=== PATIENT | male | born 1960 | race Caucasian/White ===

== ENCOUNTER 2019-04-28 09:08 | Emergency (ER) | payer MEDICARE ==
--- NOTE | 2019-04-28 09:51 | ER Document Report ---
HPI - HPI Time Seen by Provider: 04/28/19 09:50 Pain Level: 5 Notes: 58-year-old male presents to the ED for complaints of right rib pain that has been approximately 3 days ago while he was moving a recliner, states there is he fell into the recliner. Denies any head trauma or change in level consciousness. Reports that he has pain with taking breaths in and out on the right side only, point tenderness on the lateral side of his ribs. Has tried [id number] ibuprofen and Tylenol without full relief. Denies any other area of injury. Denies fevers, chills, chest pain,palpitations, shortness of breath, dyspnea, nausea, vomiting, diarrhea, abdominal pain, hematuria,blurred vision, double vision, loss of vision, speech changes, LH, dizziness, syncope, headaches, wheezing, ST, URI, neck pain, weakness, bowel or bladder dysfunction, saddle anesthesia, numbness or tingling in bilateral upper or lower extremities equally, muscle paralysis, weakness in bilateral upper or lower extremities equally or rash. Past Medical History - General Information source: Patient - Social History Smoking Status: Unknown if Ever Smoked Family History: Reviewed & Not Pertinent Vertical Provider Document - CONSTITUTIONAL Agree With Documented VS: Yes Notes: PHYSICAL EXAMINATION: GENERAL: Well-appearing, well-nourished and in no acute distress. HEAD: Atraumatic, normocephalic. EYES: Pupils equal round and reactive to light, extraocular movements intact, sclera anicteric, conjunctiva are normal. ENT: Nares patent, oropharynx clear without exudates. Moist mucous membranes. NECK: Normal range of motion, supple without lymphadenopathy LUNGS: Breath sounds clear to auscultation bilaterally and equal. No wheezes rales or rhonchi. Tenderness to right intercostal space between eighth ninth 10th ribs on palpation, no step-off noted, no ecchymosis visualized. HEART: Regular rate and rhythm without murmurs ABDOMEN: Soft, nontender, nondistended abdomen. No guarding, no rebound. No masses appreciated. No CVA tenderness bilaterally Musculoskeletal: Normal range of motion, no pitting or edema. No cyanosis. NEUROLOGICAL: Cranial nerves grossly intact. Normal speech, normal gait. Normal sensory, motor exams PSYCH: Normal mood, normal affect. SKIN: Warm, Dry, normal turgor, no rashes or lesions noted. - INFECTION CONTROL TRAVEL OUTSIDE OF THE [place] IN LAST 30 DAYS: No Course - Re-evaluation Re-evalutation: 04/28/19 11:56 Patient presents after falling onto their ribs, complaining of focal pain to the affected area. No tachypnea or hypoxemia at time of arrival. Pain controlled here in the emergency department with narcotic and anti-inflammatory analgesics. Chest x-ray without evidence of acute fracture, pneumothorax or pulmonary contusion. At this time will discharge with return precautions and follow-up recommendations. Verbal discharge instructions given at the bedside and opportunity for questions given. Medication warnings reviewed. Patient is in agreement with this plan and has verbalized understanding of return precautions and the need for primary care follow-up in the next 24-72 hours. Discharge - Discharge Clinical Impression: Contusion of rib on right side Condition: Stable Disposition: HOME, SELF-CARE Instructions: Oral Narcotic Medication ([facility]), Rib Contusion ([facility]) Additional Instructions: Your chest wall pain is due to bruising of your ribs. This pain can last for up to 6 weeks. It is very important that you continue to take purposeful deep breaths. For your pain: Continue to take ibuprofen 600 mg every 6 hours or Tylenol 1000 mg every 6 hours. Apply local lidocaine to the area per bottle instructions. There is a product sold [id number] called "Aspercreme with lidocaine" that you can use for this purpose. Please follow-up with her primary care doctor in the next 2-3 days. Return to the emergency department immediately if you develop worsening shortness of breath, increased pain, begin coughing blood, pass out, or have any other symptoms that are worrisome to you. Use incentive spirometer as directed, 10 deep breaths an hour, cough at least twice an hour. Apply pressure when you are coughing or splinting to where it hurts to help relieve pain. Return immediately for any new or worsening symptoms. Follow up with primary care provider, call tomorrow to make followup appoin tment. Prescriptions: Ibuprofen [Ibu] 600 mg PO Q6HP PRN #20 tablet PRN Reason: Methocarbamol [Robaxin 500 mg Tablet] 500 mg PO QID PRN #15 tablet PRN Reason: Referrals: JULIA FLOREZ MD [Primary Care Provider] - Follow up tomorrow MIRA KNOX MD [ACTIVE STAFF] - Follow up as needed
[2019-04-28] MEDS ORDERED: KETOROLAC TROMETHAMINE 60 MG/2 ML SDV IM ONE (10:35)
--- NOTE | 2019-04-28 11:36 | RADIOLOGY REPORT (SQ) ---
EXAM DESCRIPTION: RIBS RIGHT W/PA CHEST COMPLETED DATE/TIME: 04/28/2019 11:15 am REASON FOR STUDY: rib injury COMPARISON: None. TECHNIQUE: Frontal view of the chest and additional views of the right ribs acquired. NUMBER OF VIEWS: PA chest. Three-view right rib detail LIMITATIONS: None. FINDINGS: FRONTAL CXR: No acute infiltrates or effusions. The heart and pulmonary vasculature are n ormal. No pneumothorax. RIBS: No displaced rib fractures. No lytic or blastic bony lesions. OTHER: Dorsal spondylosis. Degenerative changes at the AC joints. IMPRESSION: Normal right ribs. No acute disease. TECHNICAL DOCUMENTATION: JOB ID: [id number] 2010 [employer]- All Rights Reserved Reading location - IP/workstation name: [email or web address]
[2019-04-28] MEDS ORDERED: HYDROCODONE/ACETAMINOPHEN 5-325 MG (6 TAB/ER DISP) PO PRN (11:38)
[2019-04-28 12:11] VITALS: BP 133/80
== END 2019-04-28 12:05 | disposition home or self-care (01) ==
LOC: ER 09:08
DX: S20.211A Contusion of right front wall of thorax, initial encounter (principal); W18.30XA Fall on same level, unspecified, initial encounter; Y92.009 Unspecified place in unspecified non-institutional (private) residence as the place of occurrence of the external cause
CPT/HCPCS: 99283; 96372; 71101; J1885

== ENCOUNTER 2019-05-03 14:26 | Emergency (ER) | payer MEDICARE ==
--- NOTE | 2019-05-03 15:07 | ER Document Report ---
ED Medical Screen (RME) - General Chief Complaint: Flank Pain Stated Complaint: RIGHT SIDE AND BACK PAIN Time Seen by Provider: 05/03/19 15:01 Primary Care Provider: JULIA FLOREZ MD [Primary Care Provider] - Follow up as needed Notes: Patient is a 4-year-old male presents to the emergency department for bilateral lower extremity swelling. Patient states he was seen at this facility on April 28 for pain in his right back after furniture fell on him. Patient states he was told to follow-up with his primary care provider. States primary care provider gave him "nothing for pain." Patient states he is concerned because he continues with pain in his right side but now is also having bilateral lower extremity swelling. Patient states he does have a history of CHF is denying any chest pain but states "I am not breathing like I normally do." Although he is really denying shortness of breath. Patient is unable to explain to me what he means about him breathing not like he "normally does". GENERAL: Alert, interacts well. No acute distress. LUNGS: Clear to auscultation bilaterally, no wheezes, rales, or rhonchi. No respiratory distress. I have greeted and performed a rapid initial assessment of this patient. A comprehensive ED assessment and evaluation of the patient, analysis of test results and completion of the medical decision making process will be conducted by additional ED providers. I have specifically instructed the patient or family members with the patient to immediately return to any nursing staff should anything change in the patient's condition or with their chief complaint. This medical record was dictated with voice recognizing software. There may be grammatical, syntax errors that are unintended. TRAVEL OUTSIDE OF THE [place] IN LAST 30 DAYS: No - Related Data Allergies/Adverse Reactions: No Known Allergies Allergy (Verified 05/03/19 14:27) Past Medical History - Social History Frequency of alcohol use: None Drug Abuse: None - Past Medical History Cardiac Medical History: Reports: Hx Congestive Heart Failure, Hx Heart Attack, Hx Hypertension Endocrine Medical History: Reports: Hx Diabetes Mellitus Type 2 Renal/ Medical History: Denies: Hx Peritoneal Dialysis Past Surgical History: Reports: Hx Cardiac Catheterization Physical Exam - Vital signs Vitals: Temp Pulse Resp BP Pulse Ox 98.6 F 96 18 152/80 H 99 05/03/19 14:31 05/03/19 14:31 05/03/19 14:31 05/03/19 14:31 05/03/19 14:31 Course - Vital Signs Vital signs: Temp Pulse Resp BP Pulse Ox 98.6 F 96 18 152/80 H 99 05/03/19 14:31 05/03/19 14:31 05/03/19 14:31 05/03/19 14:31 05/03/19 14:31 Doctor's Discharge - Discharge Referrals: JULIA FLOREZ MD [Primary Care Provider] - Follow up as needed
--- NOTE | 2019-05-03 15:29 | ER Document Report ---
ED General - General Chief Complaint: Flank Pain Stated Complaint: RIGHT SIDE AND BACK PAIN Time Seen by Provider: 05/03/19 15:01 Primary Care Provider: JULIA FLOREZ MD [Primary Care Provider] - 05/07/19 Mode of Arrival: Ambulatory Information source: Patient Notes: Emanuel Salinas 58-year-old male presents emergency department with complaints of right-sided pain to the middle of his back, bilateral foot pain. He reports he fell last week when he was trying to move a recliner and landed in the dirt. He was evaluated here in the emergency department and x-rays were negative he was treated for contusion of the ribs. Patient reports that since that time is been hurting. Also reports he vomited once today, a lot. Patient is asking if he can drink fluids now, no further nausea. He is asking for something for pain. Reports he was placed on disability since he was 40-year-old's for back pain. Patient reports he was in pain management until approximately 6 months ago. He reports he violated the contract because he was hurting so bad he went to the emergency department they treated him for pain and then his pain hotel assistant general manager provider dropped him. He has to wait 6 months to get back into pain management. Reports this back pain is different. Patient reports after he was evaluated here in the emergency department for his contused rib he went to see his primary care provider because his feet have been hurting.Patient is a diabetic. His provider increased his gabapentin. Patient reports his feet still hurt. He also complains that his feet are swelling bilaterally. Denies chest pain. Denies shortness of breath. TRAVEL OUTSIDE OF THE [place] IN LAST 30 DAYS: No - HPI Onset: Last week Onset/Duration: Persistent Severity: Severe Pain Level: 5 Associated symptoms: Vomiting Exacerbated by: Denies Relieved by: Denies Similar symptoms previously: Yes Recently seen / treated by doctor: Yes - Related Data Allergies/Adverse Reactions: No Known Allergies Allergy (Verified 05/03/19 14:27) Past Medical History - General Information source: Patient - Social History Smoking Status: Former Smoker Cigarette use (# per day): No - quit13 years ago Frequency of alcohol use: None Drug Abuse: None Occupation: Disabled Lives with: Family Family History: Reviewed & Not Pertinent Patient has suicidal ideation: No Patient has homicidal ideation: No - Past Medical History Cardiac Medical History: Reports: Hx Congestive Heart Failure, Hx Heart Attack, Hx Hypertension Endocrine Medical History: Reports: Hx Diabetes Mellitus Type 2 Renal/ Medical History: Denies: Hx Peritoneal Dialysis Malignancy Medical History: Reports Hx Renal (Kidney) Cancer, Reports Hx Skin Cancer Past Surgical History: Reports: Hx Cardiac Catheterization, Hx Kidney (Renal Surgery) - right nephrectomy Review of Systems - Review of Systems Notes: Review HPI for review of systems., All other systems negative Physical Exam - Vital signs Vitals: Temp Pulse Resp BP Pulse Ox 98.6 F 96 18 152/80 H 99 05/03/19 14:31 05/03/19 14:31 05/03/19 14:31 05/03/19 14:31 05/03/19 14:31 - General General appearance: Appears well, Alert, Anxious In distress: None - HEENT Head: Normocephalic, Atraumatic Eyes: Normal, Scleral icterus Mucous membranes: Normal Neck: Normal, Supple. No: Lymphadenopathy - Respiratory Respiratory status: No respiratory distress Chest status: Nontender Breath sounds: Normal. No: Rhonchi, Wheezing Chest palpation: Normal - Cardiovascular Rhythm: Regular Heart sounds: Normal auscultation Murmur: No - Abdominal Inspection: Normal Distension: No distension Bowel sounds: Normal Tenderness: Nontender Organomegaly: No organomegaly - Back Back: Normal, Tender - No obvious deformity no swelling no erythema good distal movement and sensation. Patient complains of right middle back area pain with touch. - Extremities General upper extremity: Normal color, Normal ROM, Normal temperature General lower extremity: Tender - Reports bilateral feet tender to touch. No obvious deformities no swelling no erythema no warmth no signs of infection. Cap refill normal for age good pedal pulse, Normal color, Normal ROM, Normal temperature, Normal weight bearing - Neurological Neuro grossly intact: Yes Cognition: Normal Orientation: AAOx4 [place] Coma Scale Eye Opening: Spontaneous [place] Coma Scale Verbal: Oriented [place] Coma Scale Motor: Obeys Commands [place] Coma Scale Total: 15 Speech: Normal Sensory: Normal - Psychological Associated symptoms: Normal affect, Normal mood - Skin Skin Temperature: Warm Skin Moisture: Dry Skin Color: Normal Course - Re-evaluation Re-evalutation: 05/03/19 18:15 58-year-old male with multiple complaints presents today with complaints of bilateral feet pain due to his diabetes and neuropathy with right side of his back hurts. Patient was evaluated on April 28 for rib injury after he fell when he was trying to move a recliner. Chest x-rays were negative. Patient was instructed on contusion. He never picked up the Aspercreme. Patient reports is still hurting. Patient denies other symptoms such as chest pain, SOB, abdominal pain, fever or diarrhea but reports he vomited prior to arrival. He is not nauseated now, drinking PO fluids without problem. Patient has a history of kidney cancer and right nephrectomy patient also has a history of skin cancers, [place], CAD, CHF. CT of the chest was done right middle lobe and left lobe lower lobe ground nodularities noted with mild emphysema noted. Patient has a long history of smoking but quit 13 years ago Renal function with BUN of 27 creatinine is 1.93 and BNP of 2180. Chest x-ray and CT were negative for vascular congestion. Discussed this with patient. He reports he has had issues with his kidneys. He has a kidney doctor in [place]. He reports he has been told his renal function is not 100%. Patient was prescribed 1 5 mg hydrocodone for his back pain while here. He reports the pain has decreased from 5/5 to 4/5. Patient has a history of back pain and was recently on pain management until approximately 6 months ago. He was prescribed 7.5 mg hydrocodone 120 tabs a month. He reports he broke his contract when he went to the ED for back pain so he was disengaged from pain management. Consulted Dr. Lexus Madera regarding labs, renal function BNP, CT. Pt is safe to be discharged and follow up with his pcp on . Patient reports he has an appointment with his primary care provider on . He will be provided with a copy of his labs and his CT. He was instructed he is going to need another follow-up CT within the next 3 months. He was also instructed to discuss his kidney function with his primary care provider. Lidoderm patch will be placed on his back. If that helps we will prescribe some patches. Patient was also instructed that at this time we cannot prescribe him narcotics. Then he is to follow-up with his primary care provider or pain management for narcotics. He verbalized understanding. Dictation of this chart was performed using voice recognition software; therefore, there may be some unintended grammatical errors. 05/03/19 20:03 Laboratory 05/03/19 05/03/19 05/03/19 15:20 15:20 15:20 WBC 6.1 RBC 3.47 L Hgb 11.3 L Hct 34.0 L MCV 98 H MCH 32.4 MCHC 33.1 RDW 16.2 H Plt Count 180 Total Counted 100 Seg Neutrophils % Not Reportable Seg Neuts % (Manual) 54 Lymphocytes % Not Reportable Lymphocytes % (Manual) 34 Monocytes % Not Reportable Monocytes % (Manual) 11 Eosinophils % Not Reportable Eosinophils % (Manual) 1 Basophils % Not Reportable Basophils % (Manual) 0 Absolute Neutrophils Not Reportable Abs Neuts (Manual) 3.3 Absolute Lymphocytes Not Reportable Abs Lymphs (Manual) 2.1 Absolute Monocytes Not Reportable Abs Monocytes (Manual) 0.7 Absolute Eosinophils Not Reportable Absolute Eos (Manual) 0.1 Absolute Basophils Not Reportable Abs Basophils (Manual) 0.0 Platelet Comment ADEQUATE Polychromasia SLIGHT Poikilocytosis 1+ Anisocytosis 1+ Tear Drop Cells SLIGHT Ovalocytes 1+ Sodium 146.5 H Potassium 4.6 Chloride 117 H Carbon Dioxide 22 Anion Gap 8 BUN 27 H Creatinine 1.93 H Est GFR ( Amer) 43 L Est GFR (Non-Af Amer) 36 L Glucose 161 H Calcium 8.8 Total Bilirubin 0.4 Direct Bilirubin 0.3 Neonat Total Bilirubin Not Reportable Neonat Direct Bilirubin Not Reportable Neonat Indirect Bili Not Reportable AST 38 ALT 34 Alkaline Phosphatase 64 Troponin I < 0.012 NT-Pro-B Natriuret Pep 2180 H Total Protein 6.9 Albumin 3.8 Urine Color Urine Appearance Urine pH Ur Specific [place] Urine Protein Urine Glucose (UA) Urine Ketones Urine Blood Urine Nitrite Urine Bilirubin Urine Urobilinogen Ur Leukocyte Esterase Urine WBC (Auto) Urine RBC (Auto) Squamous Epi Cells Auto Urine Mucus (Auto) Urine Ascorbic Acid 05/03/19 15:20 WBC RBC Hgb Hct MCV MCH MCHC RDW Plt Count Total Counted Seg Neutrophils % Seg Neuts % (Manual) Lymphocytes % Lymphocytes % (Manual) Monocytes % Monocytes % (Manual) Eosinophils % Eosinophils % (Manual) Basophils % Basophils % (Manual) Absolute Neutrophils Abs Neuts (Manual) Absolute Lymphocytes Abs Lymphs (Manual) Absolute Monocytes Abs Monocytes (Manual) Absolute Eosinophils Absolute Eos (Manual) Absolute Basophils Abs Basophils (Manual) Platelet Comment Polychromasia Poikilocytosis Anisocytosis Tear Drop Cells Ovalocytes Sodium Potassium Chloride Carbon Dioxide Anion Gap BUN Creatinine Est GFR ( Amer) Est GFR (Non-Af Amer) Glucose Calcium Total Bilirubin Direct Bilirubin Neonat Total Bilirubin Neonat Direct Bilirubin Neonat Indirect Bili AST ALT Alkaline Phosphatase Troponin I NT-Pro-B Natriuret Pep Total Protein Albumin Urine Color STRAW Urine Appearance CLEAR Urine pH 5.0 Ur Specific [place] 1.011 Urine Protein NEGATIVE Urine Glucose (UA) 150 H Urine Ketones NEGATIVE Urine Blood SMALL H Urine Nitrite NEGATIVE Urine Bilirubin NEGATIVE Urine Urobilinogen NEGATIVE Ur Leukocyte Esterase NEGATIVE Urine WBC (Auto) 1 Urine RBC (Auto) 1 Squamous Epi Cells Auto <1 Urine Mucus (Auto) RARE Urine Ascorbic Acid NEGATIVE Chest X-Ray 05/03/19 15:05 IMPRESSION: NO ACUTE RADIOGRAPHIC FINDING IN THE CHEST. Chest CT 05/03/19 16:06 IMPRESSION: 1. Ground nodularities at the right middle lobe and left lower lobe, may be secondary to acute infection/inflammation. Followup CT chest in 3 months recommended to re-evaluate. 2. Mild emphysema. - Vital Signs Vital signs: Temp Pulse Resp BP Pulse Ox 98.6 F 96 15 146/97 H 100 05/03/19 14:31 05/03/19 14:31 05/03/19 18:01 05/03/19 18:01 05/03/19 18:01 - Laboratory Result Diagrams: 05/03/19 15:20 05/03/19 15:20 Laboratory results interpreted by me: 05/03/19 05/03/19 05/03/19 15:20 15:20 15:20 RBC 3.47 L Hgb 11.3 L Hct 34.0 L MCV 98 H RDW 16.2 H Sodium 146.5 H Chloride 117 H BUN 27 H Creatinine 1.93 H Est GFR ( Amer) 43 L Est GFR (Non-Af Amer) 36 L Glucose 161 H NT-Pro-B Natriuret Pep 2180 H Urine Glucose (UA) Urine Blood 05/03/19 15:20 RBC Hgb Hct MCV RDW Sodium Chloride BUN Creatinine Est GFR ( Amer) Est GFR (Non-Af Amer) Glucose NT-Pro-B Natriuret Pep Urine Glucose (UA) 150 H Urine Blood SMALL H - Diagnostic Test Radiology reviewed: Image reviewed, Reports reviewed - EXAM DESCRIPTION: CT CHEST WITHOUT COMPLETED DATE/TIME: 05/03/2019 4:24 pm REASON FOR STUDY: upper back pain . Recent fall with pain right lateral chest. COMPARISON: Chest x-ray 05/03/2019. Right rib series 04/28/2019. TECHNIQUE: CT scan performed of the chest without intravenous contrast. Images reviewed with lung, soft tissue and bone windows. Reconstructed coronal and sagittal MPR images reviewed. All images stored on PACS. All CT scanners at this facility use dose modulation, i terative reconstruction, and/or weight based dosing when appropriate to reduce radiation dose to as low as reasonably achievable (ALARA). [facility]: Dose Right [facility]: CareDose [facility]: Dose Right [facility]: Teradose 4D [facility]: [employer] RADIATION DOSE: CT Rad equipment meets quality standard of care and radiation dose reduction techniques were employed. CTDIvol: 14.9 mGy. DLP: 599 mGy-cm. mGy. LIMITATIONS: No technical limitations. FINDINGS: LUNGS AND PLEURA: No consolidation, pneumothorax or pleural effusion. Ground-glass nodularities are noted at the right middle lobe and left lower lobe. Mild emphysematous changes at the bilateral lung apices. HILAR AND MEDIASTINAL STRUCTURES: No identified masses or abnormal nodes. No pneumomediastinum or mediastinal hematoma. HEART AND VASCULAR STRUCTURES: No thoracic aortic aneurysm. No pericardial effusion. Coronary arteries calcifications are present. UPPER ABDOMEN: No significant findings. Limited exam. BONES: No displaced fracture is noted at the sternum or ribs. Multilevel degenerative changes at the spine. Orthopedic hardware at the lower cervical spine. HARDWARE: None in the chest. IMPRESSION: 1. Ground nodularities at the right middle lobe and left lower lobe, may be secondary to acute infection/inflammation. Followup CT chest in 3 months recommended to re- evaluate. 2. Mild emphysema. TECHNICAL DOCUMENTATION: JOB ID: [id number] Quality ID # [id number]: Final reports with documentation of one or more dose reduction techniques (e.g., Automated exposure control, adjustment of the mA and/or kV according to patient size, use of iterative reconstruction technique) 2010 [employer]- All Rights Reserved Reading location - IP/workstation name: [email or web address] Dictated by: SEKOU MAY DO [id number] CC: FIFI REID NP > 05/03/19 1651 Principal Membership Assistant Name: SEKOU MAY Provider ID: [email or web address] Discharge - Discharge Clinical Impression: Bilateral foot pain Right-sided back pain Qualifiers: Back pain location: thoracic back pain Chronicity: unspecified Qualified Code(s): M54.6 - Pain in thoracic spine Condition: Stable Disposition: HOME, SELF-CARE Additional Instructions: *You have been evaluated for back pain with history of contusion, bilateral foot pain with history of neuropathy *Apply the lidoderm patch as prescribed *Rest , do not lift heavy objects *Monitor your weight *Follow up with a primary care provider as scheduled. Take a copy of your labs and CT report with you for review. *Return to ED for worsening condition, changes, needs, difficulty breathing, concerns Monitor your blood pressure. Your blood pressure was elevated today. This may be because you were anxious, in pain or because you need medication. It is important to follow up with your primary care provider for full evaluation. Prescriptions: Lidocaine [Lidoderm 5% (700 mg) Transdermal Patch] 1 patch TP DAILY #30 adh..patch Forms: Elevated Blood Pressure Referrals: JULIA FLOREZ MD [Primary Care Provider] - 05/07/19
--- NOTE | 2019-05-03 15:42 | RADIOLOGY REPORT (SQ) ---
EXAM DESCRIPTION: CHEST 2 VIEWS COMPLETED DATE/TIME: 05/03/2019 3:32 pm REASON FOR STUDY: SOB COMPARISON: None. EXAM PARAMETERS: NUMBER OF VIEWS: two views TECHNIQUE: Digital Frontal and Lateral radiographic views of the chest acquired. RADIATION DOSE: NA LIMITATIONS: none FINDINGS: LUNGS AND PLEURA: No opacities, masses or pneumothorax. No pleural effusion. MEDIASTINUM AND HILAR STRUCTURES: No masses or contour abnormalities. HEART AND VASCULAR STRUCTURES: Heart normal size. No evidence for failure. BONES: No acute findings. HARDWARE: None in the chest. OTHER: No other significant finding. IMPRESSION: NO ACUTE RADIOGRAPHIC FINDING IN THE CHEST. TECHNICAL DOCUMENTATION: JOB ID: [id number] [employer]- All Rights Reserved Reading location - IP/workstation name: [email or web address]
[2019-05-03 15:47] LABS: APPEARANCE,URINE CLEAR; BILIRUBIN,URINE NEGATIVE (NEGATIVE); COLOR,URINE STRAW; GLUCOSE, URINE 150 mg/dL (NEGATIVE); KETONES,URINE NEGATIVE (NEGATIVE); LEUKOCYTE ESTERASE,URINE NEGATIVE (NEGATIVE); NITRITE,URINE NEGATIVE (NEGATIVE); PROTEIN,URINE NEGATIVE (NEGATIVE); URINE SPECIFIC GRAVITY 1.011; UROBILINOGEN,URINE NEGATIVE mg/dL (<2.0)
[2019-05-03 15:50] LABS: HEMOGLOBIN 11.3 g/dL (13.5-17.0); MEAN CORPUSCULAR HEMOGLOBIN 32.4 pg (27.0-33.4); MEAN CORPUSCULAR HGB CONC 33.1 g/dL (32.0-36.0); MEAN CORPUSCULAR VOLUME 98 fl (80-97); PLATELET COUNT 180 10^3/uL (150-450); RED BLOOD COUNT 3.47 10^6/uL (4.35-5.55); RED CELL DISTRIBUTION WIDTH 16.2 % (11.5-14.0); WHITE BLOOD COUNT 6.1 10^3/uL (4.0-10.5)
[2019-05-03 15:56] LABS: ALANINE AMINOTRANSFERASE 34 U/L (21-72); ALBUMIN 3.8 g/dL (3.5-5.0); ALKALINE PHOSPHATASE 64 U/L (38-126); ANION GAP 8 (5-19); ASPARTATE AMINO TRANSFERASE 38 U/L (17-59); BILIRUBIN,DIRECT 0.3 mg/dL (0.0-0.4); BILIRUBIN,TOTAL 0.4 mg/dL (0.2-1.3); BLOOD UREA NITROGEN 27 mg/dL (7-20); CALCIUM 8.8 mg/dL (8.4-10.2); CARBON DIOXIDE 22 mmol/L (22-30); CHLORIDE 117 mmol/L (98-107); GLUCOSE 161 mg/dL (75-110); POTASSIUM 4.6 mmol/L (3.6-5.0); SODIUM 146.5 mmol/L (137-145); TOTAL PROTEIN 6.9 g/dL (6.3-8.2)
[2019-05-03] MEDS ORDERED: HYDROCODONE/ACETAMINOPHEN 5-325 MG TABLET PO ONE (16:06)
[2019-05-03 16:07] LABS: ABSOLUTE LYMPHOCYTES# (MANUAL) 2.1 10^3/uL (0.5-4.7); ABSOLUTE MONOCYTES # (MANUAL) 0.7 10^3/uL (0.1-1.4); BASOPHILS % (MANUAL) 0 % (0-2); EOSINOPHILS % (MANUAL) 1 % (0-6); LYMPHOCYTES % (MANUAL) 34 % (13-45); MONOCYTES % (MANUAL) 11 % (3-13); SEGMENTED NEUTROPHILS % (MAN) 54 % (42-78); TOTAL CELLS COUNTED 100
[2019-05-03 16:08] LABS: NT PRO BNP 2180 pg/mL (5-900); POLYCHROMASIA SLIGHT
[2019-05-03 16:09] LABS: ANISOCYTOSIS 1+; OVALOCYTES 1+; PLATELET COMMENT ADEQUATE; POIKILOCYTOSIS 1+; TEAR DROP CELLS SLIGHT
[2019-05-03 16:14] LABS: TROPONIN I < 0.012 ng/mL
--- NOTE | 2019-05-03 16:51 | RADIOLOGY REPORT (SQ) ---
EXAM DESCRIPTION: CT CHEST WITHOUT COMPLETED DATE/TIME: 05/03/2019 4:24 pm REASON FOR STUDY: upper back pain . Recent fall with pain right lateral chest. COMPARISON: Chest x-ray 05/03/2019. Right rib series 04/28/2019. TECHNIQUE: CT scan performed of the chest without intravenous contrast. Images reviewed with lung, soft tissue and bone windows. Reconstructed coronal and sagittal MPR images reviewed. All images st ored on PACS. All CT scanners at this facility use dose modulation, iterative reconstruction, and/or weight based d osing when appropriate to reduce radiation dose to as low as reasonably achievable (ALARA). [facility]: Dose Right [facility]: CareDose [facility]: Dose Right [facility]: Teradose 4D [facility]: [employer] RADIATION DOSE: CT Rad equipment meets quality standard of care and radiation dose reduction techniq ues were employed. CTDIvol: 14.9 mGy. DLP: 599 mGy-cm. mGy. LIMITATIONS: No technical limitations. FINDINGS: LUNGS AND PLEURA: No consolidation, pneumothorax or pleural effusion. Ground-glass nodula rities are noted at the right middle lobe and left lower lobe. Mild emphysematous changes at the anamaria ateral lung apices. HILAR AND MEDIASTINAL STRUCTURES: No identified masses or abnormal nodes. No pneumomediastinum or me diastinal hematoma. HEART AND VASCULAR STRUCTURES: No thoracic aortic aneurysm. No pericardial effusion. Coronary arter ies calcifications are present. UPPER ABDOMEN: No significant findings. Limited exam. BONES: No displaced fracture is noted at the sternum or ribs. Multilevel degenerative changes at the spine. Orthopedic hardware at the lower cervical spine. HARDWARE: None in the chest. IMPRESSION: 1. Ground nodularities at the right middle lobe and left lower lobe, may be secondary t o acute infection/inflammation. Followup CT chest in 3 months recommended to re-evaluate. 2. Mild emphysema. TECHNICAL DOCUMENTATION: JOB ID: [id number] Quality ID # [id number]: Final reports with documentation of one or more dose reduction techniques (e.g., Au tomated exposure control, adjustment of the mA and/or kV according to patient size, use of iterative reconstruction technique) 2010 [employer] All Rights Reserved Reading location - IP/workstation name: [email or web address]
[2019-05-03] MEDS ORDERED: LIDOCAINE 5% (700 MG) TRANSDERMAL ADH..PATCH TP ONE (18:13)
[2019-05-03 18:29] VITALS: BP 146/97
--- NOTE | 2019-05-03 19:06 | EKG REPORT ---
SEVERITY:- NORMAL ECG - SINUS RHYTHM : Confirmed by: Brittney Harman MD 03-May-2019 19:06:12
== END 2019-05-03 18:32 | disposition home or self-care (01) ==
LOC: ER 14:26
DX: M54.6 Pain in thoracic spine (principal); M79.671 Pain in right foot; M79.672 Pain in left foot; R10.9 Unspecified abdominal pain; R11.10 Vomiting, unspecified; M54.9 Dorsalgia, unspecified; M79.89 Other specified soft tissue disorders; W19.XXXA Unspecified fall, initial encounter; E11.9 Type 2 diabetes mellitus without complications; Z87.891 Personal history of nicotine dependence; I50.9 Heart failure, unspecified; I11.0 Hypertensive heart disease with heart failure
CPT/HCPCS: 93005; 99284; 36415; 85025; 80053; 81001; 84484; 83880; 71046; 71250; 93010; A9270

== ENCOUNTER 2019-05-18 19:48 | Inpatient (IN) | payer MEDICARE ==
--- NOTE | 2019-05-18 20:17 | ER Document Report ---
HPI - HPI Patient complains to provider of: fever, vomiting, myalgias, and diarrhea Time Seen by Provider: 05/18/19 20:14 Onset: Other - 2-3 days Onset/Duration: Gradual, Constant, Worse Quality of pain: Achy Severity: Moderate Pain Level: 3 Context: This is a 58-year-old male with the listed past medical history here for a plethora of complaints mostly to include fever, rigors, myalgias, a few episodes of nonbloody nonbilious vomiting, and nonbloody diarrhea for the last 2 days. Also states has had an intermittent cough that has nearly resolved, one episode of possible blood tinged sputum per a day or so ago. none since. denies abd pain. no hx of this before. hx of kidney cancer per at bedside who initially states they were told secondary to pts biopsy's and multiple kidney surgeries he only has one kidney left and had a nephrectomy- she isn't sure which side, but on his ct scan today he has two physically present kidneys, they appear atypical however upon my review so this hx is uncertain as to whether only one kidney is functional or if pt and misunderstood kidney surgery for nephrectomy. Denies tick bites or rash. No headache or neck pain. No UTI symptoms. Does have some pain over his right flank/lower ribs. He was seen and evaluated here 2 weeks ago after he had an accidental mechanical fall gently onto the area and he had a negative CT of his chest other than some ground glass opacity in the right middle lobe and left lower lobe which could represent infection versus inflammation per rad and reviewed by myself. rad also commented on emphysema but was otherwise neg. he wasn't given any abx or steroids then and was only dc'd on lidocaine patches and told to f/u with pcp for a repeat ct chest in 3 mths. he hasn't had a pet scan before. he isn't on home o2. denies uri complaints. no prior hx of renal stones. he still makes urine but some times has a hard time starting and continuing his stream per at bedside. he denies testicular pain/swelling/dc, or concerns for stds. denies penile lesions. no abd surgeries. no recent abx or steroids. no hx of asthma. states hx of diabetes and sugars have been running high for a while in the low 300s. states he hasn't really been that compliant with his meds. pcp is in [place]-dr martinez. states he has his initial apt with oncology-dr wells, to decide tx plan may 27 for his renal ca. states two days ago when his fever was high at home he seemed like he was "talking out of his head" like he wasn't making sense but that has since resolved and hasn't returned. they haven't sought care until now. no fall or trauma. no blood thinners. no other changes in neurologic other than per pt has just become more weak all over and deconditioned to the point he only minimally ambulates with a cane now and has had a fair amt of decreased po intake concerning for dehydration. no prior or current radiation or chemo. no hx of known mets. no sick contacts. states can only take tylenol and no nsaids due to renal issues. no other complaints at this time. 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 denies recent head injury. no changes in meds or diet. no hx of depression. Associated Symptoms: Body/muscle aches, Productive cough, Diarrhea, Fever, Nausea, Vomiting, Sweating, Weakness Exacerbated by: Standing, Movement, Walking Relieved by: Supine, Remaining still Similar symptoms previously: No Recently seen / treated by doctor: No - ROS Systems Reviewed and Negative: Yes All other systems reviewed and negative - to include 10 systems, unless mentioned in the hpi - DERM Skin Color: Normal Past Medical History - General Information source: Patient, Relative - - Social History Smoking Status: Former Smoker Chew tobacco use (# tins/day): No Frequency of alcohol use: None Drug Abuse: None Lives with: Spouse/Significant other - Family History: Reviewed & Not Pertinent Patient has suicidal ideation: No Patient has homicidal ideation: No - Past Medical History Cardiac Medical History: Reports: Hx Congestive Heart Failure, Hx Coronary Artery Disease, Hx Heart Attack, Hx Hypercholesterolemia, Hx Hypertension Denies: Hx Atrial Fibrillation, Hx DVT, Hx Pulmonary Embolism Pulmonary Medical History: Reports: Hx COPD - not on home O2 Denies: Hx Sleep Apnea Neurological Medical History: Reports: Hx Seizures. Denies: Hx Cerebrovascular Accident Endocrine Medical History: Reports: Hx Diabetes Mellitus Type 2 - poorly controlled. Denies: Hx Hypothyroidism Renal/ Medical History: Denies: Hx Hemodialysis, Hx Kidney Stones, Hx Peritoneal Dialysis Malignancy Medical History: Reports Hx Renal (Kidney) Cancer - s/p partial nephrectomy and renal surgeries., Reports Hx Skin Cancer GI Medical History: Reports: Hx Gastroesophageal Reflux Disease Infectious Medical History: Denies: Hx C-Diff, Hx Hepatitis, Hx HIV Past Surgical History: Reports: Hx Cardiac Catheterization, Hx Kidney (Renal Surgery) - partial right nephrectomy, Other - skin cancer removal - Immunizations Immunizations up to date: Yes Vertical Provider Document - CONSTITUTIONAL Notes: GENERAL_APPEARANCE: well_nourished, alert, cooperative, mild obvious discomfort. Pleasant, obese middle aged white male, who appears slightly older than stated age, diaphoretic and unwell appearing but not toxic, speaking in full sentences, in no sign of pain or resp distress, easily sitting up. family at bedside VITALS: reviewed, see vital signs table. HEAD: normocephalic and atraumatic, no raccoon eyes, no riddle signs. no swelling or ttp. EARS: canals_clear_bilat, TMs_clear, no_discharge_from_ears. no hemotympanum EYES: EOMI without pain, conjunctiva_clear. PERRL, eyelids wnl. no drainage. no ttp or crepitation of the orbits. no sign of orbital/periorbital cellulitis. no hyphema. no photophobia MOUTH: no_lacerations inside_mouth. no broken teeth. no tmj clicking or ttp. pharynx wnl. tongue protrudes midline. no drooling, tripoding, voice change, or stridor, oral thrush, but no other oral lesions. no tongue or lip swelling. NOSE: no drainage or epistaxis NECK: no_swelling\\tenderness on the neck. no midline bony tenderness. no step offs or deformities. full rom. full strength. no meningeal signs. no sign of central cord syndrome. HEART: normal_rate, normal_rhythm, LUNGS: ctab. no chest wall ttp. no overlying skin changes. no flail chest or crepitation. ABDOMEN: normal_BS, soft, no_abd_tenderness, no rebound, guarding, distension, or peritoneal signs. no cva ttp. no overlying skin changes. BACK: no midline bony tenderness. no step offs or deformities RECTAL: deferred, however, no sign of loss of bowel or bladder or soiling of clothing. EXTREMITIES: strength 5/5 in all_extremities, good pulses all_extremities, no_abrasions\\lacerations in the extremities, no_swelling\\tenderness in the extremities. full rom. gait not assessed due to pt feeling dizzy and being a fall risk. good hand greenskeeper head. brisk cap refill. no shortening or rotation of the limbs or other signs of deformities unless otherwise noted. neg sana sign. SKIN: warm, slight diaphoretic and moist, good_color. no other grossly visible overlying skin changes or signs of trauma unless otherwise noted. NEURO: cranial nerves 2 - 12 intact, motor_intact, sensory_intact. cerebellar function intact GLASCOW_COMA_SCORE: (adult) - eyes_open_spontaneously_4, verbal_converses_and_oriented_5, motor_obeys_commands_6, glasgow_coma_total_15, MENTAL_STATUS: speech_clear, oriented_X_3, responds_appropriately to questions. - INFECTION CONTROL TRAVEL OUTSIDE OF THE [place] IN LAST 30 DAYS: No Course - Re-evaluation Re-evalutation: 05/18/19 23:18 Pt here for multiple complaints mostly to include fever with a T-max of 102.5 and diffuse myalgias for the last 2 to 3 days. has also had a few episodes of nonbloody nonbilious vomiting and nonbloody diarrhea. also has oral thrush on exam so nystatin swish and spit ordered. He states his sugars have been running higher however states he has had decreased p.o. intake. He had an occasional cough initially but states that resolved. No sick contacts. No tick bites. No UTI symptoms. He does state he has a history of renal cancer and is supposed to see oncology, Dr. Quick in [place] May 27 for initial appointment. He is not currently or previously on chemo or radiation. States he was told to avoid NSAIDs secondary to his kidney disease. He was here about 2 weeks ago after a fall to his right side and had some right posterior flank/mid back pain however the CT just showed questionable infection versus inflammation of the right middle lobe and left lower lobes and patient was discharged on lidocaine patches. He denies any chest pain or shortness of breath. No headache or neck pain. He was given Tylenol in route via EMS. States he does feel little dizzy occasionally that is positional like he is going to pass out and not like the room is spinning; however, he has not ate or drank much over the last couple days. His did say that his words were not making much sense about 2 days ago when he had a high fever at home and that resolved and only lasted briefly and hasn't returned. no other changes in neurologic other than per he has started walking with a different gait and having to use a cane and was leaning forward when he was walking which he usually does not do. He denies fall or trauma. he is able to ambulate minimally at baseline. His labs were notable for mild chronic anemia, acute kidney injury, mild elevated lipase, and mildly dehydrated urine. There is no acute UTI. Lactate was normal. Blood cultures x 2 and urine culture are pending. He did have a fever of 102.5 on presentation here and was diaphoretic and some what ill-appearing on initial presentation. After fluids, anti-emetics, tx here, and antibiotics initiated the patient did appear to have some improvement of his symptoms. he had no further vomiting while in the ed. he wasn't able to provide a stool sample in the ed. ekg unremarkable per review by dr guillermo burdick. His head CT and chest x-ray were negative per radiology and reviewed by myself for anything acute. His CT abdomen and pelvis without contrast secondary to his creatinine being 2.71 which is new for him, just showed a diarrheal illness but was otherwise negative for anything acute per radiology and reviewed by myself. Also of note the lower lung melgoza were imaged in his ct abd/pelv today and continue to show these ground glass opacities in the right middle lobe seen on previous chest CT done here 2 weeks ago per rad and reviewed by myself. Orthostatic vitals were ordered and pending at time of dictation; however, i suspect them to be positive. he is on a nitrate but no betablockers from what i can tell per pts hx. 2L LR running per advise by dr abhishek burdick-ed attending, along with initialization of sepsis protocol as pt has some sirs/sepsis criteria and initiating broad spectrum abx-vanco and zosyn and awaiting culture sensitivities for possible adjustment of abx. I did consult hospitalist, Dr. Salinas at 11 PM and he told me he would call me back to hear about the patient, he did call back around 11:35pm and then graciously agreed to accept the pt to their service for further workup and tx. care transferred to the hospitalist in stable condition. please refer to their note for further details of the visit. 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 vss. ill but not toxic appearing. satting well on ra. neurononfocal. pt understands and agrees to plan. On reexam, pt improved some with tx listed. remained stable. he appears ill but not toxic appearing. pain and nausea controlled. case discussed with ER Attending, Dr. guillermo burdick, who directed and agrees with plan of care and advised pt needs to be admitted for further workup to further investiage the etiology of his malik, fever of possible abd origin vs lungs vs uti vs unknown origin. Documentation achieved through voice recording which my lead to some occasional accidental typographical errors. Extensive efforts have been made to proof read documentation to make sure these are the least as possible. Category Date Time Status EKG Documentation STAT Care 05/18/19 20:02 Completed Orthostatic Vital Sign (ED) NOW Care 05/18/19 20:[address] ABD/PELVIS NO ORAL OR IV [CT] Stat Exams 05/18/19 21:[address] HEAD WITHOUT [CT] Stat Exams 05/18/19 21:19 Completed Chest PA LAT [CHEST 2 VIEWS] [RAD] Stat Exams 05/18/19 20:16 Completed ADD ON [ADD ON TESTING BLD IN LAB] [CHEM] Stat Lab 05/18/19 21:45 Completed BLOOD CULTURE [MC] Stat Lab 05/18/19 21:55 Received BNP (In-House) [NT PRO BNP] [CHEM] Stat Lab 05/18/19 20:15 Completed CBC WITH DIFF [HEME] Stat Lab 05/18/19 20:15 Completed COMPREHENSIVE METABOLIC PANEL [CHEM] Stat Lab 05/18/19 20:15 Completed CREATINE KINASE MB [CHEM] Stat Lab 05/18/19 20:15 Completed CREATINE KINASE [CHEM] Stat Lab 05/18/19 20:15 Completed LACTIC ACID SEPSIS [CHEM] Stat Lab 05/18/19 21:45 Completed LIPASE [CHEM] Stat Lab 05/18/19 20:15 Completed MAGNESIUM [CHEM] Stat Lab 05/18/19 20:15 Completed TROPONIN I [CHEM] Stat Lab 05/18/19 20:15 Completed URINALYSIS [URIN] Stat Lab 05/18/19 21:39 Completed URINE CULTURE [MC] Stat Lab 05/18/19 21:39 Received Ondansetron HCl/Pf [Zofran Inj/Pf 4 mg/2 ml Sdv] Med 05/18/19 22:34 Discontinued 4 mg IV NOW ONE Piperacillin Sodium/Tazobactam [Zosyn Inj 3.375 gm Vial Med 05/18/19 21:44 Discontinued ] 2.25 gm IV IVBAG (ED) ONE Ringers Solution,Lactated [Lactated Ringers 1000 ml IV Med 05/18/19 21:43 Dis continued Soln] 1,000 ml IV X 2 BAGS Vancomycin HCl [Vancocin Inj 1000 mg Vial] Med 05/18/19 21:43 Discontinued 1,000 mg IV NOW ONE EKG ER ONLY [ER] Stat Oth 05/18/19 Active 05/19/19 23:41 - Vital Signs Vital signs: Temp Pulse Resp BP Pulse Ox 102.5 F H 104 H 17 113/71 93 05/18/19 19:54 05/18/19 19:54 05/18/19 19:54 05/18/19 19:54 05/18/19 19:54 Temp Pulse Resp BP BP Pulse Ox 05/18/19 22:58 98.4 F 82 19 112/65 97 05/18/19 21:00 15 97 05/18/19 20:01 22 H 113/71 92 05/18/19 20:00 20 92 05/18/19 19:57 93 05/18/19 19:54 102.5 F H 104 H 17 113/71 93 - Laboratory Result Diagrams: 05/18/19 20:15 05/18/19 20:15 Laboratory results interpreted by me: 05/18/19 23:16 Labs- Entire Visit 05/18/19 05/18/19 05/18/19 20:15 20:15 20:15 WBC 7.3 RBC 3.46 L Hgb 11.3 L Hct 33.7 L MCV 97 MCH 32.6 MCHC 33.4 RDW 16.3 H Plt Count 158 Seg Neutrophils % 76.8 Lymphocytes % 14.0 Monocytes % 8.9 Eosinophils % 0.0 Basophils % 0.3 Absolute Neutrophils 5.6 Absolute Lymphocytes 1.0 Absolute Monocytes 0.6 Absolute Eosinophils 0.0 Absolute Basophils 0.0 Sodium 140.8 Potassium 4.6 Chloride 111 H Carbon Dioxide 18 L Anion Gap 12 BUN 49 H Creatinine 2.71 H Est GFR ( Amer) 29 L Est GFR (Non-Af Amer) 24 L Glucose 220 H Lactic Acid Calcium 8.7 Magnesium 2.3 Total Bilirubin 1.1 Direct Bilirubin 0.4 Neonat Total Bilirubin Not Reportable Neonat Direct Bilirubin Not Reportable Neonat Indirect Bili Not Reportable AST 37 ALT 27 Alkaline Phosphatase 75 Creatine Kinase 84 CK-MB (CK-2) 0.26 Troponin I < 0.012 NT-Pro-B Natriuret Pep Total Protein 6.9 Albumin 3.8 Lipase 363.5 H Urine Color Urine Appearance Urine pH Ur Specific [place] Urine Protein Urine Glucose (UA) Urine Ketones Urine Blood Urine Nitrite Urine Bilirubin Urine Urobilinogen Ur Leukocyte Esterase Urine WBC (Auto) Urine RBC (Auto) Squamous Epi Cells Auto Urine Mucus (Auto) Urine Ascorbic Acid 05/18/19 05/18/19 05/18/19 20:15 21:39 21:45 WBC RBC Hgb Hct MCV MCH MCHC RDW Plt Count Seg Neutrophils % Lymphocytes % Monocytes % Eosinophils % Basophils % Absolute Neutrophils Absolute Lymphocytes Absolute Monocytes Absolute Eosinophils Absolute Basophils Sodium Potassium Chloride Carbon Dioxide Anion Gap BUN Creatinine Est GFR ( Amer) Est GFR (Non-Af Amer) Glucose Lactic Acid 1.5 Calcium Magnesium Total Bilirubin Direct Bilirubin Neonat Total Bilirubin Neonat Direct Bilirubin Neonat Indirect Bili AST ALT Alkaline Phosphatase Creatine Kinase CK-MB (CK-2) Troponin I NT-Pro-B Natriuret Pep 449 Total Protein Albumin Lipase Urine Color YELLOW Urine Appearance CLEAR Urine pH 6.0 Ur Specific [place] 1.015 Urine Protein 100 H Urine Glucose (UA) NEGATIVE Urine Ketones NEGATIVE Urine Blood LARGE H Urine Nitrite NEGATIVE Urine Bilirubin NEGATIVE Urine Urobilinogen 4.0 H Ur Leukocyte Esterase NEGATIVE Urine WBC (Auto) 1 Urine RBC (Auto) 6 Squamous Epi Cells Auto <1 Urine Mucus (Auto) RARE Urine Ascorbic Acid NEGATIVE - Diagnostic Test Radiology reviewed: Image reviewed, Reports reviewed Radiology results interpreted by me: 05/18/19 23:16 Chest X-Ray 05/18/19 20:16 IMPRESSION: No evidence of acute cardiopulmonary disease. Head CT 05/18/19 21:19 IMPRESSION: No acute intracranial hemorrhage. Chronic ischemic changes. Abdomen/Pelvis CT 05/18/19 21:42 IMPRESSION: Fluid-filled colon suggesting a diarrheal illness. No bowel obstruction or acute diverticulitis. - EKG Interpretation by Me EKG shows normal: Sinus rhythm Rate: Tachycardia - 100 bpm, no stemi, unchanged frm prior, reviewed by dr guillermo burdick When compared to previous EKG there are: No significant change Discharge - Discharge Clinical Impression: Dizziness, Myalgia, Cough, Acute kidney injury, History of kidney cancer, Mild chronic anemia, Dehydration, Oral thrush Fever Qualifiers: Fever type: unspecified Qualified Code(s): R50.9 - Fever, unspecified Vomiting Qualifiers: Vomiting type: unspecified Vomiting Intractability: non-intractable Nausea presence: with nausea Qualified Code(s): R11.2 - Nausea with vomiting, unspecified Diarrhea Qualifiers: Diarrhea type: unspecified type Qualified Code(s): R19.7 - Diarrhea, unspecified Condition: Fair Disposition: ADMITTED INPATIENT Admitting Provider: Brad (Hospitalist) - initially consulted at 11:11pm and he stated he would call me back. he returned my call around 11:30pm and agreed to accept the pt to their service-hospitalist. Unit Admitted: Medical Floor
[2019-05-18 20:27] LABS: ABSOLUTE MONOCYTES (AUTO) 0.6 10^3/uL (0.1-1.4); ABSOLUTE NEUT (AUTO) 5.6 10^3/uL (1.7-8.2); BASOPHILS % (AUTO) 0.3 % (0-2); HEMATOCRIT 33.7 % (37.9-51.0); HEMOGLOBIN 11.3 g/dL (13.5-17.0); MEAN CORPUSCULAR HEMOGLOBIN 32.6 pg (27.0-33.4); MEAN CORPUSCULAR HGB CONC 33.4 g/dL (32.0-36.0); MEAN CORPUSCULAR VOLUME 97 fl (80-97); MONOCYTES % (AUTO) 8.9 % (3-13); PLATELET COUNT 158 10^3/uL (150-450); RED BLOOD COUNT 3.46 10^6/uL (4.35-5.55); RED CELL DISTRIBUTION WIDTH 16.3 % (11.5-14.0); SEGMENTED NEUTROPHILS % (AUTO) 76.8 % (42-78); TOTAL CELLS COUNTED % (AUTO) 100 %; WHITE BLOOD COUNT 7.3 10^3/uL (4.0-10.5)
[2019-05-18 20:54] LABS: ALANINE AMINOTRANSFERASE 27 U/L (21-72); ALBUMIN 3.8 g/dL (3.5-5.0); ALKALINE PHOSPHATASE 75 U/L (38-126); ANION GAP 12 (5-19); ASPARTATE AMINO TRANSFERASE 37 U/L (17-59); BILIRUBIN,DIRECT 0.4 mg/dL (0.0-0.4); BILIRUBIN,TOTAL 1.1 mg/dL (0.2-1.3); BLOOD UREA NITROGEN 49 mg/dL (7-20); CALCIUM 8.7 mg/dL (8.4-10.2); CARBON DIOXIDE 18 mmol/L (22-30); CHLORIDE 111 mmol/L (98-107); CREATINE KINASE 84 U/L (55-170); GLUCOSE 220 mg/dL (75-110); POTASSIUM 4.6 mmol/L (3.6-5.0); TOTAL PROTEIN 6.9 g/dL (6.3-8.2)
--- NOTE | 2019-05-18 20:55 | RADIOLOGY REPORT (SQ) ---
XR CHEST 2 VIEWS EXAM DATE: 05/18/2019 8:16 PM CDT HISTORY: fever. COMPARISON: None. FINDINGS: The heart size is within normal limits. No consolidation, pleural effusion, or pneumothorax is seen. The bony thorax is intact. IMPRESSION: No evidence of acute cardiopulmonary disease.
[2019-05-18 21:06] LABS: CREATINE KINASE MB 0.26 ng/mL (<4.55); TROPONIN I < 0.012 ng/mL
[2019-05-18] MEDS ORDERED: VANCOMYCIN HCL INJ 1000 MG VIAL IV ONE (21:43)
[2019-05-18] MEDS ORDERED: PIPERACILLIN/TAZOBACTAM 3.375 GM VIAL IV ONE (21:44)
[2019-05-18 22:02] LABS: APPEARANCE,URINE CLEAR; BILIRUBIN,URINE NEGATIVE (NEGATIVE); COLOR,URINE YELLOW; GLUCOSE, URINE NEGATIVE (NEGATIVE); KETONES,URINE NEGATIVE (NEGATIVE); LEUKOCYTE ESTERASE,URINE NEGATIVE (NEGATIVE); NITRITE,URINE NEGATIVE (NEGATIVE); PROTEIN,URINE 100 mg/dL (NEGATIVE); URINE SPECIFIC GRAVITY 1.015
--- NOTE | 2019-05-18 22:18 | RADIOLOGY REPORT (SQ) ---
EXAM DESCRIPTION: CT HEAD WITHOUT IV CONTRAST COMPLETED DATE/TME: 05/18/2019 21:19 CLINICAL HISTORY: 58 years, Male, fever, gait abnormality, ams, hx of renal ca This exam was performed according to our departmental dose-optimization program which includes automated exposure control, adjustment of the mA and/or kVp according to patient size and/or use of iterative reconstruction technique where applicable. FINDINGS: No acute intracranial hemorrhage, mass effect or midline shift. No extra-axial fluid collections. Ventricles and subarachnoid spaces are mildly dilated consistent with cerebral atrophy. Visualized paranasal sinuses and the mastoid air cells are clear. The skull is intact. Chronic ischemic changes in the left periventricular white matter. IMPRESSION: No acute intracranial hemorrhage. Chronic ischemic changes.
--- NOTE | 2019-05-18 22:25 | RADIOLOGY REPORT (SQ) ---
CT ABDOMEN PELVIS WITHOUT IV CONTRAST EXAM DATE: 05/18/2019 9:42 PM CDT HISTORY: Abdominal pain. COMPARISON: 06/08/2015 TECHNIQUE: CT scan of the abdomen and pelvis was performed without IV contrast. This exam was performed according to our departmental dose-optimization program, which includes automated exposure control, adjustment of the mA and/or kV according to patient size and/or use of iterative reconstruction technique. FINDINGS: Scattered areas of groundglass opacity in the right middle and lower lobes. No pleural or pericardial effusions. Liver, spleen, pancreas, gallbladder, adrenal glands, and kidneys are normal without hydronephrosis or urinary stones. The pelvic organs are normal. The colon is fluid-filled, suggesting a diarrheal illness. No diverticulitis or bowel obstruction. The appendix is normal. No intraperitoneal free fluid or free air is seen. The aorta is normal caliber and contains atherosclerotic calcifications. No acute bony findings are seen. No body wall hernia. IMPRESSION: Fluid-filled colon suggesting a diarrheal illness. No bowel obstruction or acute diverticulitis.
[2019-05-18] MEDS ORDERED: ONDANSETRON HCL INJ/PF 4 MG/2 ML SDV IV ONE (22:34)
[2019-05-18] MEDS: RINGERS SOLUTION,LACTATED 1,000 ML IV PRN ×2 (22:43→22:56)
[2019-05-18] MEDS ORDERED: NYSTATIN 500000 UNIT/5 ML UDCUP PO ONE (23:30)
--- NOTE | 2019-05-18 23:59 | EKG REPORT ---
SEVERITY:- OTHERWISE NORMAL ECG - SINUS TACHYCARDIA : Confirmed by: Brittney Harman MD 18-May-2019 23:58:56
[2019-05-19] MEDS ORDERED: LEVALBUTEROL HCL NEB 0.63 MG/3 ML AMPUL NEB PRN (02:01)
[2019-05-19] MEDS ORDERED: MAG HYDROX/AL HYDROX/SIMETH SUSP 30 ML UDCUP PO PRN (02:01)
[2019-05-19] MEDS ORDERED: MAGNESIUM HYDROXIDE SUSP 30 ML UDCUP PO PRN (02:01)
[2019-05-19] MEDS ORDERED: LEVALBUTEROL HCL NEB 1.25 MG/3 ML AMPUL NEB PRN (02:01)
[2019-05-19] MEDS ORDERED: ONDANSETRON HCL INJ/PF 4 MG/2 ML SDV IV PRN (02:01)
[2019-05-19] MEDS ORDERED: ACETAMINOPHEN 325 MG TABLET PO PRN (02:10)
[2019-05-19] MEDS ORDERED: NALBUPHINE HCL INJ 10 MG/1 ML AMPULE IV PRN (02:10)
[2019-05-19] MEDS ORDERED: DEXTROSE 40% GEL 15 GM TUBE PO PRN ×2 (02:15)
[2019-05-19] MEDS ORDERED: GLUCAGON,HUMAN RECOMB 1 MG INJ IM PRN (02:15)
[2019-05-19] MEDS ORDERED: DEXTROSE 50%-WATER 25 GM/50 ML DISP.SYRIN IV PRN ×2 (02:15)
[2019-05-19 03:37] LABS: FREE T4 (FREE THYROXINE) 0.7 ng/dL (0.78-2.19)
[2019-05-19 03:50] LABS: THYROID STIMULATING HORMONE 0.84 uIU/mL (0.47-4.68)
--- NOTE | 2019-05-19 04:23 | PDOC H&P ---
History of Present Illness Admission Date/PCP: 05/19/19 00:00 NO LOCALMD Patient complains of: Nausea, vomiting and diarrhea History of Present Illness: LO ENCARNACION is a 58 year old male who presented via EMS to the emergency room with a 4-day history of nausea, vomiting and diarrhea. He admits numerous episodes of nausea and vomiting with clear emesis and several episodes of watery diarrhea stools for the last 4 days. He admits an associated fever beginning on 05/18/2019 reaching 102.5 at home. He admits the accompanying symptoms of severe abdominal cramping, diaphoresis, malaise and generalized weakness. His nausea and vomiting are worsened by any attempted oral intake. He denies prior similar episodes and has not identified any additional aggravating or ameliorating factors for his nausea vomiting and diarrhea. In the ER he was found to have a lactic acid of 1.5 but did have evidence of acute kidney injury. Was subsequently admitted to the hospital for further evaluation and treatment. Past Medical History Cardiac Medical History: Reports: Congestive Heart Failure, Coronary Artery Disease, Myocardial Infarction, Hyperlipidema, Hypertension Pulmonary Medical History: Reports: Chronic Obstructive Pulmonary Disease (COPD) - not on home O2 Denies: Asthma EENT Medical History: Denies: Cataracts, Ears - Hearing aids Neurological Medical History: Reports: Seizures Denies: Hemorrhagic CVA, Ischemic CVA, Multiple Sclerosis Endocrine Medical History: Reports: Diabetes Mellitus Type 2 Denies: Diabetes Mellitus Type 1, Hyperthyroidism, Hypothyroidism Renal/ Medical History: Reports: Chronic Kidney Disease Denies: Nephrolithiasis Malignancy Medical History: Reports: Renal (Kidney) Cancer - s/p right nephrectomy., Skin Cancer - Multiple skin cancer surgeries right ear, nose and back GI Medical History: Reports: Gastroesophageal Reflux Disease Denies: Cirrhosis, Crohn's Disease, Hepatitis, Ulcerative Colitis Musculoskeltal Medical History: Denies: Arthritis, Gout Skin Medical History: Reports: Other - Skin cancers Denies: Eczema, Psoriasis Psychiatric Medical History: Denies: Alcohol Dependency, Substance Abuse, Tobacco Dependency Traumatic Medical History: Reports: None Hematology: Reports: Anemia - Chronic due to stage III renal failure Denies: Bleeding Tendencies Infectious Medical History: Denies: Clostridium Difficile, HIV Past Surgical History Past Surgical History: Reports: Cardiac Catheterization, Other - Right nephrectomy, skin cancer removal X 3 sites. Social History Information Source: Patient Lives with: Spouse/Significant other Smoking Status: Former Smoker Number of Years Smokin Last Time Smoked: 05/19/2018 Frequency of Alcohol Use: None Hx Recreational Drug Use: No Drugs: None Hx Prescription Drug Abuse: No - Advance Directive Resuscitation Status: Do Not Intubate Surrogate healthcare decision maker:: Xiomara Encarnacion Family History Family History: CAD, Malignancy, Other - Parkinson's disease. denies: DM, Hypertension Parental Family History Reviewed: Yes Children Family History Reviewed: No Sibling(s) Family History Reviewed.: Yes Medication/Allergy Home Medications: Allopurinol [Zyloprim 300 mg Tablet] 150 mg PO DAILY 05/19/19 Aspirin [Aspirin 81 mg Chewable Tablet] 81 mg PO DAILY 05/19/19 Atorvastatin Calcium [Lipitor 10 mg Tablet] 10 mg PO DAILY 05/19/19 Carvedilol [Coreg] 1 tab PO Q12 05/19/19 Furosemide [Lasix] 20 mg PO BID 05/19/19 Gabapentin [Neurontin 300 mg Capsule] 600 mg PO Q8 05/19/19 Insulin Aspart [Novolog Flexpen] 6 unit SQ TID 05/19/19 Insulin Degludec [Tresiba Flextouch U-100] 15 unit SQ DAILY 05/19/19 Isosorbide Mononitrate [Imdur 30 mg Tablet.er] 0.5 tab PO DAILY 05/19/19 Liraglutide [Victoza 2-Elton] 0.3 mg SQ TID 05/19/19 Lisinopril [Prinivil] 5 mg PO DAILY 05/19/19 Potassium Chloride 20 meq PO DAILY 05/19/19 Valproic Acid [Depakene] 1 tab PO QID 05/19/19 Allergies/Adverse Reactions: No Known Allergies Allergy (Verified 05/03/19 14:27) Review of Systems Constitutional: PRESENT: as per HPI, fever(s), weakness, other - Malaise. ABSENT: chills Eyes: ABSENT: visual disturbances, other - Eye pain Ears: ABSENT: hearing changes, other - Ear pain Nose, Mouth, and Throat: ABSENT: mouth pain, sore throat Cardiovascular: ABSENT: chest pain, dyspnea on exertion, edema, orthropnea, palpitations Respiratory: ABSENT: cough, dyspnea Gastrointestinal: PRESENT: as per HPI, abdominal pain, diarrhea, nausea, vomiting. ABSENT: constipation, hematemesis, hematochezia Genitourinary: ABSENT: dysuria, hematuria Musculoskeletal: PRESENT: as per HPI, muscle weakness - Generalized. ABSENT: back pain, joint swelling Integumentary: PRESENT: as per HPI, diaphoresis. ABSENT: pruritus, rash Neurological: ABSENT: confusion, convulsions, focal weakness, memory loss, syncope Psychiatric: ABSENT: anxiety, depression Endocrine: ABSENT: cold intolerance, heat intolerance Hematologic/Lymphatic: ABSENT: easy bleeding, easy bruising Physical Exam Vital Signs: Temp Pulse Resp BP Pulse Ox 99.2 F 87 18 144/79 H 97 05/19/19 02:19 05/19/19 02:19 05/19/19 02:19 05/19/19 02:19 05/19/19 02:19 Intake & Output 05/17/19 05/18/19 05/19/19 23:59 23:59 23:59 Intake Total 217 1000 Balance 217 1000 Weight 96.162 kg 96.9 kg General appearance: PRESENT: no acute distress, cooperative, disheveled Head exam: PRESENT: atraumatic, normocephalic Eye exam: PRESENT: conjunctiva pink. ABSENT: conjunctival injection, scleral icterus Ear exam: PRESENT: normal external ear exam. ABSENT: bleeding, drainage Mouth exam: PRESENT: dry mucosa, neck supple Neck exam: ABSENT: JVD, thyromegaly, tracheal deviation Respiratory exam: PRESENT: clear to auscultation anamaria, symmetrical, unlabored Cardiovascular exam: PRESENT: RRR. ABSENT: clicks, gallop, rubs Pulses: PRESENT: normal radial pulses, normal dorsalis pedis pul Vascular exam: PRESENT: normal capillary refill. ABSENT: pallor GI/Abdominal exam: PRESENT: distended - Mild gaseous distention, hypoactive bowel sounds, soft, tenderness - Mild generalized tenderness to palpation Rectal exam: PRESENT: deferred Extremities exam: ABSENT: joint swelling, pedal edema, tenderness Musculoskeletal exam: PRESENT: full ROM, normal inspection. ABSENT: tenderness Neurological exam: PRESENT: alert, oriented to person, oriented to place, oriented to time, oriented to situation, CN II-XII grossly intact. ABSENT: motor sensory deficit Psychiatric exam: PRESENT: appropriate affect, normal mood Skin exam: PRESENT: dry, intact, warm, other - Decreased skin turgor. ABSENT: jaundice, rash, urticaria Results Laboratory Results: 05/18/19 20:15 05/18/19 20:15 05/18/19 05/18/19 05/18/19 20:15 20:15 20:15 WBC 7.3 RBC 3.46 L Hgb 11.3 L Hct 33.7 L MCV 97 MCH 32.6 MCHC 33.4 RDW 16.3 H Plt Count 158 Seg Neutrophils % 76.8 Lymphocytes % 14.0 Monocytes % 8.9 Eosinophils % 0.0 Basophils % 0.3 Absolute Neutrophils 5.6 Absolute Lymphocytes 1.0 Absolute Monocytes 0.6 Absolute Eosinophils 0.0 Absolute Basophils 0.0 Sodium 140.8 Potassium 4.6 Chloride 111 H Carbon Dioxide 18 L Anion Gap 12 BUN 49 H Creatinine 2.71 H Est GFR ( Amer) 29 L Est GFR (Non-Af Amer) 24 L Glucose 220 H Lactic Acid Calcium 8.7 Magnesium 2.3 Total Bilirubin 1.1 AST 37 ALT 27 Alkaline Phosphatase 75 Total Protein 6.9 Albumin 3.8 Lipase 363.5 H TSH 0.84 Free T4 0.70 L Free T3 pg/mL 2.00 L Urine Color Urine Appearance Urine pH Ur Specific Shedd Urine Protein Urine Glucose (UA) Urine Ketones Urine Blood Urine Nitrite Ur Leukocyte Esterase Urine WBC (Auto) Urine RBC (Auto) 05/18/19 05/18/19 21:39 21:45 WBC RBC Hgb Hct MCV MCH MCHC RDW Plt Count Seg Neutrophils % Lymphocytes % Monocytes % Eosinophils % Basophils % Absolute Neutrophils Absolute Lymphocytes Absolute Monocytes Absolute Eosinophils Absolute Basophils Sodium Potassium Chloride Carbon Dioxide Anion Gap BUN Creatinine Est GFR ( Amer) Est GFR (Non-Af Amer) Glucose Lactic Acid 1.5 Calcium Magnesium Total Bilirubin AST ALT Alkaline Phosphatase Total Protein Albumin Lipase TSH Free T4 Free T3 pg/mL Urine Color YELLOW Urine Appearance CLEAR Urine pH 6.0 Ur Specific Shedd 1.015 Urine Protein 100 H Urine Glucose (UA) NEGATIVE Urine Ketones NEGATIVE Urine Blood LARGE H Urine Nitrite NEGATIVE Ur Leukocyte Esterase NEGATIVE Urine WBC (Auto) 1 Urine RBC (Auto) 6 05/18/19 05/18/19 05/18/19 20:15 20:15 20:15 Creatine Kinase 84 CK-MB (CK-2) 0.26 Troponin I < 0.012 NT-Pro-B Natriuret Pep 449 Impressions: Chest X-Ray 05/18/19 20:16 IMPRESSION: No evidence of acute cardiopulmonary disease. Head CT 05/18/19 21:19 IMPRESSION: No acute intracranial hemorrhage. Chronic ischemic changes. Abdomen/Pelvis CT 05/18/19 21:42 IMPRESSION: Fluid-filled colon suggesting a diarrheal illness. No bowel obstruction or acute diverticulitis. Assessment and Plan - Diagnosis (1) Acute kidney injury superimposed on chronic kidney disease Is this a current diagnosis for this admission?: Yes Plan: Patient will be treated with IV fluids and daily determinations of his renal function with metabolic profiles and magnesium levels. (2) Acute gastroenteritis Is this a current diagnosis for this admission?: Yes Plan: Patient will be treated with supportive and symptomatic cares. He will receive Reglan 10 mg IV every 6 hours for nausea and will receive IV fluid replacement. He will use Nubain 10 mg IV every 3 hours on a as needed basis for pain. Daily CBCs, metabolic profiles and magnesium levels will be obtained. (3) Diabetes mellitus type 2 in obese Is this a current diagnosis for this admission?: Yes Plan: Patient will be returned to his usual diabetic regiment and diabetic diet as soon as he is able to tolerate a diet. In the interim he will have before meals and at bedtime Accu-Cheks performed with sliding scale insulin to control hyperglycemia and a hypoglycemic protocol in place. Hemoglobin A1c will be obtained to evaluate patient's current therapy. (4) COPD (chronic obstructive pulmonary disease) Qualifiers: COPD type: unspecified COPD Qualified Code(s): J44.9 - Chronic obstructive pulmonary disease, unspecified Is this a current diagnosis for this admission?: Yes Plan: Patient will be continued on a baseline pulmonary toilet during his hospital course. His respiratory function be monitored on a regular basis with oxygen saturations. (5) Hypertension Qualifiers: Hypertension type: essential hypertension Qualified Code(s): I10 - Essential (primary) hypertension Is this a current diagnosis for this admission?: Yes Plan: Patient will be returned to his usual antihypertensive regiment as soon as he is able to tolerate oral medications. He will receive metoprolol 5 mg IV every 4 hours and or hydralazine 20 mg IV every 4 hours on a as needed basis to control blood pressure greater than 160/100. His blood pressure will be evaluated frequently during his hospital course. (6) Congestive heart failure Qualifiers: Heart failure type: unspecified Heart failure chronicity: chronic Qualified Code(s): I50.9 - Heart failure, unspecified Is this a current diagnosis for this admission?: Yes Plan: Patient will be monitored closely for signs of congestive heart failure and he will be returned to his usual medication regiment as soon as he is able to tolerate oral medications. He will be on a cardiac diet as soon as he is able to tolerate a diet. - Time Time Spent with patient: 25-34 minutes Medications reviewed and adjusted accordingly: Yes Anticipated discharge: Home - Inpatient Certification Based on my medical assessment, after consideration of the patient's comorbidities, presenting symptoms, or acuity I expect that the services needed warrant INPATIENT care.: Yes I certify that my determination is in accordance with my understanding of Medicare's requirements for reasonable and necessary INPATIENT services [42 CFR 412.3e].: Yes Medical Necessity: Significant Comorbidiites Make Outpatient Treatment Too Risky, Need Close Monitoring Due to Risk of Patient Decompensation, Need For IV Fluids, Need for Pain Control, Risk of Complication if Not Cared For in Hospital
--- NOTE | 2019-05-19 04:26 | ADVANCED CARE ---
- Diagnosis (1) Acute kidney injury superimposed on chronic kidney disease Diagnosis Current: Yes (2) Acute gastroenteritis Diagnosis Current: Yes (3) Diabetes mellitus type 2 in obese Diagnosis Current: Yes (4) COPD (chronic obstructive pulmonary disease) Diagnosis Current: Yes (5) Hypertension Diagnosis Current: Yes (6) Congestive heart failure Diagnosis Current: Yes Attendance: The patient, his , his [id number] and myself. Resuscitation Status: Do Not Intubate Discussion: Patient is determined that resuscitation efforts in the event of a cardiac or respiratory arrest would be okay except they do not wish to have intubation or mechanical ventilation used. Xiomara Lemus is the patient's designated surrogate medical decision-maker. Care Planning Goals: 1. Patient is DO NOT INTUBATE status for this admission. 2. Xiomara Lemus is the patient's designated surrogate medical decision-maker. Document(s) Completed: Following information is entered into the patient's permanent medical record current medical record and current orders via EMR entry. 1. Patient is DO NOT INTUBATE status for this admission. 2. Xiomara Lemus is the patient's designated surrogate medical decision-maker. Time Spent: 16 minutes
[2019-05-19] MEDS ORDERED: METOCLOPRAMIDE HCL INJ/PF 10 MG/2 ML SDV IV ONE (04:45)
[2019-05-19] MEDS: METOCLOPRAMIDE HCL INJ/PF 10 MG/2 ML SDV IV SCH ×3 (06:04→17:21)
[2019-05-19] MEDS: HEPARIN SOD (PORCINE) 5,000 UNIT/ML 1 ML VIAL SUBCUT SCH ×3 (06:04→21:47)
[2019-05-19] MEDS: INSULIN REG, HUMAN 100 UNIT/ML 3 ML VIAL (PYX) SUBCUT SCH ×4 (08:22→21:47)
[2019-05-19] MEDS: BUDESONIDE NEB 0.5 MG/2 ML AMPUL NEB SCH ×2 (08:36→20:17)
[2019-05-19] MEDS: LEVALBUTEROL HCL NEB 1.25 MG/3 ML AMPUL NEB SCH ×2 (08:36→16:16)
[2019-05-19] MEDS: IPRATROPIUM BROMIDE 0.02% NEB 0.5 MG/2.5 ML AMPUL NEB SCH ×2 (08:37→16:16)
[2019-05-19] MEDS: FAMOTIDINE INJ/PF 20 MG/2 ML SDV IV SCH ×2 (09:15→21:47)
[2019-05-19] MEDS: DOCUSATE SODIUM 100 MG CAPSULE PO SCH ×2 (09:15→17:18)
[2019-05-19] MEDS: ISOSORBIDE MONONITRATE 30 MG TAB.ER.24H PO SCH (09:51)
[2019-05-19] MEDS: ASPIRIN 81 MG TABLET, CHEWABLE PO SCH (09:51)
[2019-05-19] MEDS: ATORVASTATIN CALCIUM 10 MG TABLET PO SCH (09:53)
[2019-05-19] MEDS: DULOXETINE HCL 30 MG CAPSULE.DR PO SCH (09:53)
[2019-05-19] MEDS: CARVEDILOL 6.25 MG TABLET PO SCH ×2 (09:53→21:45)
[2019-05-19] MEDS: CIPROFLOXACIN 400 MG/D5W RTU 400 MG/200 ML RTUPB IV SCH ×2 (09:54→21:50)
[2019-05-19] MEDS ORDERED: VALPROIC ACID PO SCH (10:00)
[2019-05-19] MEDS: VALPROATE SODIUM SYRUP 250 MG/5 ML UDCUP PO SCH ×4 (10:09→21:45)
[2019-05-19] MEDS: LIDOCAINE 5% (700 MG) TRANSDERMAL ADH..PATCH TOP SCH (10:10)
[2019-05-19] MEDS ORDERED: IBUPROFEN 600 MG TABLET PO PRN (11:22)
[2019-05-19] MEDS ORDERED: ACETAMINOPHEN 325 MG TABLET PO ONE (11:30)
[2019-05-19] MEDS: INSULIN LISPRO 100 UNIT/ML 3 ML VIAL SUBCUT SCH (17:33)
[2019-05-19] MEDS ORDERED: (PENDING PHARMACY ID) (Insulin Aspart [Novolog Flexpen] 6 UNIT) SQ SCH (18:00)
[2019-05-19] MEDS ORDERED: NORMAL SALINE 1000 ML 1,000 ML IV PRN (22:38)
--- NOTE | 2019-05-19 22:45 | Progress Note ---
Provider Note Provider Note: Patient is a 58 year old male with PMH significant for CHF, CAD, NV, HLD, HTN, COPD, Seizure disorder, DM2, CKD (s/p right nephrectomy), GERD who was admitted by the PRINCIPAL SCIENTIST early this morning for A/CKD 2/2 dehydration r/t acute gastroenteritis. Overnight events, vital signs, laboratory findings, imaging results and orders were reviewed. Agree with the plan of care as established by the previous provider. In addition, have started IVF for acute on chronic renal disease and IV Ciprofloxacin as patient continues to have significantly elevated temp (102). Will adjust as cultures results; blood and urine negative. Stool culture pending. C.diff PCR negative. Tylenol and Motrin prn fever. Continue home medication regiment for management of DM2, HTN, HLD, Seizure disorder.
[2019-05-20] MEDS: IPRATROPIUM BROMIDE 0.02% NEB 0.5 MG/2.5 ML AMPUL NEB SCH ×3 (00:24→16:16)
[2019-05-20] MEDS: LEVALBUTEROL HCL NEB 1.25 MG/3 ML AMPUL NEB SCH ×3 (00:24→16:16)
[2019-05-20] MEDS: METOCLOPRAMIDE HCL INJ/PF 10 MG/2 ML SDV IV SCH ×4 (00:28→17:15)
[2019-05-20 04:45] LABS: HEMATOCRIT 30.1 % (37.9-51.0); HEMOGLOBIN 10.3 g/dL (13.5-17.0); MEAN CORPUSCULAR HEMOGLOBIN 32.3 pg (27.0-33.4); MEAN CORPUSCULAR HGB CONC 34.3 g/dL (32.0-36.0); MEAN CORPUSCULAR VOLUME 94 fl (80-97); PLATELET COUNT 155 10^3/uL (150-450); RED BLOOD COUNT 3.19 10^6/uL (4.35-5.55); WHITE BLOOD COUNT 5.5 10^3/uL (4.0-10.5)
[2019-05-20 04:52] LABS: ANION GAP 9 (5-19); BLOOD UREA NITROGEN 32 mg/dL (7-20); CALCIUM 8.7 mg/dL (8.4-10.2); CARBON DIOXIDE 22 mmol/L (22-30); CHLORIDE 109 mmol/L (98-107); CHOLESTEROL 151.82 mg/dL (0-200); GLUCOSE 133 mg/dL (75-110); POTASSIUM 4.1 mmol/L (3.6-5.0); TRIGLYCERIDES 220 mg/dL (<150)
[2019-05-20 05:03] LABS: DIRECT LDL 99 mg/dL (<100)
[2019-05-20] MEDS: HEPARIN SOD (PORCINE) 5,000 UNIT/ML 1 ML VIAL SUBCUT SCH ×3 (05:31→21:19)
[2019-05-20] MEDS: BUDESONIDE NEB 0.5 MG/2 ML AMPUL NEB SCH ×2 (07:45→19:58)
[2019-05-20] MEDS: INSULIN REG, HUMAN 100 UNIT/ML 3 ML VIAL (PYX) SUBCUT SCH ×4 (08:02→21:19)
[2019-05-20] MEDS: DOCUSATE SODIUM 100 MG CAPSULE PO SCH ×2 (09:24→17:46)
[2019-05-20] MEDS: DULOXETINE HCL 30 MG CAPSULE.DR PO SCH (09:24)
[2019-05-20] MEDS: CARVEDILOL 6.25 MG TABLET PO SCH ×2 (09:24→21:15)
[2019-05-20] MEDS: ISOSORBIDE MONONITRATE 30 MG TAB.ER.24H PO SCH (09:24)
[2019-05-20] MEDS: ATORVASTATIN CALCIUM 10 MG TABLET PO SCH (09:24)
[2019-05-20] MEDS: ASPIRIN 81 MG TABLET, CHEWABLE PO SCH (09:24)
[2019-05-20] MEDS: VALPROATE SODIUM SYRUP 250 MG/5 ML UDCUP PO SCH ×4 (09:25→21:15)
[2019-05-20] MEDS: FAMOTIDINE INJ/PF 20 MG/2 ML SDV IV SCH ×2 (09:25→21:16)
[2019-05-20] MEDS: LIDOCAINE 5% (700 MG) TRANSDERMAL ADH..PATCH TOP SCH (09:25)
[2019-05-20] MEDS: CIPROFLOXACIN 400 MG/D5W RTU 400 MG/200 ML RTUPB IV SCH ×2 (09:32→21:16)
[2019-05-20] MEDS: INSULIN LISPRO 100 UNIT/ML 3 ML VIAL SUBCUT SCH (17:15)
--- NOTE | 2019-05-20 19:55 | Progress Note Acknowledgement ---
Progress Note Acknowledgement Progess Note Acknowledgement: I, the undersigned member of the medical staff with appropriate privileges and with supervisory authority over Kamila Martinez, a [facility] allied health professional, acknowledge that I have reviewed the progress notes entered on this patient, and in my professional judgment believe that the assessment made and/or any care evidenced was appropriate
--- NOTE | 2019-05-20 20:10 | PDOC PROGRESS REPORT ---
Subjective Progress Note for:: 05/20/19 Subjective:: Patient is a 58 year old male with PMH significant for CHF, CAD, CT, HLD, HTN, COPD, Seizure disorder, DM2, CKD (s/p right nephrectomy), GERD who was admitted 05/19/19 for A/CKD 2/2 dehydration r/t acute gastroenteritis. The patient was seen on afternoon rounds. He was found sitting up to the edge of the bed comfortably on room air. He tells me that he is feeling very well today and is requesting to advance his diet. He has not had any further episodes of diarrhea and denies abdominal pain, nausea and vomiting. He does confirm that his baseline creatinine is 3.5-4; he is pleased to hear that his creatinine today is 2.07. He denies fever x24 hours, chest pain, palpitations, dyspnea. They have no other questions or concerns at this time and are looking forward to possible discharge to home tomorrow. No concerns per nursing. Reason For Visit: ACUTE GASTROENTERITIS WITH DEHYDRATION, ACUTE Physical Exam Vital Signs: Temp Pulse Resp BP Pulse Ox 99.0 F 89 16 126/70 H 99 05/20/19 17:14 05/20/19 19:58 05/20/19 19:58 05/20/19 17:14 05/20/19 19:58 Intake & Output 05/19/19 05/20/19 05/21/19 06:59 06:59 06:59 Intake Total 1217 2450 1679 Output Total 1020 675 Balance 197 1775 1679 Weight 96.9 kg 96 kg General appearance: PRESENT: no acute distress, cooperative - Pleasant, obese, well-developed, well-nourished Head exam: PRESENT: atraumatic, normocephalic Eye exam: PRESENT: conjunctiva pink, EOMI, PERRLA. ABSENT: scleral icterus Ear exam: PRESENT: normal external ear exam Mouth exam: PRESENT: moist, tongue midline Neck exam: ABSENT: carotid bruit, JVD, lymphadenopathy, thyromegaly Respiratory exam: PRESENT: clear to auscultation anamaria, symmetrical, unlabored. ABSENT: rales, rhonchi, wheezes Cardiovascular exam: PRESENT: RRR. ABSENT: diastolic murmur, rubs, systolic murmur Pulses: PRESENT: normal dorsalis pedis pul Vascular exam: PRESENT: normal capillary refill GI/Abdominal exam: PRESENT: normal bowel sounds, soft. ABSENT: distended, guarding, mass, organolmegaly, rebound, tenderness Rectal exam: PRESENT: deferred Extremities exam: PRESENT: full ROM. ABSENT: calf tenderness, clubbing, pedal edema Musculoskeletal exam: PRESENT: ambulatory Neurological exam: PRESENT: alert, awake, oriented to person, oriented to place, oriented to time, oriented to situation, CN II-XII grossly intact. ABSENT: motor sensory deficit Psychiatric exam: PRESENT: appropriate affect, normal mood. ABSENT: homicidal ideation, suicidal ideation Skin exam: PRESENT: dry, intact, warm. ABSENT: cyanosis, rash Results Laboratory Results: 05/20/19 03:57 05/20/19 03:57 05/20/19 05/20/19 03:57 03:57 WBC 5.5 RBC 3.19 L Hgb 10.3 L Hct 30.1 L MCV 94 MCH 32.3 MCHC 34.3 RDW 16.0 H Plt Count 155 Sodium 139.8 Potassium 4.1 Chloride 109 H Carbon Dioxide 22 Anion Gap 9 BUN 32 H Creatinine 2.07 H Est GFR ( Amer) 40 L Est GFR (Non-Af Amer) 33 L Glucose 133 H Calcium 8.7 Magnesium 2.1 Triglycerides 220 H Cholesterol 151.82 LDL Cholesterol Direct 99 VLDL Cholesterol 44.0 H HDL Cholesterol 25 L 05/18/19 21:39 Clean Catch Midstream Urine Culture - Final 6,000 col/ml 05/18/19 05/18/19 05/18/19 20:15 20:15 20:15 Creatine Kinase 84 CK-MB (CK-2) 0.26 Troponin I < 0.012 NT-Pro-B Natriuret Pep 449 Impressions: Chest X-Ray 05/18/19 20:16 IMPRESSION: No evidence of acute cardiopulmonary disease. Head CT 05/18/19 21:19 IMPRESSION: No acute intracranial hemorrhage. Chronic ischemic changes. Abdomen/Pelvis CT 05/18/19 21:42 IMPRESSION: Fluid-filled colon suggesting a diarrheal illness. No bowel obstruction or acute diverticulitis. Assessment and Plan - Diagnosis (1) Acute gastroenteritis Is this a current diagnosis for this admission?: Yes Plan: Improved. Patient denies abdominal pain, nausea, vomiting, diarrhea >24 hrs. He is been afebrile x24 hours. WBCs remain normal. Blood cultures are negative at 24 hours. C. difficile PCR is negative. Stool studies are pending, however, patient longer having frequent stools. Discontinue IV fluids. Advance diet as tolerated today. Continue IV Cipro with plans to transition to p.o. ciprofloxacin at discharge. (2) Acute kidney injury superimposed on chronic kidney disease Is this a current diagnosis for this admission?: Yes Plan: Acute kidney injury is resolved;Creatinine today is 2.07. Patient reports that his baseline creatinine is 3.5-4. Discontinue IV fluids. Continue renally dose of ciprofloxacin. Avoid nephrotoxic medications as able. Daily chemistries. (3) COPD (chronic obstructive pulmonary disease) Qualifiers: COPD type: unspecified COPD Qualified Code(s): J44.9 - Chronic obstructive pulmonary disease, unspecified Is this a current diagnosis for this admission?: Yes Plan: Stable and without exacerbation at this time. Continue home medication regiment. (4) Congestive heart failure Qualifiers: Heart failure type: unspecified Heart failure chronicity: chronic Qualified Code(s): I50.9 - Heart failure, unspecified Is this a current diagnosis for this admission?: Yes Plan: Stable and without exacerbation at this time. Continue home medication regiment. Advance to cardiac diet as tolerated. Daily weights. (5) Diabetes mellitus type 2 in obese Is this a current diagnosis for this admission?: Yes Plan: Will advance to cardiac/consistent carb diet today. Continue home dose Tresiba. Accu-Cheks before meals and at bedtime with Humalog per sliding scale coverage. Hypoglycemia protocol. (6) Hypertension Qualifiers: Hypertension type: essential hypertension Qualified Code(s): I10 - Essent ial (primary) hypertension Is this a current diagnosis for this admission?: Yes Plan: Blood pressures are acceptable. Advance to consistent carb/cardiac diet. Continue home dose carvedilol and isosorbide - Time Time Spent with patient: 15-24 minutes Medications reviewed and adjusted accordingly: Yes Anticipated discharge: Home Within: within 24 hours
[2019-05-21] MEDS: HEPARIN SOD (PORCINE) 5,000 UNIT/ML 1 ML VIAL SUBCUT SCH ×2 (05:10→13:12)
[2019-05-21 05:30] LABS: HEMATOCRIT 30.7 % (37.9-51.0); HEMOGLOBIN 10.3 g/dL (13.5-17.0); MEAN CORPUSCULAR HEMOGLOBIN 31.9 pg (27.0-33.4); MEAN CORPUSCULAR HGB CONC 33.7 g/dL (32.0-36.0); MEAN CORPUSCULAR VOLUME 95 fl (80-97); PLATELET COUNT 167 10^3/uL (150-450); RED BLOOD COUNT 3.24 10^6/uL (4.35-5.55); RED CELL DISTRIBUTION WIDTH 16.5 % (11.5-14.0); WHITE BLOOD COUNT 3.8 10^3/uL (4.0-10.5)
[2019-05-21 05:48] LABS: ANION GAP 11 (5-19); BLOOD UREA NITROGEN 29 mg/dL (7-20); CALCIUM 8.7 mg/dL (8.4-10.2); CARBON DIOXIDE 21 mmol/L (22-30); CHLORIDE 109 mmol/L (98-107); GLUCOSE 122 mg/dL (75-110); POTASSIUM 3.9 mmol/L (3.6-5.0)
[2019-05-21] MEDS: INSULIN REG, HUMAN 100 UNIT/ML 3 ML VIAL (PYX) SUBCUT SCH ×2 (08:10→11:34)
[2019-05-21] MEDS: DULOXETINE HCL 30 MG CAPSULE.DR PO SCH (09:00)
[2019-05-21] MEDS: VALPROATE SODIUM SYRUP 250 MG/5 ML UDCUP PO SCH ×2 (09:00→13:12)
[2019-05-21] MEDS: FAMOTIDINE INJ/PF 20 MG/2 ML SDV IV SCH (09:00)
[2019-05-21] MEDS: ISOSORBIDE MONONITRATE 30 MG TAB.ER.24H PO SCH (09:00)
[2019-05-21] MEDS: LIDOCAINE 5% (700 MG) TRANSDERMAL ADH..PATCH TOP SCH (09:00)
[2019-05-21] MEDS: ASPIRIN 81 MG TABLET, CHEWABLE PO SCH (09:01)
[2019-05-21] MEDS: ATORVASTATIN CALCIUM 10 MG TABLET PO SCH (09:01)
[2019-05-21] MEDS: CARVEDILOL 6.25 MG TABLET PO SCH (09:01)
[2019-05-21] MEDS: CIPROFLOXACIN 400 MG/D5W RTU 400 MG/200 ML RTUPB IV SCH (09:08)
[2019-05-21] MEDS: DOCUSATE SODIUM 100 MG CAPSULE PO SCH (09:18)
[2019-05-21] MEDS ORDERED: LISINOPRIL 5 MG TABLET PO SCH (10:00)
[2019-05-21] MEDS ORDERED: INSULIN DEGLUDEC 15 UNIT SQ SCH (10:00)
[2019-05-21 15:17] VITALS: BP 129/77
[2019-05-21] MEDS ORDERED: PHARMACY COMMUNICATION ORDER MC SCH (22:00)
== END 2019-05-21 15:37 | disposition home health service (06) | DRG 683 ==
LOC: ER 19:48 → EH 05-19 → 5 05-19 02:15
PROVIDERS: ADMIT Emergency Medicine; ATTEND Emergency Medicine
DX: N17.9 Acute kidney failure, unspecified (principal); I13.0 Hypertensive heart and chronic kidney disease with heart failure and stage 1 through stage 4 chronic kidney disease, or unspecified chronic kidney disease; E86.0 Dehydration; Z85.528 Personal history of other malignant neoplasm of kidney; Z91.14 Patient's other noncompliance with medication regimen; Z87.891 Personal history of nicotine dependence; I50.9 Heart failure, unspecified; I25.10 Atherosclerotic heart disease of native coronary artery without angina pectoris; I25.2 Old myocardial infarction; E78.5 Hyperlipidemia, unspecified; J44.9 Chronic obstructive pulmonary disease, unspecified; G40.909 Epilepsy, unspecified, not intractable, without status epilepticus; E11.9 Type 2 diabetes mellitus without complications; Z85.828 Personal history of other malignant neoplasm of skin; Z87.442 Personal history of urinary calculi; D64.9 Anemia, unspecified; E11.22 Type 2 diabetes mellitus with diabetic chronic kidney disease; N18.9 Chronic kidney disease, unspecified; Z66 Do not resuscitate; K52.89 Other specified noninfective gastroenteritis and colitis; E66.9 Obesity, unspecified; Z90.5 Acquired absence of kidney
CPT/HCPCS: 36415; 70450; 71046; 74176; 80048; 80053; 80061; 81001; 82550; 82553; 82962; 83036; 83605; 83690; 83735; 83880; 84439; 84443; 84481; 84484; 85025; 85027; 87040; 87086; 87493; 93005; 93010; 96365; 96375; 99285; J0744; J1644; J1815; J2405; J2543; J2765; J3370; J3490; J7120; S0028

== ENCOUNTER 2019-07-31 10:28 | Emergency (ER) | payer MEDICARE ==
--- NOTE | 2019-07-31 10:48 | ER Document Report ---
ED Medical Screen (RME) - General Chief Complaint: Numbness Stated Complaint: HAND NUMBNESS Time Seen by Provider: 07/31/19 10:42 Primary Care Provider: WILFRED CAMERON [Primary Care Provider] - Follow up as needed TRAVEL OUTSIDE OF THE [place] IN LAST 30 DAYS: No - HPI Notes: 07/31/19 10:46 Patient is a 58-year-old male with a history of hypertension, congestive heart failure, diabetes, solitary kidney who presents complaining of bilateral hand tingling and decreased sensation that is been present for 1 week. Patient states that activity does make his symptoms worse. Patient states that he can feel sensation in his fingers and does not have any complete numbness. He has not had any other fever or neck pain. I have treated and performed a rapid initial assessment of this patient. A comprehensive ED assessment and evaluation of the patient, analysis of test results and completion of medical decision making process will be conducted by additional ED providers. PHYSICAL EXAMINATION: GENERAL: Well-appearing, well-nourished and in no acute distress. A&Ox4. Answers questions appropriately. Neck: FROM. Spurling neg. Non-tender. Neuro: NIH 0. GCS 15. Cranial nerves grossly intact. Hands b/l: + tinel to the wrists that will reproduce symptoms. - Related Data Allergies/Adverse Reactions: No Known Allergies Allergy (Verified 05/19/19 09:16) Past Medical History - Past Medical History Cardiac Medical History: Reports: Hx Congestive Heart Failure, Hx Coronary Artery Disease, Hx Heart Attack, Hx Hypercholesterolemia, Hx Hypertension Denies: Hx Atrial Fibrillation, Hx DVT, Hx Pulmonary Embolism Pulmonary Medical History: Reports: Hx COPD - not on home O2 Denies: Hx Asthma, Hx Sleep Apnea Neurological Medical History: Reports: Hx Seizures. Denies: Hx Cerebrovascular Accident Endocrine Medical History: Reports: Hx Diabetes Mellitus Type 2 - poorly controlled. Denies: Hx Diabetes Mellitus Type 1, Hx Hyperthyroidism, Hx Hypothyroidism Renal/ Medical History: Denies: Hx Hemodialysis, Hx Kidney Stones, Hx Peritoneal Dialysis Malignancy Medical History: Reports Hx Renal (Kidney) Cancer - s/p partial nephrectomy and renal surgeries., Reports Hx Skin Cancer GI Medical History: Reports: Hx Gastroesophageal Reflux Disease. Denies: Hx Cirrhosis, Hx Crohn's Disease, Hx Hepatitis, Hx Ulcerative Colitis Musculoskeltal Medical History: Denies Hx Arthritis, Denies Hx Gout Skin Medical History: Denies Hx Eczema, Denies Hx Psoriasis Infectious Medical History: Denies: Hx C-Diff, Hx Hepatitis, Hx HIV Past Surgical History: Reports: Hx Cardiac Catheterization, Hx Kidney (Renal Surgery) - partial right nephrectomy, Other - skin cancer removal - Immunizations Immunizations up to date: Yes Physical Exam - Vital signs Vitals: Temp Pulse Resp BP Pulse Ox 98 F 85 16 102/58 L 95 07/31/19 10:37 07/31/19 10:37 07/31/19 10:37 07/31/19 10:37 07/31/19 10:37 Course - Vital Signs Vital signs: Temp Pulse Resp BP Pulse Ox 98 F 85 16 102/58 L 95 07/31/19 10:37 07/31/19 10:37 07/31/19 10:37 07/31/19 10:37 07/31/19 10:37 Doctor's Discharge - Discharge Referrals: LOCALMD,NO [Primary Care Provider] - Follow up as needed
--- NOTE | 2019-07-31 14:25 | ER Document Report ---
ED General - General Chief Complaint: Hand Swelling Stated Complaint: HAND NUMBNESS Time Seen by Provider: 07/31/19 10:42 Primary Care Provider: KIM GALLEGOS MD [ACTIVE STAFF] - Follow up as needed Mode of Arrival: Ambulatory Information source: Patient Notes: This 58-year-old male with history of diabetes CHF PA high blood pressure and is on disability due to a back injury presents emergency department with complaints of hands numb and painful for the past week. Reports he had a stress test on Saturday by Dr. Juarez and immediately afterwards both his hands felt numb and were hurting. He denies all other symptoms such as chest pain shortness of breath. Denies fever vomiting diarrhea. Reports he is eating drinking voiding without problems last bowel movement was yesterday. He reports he has not changed his medications. Reports no injury. No weakness. TRAVEL OUTSIDE OF THE [place] IN LAST 30 DAYS: No - HPI Onset: Other - Saturday Quality of pain: Achy Severity: Severe Pain Level: 4 Associated symptoms: None Exacerbated by: Denies Relieved by: Denies Similar symptoms previously: No Recently seen / treated by doctor: No - Related Data Allergies/Adverse Reactions: No Known Allergies Allergy (Verified 05/19/19 09:16) Past Medical History - General Information source: Patient - Social History Smoking Status: Former Smoker Chew tobacco use (# tins/day): No Frequency of alcohol use: None Drug Abuse: None Occupation: Disabled Lives with: Family Family History: Reviewed & Not Pertinent Patient has suicidal ideation: No Patient has homicidal ideation: No - Past Medical History Cardiac Medical History: Reports: Hx Congestive Heart Failure, Hx Coronary Artery Disease, Hx Heart Attack, Hx Hypercholesterolemia, Hx Hypertension Denies: Hx Atrial Fibrillation, Hx DVT, Hx Pulmonary Embolism Pulmonary Medical History: Reports: Hx COPD - not on home O2 Denies: Hx Asthma, Hx Sleep Apnea Neurological Medical History: Reports: Hx Seizures. Denies: Hx Cerebrovascular Accident Endocrine Medical History: Reports: Hx Diabetes Mellitus Type 2 - poorly controlled. Denies: Hx Diabetes Mellitus Type 1, Hx Hyperthyroidism, Hx Hypothyroidism Renal/ Medical History: Denies: Hx Hemodialysis, Hx Kidney Stones, Hx Peritoneal Dialysis Malignancy Medical History: Reports Hx Renal (Kidney) Cancer - s/p partial nephrectomy and renal surgeries., Reports Hx Skin Cancer GI Medical History: Reports: Hx Gastroesophageal Reflux Disease. Denies: Hx Cirrhosis, Hx Crohn's Disease, Hx Hepatitis, Hx Ulcerative Colitis Musculoskeletal Medical History: Denies Hx Arthritis, Denies Hx Gout Skin Medical History: Denies Hx Eczema, Denies Hx Psoriasis Infectious Medical History: Denies: Hx C-Diff, Hx Hepatitis, Hx HIV Past Surgical History: Reports: Hx Cardiac Catheterization, Hx Kidney (Renal Surgery) - partial right nephrectomy, Other - skin cancer removal - Immunizations Immunizations up to date: Yes Review of Systems - Review of Systems Notes: Review HPI for review of systems., All other systems negative Physical Exam - Vital signs Vitals: Temp Pulse Resp BP Pulse Ox 98 F 85 16 102/58 L 95 07/31/19 10:37 07/31/19 10:37 07/31/19 10:37 07/31/19 10:37 07/31/19 10:37 - General General appearance: Appears well, Alert In distress: None - HEENT Head: Normocephalic, Atraumatic Eyes: Normal Conjunctiva: Normal Extraocular movements intact: Yes Neck: Normal, Supple - Respiratory Respiratory status: No respiratory distress Chest status: Nontender Breath sounds: Normal Chest palpation: Normal - Cardiovascular Rhythm: Regular Heart sounds: Normal auscultation Murmur: No - Abdominal Inspection: Normal Distension: No distension Tenderness: Nontender - Extremities General upper extremity: Normal inspection, Nontender, Normal color, Normal ROM, Normal strength, Normal temperature. No: Tender, Edema General lower extremity: Normal inspection, Normal ROM, Normal strength, Normal weight bearing - Neurological Neuro grossly intact: Yes Cognition: Normal Orientation: AAOx4 [place] Coma Scale Eye Opening: Spontaneous [place] Coma Scale Verbal: Oriented [place] Coma Scale Motor: Obeys Commands [place] Coma Scale Total: 15 Speech: Normal Cranial nerves: Normal Cerebellar coordination: Normal Motor strength normal: LUE, RUE, LLE, RLE Additional motor exam normals: Equal injection molding machine offbearer Sensory: Normal. No: Altered light touch, 2-pt discrimination, Pin-prick - Psychological Associated symptoms: Normal affect, Normal mood - Skin Skin Temperature: Warm Skin Moisture: Dry Skin Color: Normal Course - Re-evaluation Re-evalutation: 07/31/19 14:28 58-year-old male presents with bilateral hand numbness and pain that started after a stress test. Since patient reports he started having the bilateral numbness and hand pain right after he finished a stress test I contacted Dr. Juarez for consultation. He reports he will look at the stress test and call me back. In the meantime cardiac enzymes were ordered. Dr. Juarez reports patient stress test was normal. Patient has an appointment with Dr. Juarez next Saturday, patient was able to discriminate between soft and hard pressures to his hands. no weakness noted, good firm injection molding machine offbearer. no open sores, good radial pulses equal bilaterally. No obvious neuro deficits. 07/31/19 16:[address] Griffin regarding patient's renal function. Patient does have a past history of kidney cancer as well as chronic kidney disease. She advised contact nephrology to set up an appointment. I contacted Dr. Gallegos'nicola and she reports he may call Saturday for an appointment. I contacted her office to obtain and appointment for him. The staff at the office report they have a referral from Dr. Olson so they will contact patient saturday. The patient and his were informed of this. They verbalized understanding to all information - Vital Signs Vital signs: Temp Pulse Resp BP Pulse Ox 97.8 F 73 20 88/60 L 100 07/31/19 16:12 07/31/19 16:12 07/31/19 16:12 07/31/19 16:12 07/31/19 16:12 - Laboratory Result Diagrams: 07/31/19 11:20 07/31/19 11:20 Laboratory results interpreted by me: 07/31/19 07/31/19 07/31/19 10:56 11:20 11:20 RBC 3.92 L Hgb 12.3 L Hct 36.2 L RDW 15.4 H BUN 34 H Creatinine 2.50 H Est GFR ( Amer) 32 L Est GFR (MDRD) Non-Af 26 L Glucose 256 H POC Glucose 262 H - EKG Interpretation by Me EKG shows normal: Sinus rhythm Rate: Normal Rhythm: NSR Additional EKG results interpreted by me: 07/31/19 16:[address] elevation no T wave inversion - Consults maribel Time consulted: 16:01 Reason for consultation: 07/31/19 16:01 ckd, kidney cancer Consulted provider: follow-up in office Discharge - Discharge Clinical Impression: Paresthesia CKD (chronic kidney disease) Qualifiers: Chronic kidney disease stage: unspecified stage Qualified Code(s): N18.9 - Chronic kidney disease, unspecified Condition: Stable Disposition: HOME, SELF-CARE Instructions: Family Physicians / Practices, Numbness or Paresthesia ([facility]) Additional Instructions: *You have been evaluated for numbness and pain to your hands, chronic kidney disease *Follow up with Dr Juarez as scheduled *Dr. Gallegos, telecommunications switch technician, will be contacting you Saturday with an appointment *Follow-up with a primary care provider here in [place] to become established within 1 week, see attached list. *Return to ED for worsening condition, changes, needs Referrals: KIM GALLEGOS MD [ACTIVE STAFF] - Follow up as needed
[2019-07-31 14:53] LABS: HEMATOCRIT 36.2 % (37.9-51.0); HEMOGLOBIN 12.3 g/dL (13.5-17.0); MEAN CORPUSCULAR HEMOGLOBIN 31.4 pg (27.0-33.4); MEAN CORPUSCULAR HGB CONC 33.9 g/dL (32.0-36.0); MEAN CORPUSCULAR VOLUME 93 fl (80-97); PLATELET COUNT 166 10^3/uL (150-450); RED BLOOD COUNT 3.92 10^6/uL (4.35-5.55); RED CELL DISTRIBUTION WIDTH 15.4 % (11.5-14.0); WHITE BLOOD COUNT 5.8 10^3/uL (4.0-10.5)
[2019-07-31 15:04] LABS: ALBUMIN 3.8 g/dL (3.5-5.0); ALKALINE PHOSPHATASE 80 U/L (38-126); ANION GAP 7 (5-19); ASPARTATE AMINO TRANSFERASE 19 U/L (17-59); BILIRUBIN,DIRECT 0.2 mg/dL (0.0-0.4); BILIRUBIN,TOTAL 0.5 mg/dL (0.2-1.3); BLOOD UREA NITROGEN 34 mg/dL (7-20); CARBON DIOXIDE 26 mmol/L (22-30); CHLORIDE 105 mmol/L (98-107); CREATINE KINASE 95 U/L (55-170); GLUCOSE 256 mg/dL (75-110); POTASSIUM 4.1 mmol/L (3.6-5.0)
[2019-07-31 15:39] LABS: ABSOLUTE MONOCYTES # (MANUAL) 0.6 10^3/uL (0.1-1.4); BAND NEUTROPHILS % (MANUAL) 3 % (3-5); BASOPHILS % (MANUAL) 0 % (0-2); EOSINOPHILS % (MANUAL) 1 % (0-6); LYMPHOCYTES % (MANUAL) 35 % (13-45); MONOCYTES % (MANUAL) 10 % (3-13); SEGMENTED NEUTROPHILS % (MAN) 51 % (42-78); TOTAL CELLS COUNTED 100
[2019-07-31 15:40] LABS: ANISOCYTOSIS SLIGHT; OVALOCYTES SLIGHT; PLATELET COMMENT ADEQUATE; POIKILOCYTOSIS SLIGHT
[2019-07-31 16:16] VITALS: BP 88/60
--- NOTE | 2019-07-31 21:26 | EKG REPORT ---
SEVERITY:- NORMAL ECG - SINUS RHYTHM : Confirmed by: Phillip Montaño MD 31-Jul-2019 21:25:44
== END 2019-07-31 16:16 | disposition home or self-care (01) ==
LOC: ER 10:28
DX: R20.2 Paresthesia of skin (principal); M79.89 Other specified soft tissue disorders; E11.9 Type 2 diabetes mellitus without complications; E11.22 Type 2 diabetes mellitus with diabetic chronic kidney disease; I13.0 Hypertensive heart and chronic kidney disease with heart failure and stage 1 through stage 4 chronic kidney disease, or unspecified chronic kidney disease; N18.9 Chronic kidney disease, unspecified; I50.9 Heart failure, unspecified; I25.10 Atherosclerotic heart disease of native coronary artery without angina pectoris; E78.00 Pure hypercholesterolemia, unspecified; J44.9 Chronic obstructive pulmonary disease, unspecified; I25.2 Old myocardial infarction; Z85.528 Personal history of other malignant neoplasm of kidney
CPT/HCPCS: 36415; 80053; 82550; 82962; 84484; 85025; 93005; 93010; 99284

== ENCOUNTER 2019-09-14 09:59 | Emergency (ER) | payer MEDICARE ==
[2019-09-14 10:40] LABS: ABSOLUTE EOSINOPHILS # (AUTO) 0.2 10^3/uL (0.0-0.6); ABSOLUTE MONOCYTES (AUTO) 0.7 10^3/uL (0.1-1.4); ABSOLUTE NEUT (AUTO) 2.2 10^3/uL (1.7-8.2); BASOPHILS % (AUTO) 0.7 % (0-2); EOSINOPHILS % (AUTO) 3.2 % (0-6); HEMATOCRIT 38.6 % (37.9-51.0); LYMPHOCYTES % (AUTO) 38.8 % (13-45); MEAN CORPUSCULAR HEMOGLOBIN 31.5 pg (27.0-33.4); MEAN CORPUSCULAR HGB CONC 33.8 g/dL (32.0-36.0); MEAN CORPUSCULAR VOLUME 93 fl (80-97); MONOCYTES % (AUTO) 14.7 % (3-13); PLATELET COUNT 184 10^3/uL (150-450); RED BLOOD COUNT 4.14 10^6/uL (4.35-5.55); RED CELL DISTRIBUTION WIDTH 15.9 % (11.5-14.0); SEGMENTED NEUTROPHILS % (AUTO) 42.6 % (42-78); TOTAL CELLS COUNTED % (AUTO) 100 %; WHITE BLOOD COUNT 5.1 10^3/uL (4.0-10.5)
[2019-09-14 10:58] LABS: ALBUMIN 4.1 g/dL (3.5-5.0); ALKALINE PHOSPHATASE 82 U/L (38-126); ANION GAP 13 (5-19); ASPARTATE AMINO TRANSFERASE 52 U/L (17-59); BILIRUBIN,DIRECT 0.3 mg/dL (0.0-0.4); BLOOD UREA NITROGEN 53 mg/dL (7-20); CALCIUM 8.6 mg/dL (8.4-10.2); CARBON DIOXIDE 22 mmol/L (22-30); CHLORIDE 110 mmol/L (98-107); GLUCOSE 108 mg/dL (75-110); POTASSIUM 4.4 mmol/L (3.6-5.0); TOTAL PROTEIN 7.4 g/dL (6.3-8.2)
[2019-09-14 11:42] LABS: APPEARANCE,URINE CLEAR; BILIRUBIN,URINE NEGATIVE (NEGATIVE); COLOR,URINE YELLOW; GLUCOSE, URINE NEGATIVE (NEGATIVE); KETONES,URINE NEGATIVE (NEGATIVE); PROTEIN,URINE NEGATIVE (NEGATIVE); URINE SPECIFIC GRAVITY 1.013; UROBILINOGEN,URINE NEGATIVE mg/dL (<2.0)
--- NOTE | 2019-09-14 12:44 | ER Document Report ---
ED General - General Chief Complaint: General Weakness Stated Complaint: FALL/RIGHT FLANK PAIN, NECK PAIN Time Seen by Provider: 09/14/19 12:25 Primary Care Provider: DONNY SALAZAR MD [Primary Care Provider] - Follow up as needed Notes: 58-year-old male with past medical history of diabetes presents with dizziness that started . Patient states that he saw his PCP, Dr. Salazar, on and received a phone call on Saturday informing him that he had chronic kidney disease. Patient states that dizziness is worse upon standing. Patient states he felt like he was going to pass out on Saturday and almost fell but he caught himself. Patient states he passed out once causing a fall forward yesterday and then felt dizzy later in the day and fell backwards. Patient states he did hit his head. Patient also states he is having some right-sided pain. Patient takes aspirin 81 mg once daily but denies any other anticoagulation. Patient denies ever feeling like this before. Patient denies any fevers, chest pain, dyspnea, nausea/vomiting, abdominal pain. TRAVEL OUTSIDE OF THE [place] IN LAST 30 DAYS: No - Related Data Allergies/Adverse Reactions: No Known Allergies Allergy (Verified 05/19/19 09:16) Home Medications: victoza 1.2mg QID. Tresbia 14 units QID. Novolog 6 units TID Past Medical History - Social History Smoking Status: Unknown if Ever Smoked Family History: Reviewed & Not Pertinent Patient has suicidal ideation: No Patient has homicidal ideation: No - Past Medical History Cardiac Medical History: Reports: Hx Congestive Heart Failure, Hx Coronary Artery Disease, Hx Heart Attack, Hx Hypercholesterolemia, Hx Hypertension Denies: Hx Atrial Fibrillation, Hx DVT, Hx Pulmonary Embolism Pulmonary Medical History: Reports: Hx COPD - not on home O2 Denies: Hx Asthma, Hx Sleep Apnea Neurological Medical History: Reports: Hx Seizures. Denies: Hx Cerebrovascular Accident Endocrine Medical History: Reports: Hx Diabetes Mellitus Type 2 - poorly controlled. Denies: Hx Diabetes Mellitus Type 1, Hx Hyperthyroidism, Hx Hypothyroidism Renal/ Medical History: Denies: Hx Hemodialysis, Hx Kidney Stones, Hx Per itoneal Dialysis Malignancy Medical History: Reports Hx Renal (Kidney) Cancer - s/p partial nephrectomy and renal surgeries., Reports Hx Skin Cancer GI Medical History: Reports: Hx Gastroesophageal Reflux Disease. Denies: Hx Cirrhosis, Hx Crohn's Disease, Hx Hepatitis, Hx Ulcerative Colitis Musculoskeletal Medical History: Denies Hx Arthritis, Denies Hx Gout Skin Medical History: Denies Hx Eczema, Denies Hx Psoriasis Infectious Medical History: Denies: Hx C-Diff, Hx Hepatitis, Hx HIV Past Surgical History: Reports: Hx Cardiac Catheterization, Hx Kidney (Renal Surgery) - partial right nephrectomy, Other - skin cancer removal - Immunizations Immunizations up to date: Yes Review of Systems - Review of Systems Notes: Constitutional: Negative for fever. HENT: Negative for sore throat. Eyes: Negative for visual changes. Cardiovascular: Negative for chest pain. Respiratory: Negative for shortness of breath. Gastrointestinal: Negative for abdominal pain, vomiting or diarrhea. Genitourinary: Negative for dysuria. Musculoskeletal: Positive for right-sided pain. Negative for back pain. Skin: Negative for rash. Neurological: Positive for dizziness/syncope. Negative for headaches, weakness or numbness. 10 point ROS negative except as marked above and in HPI. Physical Exam - Vital signs Vitals: Temp Pulse Resp BP Pulse Ox 97.8 F 87 16 106/68 95 09/14/19 10:04 09/14/19 10:04 09/14/19 10:04 09/14/19 10:04 09/14/19 10:04 - Notes Notes: GENERAL: Well-appearing, well-nourished and in no acute distress. HEAD: Atraumatic, normocephalic. EYES: Pupils equal round and reactive to light, extraocular movements intact, sclera anicteric, conjunctiva are normal. NECK: Normal range of motion, supple without lymphadenopathy or JVD. LUNGS: Breath sounds clear to auscultation bilaterally and equal. No wheezes rales or rhonchi. Mild tenderness to right lower ribs. No contusion. HEART: Regular rate and rhythm without murmurs, rubs or gallops. ABDOMEN: Soft, nontender. No guarding, no rebound. No masses appreciated. EXTREMITIES: Normal range of motion, no pitting or edema. No clubbing or cyanosis. NEUROLOGICAL: Cranial nerves II through XII grossly intact. Normal speech, normal gait. No facial droop. No tongue deviation. Certified Art Therapist strength equal bilaterally. Upper/lower extremity strength equal bilaterally. PSYCH: Normal mood, normal affect. SKIN: Warm, Dry, normal turgor, no rashes or lesions noted. Course - Re-evaluation Re-evalutation: 09/14/19 58-year-old male presents with syncope/falls/dizziness. Initial work- up included a CBC, CMP, UA which was unremarkable. However due to syncope and head injury, further work-up was added to include EKG, troponin, chest x-ray, CT of the head. 09/14/19 13:01 EKG NSR at [address] elevation. 09/14/19 14:[address] Esparza, who recommended orthostatic and then calling PCP for either obs or follow up tomorrow. 09/14/19 14:[address] Ornelas who is road freight conductor for Dr. Salazar. Dr. Ornelas recommends seeing pt in his office tomorrow. 09/14/19 16:57 Orthostatic vitals improved after IV fluids. Discussed all results with pt and pt's . Pt to follow up with Dr. Ornelas tomorrow. Return precautions discussed. Pt voices understanding and agrees with plan of care. - Vital Signs Vital signs: Temp Pulse Resp BP Pulse Ox 97.8 F 78 15 116/68 96 09/14/19 10:22 09/14/19 16:38 09/14/19 16:33 09/14/19 16:38 09/14/19 16:33 - Laboratory Result Diagrams: 09/14/19 10:23 09/14/19 10:23 Laboratory results interpreted by me: 09/14/19 09/14/19 10:23 10:23 RBC 4.14 L Hgb 13.0 L RDW 15.9 H [place] % (Auto) 14.7 H Chloride 110 H BUN 53 H Creatinine 3.59 H Est GFR ( Amer) 21 L Est GFR (MDRD) Non-Af 17 L Discharge - Discharge Clinical Impression: Dizziness, Orthostatic hypotension Fall Qualifiers: Encounter type: initial encounter Qualified Code(s): W19.XXXA - Unspecified fall, initial encounter Condition: Stable Disposition: HOME, SELF-CARE Additional Instructions: Please call Dr. Ornelas's office tomorrow to be seen tomorrow in his office! Return to ER for any worsening symptoms, including worsening dizziness, passing out, chest pain, shortness of breath, fever, or any other worsening symptoms. Referrals: DONNY SALAZAR MD [Primary Care Provider] - Follow up as needed ÁNGEL ORNELAS MD [ACTIVE STAFF] - Follow up tomorrow
[2019-09-14] MEDS ORDERED: HYDROCODONE/ACETAMINOPHEN 5-325 MG TABLET PO ONE (13:10)
--- NOTE | 2019-09-14 13:43 | RADIOLOGY REPORT (SQ) ---
EXAM DESCRIPTION: CHEST 2 VIEWS COMPLETED DATE/TIME: 09/14/2019 1:27 pm REASON FOR STUDY: fall, syncope, right rib pain COMPARISON: Two-view chest 05/18/2019 CT chest 05/03/2019 EXAM PARAMETERS: NUMBER OF VIEWS: two views TECHNIQUE: Digital Frontal and Lateral radiographic views of the chest acquired. RADIATION DOSE: NA LIMITATIONS: none FINDINGS: LUNGS AND PLEURA: No opacities, masses or pneumothorax. No pleural effusion. MEDIASTINUM AND HILAR STRUCTURES: No masses or contour abnormalities. HEART AND VASCULAR STRUCTURES: Heart normal size. No evidence for failure. BONES: No acute findings. HARDWARE: None in the chest. OTHER: No other significant finding. IMPRESSION: NO ACUTE RADIOGRAPHIC FINDING IN THE CHEST. TECHNICAL DOCUMENTATION: JOB ID: [id number] [employer]- All Rights Reserved Reading location - IP/workstation name: [email or web address]
--- NOTE | 2019-09-14 13:53 | RADIOLOGY REPORT (SQ) ---
EXAM DESCRIPTION: CT HEAD WITHOUT COMPLETED DATE/TIME: 09/14/2019 1:43 pm REASON FOR STUDY: fall, syncope COMPARISON: 05/18/2019. TECHNIQUE: Axial images acquired through the brain without intravenous contrast. Images reviewed wi th bone, brain and subdural windows. Additional sagittal and coronal reconstructions were generated. Images stored on PACS. All CT scanners at this facility use dose modulation, iterative reconstruction, and/or weight based d osing when appropriate to reduce radiation dose to as low as reasonably achievable (ALARA). [facility]: Dose Right [facility]: CareDose [facility]: Dose Right [facility]: Teradose 4D [facility]: Smart [employer] RADIATION DOSE: CT Rad equipment meets quality standard of care and radiation dose reduction techniq ues were employed. CTDIvol: 53.2 mGy. DLP: 1097 mGy-cm. mGy. LIMITATIONS: None. FINDINGS: VENTRICLES: Prominent. CEREBRUM: No masses. No hemorrhage. No midline shift. Areas of low density in the white matter mos t likely due to chronic micro-vascular ischemic change. Old lacunar infarct in the left caudate nucl eus. No evidence for acute infarction. CEREBELLUM: No masses. No hemorrhage. No alteration of density. No evidence for acute infarction. EXTRAAXIAL SPACES: Mild age-related involutional change. No fluid collections. No masses. ORBITS AND GLOBE: No intra- or extraconal masses. Normal contour of globe without masses. CALVARIUM: No fracture. PARANASAL SINUSES: No fluid or mucosal thickening. SOFT TISSUES: No mass or hematoma. OTHER: No other significant finding. IMPRESSION: MILD CHRONIC CHANGES OF ATROPHY AND MICROVASCULAR ISCHEMIA. OLD LACUNAR INFARCT IN THE LEFT CAUDATE NUCLEUS. NO ACUTE PROCESS. EVIDENCE OF ACUTE STROKE: NO. TECHNICAL DOCUMENTATION: JOB ID: [id number] Quality ID # [id number]: Final reports with documentation of one or more dose reduction techniques (e.g., Au tomated exposure control, adjustment of the mA and/or kV according to patient size, use of iterative reconstruction technique) 2010 [employer]- All Rights Reserved Reading location - IP/workstation name: [email or web address]
[2019-09-14] MEDS ORDERED: NORMAL SALINE 1000 ML 1,000 ML IV ONE ×2 (14:29→15:12)
[2019-09-14 17:14] VITALS: BP 102/71
--- NOTE | 2019-09-14 23:54 | EKG REPORT ---
SEVERITY:- NORMAL ECG - SINUS RHYTHM : Confirmed by: Rosalind Shah 14-Sep-2019 23:53:51
== END 2019-09-14 17:14 | disposition home or self-care (01) ==
LOC: ER 09:59
DX: I95.1 Orthostatic hypotension (principal); S09.90XA Unspecified injury of head, initial encounter; R10.9 Unspecified abdominal pain; M54.2 Cervicalgia; W19.XXXA Unspecified fall, initial encounter; R42 Dizziness and giddiness; R55 Syncope and collapse; I10 Essential (primary) hypertension; J44.9 Chronic obstructive pulmonary disease, unspecified; E11.9 Type 2 diabetes mellitus without complications; Z79.4 Long term (current) use of insulin; Z79.82 Long term (current) use of aspirin; Z85.528 Personal history of other malignant neoplasm of kidney; Z90.5 Acquired absence of kidney
CPT/HCPCS: 93005; 99284; 96360; 36415; 85025; 80053; 81001; 84484; 71046; 70450; 93010; J7030; A9270

== ENCOUNTER → 2019-09-15 | Outpatient (CLI) | payer MEDICARE ==
--- NOTE | 2019-09-15 14:15 | RADIOLOGY REPORT (SQ) ---
EXAM DESCRIPTION: MRI HEAD WITHOUT COMPLETED DATE/TIME: 09/15/2019 12:58 pm REASON FOR STUDY: CEREBRAL INFARCTION, UNSPEC (I63.9) I63.9 CEREBRAL INFARCTION, UNSPECIFIED COMPARISON: None. TECHNIQUE: Multiplanar imaging includes non-contrasted T1, T2, FLAIR, and Diffusion with ADC map seq uences. Images stored on PACS. LIMITATIONS: None. FINDINGS: ANATOMY: No anomalies. Normal vascular flow voids. Pituitary fossa normal. CSF SPACES: Normal in size and contour. No hemorrhage. CEREBRUM: Old lacunar infarct left basal ganglia. A few high-signal intensity lesions scattered thro ughout the white matter on FLAIR imaging with distribution suggesting chronic micro-vascular ischemic change. Sulci and gyri normal in size and contour. No evidence of hemorrhage, mass or extraaxial f luid collection. POSTERIOR FOSSA: No signal alteration. No hemorrhage. No edema, masses or mass effect. Internal con tory canals, cerebello-pontine angles, mastoids normal. DIFFUSION: Negative for acute or sub-acute infarction. ORBITS: No masses. Globes normal. PARANASAL SINUSES: No fluid levels. Mucosa normal. OTHER: No other significant finding. IMPRESSION: Chronic ischemic changes. EVIDENCE OF ACUTE STROKE: NO. TECHNICAL DOCUMENTATION: JOB ID: [id number] [employer]- All Rights Reserved Reading location - IP/workstation name: [email or web address]
== END ==
LOC: RAD 12:16
PROVIDERS: ATTEND Internal Medicine
DX: I63.9 Cerebral infarction, unspecified (principal)
CPT/HCPCS: 70551

== ENCOUNTER 2019-09-18 13:26 | Observation (INO) | payer MEDICARE ==
--- NOTE | 2019-09-18 13:48 | ER Document Report ---
ED Medical Screen (RME) - General Chief Complaint: Abdominal Pain Stated Complaint: RIGHT ABDOMINAL PAIN Time Seen by Provider: 09/18/19 13:48 Primary Care Provider: ÁNGEL ORNELAS MD [Primary Care Provider] - Follow up as needed Mode of Arrival: Wheelchair Information source: Patient Notes: 58-year-old male presented to ED for complaint of severe right abdominal pain. He states he is falling multiple times he was recently seen in the ER for multiple falls. He did have a head MRI and he had other imaging done when he was here a couple days ago. He has not had any imaging done to his abdomen. Patient states his abdomen hurt the last time he was here he states he is fallen again since he was here the last time and that is why Dr. Ornelas sent him to get an MRI of the head. He supposed to follow-up with Dr. Ornelas on Saturday at 1:45 PM. States his abdomen hurts a whole lot worse than it did then and he continues to fall and he needs to know what is going on. Patient's abdomen is very distended. States he had a bowel movement a couple days ago but has not had any since then. Very faint and very few bowel sounds noted. I have greeted and performed a rapid initial assessment of this patient. A comprehensive ED assessment and evaluation of the patient, analysis of test results and completion of medical decision making process will be conducted by an additional ED providers. TRAVEL OUTSIDE OF THE [place] IN LAST 30 DAYS: No - Related Data Allergies/Adverse Reactions: No Known Allergies Allergy (Verified 09/18/19 13:44) Past Medical History - Past Medical History Cardiac Medical History: Reports: Hx Congestive Heart Failure, Hx Coronary Artery Disease, Hx Heart Attack, Hx Hypercholesterolemia, Hx Hypertension Denies: Hx Atrial Fibrillation, Hx DVT, Hx Pulmonary Embolism Pulmonary Medical History: Reports: Hx COPD - not on home O2 Denies: Hx Asthma, Hx Sleep Apnea Neurological Medical History: Reports: Hx Seizures. Denies: Hx Cerebrovascular Accident Endocrine Medical History: Reports: Hx Diabetes Mellitus Type 2 - poorly controlled. Denies: Hx Diabetes Mellitus Type 1, Hx Hyperthyroidism, Hx Hypothyroidism Renal/ Medical History: Denies: Hx Hemodialysis, Hx Kidney Stones, Hx Peritoneal Dialysis Malignancy Medical History: Reports Hx Renal (Kidney) Cancer - s/p partial nephrectomy and renal surgeries., Reports Hx Skin Cancer GI Medical History: Reports: Hx Gastroesophageal Reflux Disease. Denies: Hx Cirrhosis, Hx Crohn's Disease, Hx Hepatitis, Hx Ulcerative Colitis Musculoskeltal Medical History: Denies Hx Arthritis, Denies Hx Gout Skin Medical History: Denies Hx Eczema, Denies Hx Psoriasis Infectious Medical History: Denies: Hx C-Diff, Hx Hepatitis, Hx HIV Past Surgical History: Reports: Hx Cardiac Catheterization, Hx Kidney (Renal Surgery) - partial right nephrectomy, Other - skin cancer removal - Immunizations Immunizations up to date: Yes Doctor's Discharge - Discharge Referrals: ÁNGEL ORNELAS MD [Primary Care Provider] - Follow up as needed
[2019-09-18] MEDS ORDERED: NORMAL SALINE 1000 ML 1,000 ML IV ONE (13:55)
[2019-09-18 15:10] LABS: ABSOLUTE EOSINOPHILS # (AUTO) 0.2 10^3/uL (0.0-0.6); ABSOLUTE MONOCYTES (AUTO) 0.8 10^3/uL (0.1-1.4); ABSOLUTE NEUT (AUTO) 2.3 10^3/uL (1.7-8.2); BASOPHILS % (AUTO) 0.8 % (0-2); EOSINOPHILS % (AUTO) 3.4 % (0-6); HEMATOCRIT 39.4 % (37.9-51.0); HEMOGLOBIN 13.3 g/dL (13.5-17.0); LYMPHOCYTES % (AUTO) 37.9 % (13-45); MEAN CORPUSCULAR HEMOGLOBIN 31.4 pg (27.0-33.4); MEAN CORPUSCULAR HGB CONC 33.8 g/dL (32.0-36.0); MEAN CORPUSCULAR VOLUME 93 fl (80-97); MONOCYTES % (AUTO) 14.6 % (3-13); PLATELET COUNT 198 10^3/uL (150-450); RED BLOOD COUNT 4.24 10^6/uL (4.35-5.55); RED CELL DISTRIBUTION WIDTH 15.7 % (11.5-14.0); SEGMENTED NEUTROPHILS % (AUTO) 43.3 % (42-78); TOTAL CELLS COUNTED % (AUTO) 100 %; WHITE BLOOD COUNT 5.3 10^3/uL (4.0-10.5)
[2019-09-18 15:13] LABS: APPEARANCE,URINE CLEAR; BILIRUBIN,URINE NEGATIVE (NEGATIVE); COLOR,URINE YELLOW; GLUCOSE, URINE NEGATIVE (NEGATIVE); KETONES,URINE NEGATIVE (NEGATIVE); PROTEIN,URINE NEGATIVE (NEGATIVE); UROBILINOGEN,URINE NEGATIVE mg/dL (<2.0)
[2019-09-18 15:25] LABS: ALBUMIN 4.2 g/dL (3.5-5.0); ALKALINE PHOSPHATASE 79 U/L (38-126); ANION GAP 13 (5-19); ASPARTATE AMINO TRANSFERASE 65 U/L (17-59); BILIRUBIN,DIRECT 0.3 mg/dL (0.0-0.4); BILIRUBIN,TOTAL 0.9 mg/dL (0.2-1.3); BLOOD UREA NITROGEN 38 mg/dL (7-20); CALCIUM 9.1 mg/dL (8.4-10.2); CARBON DIOXIDE 26 mmol/L (22-30); CHLORIDE 104 mmol/L (98-107); GLUCOSE 101 mg/dL (75-110); TOTAL PROTEIN 7.6 g/dL (6.3-8.2)
[2019-09-18 15:28] LABS: POTASSIUM 4.7 mmol/L (3.6-5.0)
--- NOTE | 2019-09-18 17:09 | ER Document Report ---
ED General - General Chief Complaint: Abdominal Pain Stated Complaint: RIGHT ABDOMINAL PAIN Time Seen by Provider: 09/18/19 13:48 Primary Care Provider: ÁNGEL ORNELAS MD [Primary Care Provider] - Follow up as needed Mode of Arrival: Wheelchair TRAVEL OUTSIDE OF THE [place] IN LAST 30 DAYS: No - HPI Notes: Mr. Emanuel Lemus is a 58-year-old male diabetic with chronic kidney disease who was seen here within the last week after sustaining a fall at home and complaining of difficulty walking. Head CT at that time and exam were reviewed by the treating physician and he was felt not to have evidence of an acute stroke. He was discharged home. He subsequently went back to his primary care physician Dr. Ornelas who ordered an outpatient MRI of the brain suspecting a possible cerebellar stroke. The study showed only chronic appearing microvasc ular changes. Patient spoke with his physician again by telephone today and related that he was continued to have difficulty standing and bearing weight and was not able to ambulate even using a cane or walker. He also complains of increasing pain and right lower rib cage and right upper quadrant the abdomen. Review of the earlier visit shows he did not have any imaging of the abdomen or chest by CT at that time will he did have chest x-ray with no obvious rib fracture or hemo/pneumothorax. Patient's doctor advised him to come back to the emergency department for reevaluation. Pertinent prior history: Patient is marginally compliant with his diabetes treatment. He is currently taking insulin. He reports that he has significant peripheral neuropathy and has chronic tingling of both hands and both feet. He apparently has had some degree of chronic gait instability on the basis of his diabetic neuropathy. - Related Data Allergies/Adverse Reactions: No Known Allergies Allergy (Verified 09/18/19 13:44) Home Medications: diabetes. chf. high cholesterol. htn. copd. seizures Past Medical History - General Information source: Patient - Social History Smoking Status: Former Smoker Chew tobacco use (# tins/day): No Frequency of alcohol use: None Drug Abuse: None Family History: Reviewed & Not Pertinent Patient has suicidal ideation: No Patient has homicidal ideation: No - Past Medical History Cardiac Medical History: Reports: Hx Congestive Heart Failure, Hx Coronary Artery Disease, Hx Heart Attack, Hx Hypercholesterolemia, Hx Hypertension Denies: Hx Atrial Fibrillation, Hx DVT, Hx Pulmonary Embolism Pulmonary Medical History: Reports: Hx COPD - not on home O2 Denies: Hx Asthma, Hx Sleep Apnea Neurological Medical History: Reports: Hx Seizures. Denies: Hx Cerebrovascular Accident Endocrine Medical History: Reports: Hx Diabetes Mellitus Type 2 - poorly controlled. Denies: Hx Diabetes Mellitus Type 1, Hx Hyperthyroidism, Hx Hypothyroidism Renal/ Medical History: Denies: Hx Hemodialysis, Hx Kidney Stones, Hx Peritoneal Dialysis Malignancy Medical History: Reports Hx Renal (Kidney) Cancer - s/p partial nephrectomy and renal surgeries., Reports Hx Skin Cancer GI Medical History: Reports: Hx Gastroesophageal Reflux Disease. Denies: Hx Cirrhosis, Hx Crohn's Disease, Hx Hepatitis, Hx Ulcerative Colitis Musculoskeletal Medical History: Denies Hx Arthritis, Denies Hx Gout Skin Medical History: Denies Hx Eczema, Denies Hx Psoriasis Infectious Medical History: Denies: Hx C-Diff, Hx Hepatitis, Hx HIV Past Surgical History: Reports: Hx Cardiac Catheterization, Hx Kidney (Renal Surgery) - partial right nephrectomy, Other - skin cancer removal - Immunizations Immunizations up to date: Yes Review of Systems - Review of Systems Notes: Constitutional: Negative for fever. HENT: Negative for sore throat. Eyes: Negative for visual changes. Cardiovascular: As per HPI. Respiratory: Negative for shortness of breath. Gastrointestinal: As per HPI. Genitourinary: Negative for dysuria. Musculoskeletal: As per HPI. Skin: Negative for rash. Neurological: Negative for headaches, weakness or numbness. 10 point ROS negative except as marked above and in HPI. Physical Exam - Vital signs Vitals: Temp Pulse Resp BP Pulse Ox 98.1 F 90 20 105/65 98 09/18/19 13:31 09/18/19 13:31 09/18/19 13:31 09/18/19 13:31 09/18/19 13:31 - Notes Notes: GENERAL: Well-developed well-nourished appearing mildly uncomfortable. SKIN: Shawn complexion. Good turgor no rashes. HEAD: Normocephalic atraumatic. EYES: PERRLA. Conjunctivae and sclerae clear. EARS: CANALS AND TMS CLEAR. NOSE: CLEAR. MOUTH: Moist mucosa. Good dentition. No stridor or edema. No drooling. NECK: Supple. No masses or thyromegaly. No adenopathy. Carotids 2+ without bruits. No JVD. BACK: Symmetrical without tenderness. CHEST: Tenderness anterior chest wall along costal margin on the right. No visible ecchymoses. No palpable step-off or crepitus. Respirations unlabored. Breath sounds clear and symmetrical. HEART: Heart sounds distant. Regular rhythm. No murmur gallop or rub. ABDOMEN: Tenderness on deep palpation and right upper quadrant and abdomen appears mildly distended. Soft without masses, organomegaly or rebound. Bowel sounds normally active. No bruits. GENITALIA: Deferred. EXTREMITIES: No edema. No calf tenderness. Cap refill less than 1.5 seconds. Dorsalis pedis and posterior tibial pulses 3+ and symmetrical. NEUROLOGICAL: GCS 15. Alert and oriented x3. Patient is unable to stand without assistance. Fluent speech. Cranial nerves II through XII intact. Motor function is grossly intact and symmetrical. Patient has some mild dysmetria left upper extremity. Peripheral sensation is decreased all 4 extremities which patient says is his previous baseline. Normal tone. Course - Re-evaluation Re-evalutation: 09/18/19 19:40 This gentleman appears to have mild ataxia. He has no real focal weakness. He does have severe peripheral neuropathy based on his history and his exam today. I note that he is taking valproate I checked the level and found this to be therapeutic at 80. His brain MRI from 2 days ago was reported as showing some diffuse microvascular changes only. His CT chest abdomen and pelvis today show some contusion of abdominal wall with no other substantial findings. I think this man's gait instability is probably multifactorial relating to his advanced diabetic peripheral neuropathy and musculoskeletal soreness related to recent falls. I think at this time will require admission at least observation status for PT evaluation. I paged his primary provider Dr. Ornelas who is not available and was told with Dr. Salazar is covering. Will discuss admission with Dr. Salazar.. - Vital Signs Vital signs: Temp Pulse Resp BP Pulse Ox 98.1 F 90 20 105/65 98 09/18/19 13:31 09/18/19 13:31 09/18/19 13:31 09/18/19 13:31 09/18/19 13:31 - Laboratory Result Diagrams: 09/18/19 14:57 09/18/19 14:57 Laboratory results interpreted by me: 09/18/19 09/18/19 09/18/19 14:45 14:57 14:57 RBC 4.24 L Hgb 13.3 L RDW 15.7 H Motley % (Auto) 14.6 H BUN 38 H Creatinine 2.58 H Est GFR ( Amer) 31 L Est GFR (MDRD) Non-Af 26 L AST 65 H Urine Blood SMALL H - Diagnostic Test Radiology reviewed: Reports reviewed Discharge - Discharge Clinical Impression: Ataxia, Chronic kidney disease, Diabetic peripheral neuropathy Diabetes mellitus Qualifiers: Diabetes mellitus type: type 2 Diabetes mellitus long-term 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
--- NOTE | 2019-09-18 17:35 | RADIOLOGY REPORT (SQ) ---
EXAM DESCRIPTION: CT ABD/PELVIS NO ORAL OR IV; CT CHEST WITHOUT COMPLETED DATE/TIME: 09/18/2019 5:15 pm REASON FOR STUDY: trauma; injury COMPARISON: 05/18/2019, 05/03/2019, 06/08/2015 TECHNIQUE: CT scan of the chest performed without intravenous contrast using helical scanning techni que. Images reviewed with lung, soft tissue and bone windows. Reconstructed coronal and sagittal MPR images reviewed. All images stored on PACS. CT scan of the abdomen and pelvis performed without intravenous contrast and withoutoral contrast usi ng helical scanning technique with dynamic intravenous contrast injection. Images reviewed with lung , soft tissue and bone windows. Reconstructed coronal and sagittal MPR images reviewed. All images stored on PACS. All CT scanners at this facility use dose modulation, iterative reconstruction, and/or weight based d osing when appropriate to reduce radiation dose to as low as reasonably achievable (ALARA). [facility]: Dose Right [facility]: CareDose [facility]: Dose Right [facility]: Teradose 4D [facility]: Smart Technologies RADIATION DOSE: CT Rad equipment meets quality standard of care and radiation dose reduction techniq ues were employed. CTDIvol: 15.5 mGy. DLP: 1129 mGy-cm. mGy. LIMITATIONS: No technical limitations. FINDINGS: CHEST: AXILLAE: No adenopathy. CHEST WALL: No masses. No subcutaneous air. LUNGS: No nodules or masses. No pneumothorax. No infiltrates. PLEURA: No effusions. No calcifications. THYROID: No masses or significant asymmetry. HILAR AND MEDIASTINAL STRUCTURES: No identified masses or abnormal nodes. AORTA AND GREAT VESSELS: No aneurysm. HEART: No pericardial effusion. Marked calcified coronary artery disease. HARDWARE AND LIFELINES: None. BONES: No fractures. No wedge compression deformities. Degenerative changes are seen of the hips an d spine. OTHER: No other significant finding. ABDOMEN AND PELVIS: LIVER: Normal size. No masses. No dilated ducts. A tiny lipomatous lesion interposed between the li samira capsule in the right kidney is unchanged in the study interval on demonstrates benign imaging roxie racteristics. SPLEEN: Normal size. No focal lesions. PANCREAS: No masses. No significant calcifications. No adjacent inflammation or peripancreatic flui d collections. Pancreatic duct not dilated. GALLBLADDER: No identified stones by CT criteria. No inflammatory changes to suggest cholecystitis. ADRENAL GLANDS: No significant masses or asymmetry. RIGHT KIDNEY AND URETER: No solid masses. Assessment limited by lack of IV contrast. No significant c alcification. No hydronephrosis or hydroureter. LEFT KIDNEY AND URETER: No solid masses. Incidental note is made of a simple cyst versus calyceal di verticulum. Assessment limited by lack of IV contrast. No significant calcification. No hydronephros is or hydroureter. AORTA AND VESSELS: Dense calcified atherosclerotic plaque to include the major visceral branches. RETROPERITONEUM: No retroperitoneal adenopathy, hemorrhage or masses. APPENDIX: Not visualized. LARGE AND SMALL BOWEL: Scattered colonic diverticula without focal inflammatory changes. ABDOMINAL WALL: No hernias or masses. Likely small subcutaneous contusion involving the left lower q uadrant. PERITONEAL CAVITY: No free air. No free fluid. No peritoneal implants or masses. PELVIS: No mass or free fluid. Normal bladder. BONES: No significant or acute findings. OTHER: No other significant finding. IMPRESSION: The floor abdominal wall contusion. No evidence of acute osseous or visceral injury. C hronic and incidental findings as detailed above. TECHNICAL DOCUMENTATION: JOB ID: [id number] Quality ID # [id number]: Final reports with documentation of one or more dose reduction techniques (e.g., Au tomated exposure control, adjustment of the mA and/or kV according to patient size, use of iterative reconstruction technique) 2010 [employer]- All Rights Reserved Reading location - IP/workstation name: [email or web address]
[2019-09-18] MEDS ORDERED: IPRATROPIUM/ALBUTEROL 0.5-2.5 MG/3 ML AMPUL NEB PRN (19:51)
[2019-09-18] MEDS ORDERED: NORMAL SALINE 1000 ML 1,000 ML IV PRN (19:51)
[2019-09-18] MEDS ORDERED: GLUCAGON,HUMAN RECOMB 1 MG INJ IM PRN (19:57)
[2019-09-18] MEDS ORDERED: DEXTROSE 50%-WATER 25 GM/50 ML DISP.SYRIN IV PRN ×2 (19:57)
[2019-09-18] MEDS ORDERED: DEXTROSE 40% GEL 15 GM TUBE PO PRN ×2 (19:57)
[2019-09-18 20:48] LABS: ANION GAP 12 (5-19); BLOOD UREA NITROGEN 35 mg/dL (7-20); CALCIUM 9.1 mg/dL (8.4-10.2); CARBON DIOXIDE 26 mmol/L (22-30); CHLORIDE 105 mmol/L (98-107); GLUCOSE 101 mg/dL (75-110); POTASSIUM 4.4 mmol/L (3.6-5.0)
[2019-09-18] MEDS: INSULIN LISPRO 100 UNIT/ML 3 ML VIAL SUBCUT SCH (22:00)
[2019-09-18] MEDS ORDERED: VALPROATE SODIUM SYRUP 250 MG/5 ML UDCUP PO ONE (23:15)
[2019-09-18] MEDS ORDERED: ATORVASTATIN CALCIUM 10 MG TABLET PO ONE (23:15)
[2019-09-19 05:13] LABS: ABSOLUTE EOSINOPHILS # (AUTO) 0.2 10^3/uL (0.0-0.6); ABSOLUTE LYMPHOCYTES (AUTO) 1.5 10^3/uL (0.5-4.7); ABSOLUTE MONOCYTES (AUTO) 0.6 10^3/uL (0.1-1.4); ABSOLUTE NEUT (AUTO) 1.6 10^3/uL (1.7-8.2); BASOPHILS % (AUTO) 0.7 % (0-2); EOSINOPHILS % (AUTO) 4.5 % (0-6); HEMATOCRIT 39.3 % (37.9-51.0); HEMOGLOBIN 13.3 g/dL (13.5-17.0); LYMPHOCYTES % (AUTO) 39.5 % (13-45); MEAN CORPUSCULAR HEMOGLOBIN 31.5 pg (27.0-33.4); MEAN CORPUSCULAR HGB CONC 33.9 g/dL (32.0-36.0); MEAN CORPUSCULAR VOLUME 93 fl (80-97); MONOCYTES % (AUTO) 14.6 % (3-13); PLATELET COUNT 200 10^3/uL (150-450); RED BLOOD COUNT 4.23 10^6/uL (4.35-5.55); RED CELL DISTRIBUTION WIDTH 15.7 % (11.5-14.0); SEGMENTED NEUTROPHILS % (AUTO) 40.7 % (42-78); TOTAL CELLS COUNTED % (AUTO) 100 %; WHITE BLOOD COUNT 3.9 10^3/uL (4.0-10.5)
[2019-09-19 05:31] LABS: CHOLESTEROL 201.79 mg/dL (0-200); TRIGLYCERIDES 303 mg/dL (<150)
[2019-09-19 05:41] LABS: DIRECT LDL 121 mg/dL (<100)
[2019-09-19 05:48] LABS: VLDL CHOLESTEROL 60.6 mg/dL (10-31)
[2019-09-19] MEDS: PANTOPRAZOLE SODIUM 40 MG TABLET.DR PO SCH (06:42)
[2019-09-19] MEDS: INSULIN LISPRO 100 UNIT/ML 3 ML VIAL SUBCUT SCH ×4 (08:12→21:27)
[2019-09-19] MEDS ORDERED: LOPERAMIDE HCL 2 MG CAPSULE PO PRN (09:48)
[2019-09-19] MEDS: ISOSORBIDE MONONITRATE 30 MG TAB.ER.24H PO SCH (09:51)
[2019-09-19] MEDS: GABAPENTIN 300 MG CAPSULE PO SCH ×2 (09:51→21:25)
[2019-09-19] MEDS: DULOXETINE HCL 30 MG CAPSULE.DR PO SCH ×2 (09:51→15:56)
[2019-09-19] MEDS: ASPIRIN 81 MG TABLET, CHEWABLE PO SCH (09:51)
[2019-09-19] MEDS: ENOXAPARIN SODIUM INJ 30 MG/0.3 ML DISP.SYRIN SUBCUT SCH (09:52)
[2019-09-19] MEDS ORDERED: FUROSEMIDE 20 MG TABLET PO SCH (10:00)
[2019-09-19] MEDS ORDERED: INSULIN DEGLUDEC 14 UNIT SUBCUT SCH (10:00)
[2019-09-19] MEDS: DOCUSATE SODIUM 100 MG CAPSULE PO SCH (10:03)
--- NOTE | 2019-09-19 10:45 | PDOC H&P ---
History of Present Illness Admission Date/PCP: 09/18/19 19:56 ÁNGEL ORNELAS MD Patient complains of: Frequent fall and gait instability History of Present Illness: LO ENCARNACION is a 58 year old male This is a 58-year-old male with a history of the type 2 diabetes history of the hypertension hyperlipidemia coronary artery disease history of the congestive heart failure's history of chronic kidney disease stage III recently admitted couple of months back with acute gastroenteritis in the hospital recently visit in the ER last week because of the fall and the patient CT head was negative's patient was discharged from the ER. Patient is an appointment to see Dr. Ornelas and he ordered the MRI of the head which is negative for chronic ischemic changes but no acute strokes. Patient's again on and off sustained fall came to the emergency departments because patients very gait instabilities patient underwent for the CT chest abdomen pelvis some mild contusion and left-sided abdominal wall but other than that no other injuries. Is denied any chest pain no short of breath patient is complaining of some abdominal discomfort but other than that denied any other symptoms patients feel like his abdomen is distended. Patient had a colonoscopy done at [facility] 3 years back was all normal Patient also had a history of the back problems in the past and the disability from the back Also have a neuropathy in the legs Hemoglobin A1c is 6.8 At this point decided to the admit in the hospital for the instability on a gait frequent fall abdominal issues to further evaluate the patient Past Medical History Cardiac Medical History: Reports: Congestive Heart Failure, Coronary Artery Disease, Myocardial Infarction, Hyperlipidema, Hypertension Denies: Atrial Fibrillation, DVT, Pulmonary Embolism Pulmonary Medical History: Reports: Chronic Obstructive Pulmonary Disease (COPD) - not on home O2 Denies: Asthma, Sleep Apnea Neurological Medical History: Reports: Seizures Endocrine Medical History: Reports: Diabetes Mellitus Type 2 - poorly controlled Denies: Diabetes Mellitus Type 1, Hyperthyroidism, Hypothyroidism Malignancy Medical History: Reports: Renal (Kidney) Cancer - s/p partial nephrectomy and renal surgeries., Skin Cancer GI Medical History: Reports: Gastroesophageal Reflux Disease Denies: Cirrhosis, Crohn's Disease, Hepatitis, Ulcerative Colitis Musculoskeltal Medical History: Denies: Arthritis, Gout Skin Medical History: Denies: Eczema, Psoriasis Hematology: Reports: Anemia - Chronic due to stage III renal failure Denies: Bleeding Tendencies Infectious Medical History: Denies: Clostridium Difficile, HIV Past Surgical History Past Surgical History: Reports: Cardiac Catheterization, Other - skin cancer removal Social History Information Source: Patient Smoking Status: Former Smoker Electronic Cigarette use?: No Frequency of Alcohol Use: None Hx Recreational Drug Use: No Drugs: None Hx Prescription Drug Abuse: No - Advance Directive Resuscitation Status: Full Code Family History Family History: Reviewed & Not Pertinent Parental Family History Reviewed: Yes Children Family History Reviewed: Yes Sibling(s) Family History Reviewed.: Yes Medication/Allergy Home Medications: Allopurinol [Zyloprim 300 mg Tablet] 150 mg PO QAM 09/19/19 Aspirin [Adult Low Dose Aspirin EC] 81 mg PO DAILY 09/19/19 Atorvastatin Calcium [Lipitor 10 mg Tablet] 10 mg PO QHS 09/19/19 Duloxetine HCl [Cymbalta] 60 mg PO DAILY 09/19/19 Furosemide [Lasix 20 mg Tablet] 40 mg PO BID 09/19/19 Gabapentin [Neurontin 300 mg Capsule] 600 mg PO Q12 09/19/19 Lisinopril [Prinivil 5 mg Tablet] 5 mg PO DAILY 09/19/19 Potassium Chloride 20 meq PO DAILY 09/19/19 Valproic Acid [Depakene] 250 mg PO QID 09/19/19 Allergies/Adverse Reactions: No Known Allergies Allergy (Verified 09/18/19 13:44) Review of Systems Constitutional: ABSENT: chills, fever(s), headache(s), weight gain, weight loss Eyes: ABSENT: visual disturbances Ears: ABSENT: hearing changes Cardiovascular: ABSENT: chest pain, dyspnea on exertion, edema, orthropnea, palpitations Respiratory: ABSENT: cough, hemoptysis Gastrointestinal: PRESENT: diarrhea. ABSENT: abdominal pain, constipation, hematemesis, hematochezia, nausea, vomiting Genitourinary: ABSENT: dysuria, hematuria Musculoskeletal: PRESENT: back pain. ABSENT: joint swelling Integumentary: ABSENT: rash, wounds Neurological: PRESENT: abnormal gait, numbness. ABSENT: abnormal speech, confusion, dizziness, focal weakness, syncope Psychiatric: ABSENT: anxiety, depression, homidical ideation, suicidal ideation Endocrine: ABSENT: cold intolerance, heat intolerance, menstrual abnormalities, polydipsia, polyuria Hematologic/Lymphatic: ABSENT: easy bleeding, easy bruising, lymphadenopathy Physical Exam Vital Signs: Temp Pulse Resp BP Pulse Ox 98.1 F 76 16 119/81 96 09/19/19 08:22 09/19/19 08:22 09/19/19 08:22 09/19/19 08:22 09/19/19 08:22 Intake & Output 09/18/19 09/19/19 09/20/19 06:59 06:59 06:59 Intake Total 1120 Output Total 230 Balance 890 Weight 98.2 kg General appearance: PRESENT: no acute distress, well-developed, well-nourished Head exam: PRESENT: atraumatic, normocephalic Eye exam: PRESENT: conjunctiva pink, EOMI, PERRLA. ABSENT: scleral icterus Ear exam: PRESENT: normal external ear exam Mouth exam: PRESENT: moist, tongue midline Neck exam: PRESENT: full ROM. ABSENT: carotid bruit, JVD, lymphadenopathy, thyromegaly Respiratory exam: PRESENT: clear to auscultation anamaria Cardiovascular exam: PRESENT: RRR. ABSENT: diastolic murmur, rubs, systolic murmur Pulses: PRESENT: normal dorsalis pedis pul, +2 pedal pulses bilateral Vascular exam: PRESENT: normal capillary refill GI/Abdominal exam: PRESENT: normal bowel sounds, soft. ABSENT: distended, guarding, mass, organolmegaly, rebound, tenderness Rectal exam: PRESENT: deferred Extremities exam: ABSENT: pedal edema Neurological exam: PRESENT: alert, awake, oriented to person, oriented to place, oriented to time, oriented to situation, CN II-XII grossly intact. ABSENT: motor sensory deficit Psychiatric exam: PRESENT: appropriate affect, normal mood. ABSENT: homicidal ideation, suicidal ideation Skin exam: PRESENT: dry, intact, warm. ABSENT: cyanosis, rash Results Laboratory Results: 09/19/19 04:01 09/18/19 20:10 09/18/19 09/18/19 09/18/19 14:45 14:57 14:57 WBC 5.3 RBC 4.24 L Hgb 13.3 L Hct 39.4 MCV 93 MCH 31.4 MCHC 33.8 RDW 15.7 H Plt Count 198 Seg Neutrophils % 43.3 Sodium 142.6 Potassium 4.7 Chloride 104 Carbon Dioxide 26 Anion Gap 13 BUN 38 H Creatinine 2.58 H Est GFR ( Amer) 31 L Glucose 101 Lactic Acid Calcium 9.1 Total Bilirubin 0.9 AST 65 H Alkaline Phosphatase 79 Total Protein 7.6 Albumin 4.2 Triglycerides Cholesterol LDL Cholesterol Direct VLDL Cholesterol HDL Cholesterol Lipase 146.9 Urine Color YELLOW Urine Appearance CLEAR Urine pH 5.0 Ur Specific Arena 1.010 Urine Protein NEGATIVE Urine Glucose (UA) NEGATIVE Urine Ketones NEGATIVE Urine Blood SMALL H Urine RBC (Auto) 0 09/18/19 09/18/19 09/19/19 20:10 20:10 04:01 WBC 3.9 L RBC 4.23 L Hgb 13.3 L Hct 39.3 MCV 93 MCH 31.5 MCHC 33.9 RDW 15.7 H Plt Count 200 Seg Neutrophils % 40.7 L Sodium 143.0 Potassium 4.4 Chloride 105 Carbon Dioxide 26 Anion Gap 12 BUN 35 H Creatinine 2.34 H Est GFR ( Amer) 35 L Glucose 101 Lactic Acid 1.7 Calcium 9.1 Total Bilirubin AST Alkaline Phosphatase Total Protein Albumin Triglycerides Cholesterol LDL Cholesterol Direct VLDL Cholesterol HDL Cholesterol Lipase Urine Color Urine Appearance Urine pH Ur Specific Arena Urine Protein Urine Glucose (UA) Urine Ketones Urine Blood Urine RBC (Auto) 09/19/19 04:01 WBC RBC Hgb Hct MCV MCH MCHC RDW Plt Count Seg Neutrophils % Sodium Potassium Chloride Carbon Dioxide Anion Gap BUN Creatinine Est GFR ( Amer) Glucose Lactic Acid Calcium Total Bilirubin AST Alkaline Phosphatase Total Protein Albumin Triglycerides 303 H Cholesterol 201.79 H LDL Cholesterol Direct 121 H VLDL Cholesterol 60.6 H HDL Cholesterol 25 L Lipase Urine Color Urine Appearance Urine pH Ur Specific Arena Urine Protein Urine Glucose (UA) Urine Ketones Urine Blood Urine RBC (Auto) Impressions: Abdomen/Pelvis CT 09/18/19 00:00 IMPRESSION: The floor abdominal wall contusion. No evidence of acute osseous or visceral injury. Chronic and incidental findings as detailed above. Chest CT 09/18/19 16:35 IMPRESSION: The floor abdominal wall contusion. No evidence of acute osseous or visceral injury. Chronic and incidental findings as detailed above. 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 Diabetes mellitus complication status: with other specified complication Qualified Code(s): E11.69 - Type 2 diabetes mellitus with other specified complication; 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 Escudero next month as outpatient (5) COPD (chronic obstructive pulmonary disease) Qualifiers: COPD type: chronic bronchitis Is this a current diagnosis for this admission?: Yes Plan: Use the PRN nebulizer treatments (6) Congestive heart failure Qualifiers: Heart failure type: unspecified Is this a current diagnosis for this admission?: Yes Plan: We will get the records from Dr. Ornelas's office regarding the echocardiograms defer to him in for further evaluations Currently hold the patient's Lasix for the next 24 hours in the setting of the acute kidney injuries (7) Diarrhea Qualifiers: Diarrhea type: unspecified type Qualified Code(s): R19.7 - Diarrhea, unspecified Is this a current diagnosis for this admission?: Yes Plan: We will get the stool for the C. difficile culture and parasites - Time Time Spent: 50 to 70 Minutes Critical Time spent with patient: 25-34 minutes Medications reviewed and adjusted accordingly: Yes Anticipated discharge: Home Within: Other - Inpatient Certification Based on my medical assessment, after consideration of the patient's comorbidities, presenting symptoms, or acuity I expect that the services needed warrant INPATIENT care.: Yes I certify that my determination is in accordance with my understanding of Medicare's requirements for reasonable and necessary INPATIENT services [42 CFR 412.3e].: Yes Medical Necessity: Significant Comorbidiites Make Outpatient Treatment Too Risky, Need Close Monitoring Due to Risk of Patient Decompensation, Need For IV Fluids Post Hospital Care: D/C Rn Transitional Care Documentation - Plan Summary Plan Summary: With the patient's in the telemetry bed See other MD orders as able
[2019-09-19] MEDS: LACTOBACILLUS ACIDOPHILUS 250 MG TAB PO SCH ×2 (11:01→17:24)
[2019-09-19] MEDS: VALPROATE SODIUM SYRUP 250 MG/5 ML UDCUP PO SCH ×4 (11:02→21:25)
[2019-09-19] MEDS: ALLOPURINOL 300 MG TABLET PO SCH (11:02)
[2019-09-19] MEDS: ACETAMINOPHEN 325 MG TABLET PO PRN (12:52)
[2019-09-19] MEDS: NORMAL SALINE 1000 ML 1,000 ML IV PRN (13:50)
[2019-09-19] MEDS ORDERED: VALPROIC ACID 250 MG PO SCH (14:00)
--- NOTE | 2019-09-19 14:14 | RADIOLOGY REPORT (SQ) ---
EXAM DESCRIPTION: HAND LEFT 2 VIEWS COMPLETED DATE/TIME: 09/19/2019 2:02 pm REASON FOR STUDY: Hand numbness and pain COMPARISON: None. EXAM PARAMETERS: NUMBER OF VIEWS: Two view. TECHNIQUE: AP and lateral radiographic images acquired of the left hand. LIMITATIONS: Two views only, no oblique view FINDINGS: MINERALIZATION: Normal. BONES: No acute fracture or dislocation. No worrisome bone lesions. JOINTS: No effusions. SOFT TISSUES: No soft tissue swelling. No foreign body. OTHER: No other significant finding. IMPRESSION: NEGATIVE STUDY OF THE LEFT HAND. NO RADIOGRAPHIC EVIDENCE OF ACUTE INJURY. TECHNICAL DOCUMENTATION: JOB ID: [id number] [employer]- All Rights Reserved Reading location - IP/workstation name: [email or web address]
--- NOTE | 2019-09-19 16:50 | RADIOLOGY REPORT (SQ) ---
EXAM DESCRIPTION: CT HEAD WITHOUT COMPLETED DATE/TIME: 09/19/2019 4:17 pm REASON FOR STUDY: frequnt fall/lt hand numbness COMPARISON: 09/14/2019. TECHNIQUE: Axial images acquired through the brain without intravenous contrast. Images reviewed wi th bone, brain and subdural windows. Additional sagittal and coronal reconstructions were generated. Images stored on PACS. All CT scanners at this facility use dose modulation, iterative reconstruction, and/or weight based d osing when appropriate to reduce radiation dose to as low as reasonably achievable (ALARA). [facility]: Dose Right [facility]: CareDose [facility]: Dose Right [facility]: Teradose 4D [facility]: Smart [employer] RADIATION DOSE: CT Rad equipment meets quality standard of care and radiation dose reduction techniq ues were employed. CTDIvol: 53.2 mGy. DLP: 1044 mGy-cm. mGy. LIMITATIONS: None. FINDINGS: VENTRICLES: Prominent. CEREBRUM: No masses. No hemorrhage. No midline shift. Areas of low density in the white matter mos t likely due to chronic micro-vascular ischemic change. 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 No evidence for acute infarction. CEREBELLUM: No masses. No hemorrhage. No alteration of density. No evidence for acute infarction. EXTRAAXIAL SPACES: Mild age-related involutional change. No fluid collections. No masses. ORBITS AND GLOBE: No intra- or extraconal masses. Normal contour of globe without masses. CALVARIUM: No fracture. PARANASAL SINUSES: No fluid or mucosal thickening. SOFT TISSUES: No mass or hematoma. OTHER: No other significant finding. IMPRESSION: MILD CHRONIC CHANGES OF ATROPHY AND MICROVASCULAR ISCHEMIA. 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 NO ACUTE FINDINGS. NO SIGNIFICANT INTERVAL CHANGE. EVIDENCE OF ACUTE STROKE: NO. TECHNICAL DOCUMENTATION: JOB ID: [id number] Quality ID # [id number]: Final reports with documentation of one or more dose reduction techniques (e.g., Au tomated exposure control, adjustment of the mA and/or kV according to patient size, use of iterative reconstruction technique) 2010 [employer]- All Rights Reserved Reading location - IP/workstation name: [email or web address]
[2019-09-19] MEDS: FUROSEMIDE 20 MG TABLET PO SCH (17:24)
[2019-09-19] MEDS: ATORVASTATIN CALCIUM 10 MG TABLET PO SCH (21:25)
[2019-09-19] MEDS ORDERED: ATORVASTATIN CALCIUM 10 MG TABLET PO SCH (22:00)
[2019-09-19] MEDS ORDERED: GABAPENTIN 300 MG CAPSULE PO SCH (22:00)
[2019-09-20] MEDS: PANTOPRAZOLE SODIUM 40 MG TABLET.DR PO SCH (05:21)
[2019-09-20 05:36] LABS: ABSOLUTE EOSINOPHILS # (AUTO) 0.1 10^3/uL (0.0-0.6); ABSOLUTE LYMPHOCYTES (AUTO) 1.7 10^3/uL (0.5-4.7); ABSOLUTE MONOCYTES (AUTO) 0.5 10^3/uL (0.1-1.4); ABSOLUTE NEUT (AUTO) 2.3 10^3/uL (1.7-8.2); BASOPHILS % (AUTO) 0.7 % (0-2); EOSINOPHILS % (AUTO) 3.1 % (0-6); HEMATOCRIT 40.2 % (37.9-51.0); HEMOGLOBIN 13.7 g/dL (13.5-17.0); LYMPHOCYTES % (AUTO) 36.1 % (13-45); MEAN CORPUSCULAR HEMOGLOBIN 31.3 pg (27.0-33.4); MEAN CORPUSCULAR VOLUME 92 fl (80-97); MONOCYTES % (AUTO) 11.6 % (3-13); PLATELET COUNT 196 10^3/uL (150-450); RED BLOOD COUNT 4.37 10^6/uL (4.35-5.55); RED CELL DISTRIBUTION WIDTH 15.6 % (11.5-14.0); SEGMENTED NEUTROPHILS % (AUTO) 48.5 % (42-78); TOTAL CELLS COUNTED % (AUTO) 100 %; WHITE BLOOD COUNT 4.7 10^3/uL (4.0-10.5)
[2019-09-20 05:54] LABS: ANION GAP 10 (5-19); BLOOD UREA NITROGEN 31 mg/dL (7-20); CALCIUM 9.2 mg/dL (8.4-10.2); CARBON DIOXIDE 28 mmol/L (22-30); CHLORIDE 105 mmol/L (98-107); GLUCOSE 118 mg/dL (75-110); POTASSIUM 3.9 mmol/L (3.6-5.0)
[2019-09-20] MEDS ORDERED: ALLOPURINOL 300 MG TABLET PO SCH (08:00)
[2019-09-20] MEDS: INSULIN LISPRO 100 UNIT/ML 3 ML VIAL SUBCUT SCH ×4 (08:11→21:31)
[2019-09-20] MEDS: ACETAMINOPHEN 325 MG TABLET PO PRN ×2 (08:47→20:21)
[2019-09-20] MEDS ORDERED: ASPIRIN 81 MG TABLET, ENT COATED PO SCH (10:00)
[2019-09-20] MEDS: ENOXAPARIN SODIUM INJ 30 MG/0.3 ML DISP.SYRIN SUBCUT SCH (10:38)
[2019-09-20] MEDS: VALPROATE SODIUM SYRUP 250 MG/5 ML UDCUP PO SCH ×4 (10:38→21:30)
[2019-09-20] MEDS: ISOSORBIDE MONONITRATE 30 MG TAB.ER.24H PO SCH (10:38)
[2019-09-20] MEDS: FUROSEMIDE 20 MG TABLET PO SCH ×2 (10:38→17:23)
[2019-09-20] MEDS: ALLOPURINOL 300 MG TABLET PO SCH (10:38)
[2019-09-20] MEDS: ASPIRIN 81 MG TABLET, CHEWABLE PO SCH (10:39)
[2019-09-20] MEDS: LACTOBACILLUS ACIDOPHILUS 250 MG TAB PO SCH ×2 (10:39→17:24)
[2019-09-20] MEDS: GABAPENTIN 300 MG CAPSULE PO SCH ×2 (10:39→21:30)
[2019-09-20] MEDS: DOCUSATE SODIUM 100 MG CAPSULE PO SCH (10:39)
[2019-09-20] MEDS: POTASSIUM CHLORIDE 10 MEQ TABLET.ER PO SCH ×2 (10:39→10:46)
[2019-09-20] MEDS: DULOXETINE HCL 30 MG CAPSULE.DR PO SCH ×2 (10:39→10:47)
--- NOTE | 2019-09-20 11:04 | PDOC PROGRESS REPORT ---
Subjective Progress Note for:: 09/20/19 Subjective:: Patient is currently doing fair Patient was complaining of her hand pain in the leg pain had a CT of the head was done which shows old infarct nothing acute Patient MRI of the LS spine is scheduled today Patient's other than that denied any chest pain no short of breath Patient having some abdominal wall contusions some mild pain but other than that no other symptoms patient has significant peripheral neuropathy Which probably causing the instability in her gait Patient scheduled for carotid Doppler Patient does not know that patient had a stroke in the past currently aspirin and statin Reason For Visit: ABDOMINAL PAIN, ATAXIA Physical Exam Vital Signs: Temp Pulse Resp BP Pulse Ox 98.5 F 90 16 122/82 97 09/20/19 07:25 09/20/19 07:25 09/20/19 07:25 09/20/19 07:25 09/20/19 07:25 Intake & Output 09/19/19 09/20/19 09/21/19 06:59 06:59 06:59 Intake Total 1120 1345 Output Total 230 400 Balance 890 945 Weight 98.2 kg 98.5 kg General appearance: PRESENT: no acute distress, well-developed, well-nourished Head exam: PRESENT: atraumatic, normocephalic Eye exam: PRESENT: conjunctiva pink, EOMI, PERRLA. ABSENT: scleral icterus Ear exam: PRESENT: normal external ear exam Mouth exam: PRESENT: moist, tongue midline Neck exam: PRESENT: full ROM. ABSENT: carotid bruit, JVD, lymphadenopathy, thyromegaly Respiratory exam: PRESENT: clear to auscultation anamaria Cardiovascular exam: PRESENT: RRR. ABSENT: diastolic murmur, rubs, systolic murmur Pulses: PRESENT: normal dorsalis pedis pul, +2 pedal pulses bilateral Vascular exam: PRESENT: normal capillary refill GI/Abdominal exam: PRESENT: normal bowel sounds, soft. ABSENT: distended, guarding, mass, organolmegaly, rebound, tenderness Rectal exam: PRESENT: deferred Musculoskeletal exam: PRESENT: ambulatory Neurological exam: PRESENT: alert, awake, oriented to person, oriented to place, oriented to time, oriented to situation, CN II-XII grossly intact. ABSENT: motor sensory deficit Psychiatric exam: PRESENT: appropriate affect, normal mood. ABSENT: homicidal ideation, suicidal ideation Skin exam: PRESENT: dry, intact, warm. ABSENT: cyanosis, rash Results Laboratory Results: 09/20/19 04:40 09/20/19 04:40 09/19/19 09/20/19 09/20/19 04:01 04:40 04:40 WBC 4.7 RBC 4.37 Hgb 13.7 Hct 40.2 MCV 92 MCH 31.3 MCHC 34.0 RDW 15.6 H Plt Count 196 Seg Neutrophils % 48.5 Sodium 142.9 Potassium 3.9 Chloride 105 Carbon Dioxide 28 Anion Gap 10 BUN 31 H Creatinine 2.09 H Est GFR ( Amer) 39 L Glucose 118 H Calcium 9.2 Vitamin B12 561.0 Impressions: Abdomen/Pelvis CT 09/18/19 00:00 IMPRESSION: The floor abdominal wall contusion. No evidence of acute osseous or visceral injury. Chronic and incidental findings as detailed above. Chest CT 09/18/19 16:35 IMPRESSION: The floor abdominal wall contusion. No evidence of acute osseous or visceral injury. Chronic and incidental findings as detailed above. Hand X-Ray 09/19/19 00:00 IMPRESSION: NEGATIVE STUDY OF THE LEFT HAND. NO RADIOGRAPHIC EVIDENCE OF ACUTE INJURY. Head CT 09/19/19 00:00 IMPRESSION: MILD CHRONIC CHANGES OF ATROPHY AND MICROVASCULAR ISCHEMIA. 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 NO ACUTE FINDINGS. NO SIGNIFICANT INTERVAL CHANGE. EVIDENCE OF ACUTE STROKE: NO. Assessment & Plan - Diagnosis (1) Ataxia Is this a current diagnosis for this admission?: Yes Plan: We will get the MRI of the LS spine to report physical therapy evaluations (2) Diabetes mellitus Qualifiers: Diabetes mellitus type: type 2 Diabetes mellitus intermediate manager insulin use: with alf use Diabetes mellitus complication status: with other specified complication Qualified Code(s): E11.69 - Type 2 diabetes mellitus with other specified complication; Z79.4 - director long term care (current) use of insulin Is this a current diagnosis for this admission?: Yes Plan: Sliding scale on the current medications recent A1c is 6.8 (3) Diabetic peripheral neuropathy Is this a current diagnosis for this admission?: Yes Plan: Continues to gabapentin (4) Acute kidney injury superimposed on chronic kidney disease Is this a current diagnosis for this admission?: Yes Plan: Patient's kidney function is stable have appointment to see her Dr. Escudero next month as outpatient (5) COPD (chronic obstructive pulmonary disease) Qualifiers: COPD type: chronic bronchitis Is this a current diagnosis for this admission?: Yes Plan: Use the PRN nebulizer treatments (6) Congestive heart failure Qualifiers: Heart failure type: unspecified Is this a current diagnosis for this admission?: Yes Plan: We will get the records from Dr. Cain's office regarding the echocardiograms defer to him in for further evaluations Currently hold the patient's Lasix for the next 24 hours in the setting of the a cute kidney injuries (7) Diarrhea Qualifiers: Diarrhea type: unspecified type Qualified Code(s): R19.7 - Diarrhea, unspecified Is this a current diagnosis for this admission?: Yes (8) Seizure disorder Is this a current diagnosis for this admission?: Yes Plan: Patient's does not have any seizure for a long times and Depakote level is also therapeutic's continues to current medications seizures precautions (9) Abdominal wall contusion Qualifiers: Encounter type: initial encounter Qualified Code(s): S30.1XXA - Contusion of abdominal wall, initial encounter Is this a current diagnosis for this admission?: Yes Plan: CT abdomen and pelvis did not show any internal injuries or no hematoma (10) Cerebrovascular disease Is this a current diagnosis for this admission?: Yes Plan: continue aspirin and statin get the carotid Doppler And 2D echocardiogram - Time Time Spent with patient: 15-24 minutes Level of Care: TELE Medications reviewed and adjusted accordingly: Yes Anticipated discharge: Home with Homehealth Within: Other - Plan Summary Plan Summary: Discussed with the patient and the family on the bedside regarding the all the test reports and her current conditions
--- NOTE | 2019-09-20 13:06 | RADIOLOGY REPORT (SQ) ---
EXAM DESCRIPTION: MRI LUMBAR SPINE WITHOUT COMPLETED DATE/TIME: 09/20/2019 9:48 am REASON FOR STUDY: Back pain with radiculopathy and gait instability COMPARISON: CT abdomen pelvis 09/18/2019 TECHNIQUE: Sagittal and Axial imaging includes T1, T2, STIR and gradient echo sequences. Coronal T2/ HASTE imaging. LIMITATIONS: None. FINDINGS: VISUALIZED UPPER ABDOMEN: Limited evaluation. No acute or suspicious findings suggested. SEGMENTATION: No transitional anatomy. The lowest well-developed disc space is labeled L5-S1. ALIGNMENT: Anatomic. VERTEBRAE: Intact. BONE MARROW: Normal. No marrow replacement or reactive changes. DISC SIGNAL: Diffuse decreased T2 weighted intervertebral disc signal, without disc space loss of hei ght POSTERIOR ELEMENTS: Generally intact. No pars defect evident. HARDWARE: None in the spine. CORD AND CONUS: Normal in size and signal intensity. Conus at the L1-2 level. SOFT TISSUES: No aortic aneurysm seen. No bulky retroperitoneal adenopathy or mass. No paraspinal mas s or fluid. T11-12: Mild diffuse posterior disc bulging is present. Mild bilateral facet and ligament hypertrop hy. Borderline central canal narrowing. Mild bilateral foraminal narrowing. T12-L1: Minimal bilateral facet hypertrophy. No central or foraminal stenosis. L1-L2: Minimal posterior disc bulging, mild bilateral facet and ligament hypertrophy. No central or foraminal stenosis L2-L3: Minimal posterior disc bulging, mild bilateral facet and ligament hypertrophy. No significant central or foraminal stenosis L3-L4: Mild diffuse posterior disc bulging is present with moderate bilateral facet and ligament hype rtrophy. Borderline central canal narrowing. Mild bilateral inferior foraminal narrowing without ex it nerve root impingement. L4-L5: Broad diffuse posterior disc bulging is present with a small central annular tear and disc pro trusion. This finding along with moderate bilateral facet and ligament hypertrophy causes mild centr al canal narrowing best shown on axial T2 image 23. There is moderate bilateral foraminal narrowing with partial effacement of fat around the exiting L4 nerve roots bilaterally. L5-S1: Mild diffuse posterior disc bulging, small central disc protrusion and annular tear. Moderate bilateral facet hypertrophy right greater than left. Borderline central canal narrowing. Mild to m oderate bilateral foraminal narrowing without exit L5 nerve root impingement SACRUM: Visualized upper sacrum intact. OTHER: No other significant findings. IMPRESSION: Lower lumbar degenerative changes as above. TECHNICAL DOCUMENTATION: JOB ID: [id number] [employer]- All Rights Reserved Reading location - IP/workstation name: [email or web address]
[2019-09-20] MEDS: NORMAL SALINE 1000 ML 1,000 ML IV PRN (13:31)
[2019-09-20] MEDS: ATORVASTATIN CALCIUM 10 MG TABLET PO SCH (21:30)
[2019-09-21 05:17] LABS: ABSOLUTE EOSINOPHILS # (AUTO) 0.1 10^3/uL (0.0-0.6); ABSOLUTE MONOCYTES (AUTO) 0.7 10^3/uL (0.1-1.4); ABSOLUTE NEUT (AUTO) 2.9 10^3/uL (1.7-8.2); BASOPHILS % (AUTO) 0.5 % (0-2); EOSINOPHILS % (AUTO) 2.2 % (0-6); HEMATOCRIT 42.1 % (37.9-51.0); HEMOGLOBIN 14.5 g/dL (13.5-17.0); LYMPHOCYTES % (AUTO) 35.6 % (13-45); MEAN CORPUSCULAR HEMOGLOBIN 31.4 pg (27.0-33.4); MEAN CORPUSCULAR HGB CONC 34.4 g/dL (32.0-36.0); MEAN CORPUSCULAR VOLUME 91 fl (80-97); MONOCYTES % (AUTO) 11.6 % (3-13); PLATELET COUNT 174 10^3/uL (150-450); RED BLOOD COUNT 4.62 10^6/uL (4.35-5.55); RED CELL DISTRIBUTION WIDTH 15.7 % (11.5-14.0); SEGMENTED NEUTROPHILS % (AUTO) 50.1 % (42-78); TOTAL CELLS COUNTED % (AUTO) 100 %; WHITE BLOOD COUNT 5.7 10^3/uL (4.0-10.5)
[2019-09-21 05:27] LABS: ANION GAP 14 (5-19); BLOOD UREA NITROGEN 31 mg/dL (7-20); CALCIUM 9.4 mg/dL (8.4-10.2); CARBON DIOXIDE 28 mmol/L (22-30); CHLORIDE 102 mmol/L (98-107); GLUCOSE 118 mg/dL (75-110); POTASSIUM 3.4 mmol/L (3.6-5.0)
[2019-09-21] MEDS: PANTOPRAZOLE SODIUM 40 MG TABLET.DR PO SCH (05:56)
[2019-09-21] MEDS: INSULIN LISPRO 100 UNIT/ML 3 ML VIAL SUBCUT SCH ×3 (07:48→17:17)
[2019-09-21] MEDS: ASPIRIN 81 MG TABLET, CHEWABLE PO SCH (10:35)
[2019-09-21] MEDS: POTASSIUM CHLORIDE 10 MEQ TABLET.ER PO SCH ×2 (10:35)
[2019-09-21] MEDS: ISOSORBIDE MONONITRATE 30 MG TAB.ER.24H PO SCH (10:35)
[2019-09-21] MEDS: FUROSEMIDE 20 MG TABLET PO SCH ×2 (10:35→17:17)
[2019-09-21] MEDS: LACTOBACILLUS ACIDOPHILUS 250 MG TAB PO SCH ×2 (10:35→17:17)
[2019-09-21] MEDS: DULOXETINE HCL 30 MG CAPSULE.DR PO SCH (10:36)
[2019-09-21] MEDS: DOCUSATE SODIUM 100 MG CAPSULE PO SCH (10:36)
[2019-09-21] MEDS: GABAPENTIN 300 MG CAPSULE PO SCH (10:36)
[2019-09-21] MEDS: ALLOPURINOL 300 MG TABLET PO SCH (10:37)
[2019-09-21] MEDS: VALPROATE SODIUM SYRUP 250 MG/5 ML UDCUP PO SCH ×3 (10:37→17:17)
[2019-09-21] MEDS: ENOXAPARIN SODIUM INJ 30 MG/0.3 ML DISP.SYRIN SUBCUT SCH (10:38)
--- NOTE | 2019-09-21 12:56 | RADIOLOGY REPORT (SQ) ---
EXAM DESCRIPTION: CAROTID DOPPLER COMPLETED DATE/TIME: 09/21/2019 12:26 pm REASON FOR STUDY: numbness/carotid disease I50.23 ACUTE ON CHRONIC SYSTOLIC (CONGESTIVE) HEART FAIL URE COMPARISON: None. TECHNIQUE: Grayscale ultrasound, Doppler velocity and spectra, and color Doppler images acquired of the extra-cranial carotid and vertebral arteries. Images stored on PACS. LIMITATIONS: None. FINDINGS: RIGHT CAROTID CCA Velocities: Within normal limits. ICA Velocities Peak systolic 60 cm/s. End diastolic 21 cm/s. Proximal ICA/CCA peak systolic ratio 0.8. There is small amount of plaque in the carotid bulb and proximal ICA. LEFT CAROTID CCA Velocities: Within normal limits. ICA Velocities Peak systolic 55 cm/s. End diastolic 27 cm/s. Proximal ICA/CCA peak systolic ratio 1.1. The small amount of plaque in the carotid bulb. VERTEBRAL ARTERIES: Antegrade flow. Normal waveforms. SUBCLAVIAN ARTERIES: No finding. OTHER: No other significant finding. IMPRESSION: NO HEMODYNAMICALLY SIGNIFICANT STENOSIS. COMMENT: Quality ID #[id number]: Velocity criteria are extrapolated from the diameter data as defined by t he Society of Radiologists in Ultrasound Consensus Conference. Radiology 2003: 229; 340-346. TECHNICAL DOCUMENTATION: JOB ID: [id number] [employer]- All Rights Reserved Reading location - IP/workstation name: [email or web address]
[2019-09-21] MEDS: NORMAL SALINE 1000 ML 1,000 ML IV PRN (17:21)
[2019-09-21 19:05] VITALS: BP 118/77
--- NOTE | 2019-09-21 21:10 | PDOC DISCHARGE SUMMARY ---
Impression - Admit/DC Date/PCP Admission Date/Primary Care Provider: 09/18/19 19:56 ÁNGEL ORNELAS MD Discharge Date: 09/21/19 - Discharge Diagnosis (1) Lumbar radiculopathy Is this a current diagnosis for this admission?: Yes (2) Type 2 diabetes mellitus with diabetic polyneuropathy Is this a current diagnosis for this admission?: Yes (3) Ataxia Is this a current diagnosis for this admission?: Yes - Additional Information Resuscitation Status: Full Code Discharge Diet: As Tolerated Discharge Activity: Activity As Tolerated, Balance Activity w/Rest Referrals: ÁNGEL ORNELAS MD [Primary Care Provider] - Follow up as needed Home Medications: Allopurinol [Zyloprim 300 mg Tablet] 150 mg PO QAM 09/19/19 Aspirin [Adult Low Dose Aspirin EC] 81 mg PO DAILY 09/19/19 Atorvastatin Calcium [Lipitor 10 mg Tablet] 10 mg PO QHS 09/19/19 Duloxetine HCl [Cymbalta] 60 mg PO DAILY 09/19/19 Furosemide [Lasix 20 mg Tablet] 40 mg PO BID 09/19/19 Gabapentin [Neurontin 300 mg Capsule] 600 mg PO Q12 09/19/19 Lisinopril [Prinivil 5 mg Tablet] 5 mg PO DAILY 09/19/19 Potassium Chloride 20 meq PO DAILY 09/19/19 Valproic Acid [Depakene] 250 mg PO QID 09/19/19 History of Present Illiness History of Present Illness: LO ENCARNACION is a 58 year old male, He came to the emergency room for evaluation of fall, loss of balance, ataxia, He was admitted for observation Hospital Course Hospital Course: Patient was admitted for observation and evaluation of movement disorder, he had MRI of the lumbar spine, the MRI demonstrated bulging disc with radiculopathy.He was seen by physical therapy, he was able to ambulate without any ataxia.There was concern for stroke, carotid Doppler was done, this did not demonstrate any hemodynamically significant stenosis.He was admitted on Saturday day after Thanksgiving, he is doing quite well, he would like to go home today Physical Exam Vital Signs: Temp Pulse Resp BP Pulse Ox 97.9 F 100 17 118/77 96 09/21/19 19:02 09/21/19 19:02 09/21/19 19:02 09/21/19 19:02 09/21/19 19:02 Intake & Output 09/20/19 09/21/19 09/22/19 06:59 06:59 06:59 Intake Total 1345 1942 1000 Output Total 400 400 Balance 945 1542 1000 Weight 98.5 kg 98.5 kg General appearance: PRESENT: no acute distress Eye exam: PRESENT: PERRLA Respiratory exam: PRESENT: clear to auscultation anamaria Cardiovascular exam: PRESENT: +S1, +S2 GI/Abdominal exam: PRESENT: soft Neurological exam: PRESENT: alert, CN II-XII grossly intact Results Laboratory Results: WBC 5.7 10^3/uL (4.0-10.5) 09/21/19 03:48 RBC 4.62 10^6/uL (4.35-5.55) 09/21/19 03:48 Hgb 14.5 g/dL (13.5-17.0) 09/21/19 03:48 Hct 42.1 % (37.9-51.0) 09/21/19 03:48 MCV 91 fl (80-97) 09/21/19 03:48 MCH 31.4 pg (27.0-33.4) 09/21/19 03:48 MCHC 34.4 g/dL (32.0-36.0) 09/21/19 03:48 RDW 15.7 % (11.5-14.0) H 09/21/19 03:48 Plt Count 174 10^3/uL (150-450) 09/21/19 03:48 Lymph % (Auto) 35.6 % (13-45) 09/21/19 03:48 [place] % (Auto) 11.6 % (3-13) 09/21/19 03:48 Eos % (Auto) 2.2 % (0-6) 09/21/19 03:48 Baso % (Auto) 0.5 % (0-2) 09/21/19 03:48 Absolute Neuts (auto) 2.9 10^3/uL (1.7-8.2) 09/21/19 03:48 Absolute Lymphs (auto) 2.0 10^3/uL (0.5-4.7) 09/21/19 03:48 Absolute Monos (auto) 0.7 10^3/uL (0.1-1.4) 09/21/19 03:48 Absolute Eos (auto) 0.1 10^3/uL (0.0-0.6) 09/21/19 03:48 Absolute Basos (auto) 0.0 10^3/uL (0.0-0.2) 09/21/19 03:48 Seg Neutrophils % 50.1 % (42-78) 09/21/19 03:48 Sodium 143.5 mmol/L (137-145) 09/21/19 03:48 Potassium 3.4 mmol/L (3.6-5.0) L 09/21/19 03:48 Chloride 102 mmol/L (98-107) 09/21/19 03:48 Carbon Dioxide 28 mmol/L (22-30) 09/21/19 03:48 Anion Gap 14 (5-19) 09/21/19 03:48 BUN 31 mg/dL (7-20) H 09/21/19 03:48 Creatinine 2.27 mg/dL (0.52-1.25) H 09/21/19 03:48 Est GFR ( Amer) 36 (>60) L 09/21/19 03:48 Est GFR (MDRD) Non-Af 30 (>60) L 09/21/19 03:48 Glucose 118 mg/dL (75-110) H 09/21/19 03:48 POC Glucose 128 mg/dL (70-110) H 09/21/19 16:42 Hemoglobin A1c % 6.8 % (4.7-6.0) H 09/19/19 04:01 Lactic Acid 1.7 mmol/L (0.7-2.1) 09/18/19 20:10 Calcium 9.4 mg/dL (8.4-10.2) 09/21/19 03:48 Total Bilirubin 0.9 mg/dL (0.2-1.3) 09/18/19 14:57 Direct Bilirubin 0.3 mg/dL (0.0-0.4) 09/18/19 14:57 Neonat Total Bilirubin Not Reportable 09/18/19 14:57 Neonat Direct Bilirubin Not Reportable 09/18/19 14:57 Neonat Indirect Bili Not Reportable 09/18/19 14:57 AST 65 U/L (17-59) H 09/18/19 14:57 ALT 48 U/L (<50) 09/18/19 14:57 Alkaline Phosphatase 79 U/L (38-126) 09/18/19 14:57 Total Protein 7.6 g/dL (6.3-8.2) 09/18/19 14:57 Albumin 4.2 g/dL (3.5-5.0) 09/18/19 14:57 Triglycerides 303 mg/dL (<150) H 09/19/19 04:01 Cholesterol 201.79 mg/dL (0-200) H 09/19/19 04:01 LDL Cholesterol Direct 121 mg/dL (<100) H 09/19/19 04:01 VLDL Cholesterol 60.6 mg/dL (10-31) H 09/19/19 04:01 HDL Cholesterol 25 mg/dL (>40) L 09/19/19 04:01 Lipase 146.9 U/L (23-300) 09/18/19 14:57 Vitamin B12 561.0 pg/mL (239-931) 09/19/19 04:01 Urine Color YELLOW 09/18/19 14:45 Urine Appearance CLEAR 09/18/19 14:45 Urine pH 5.0 (5.0-9.0) 09/18/19 14:45 Ur Specific [place] 1.010 09/18/19 14:45 Urine Protein NEGATIVE mg/dL (NEGATIVE) 09/18/19 14:45 Urine Glucose (UA) NEGATIVE mg/dL (NEGATIVE) 09/18/19 14:45 Urine Ketones NEGATIVE mg/dL (NEGATIVE) 09/18/19 14:45 Urine Blood SMALL (NEGATIVE) H 09/18/19 14:45 Urine Nitrite (Reflex) NEGATIVE (NEGATIVE) 09/18/19 14:45 Urine Bilirubin NEGATIVE (NEGATIVE) 09/18/19 14:45 Urine Urobilinogen NEGATIVE mg/dL (<2.0) 09/18/19 14:45 Leukocyte Esterase Rfl NEGATIVE (NEGATIVE) 09/18/19 14:45 Urine RBC (Auto) 0 /HPF 09/18/19 14:45 U Hyaline Cast (Auto) 9 /LPF 09/18/19 14:45 Urine Mucus (Auto) RARE /LPF 09/18/19 14:45 Urine Ascorbic Acid NEGATIVE (NEGATIVE) 09/18/19 14:45 Valproic Acid 80.3 ug/mL (50.0-120.0) 09/18/19 14:57 Impressions: Abdomen/Pelvis CT 09/18/19 00:00 IMPRESSION: The floor abdominal wall contusion. No evidence of acute osseous or visceral injury. Chronic and incidental findings as detailed above. Chest CT 09/18/19 16:35 IMPRESSION: The floor abdominal wall contusion. No evidence of acute osseous or visceral injury. Chronic and incidental findings as detailed above. Hand X-Ray 09/19/19 00:00 IMPRESSION: NEGATIVE STUDY OF THE LEFT HAND. NO RADIOGRAPHIC EVIDENCE OF ACUTE INJURY. Head CT 09/19/19 00:00 IMPRESSION: MILD CHRONIC CHANGES OF ATROPHY AND MICROVASCULAR ISCHEMIA. 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 NO ACUTE FINDINGS. NO SIGNIFICANT INTERVAL CHANGE. EVIDENCE OF ACUTE STROKE: NO. Lumbar Spine MRI 09/20/19 00:00 IMPRESSION: Lower lumbar degenerative changes as above. Carotid Doppler Study 09/21/19 00:00 IMPRESSION: NO HEMODYNAMICALLY SIGNIFICANT STENOSIS. Stroke Is this a Stroke Patient?: No Acute Heart Failure - Is this a Heart Failure Patient?: No
--- NOTE | 2019-09-23 11:47 | XCELERA REPORT ---
[address] [address] Transthoracic Echocardiogram Report Name: LO ENCARNACION Age: 58 yrs Gender: Male : 1960 Patient Status: Inpatient Patient Location: [address] [place] [address] Study Date: 09/21/2019 11:37 AM Weight: 217 lb Procedure: A two-dimensional transthoracic echocardiogram with color flow and Doppler was performed. The study was technically difficult with many images being suboptimal in quality. Reason For Study: chf/cva History: chf/cva. Ordering Physician: DONNY TREJO Performed By: Diane Marie Interpretation Summary There is no obvious cardiac source of embolus noted on this transthoracic echocardiogram. Follow-up with a JACQUELINE is suggested if cardiac source is still suspected. The left ventricle is normal in size. There is normal left ventricular wall thickness. LV EF is > than 60% Left ventricular systolic function is normal. Doppler measurements suggest impaired left ventricular relaxation, which is associated with grade I/IV or mild diastolic dysfunction The left ventricular wall motion is normal. There is no thrombus. Cannot assess ASD ,VSD , or PFO. The right ventricle is normal in size and function. The right ventricle is not well visualized secondary to technical limitations The right atrium is normal. The left atrial size is normal. There is no evidence of mitral valve prolapse. There is no vegetation seen on the mitral valve. There is no mitral valve stenosis. There is a trace amount of mitral regurgitation There is no aortic valvular vegetation. There is aortic sclerosis without aortic stenosis. There is no LVOT obstruction. No aortic regurgitation is present. There is no tricuspid stenosis. No tricuspid regurgitation. Tricuspid regurgitation jet envelope not well defined to measure RV systolic pressure accurately. There is no pulmonic valvular stenosis. There is no pulmonic valvular regurgitation. The aortic root is not well visualized but is probably normal size. The inferior vena cava was not visualized There is no pericardial effusion. There is no obvious cardiac source of embolus noted on this transthoracic echocardiogram. Follow-up with a JACQUELINE is suggested if cardiac source is still suspected MMode/2D Measurements & Calculations IVSd: 0.88 cm LVIDd: 4.3 cm FS: 38.1 % Ao root diam: 3.3 cm LVIDs: 2.7 cm EDV(Teich): 83.3 ml LVPWd: 0.89 cm ESV(Teich): 26.1 ml Ao root area: 8.6 cm2 EF(Teich): 68.6 % Doppler Measurements & Calculations MV E max nicholas: MV dec slope: Ao V2 max: LV V1 max P.9 cm/sec 99.1 cm/sec 2.2 mmHg MV A max nicholas: 239.2 cm/sec2 Ao max PG: LV V1 max: 67.4 cm/sec MV dec time: 0.25 sec 3.9 mmHg 73.4 cm/sec MV E/A: 0.89 PA V2 max: Pulm Sys Nicholas: 67.1 cm/sec 41.6 cm/sec PA max P.8 mmHg Pulm Goldman Nicholas: 36.2 cm/sec Pulm A Revs Nicholas: 21.5 cm/sec Pulm A Revs Dur: 0.09 sec Pulm S/D: 1.1 Left Ventricle The left ventricle is normal in size. There is normal left ventricular wall thickness. LV EF is > than 60%. Left ventricular systolic function is normal. Doppler measurements suggest impaired left ventricular relaxation, which is associated with grade I/IV or mild diastolic dysfunction. The left ventricular wall motion is normal. There is no thrombus. Cannot assess ASD ,VSD , or PFO. Right Ventricle The right ventricle is normal in size and function. The right ventricle is not well visualized secondary to technical limitations. Atria The right atrium is normal. The left atrial size is normal. Mitral Valve There is no evidence of mitral valve prolapse. There is no vegetation seen on the mitral valve. There is no mitral valve stenosis. There is a trace amount of mitral regurgitation. Aortic Valve There is no aortic valvular vegetation. There is aortic sclerosis without aortic stenosis. There is no LVOT obstruction. No aortic regurgitation is present. Tricuspid Valve There is no tricuspid stenosis. No tricuspid regurgitation. Tricuspid regurgitation jet envelope not well defined to measure RV systolic pressure accurately. Pulmonic Valve There is no pulmonic valvular stenosis. There is no pulmonic valvular regurgitation. Great Vessels The aortic root is not well visualized but is probably normal size. The inferior vena cava was not visualized. Effusions There is no pericardial effusion. : DONNY TREJO Lakshmi
== END 2019-09-21 19:20 | disposition home or self-care (01) ==
LOC: ER 13:26 → INTOOBSV 19:56 → EH 19:56 → 4N 23:42
PROVIDERS: ADMIT Internal Medicine; ATTEND Internal Medicine
DX: M54.16 Radiculopathy, lumbar region (principal); E11.42 Type 2 diabetes mellitus with diabetic polyneuropathy; R27.0 Ataxia, unspecified; R19.7 Diarrhea, unspecified; J44.9 Chronic obstructive pulmonary disease, unspecified; S30.1XXA Contusion of abdominal wall, initial encounter; W19.XXXA Unspecified fall, initial encounter; Y92.009 Unspecified place in unspecified non-institutional (private) residence as the place of occurrence of the external cause; E11.22 Type 2 diabetes mellitus with diabetic chronic kidney disease; I13.0 Hypertensive heart and chronic kidney disease with heart failure and stage 1 through stage 4 chronic kidney disease, or unspecified chronic kidney disease; N18.3 Chronic kidney disease, stage 3 (moderate); I50.9 Heart failure, unspecified; N17.9 Acute kidney failure, unspecified; G40.909 Epilepsy, unspecified, not intractable, without status epilepticus; I25.10 Atherosclerotic heart disease of native coronary artery without angina pectoris; R29.6 Repeated falls; R07.81 Pleurodynia; I67.9 Cerebrovascular disease, unspecified; R40.2412 Glasgow coma scale score 13-15, at arrival to emergency department; I25.2 Old myocardial infarction; Z79.82 Long term (current) use of aspirin; Z79.899 Other long term (current) drug therapy; Z79.4 Long term (current) use of insulin; Z85.528 Personal history of other malignant neoplasm of kidney; Z90.5 Acquired absence of kidney; Z85.828 Personal history of other malignant neoplasm of skin; Z87.891 Personal history of nicotine dependence; Z87.19 Personal history of other diseases of the digestive system
CPT/HCPCS: 99285; 96360; 96361; 36415 ×4; 87040; 87086; 82962 ×4; 82607; 83605; 83690; 85025 ×4; 80048 ×2; 80053; 81001; 80164; 83036; 80061; 93306; 93880; 72148; 73120; 70450; 71250; 74176; 97162; G0378 ×3; C1751; A9270 ×38; J1650 ×3; J7030 ×4; J1815; J3490

== ENCOUNTER 2019-10-17 10:00 | Inpatient (IN) | payer MEDICARE ==
[2019-10-17 11:19] LABS: ABSOLUTE EOSINOPHILS # (AUTO) 0.2 10^3/uL (0.0-0.6); ABSOLUTE LYMPHOCYTES (AUTO) 1.8 10^3/uL (0.5-4.7); ABSOLUTE MONOCYTES (AUTO) 0.5 10^3/uL (0.1-1.4); ABSOLUTE NEUT (AUTO) 2.6 10^3/uL (1.7-8.2); BASOPHILS % (AUTO) 0.2 % (0-2); HEMATOCRIT 35.8 % (37.9-51.0); HEMOGLOBIN 12.1 g/dL (13.5-17.0); LYMPHOCYTES % (AUTO) 35.3 % (13-45); MEAN CORPUSCULAR HEMOGLOBIN 31.3 pg (27.0-33.4); MEAN CORPUSCULAR HGB CONC 33.7 g/dL (32.0-36.0); MEAN CORPUSCULAR VOLUME 93 fl (80-97); MONOCYTES % (AUTO) 10.1 % (3-13); PLATELET COUNT 184 10^3/uL (150-450); RED BLOOD COUNT 3.85 10^6/uL (4.35-5.55); RED CELL DISTRIBUTION WIDTH 15.3 % (11.5-14.0); SEGMENTED NEUTROPHILS % (AUTO) 50.4 % (42-78); TOTAL CELLS COUNTED % (AUTO) 100 %; WHITE BLOOD COUNT 5.1 10^3/uL (4.0-10.5)
[2019-10-17 11:23] LABS: APPEARANCE,URINE CLEAR; BILIRUBIN,URINE NEGATIVE (NEGATIVE); COLOR,URINE YELLOW; GLUCOSE, URINE NEGATIVE (NEGATIVE); KETONES,URINE NEGATIVE (NEGATIVE); LEUKOCYTE ESTERASE,URINE NEGATIVE (NEGATIVE); NITRITE,URINE NEGATIVE (NEGATIVE); PROTEIN,URINE NEGATIVE (NEGATIVE); URINE SPECIFIC GRAVITY 1.011; UROBILINOGEN,URINE NEGATIVE mg/dL (<2.0)
[2019-10-17 11:39] LABS: ALBUMIN 3.9 g/dL (3.5-5.0); ALKALINE PHOSPHATASE 75 U/L (38-126); ANION GAP 15 (5-19); ASPARTATE AMINO TRANSFERASE 32 U/L (17-59); BILIRUBIN,DIRECT 0.4 mg/dL (0.0-0.4); BILIRUBIN,TOTAL 0.8 mg/dL (0.2-1.3); BLOOD UREA NITROGEN 64 mg/dL (7-20); CALCIUM 8.6 mg/dL (8.4-10.2); CARBON DIOXIDE 26 mmol/L (22-30); CHLORIDE 101 mmol/L (98-107); CREATINE KINASE 105 U/L (55-170); GLUCOSE 104 mg/dL (75-110); POTASSIUM 4.3 mmol/L (3.6-5.0); TOTAL PROTEIN 7.2 g/dL (6.3-8.2)
[2019-10-17 11:52] LABS: TROPONIN I < 0.012 ng/mL
[2019-10-17] MEDS ORDERED: NORMAL SALINE 1000 ML 500 ML IV ONE (12:22)
--- NOTE | 2019-10-17 12:23 | RADIOLOGY REPORT (SQ) ---
EXAM DESCRIPTION: CT HEAD WITHOUT COMPLETED DATE/TIME: 10/17/2019 12:07 pm REASON FOR STUDY: bed [address] josette norris COMPARISON: 09/19/2019. TECHNIQUE: Axial images acquired through the brain without intravenous contrast. Images reviewed wi th bone, brain and subdural windows. Additional sagittal and coronal reconstructions were generated. Images stored on PACS. All CT scanners at this facility use dose modulation, iterative reconstruction, and/or weight based d osing when appropriate to reduce radiation dose to as low as reasonably achievable (ALARA). [facility]: Dose Right [facility]: CareDose [facility]: Dose Right [facility]: Teradose 4D [facility]: Smart TapZilla RADIATION DOSE: CT Rad equipment meets quality standard of care and radiation dose reduction techniq ues were employed. CTDIvol: 53.2 mGy. DLP: 964 mGy-cm. mGy. LIMITATIONS: None. FINDINGS: VENTRICLES: Normal size and contour. CEREBRUM: No masses. No hemorrhage. No midline shift. No evidence for acute infarction. Old left c audate lacunar infarct. CEREBELLUM: No masses. No hemorrhage. No alteration of density. No evidence for acute infarction. EXTRAAXIAL SPACES: No fluid collections. No masses. ORBITS AND GLOBE: No intra- or extraconal masses. Normal contour of globe without masses. CALVARIUM: No fracture. PARANASAL SINUSES: No fluid or mucosal thickening. SOFT TISSUES: No mass or hematoma. OTHER: No other significant finding. IMPRESSION: No acute findings. EVIDENCE OF ACUTE STROKE: NO. COMMENT: Quality ID # [id number]: Final reports with documentation of one or more dose reduction techniques (e.g., Automated exposure control, adjustment of the mA and/or kV according to patient size, use of iterative reconstruction technique) TECHNICAL DOCUMENTATION: JOB ID: [id number] [employer]- All Rights Reserved Reading location - IP/workstation name: [email or web address]
--- NOTE | 2019-10-17 12:34 | ER Document Report ---
ED General - General Chief Complaint: General Weakness Stated Complaint: GENERAL WEAKNESS Time Seen by Provider: 10/17/19 11:37 Primary Care Provider: ÁNGEL ORNELAS MD [Primary Care Provider] - Follow up as needed Notes: HPI: 58-year-old male who presents today stating some generalized fatigue to upper and lower extremities over the last 2 weeks. He states his diffuse weakness is gotten so bad that he has sometimes unable to stand. He states it is not restricted to his lower extremities. He states he did have a stroke with some left-sided weakness 1 month ago. The discharge diagnosis was a cerebral in farction but the MRI did not show any obvious acute infarcts. Patient also was admitted in the beginning of September secondary to some low back pain with some radiculopathy. MRI was performed. It did show a herniation of the disc between L4 and L5. There was not significant canal stenosis. Patient denies any incontinence, focal weakness of the legs compared to the arms. ROS: See HPI All other review of systems reviewed and otherwise negative Reviewed vital signs and nursing note as charted by RN. PHYSICAL EXAM: CONSTITUTIONAL: Alert and oriented and responds appropriately to questions. Well-appearing; well-nourished HEAD: Normocephalic; atraumatic CARD: Regular rate and rhythm; no murmurs; symmetric distal pulses RESP: Normal chest excursion without splinting or tachypnea; breath sounds clear and equal bilaterally; no wheezes, no rhonchi, no rales ABD/GI: Normal bowel sounds; elevated BMI; soft, non-tender; no palpable organomegaly or masses BACK: The back appears normal and is non-tender to palpation along the midline spine with no swelling, erythema, induration, or step-offs EXT: Normal ROM in all joints; non-tender to palpation; no edema SKIN: No acute lesions noted NEURO: CN 2-12 intact; 5 out of 5 bilateral upper extremity strength. Patient is able to raise both arms over his head for greater than 10 seconds without drift. Patient is able lift bilateral legs off the bed greater than 5 seconds without drift. Strong distal pulses. 2+ patellar reflexes. No lower extremity edema appreciated. No nystagmus. Slowed rihags-wo-daas bilaterally without discrepancy between the right and left side PSYCH: The patient's mood and manner are appropriate. Grooming and personal hygiene are appropriate. TRAVEL OUTSIDE OF THE [place] IN LAST 30 DAYS: No - Related Data Allergies/Adverse Reactions: No Known Allergies Allergy (Verified 09/18/19 13:44) Home Medications: 81 mg Aspirin, Allopurinol, Carvedilol, Potassium Chloride, Lisinopril, Gabapentin, Valproic Acid, Atorvastatin, Duloxetine, Furosemide, Novolog 6 units TID, Victoza 1.2 Daily, Tresiba 14 units Daily - Obtained from home medications at bedside Past Medical History - Social History Smoking Status: Former Smoker Chew tobacco use (# tins/day): No Frequency of alcohol use: None Drug Abuse: None Family History: Reviewed & Not Pertinent Patient has suicidal ideation: No Patient has homicidal ideation: No - Past Medical History Cardiac Medical History: Reports: Hx Congestive Heart Failure, Hx Coronary Artery Disease, Hx Heart Attack, Hx Hypercholesterolemia, Hx Hypertension Denies: Hx Atrial Fibrillation, Hx DVT, Hx Pulmonary Embolism Pulmonary Medical History: Reports: Hx COPD Denies: Hx Asthma, Hx Sleep Apnea Neurological Medical History: Reports: Hx Seizures. Denies: Hx Cerebrovascular Accident Endocrine Medical History: Reports: Hx Diabetes Mellitus Type 2. Denies: Hx Diabetes Mellitus Type 1, Hx Hyperthyroidism, Hx Hypothyroidism Renal/ Medical History: Denies: Hx Hemodialysis, Hx Kidney Stones, Hx Peritoneal Dialysis Malignancy Medical History: Reports Hx Renal (Kidney) Cancer - s/p partial nephrectomy and renal surgeries., Reports Hx Skin Cancer GI Medical History: Reports: Hx Gastroesophageal Reflux Disease. Denies: Hx Cirrhosis, Hx Crohn's Disease, Hx Hepatitis, Hx Ulcerative Colitis Musculoskeletal Medical History: Denies Hx Arthritis, Denies Hx Gout Skin Medical History: Denies Hx Eczema, Denies Hx Psoriasis Infectious Medical History: Denies: Hx C-Diff, Hx Hepatitis, Hx HIV Past Surgical History: Reports: Hx Cardiac Catheterization, Hx Kidney (Renal Surgery) - Right Kidney Removed, Other - skin cancer removal - Immunizations Immunizations up to date: Yes Physical Exam - Vital signs Vitals: Temp Pulse Resp BP Pulse Ox 98.1 F 88 16 91/57 L 96 10/17/19 10:15 10/17/19 10:15 10/17/19 10:15 10/17/19 10:15 10/17/19 10:15 Course - Re-evaluation Re-evalutation: We will obtain basic labs, CT scan of the head, cardiac labs, EKG, and reassess. Patient currently has no focal neurological deficits. Patient denies any headache or chest pain. Patient currently has no signs of discitis, epidural abscess, or obvious spinal cord occlusion. EKG shows heart of 77, normal sinus rhythm, normal axis, no ST elevation or depression 10/17/19 12:33 Creatinine as recorded. Patient does appear to have acute renal failure. CT scan of the head as recorded. No change in exam. Given the above history and physical I will provide a small amount of fluids. I do believe that the patient will require admission. I do not believe the patient requires dialysis given the potassium. Baseline creatinine around 2.2. - Vital Signs Vital signs: Temp Pulse Resp BP Pulse Ox 98.1 F 88 12 103/66 99 10/17/19 10:15 10/17/19 10:15 10/17/19 11:00 10/17/19 11:00 10/17/19 10:39 - Laboratory Result Diagrams: 10/17/19 10:48 10/17/19 10:48 Laboratory results interpreted by me: 10/17/19 10/17/19 10:48 10:48 RBC 3.85 L Hgb 12.1 L Hct 35.8 L RDW 15.3 H BUN 64 H Creatinine 4.06 H Est GFR ( Amer) 18 L Est GFR (MDRD) Non-Af 15 L Discharge - Discharge Clinical Impression: Weakness Acute renal failure Qualifiers: Acute renal failure type: unspecified Qualified Code(s): N17.9 - Acute kidney failure, unspecified Condition: Good Disposition: ADMITTED OBSERVATION Admitting Provider: Ant Unit Admitted: Telemetry Referrals: ÁNGEL ORNELAS MD [Primary Care Provider] - Follow up as needed
--- NOTE | 2019-10-17 13:51 | EKG REPORT ---
SEVERITY:- NORMAL ECG - SINUS RHYTHM : Confirmed by: Brittney Harman MD 17-Oct-2019 13:50:37
[2019-10-17] MEDS: NORMAL SALINE 1000 ML 1,000 ML IV PRN (16:29)
--- NOTE | 2019-10-17 17:13 | PDOC H&P ---
History of Present Illness Admission Date/PCP: 10/17/19 14:25 ÁNGEL ORNELAS MD Patient complains of: Generalized weakness History of Present Illness: LO ENCARNACION is a 58 year old male patient of Dr. Ornelas who presented to the ED with 2 weeks duration of worsening generalized weakness and associated recurrent falls at home in his bedroom and toilet. He was recently diagnosed with clinical stroke about 1 month ago. Patient localized his residual weakness more to his legs than his upper extremities. Likewise he reported recent diagnosis of disc herniation at L5-S1 level without significant stenosis on spinal MRI. He denied any associated incontinence or saddle numbness or tingling. He reported chest congestion with minimally productive coughing, chills, intermittent diaphoresis, and right sided abdominal pain. No definite fever, nasal, or sinus congestion. His morbidities are as listed below. He was advised hospitalization for further evaluation and management. Past Medical History Cardiac Medical History: Reports: Congestive Heart Failure, Coronary Artery Disease, Myocardial Infarction, Hyperlipidema, Hypertension Denies: Atrial Fibrillation, DVT, Pulmonary Embolism Pulmonary Medical History: Reports: Chronic Obstructive Pulmonary Disease (COPD) Denies: Asthma, Sleep Apnea Neurological Medical History: Reports: Seizures Endocrine Medical History: Reports: Diabetes Mellitus Type 2 Denies: Diabetes Mellitus Type 1, Hyperthyroidism, Hypothyroidism Malignancy Medical History: Reports: Renal (Kidney) Cancer - s/p partial nephrectomy and renal surgeries., Skin Cancer GI Medical History: Reports: Gastroesophageal Reflux Disease Denies: Cirrhosis, Crohn's Disease, Hepatitis, Ulcerative Colitis Musculoskeltal Medical History: Denies: Arthritis, Gout Skin Medical History: Denies: Eczema, Psoriasis Hematology: Reports: Anemia Denies: Bleeding Tendencies Infectious Medical History: Denies: Clostridium Difficile, HIV Past Surgical History Past Surgical History: Reports: Cardiac Catheterization, Other - skin cancer removal Social History Smoking Status: Former Smoker Electronic Cigarette use?: No Number of Years Smokin Last Time Smoked: 1984 Frequency of Alcohol Use: None Hx Recreational Drug Use: No Drugs: None Hx Prescription Drug Abuse: No Family History Family History: Reviewed & Not Pertinent Parental Family History Reviewed: Yes Children Family History Reviewed: Yes Sibling(s) Family History Reviewed.: Yes Medication/Allergy Home Medications: Allopurinol [Zyloprim 300 mg Tablet] 150 mg PO QAM 09/19/19 Aspirin [Adult Low Dose Aspirin EC] 81 mg PO DAILY 09/19/19 Atorvastatin Calcium [Lipitor 10 mg Tablet] 10 mg PO QHS 09/19/19 Duloxetine HCl [Cymbalta] 60 mg PO QHS 09/19/19 Furosemide [Lasix 20 mg Tablet] 40 mg PO BID 09/19/19 Gabapentin [Neurontin 300 mg Capsule] 600 mg PO Q12 09/19/19 Lisinopril [Prinivil 5 mg Tablet] 5 mg PO DAILY 09/19/19 Potassium Chloride 20 meq PO DAILY 09/19/19 Valproic Acid [Depakene] 500 mg PO Q12 09/19/19 Carvedilol [Coreg 3.125 mg Tablet] 3.125 mg PO Q12 10/17/19 Insulin Aspart [Novolog Flexpen] 6 unit SUBCUT MEALS 10/17/19 Insulin Degludec [Tresiba Flextouch U-100] 14 units SUBCUT WSUPPER 10/17/19 Liraglutide [Victoza 2-Elton] 1.2 mg SQ WSUPPER 10/17/19 Allergies/Adverse Reactions: No Known Allergies Allergy (Verified 09/18/19 13:44) Review of Systems Constitutional: PRESENT: chills, fatigue, night sweats - intermittent, weakness Eyes: ABSENT: visual disturbances Ears: ABSENT: hearing changes Nose, Mouth, and Throat: ABSENT: as per HPI, headache(s), mouth pain, sore throat, vertigo, other Cardiovascular: ABSENT: chest pain, dyspnea on exertion, edema, orthropnea, palpitations Respiratory: PRESENT: cough, sputum - minimal Gastrointestinal: ABSENT: abdominal pain, constipation, diarrhea, hematemesis, hematochezia, nausea, vomiting Musculoskeletal: ABSENT: joint swelling Integumentary: ABSENT: rash, wounds Neurological: PRESENT: frequent falls - at home. Psychiatric: ABSENT: anxiety, depression, homidical ideation, suicidal ideation Endocrine: ABSENT: cold intolerance, heat intolerance, polydipsia, polyuria Hematologic/Lymphatic: ABSENT: easy bleeding, easy bruising, lymphadenopathy Allergic/Immunologic: ABSENT: seasonal rhinorrhea Physical Exam Vital Signs: Temp Pulse Resp BP Pulse Ox 98 F 88 14 107/69 97 10/17/19 15:08 10/17/19 10:15 10/17/19 14:59 10/17/19 15:00 10/17/19 15:08 Intake & Output 10/16/19 10/17/19 10/18/19 06:59 06:59 06:59 Intake Total 500 Balance 500 Weight 95.708 kg General appearance: PRESENT: no acute distress, obese Head exam: PRESENT: atraumatic, normocephalic Eye exam: PRESENT: conjunctiva pink, EOMI, PERRLA. ABSENT: scleral icterus Ear exam: PRESENT: normal external ear exam Mouth exam: PRESENT: moist Neck exam: PRESENT: full ROM. ABSENT: carotid bruit, JVD, lymphadenopathy, thyromegaly Respiratory exam: PRESENT: clear to auscultation anamaria, decreased breath sounds - at lung bases Cardiovascular exam: PRESENT: RRR. ABSENT: diastolic murmur, rubs, systolic murmur Pulses: PRESENT: normal dorsalis pedis pul, +2 pedal pulses bilateral Vascular exam: ABSENT: pallor GI/Abdominal exam: PRESENT: normal bowel sounds, soft, tenderness - RUQ region to deep palpation. ABSENT: distended, guarding, mass, organolmegaly, rebound Rectal exam: PRESENT: deferred Extremities exam: ABSENT: pedal edema Neurological exam: PRESENT: alert, awake, oriented to person, oriented to place, oriented to time, oriented to situation, CN II-XII grossly intact. ABSENT: mot or sensory deficit Psychiatric exam: PRESENT: appropriate affect, normal mood. ABSENT: homicidal ideation, suicidal ideation Skin exam: PRESENT: dry, warm Results Laboratory Results: 10/17/19 10:48 10/17/19 10:48 10/17/19 10/17/19 10/17/19 10:48 10:48 10:48 WBC 5.1 RBC 3.85 L Hgb 12.1 L Hct 35.8 L MCV 93 MCH 31.3 MCHC 33.7 RDW 15.3 H Plt Count 184 Seg Neutrophils % 50.4 Sodium 141.6 Potassium 4.3 Chloride 101 Carbon Dioxide 26 Anion Gap 15 BUN 64 H Creatinine 4.06 H Est GFR ( Amer) 18 L Glucose 104 Calcium 8.6 Total Bilirubin 0.8 AST 32 Alkaline Phosphatase 75 Total Protein 7.2 Albumin 3.9 Urine Color YELLOW Urine Appearance CLEAR Urine pH 5.0 Ur Specific Sanders 1.011 Urine Protein NEGATIVE Urine Glucose (UA) NEGATIVE Urine Ketones NEGATIVE Urine Blood NEGATIVE Urine Nitrite NEGATIVE Ur Leukocyte Esterase NEGATIVE Urine WBC (Auto) 1 Urine RBC (Auto) 0 10/17/19 10/17/19 10:48 10:48 Creatine Kinase 105 CK-MB (CK-2) 1.80 Troponin I < 0.012 Impressions: Head CT 10/17/19 00:00 IMPRESSION: No acute findings. EVIDENCE OF ACUTE STROKE: NO. Assessment & Plan - Diagnosis (1) Acute kidney injury superimposed on chronic kidney disease Is this a current diagnosis for this admission?: Yes Plan: See admitting attending physician orders for details about care plan. (2) History of kidney cancer Is this a current diagnosis for this admission?: Yes Plan: See admitting attending physician orders for details about care plan. (3) Type 2 diabetes mellitus with diabetic polyneuropathy Qualifiers: Diabetes mellitus nursing home insulin use: with rodent exterminator use Qualified Code(s): E11.42 - Type 2 diabetes mellitus with diabetic polyneuropathy; Z79.4 - USP (current) use of insulin Is this a current diagnosis for this admission?: Yes Plan: See admitting attending physician orders for details about care plan. (4) Hypertension Qualifiers: Hypertension type: essential hypertension Qualified Code(s): I10 - Essential (primary) hypertension Is this a current diagnosis for this admission?: Yes Plan: See admitting attending physician orders for details about care plan. (5) COPD (chronic obstructive pulmonary disease) Qualifiers: COPD type: chronic bronchitis Is this a current diagnosis for this admission?: Yes Plan: See admitting attending physician orders for details about care plan. (6) Seizure disorder Is this a current diagnosis for this admission?: Yes Plan: See admitting attending physician orders for details about care plan. - Time Time Spent: 50 to 70 Minutes Medications reviewed and adjusted accordingly: Yes Anticipated discharge: Home with Homehealth Within: Other - Inpatient Certification Based on my medical assessment, after consideration of the patient's com orbidities, presenting symptoms, or acuity I expect that the services needed warrant INPATIENT care.: Yes I certify that my determination is in accordance with my understanding of Medicare's requirements for reasonable and necessary INPATIENT services [42 CFR 412.3e].: Yes Medical Necessity: Significant Comorbidiites Make Outpatient Treatment Too Risky, Need Close Monitoring Due to Risk of Patient Decompensation, Need For IV Fluids, Need For Continuous Telemetry Monitoring, Need for Nebulizer Therapy and Monitoring of Response, Risk of Complication if Not Cared For in Hospital, Risk of Diagnosis Which Will Require Inpatient Eval/Care/Monitoring 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
[2019-10-17] MEDS ORDERED: GLUCAGON,HUMAN RECOMB 1 MG INJ IM PRN (17:20)
[2019-10-17] MEDS ORDERED: DEXTROSE 50%-WATER 25 GM/50 ML DISP.SYRIN IV PRN ×2 (17:20)
[2019-10-17] MEDS ORDERED: DEXTROSE 40% GEL 15 GM TUBE PO PRN ×2 (17:20)
[2019-10-17] MEDS: DULOXETINE HCL 30 MG CAPSULE.DR PO SCH (21:42)
[2019-10-17] MEDS: ATORVASTATIN CALCIUM 10 MG TABLET PO SCH (21:42)
[2019-10-17] MEDS: INSULIN LISPRO 100 UNIT/ML 3 ML VIAL SUBCUT SCH (21:43)
[2019-10-17] MEDS: GABAPENTIN 300 MG CAPSULE PO SCH (21:43)
[2019-10-17] MEDS: CARVEDILOL 3.125 MG TABLET PO SCH (21:43)
[2019-10-17] MEDS ORDERED: VALPROATE SODIUM SYRUP 250 MG/5 ML UDCUP ONE (21:44)
[2019-10-17] MEDS: HEPARIN SOD (PORCINE) 5,000 UNIT/ML 1 ML VIAL SUBCUT SCH (21:44)
[2019-10-17] MEDS: VALPROATE SODIUM SYRUP 250 MG/5 ML UDCUP PO SCH (21:45)
[2019-10-17] MEDS ORDERED: HEPARIN SOD (PORCINE) 5,000 UNIT/ML 1 ML VIAL SUBCUT SCH (22:00)
[2019-10-18] MEDS: NORMAL SALINE 1000 ML 1,000 ML IV PRN ×3 (03:30→23:33)
[2019-10-18 06:25] LABS: ABSOLUTE EOSINOPHILS # (AUTO) 0.2 10^3/uL (0.0-0.6); ABSOLUTE LYMPHOCYTES (AUTO) 1.6 10^3/uL (0.5-4.7); ABSOLUTE MONOCYTES (AUTO) 0.4 10^3/uL (0.1-1.4); ABSOLUTE NEUT (AUTO) 1.7 10^3/uL (1.7-8.2); BASOPHILS % (AUTO) 0.5 % (0-2); EOSINOPHILS % (AUTO) 5.3 % (0-6); HEMOGLOBIN 11.9 g/dL (13.5-17.0); LYMPHOCYTES % (AUTO) 40.8 % (13-45); MEAN CORPUSCULAR HEMOGLOBIN 31.4 pg (27.0-33.4); MEAN CORPUSCULAR VOLUME 92 fl (80-97); MONOCYTES % (AUTO) 9.5 % (3-13); PLATELET COUNT 186 10^3/uL (150-450); RED BLOOD COUNT 3.79 10^6/uL (4.35-5.55); RED CELL DISTRIBUTION WIDTH 15.2 % (11.5-14.0); SEGMENTED NEUTROPHILS % (AUTO) 43.9 % (42-78); TOTAL CELLS COUNTED % (AUTO) 100 %; WHITE BLOOD COUNT 3.9 10^3/uL (4.0-10.5)
[2019-10-18] MEDS: HEPARIN SOD (PORCINE) 5,000 UNIT/ML 1 ML VIAL SUBCUT SCH ×3 (06:29→21:35)
[2019-10-18] MEDS: PANTOPRAZOLE SODIUM 40 MG TABLET.DR PO SCH (06:29)
[2019-10-18 06:44] LABS: ALBUMIN 3.6 g/dL (3.5-5.0); ALKALINE PHOSPHATASE 77 U/L (38-126); ANION GAP 10 (5-19); ASPARTATE AMINO TRANSFERASE 34 U/L (17-59); BILIRUBIN,DIRECT 0.4 mg/dL (0.0-0.4); BILIRUBIN,TOTAL 0.6 mg/dL (0.2-1.3); BLOOD UREA NITROGEN 53 mg/dL (7-20); CALCIUM 8.5 mg/dL (8.4-10.2); CARBON DIOXIDE 26 mmol/L (22-30); CHLORIDE 112 mmol/L (98-107); GLUCOSE 93 mg/dL (75-110); POTASSIUM 4.5 mmol/L (3.6-5.0); TOTAL PROTEIN 6.8 g/dL (6.3-8.2)
[2019-10-18] MEDS: INSULIN LISPRO 100 UNIT/ML 3 ML VIAL SUBCUT SCH ×7 (09:04→21:36)
[2019-10-18] MEDS: GABAPENTIN 300 MG CAPSULE PO SCH ×2 (09:07→21:35)
[2019-10-18] MEDS: ALLOPURINOL 300 MG TABLET PO SCH (09:07)
[2019-10-18] MEDS: ASPIRIN 81 MG TABLET, ENT COATED PO SCH (09:08)
[2019-10-18] MEDS: LISINOPRIL 5 MG TABLET PO SCH (09:08)
[2019-10-18] MEDS: CARVEDILOL 3.125 MG TABLET PO SCH ×2 (09:08→21:35)
[2019-10-18] MEDS: POTASSIUM CHLORIDE 10 MEQ TABLET.ER PO SCH (09:08)
--- NOTE | 2019-10-18 09:26 | RADIOLOGY REPORT (SQ) ---
EXAM DESCRIPTION: CHEST 2 VIEWS COMPLETED DATE/TIME: 10/17/2019 6:34 pm REASON FOR STUDY: Cough, generalized weakness, RUQ pain COMPARISON: 09/14/2019 TECHNIQUE: Frontal and lateral radiographic views of the chest acquired. NUMBER OF VIEWS: Two view. LIMITATIONS: None. FINDINGS: LUNGS AND PLEURA: No opacities, masses or pneumothorax. No pleural effusion. MEDIASTINUM AND HILAR STRUCTURES: No masses or contour abnormalities. HEART AND VASCULAR STRUCTURES: Heart normal size. No evidence for failure. BONES: No acute findings. HARDWARE: None in the chest. OTHER: No other significant finding. IMPRESSION: NO SIGNIFICANT RADIOGRAPHIC FINDING IN THE CHEST. TECHNICAL DOCUMENTATION: JOB ID: [id number] [employer]- All Rights Reserved Reading location - IP/workstation name: [email or web address]
[2019-10-18] MEDS: VALPROATE SODIUM SYRUP 250 MG/5 ML UDCUP PO SCH ×2 (09:40→21:35)
[2019-10-18] MEDS ORDERED: INSULIN DEGLUDEC 14 UNIT SUBCUT SCH (17:00)
[2019-10-18] MEDS ORDERED: (PENDING PHARMACY ID) (Liraglutide [Victoza 2-Pak] 1.2 MG) SQ SCH (17:00)
[2019-10-18] MEDS: DULOXETINE HCL 30 MG CAPSULE.DR PO SCH (21:35)
[2019-10-18] MEDS: ATORVASTATIN CALCIUM 10 MG TABLET PO SCH (21:35)
[2019-10-19] MEDS: PANTOPRAZOLE SODIUM 40 MG TABLET.DR PO SCH (06:23)
[2019-10-19] MEDS: HEPARIN SOD (PORCINE) 5,000 UNIT/ML 1 ML VIAL SUBCUT SCH ×3 (06:24→21:31)
[2019-10-19] MEDS: INSULIN LISPRO 100 UNIT/ML 3 ML VIAL SUBCUT SCH ×7 (08:31→22:50)
[2019-10-19] MEDS: ALLOPURINOL 300 MG TABLET PO SCH (08:34)
[2019-10-19] MEDS: GABAPENTIN 300 MG CAPSULE PO SCH ×2 (10:33→21:30)
[2019-10-19] MEDS: POTASSIUM CHLORIDE 10 MEQ TABLET.ER PO SCH (10:34)
[2019-10-19] MEDS: LISINOPRIL 5 MG TABLET PO SCH (10:34)
[2019-10-19] MEDS: ASPIRIN 81 MG TABLET, ENT COATED PO SCH (10:34)
[2019-10-19] MEDS: VALPROATE SODIUM SYRUP 250 MG/5 ML UDCUP PO SCH ×2 (10:35→21:31)
[2019-10-19] MEDS: CARVEDILOL 3.125 MG TABLET PO SCH ×2 (10:35→21:29)
[2019-10-19] MEDS: NORMAL SALINE 1000 ML 1,000 ML IV PRN (10:38)
--- NOTE | 2019-10-19 14:34 | PDOC PROGRESS REPORT ---
Subjective Progress Note for:: 10/19/19 Subjective:: Patient was seen by the bedside, he was admitted 2 days ago when he presented with generalized weakness, he said he bent forward and he could not subsequently get up, he was on the floor, his could not help him get out of the floor, he called the rescue squad, EMS came to his residence and he was subsequently transferred from home to the emergency room for evaluation. In the emergency room he was found to have acute kidney injury serum creatinine was 4, there was no known precipitating factor for the acute kidney injury he has a history of chronic kidney disease stage III from diabetes history of kidney cancer affecting the right kidney status post robotic assisted partial nephrectomy of the right kidney.I saw him today on the floor, he is sitting in bed, he had physical therapy session today Reason For Visit: ACUTE ON CHRONIC KIDNEY FAILURE Physical Exam Vital Signs: Temp Pulse Resp BP Pulse Ox 97.5 F 66 18 138/79 H 100 10/19/19 12:11 10/19/19 12:11 10/19/19 12:11 10/19/19 12:11 10/19/19 12:11 Intake & Output 10/18/19 10/19/19 10/20/19 06:59 06:59 06:59 Intake Total 2349 3528 1500 Output Total 1875 2125 300 Balance 474 1403 1200 Weight 99.3 kg 99.3 kg General appearance: PRESENT: no acute distress Eye exam: PRESENT: PERRLA Respiratory exam: PRESENT: clear to auscultation anamaria Cardiovascular exam: PRESENT: +S1, +S2 GI/Abdominal exam: PRESENT: soft Results Laboratory Results: 10/18/19 05:02 10/18/19 05:02 10/17/19 10/17/19 10:48 10:48 Creatine Kinase 105 CK-MB (CK-2) 1.80 Troponin I < 0.012 Impressions: Chest X-Ray 10/17/19 00:00 IMPRESSION: NO SIGNIFICANT RADIOGRAPHIC FINDING IN THE CHEST. Head CT 10/17/19 00:00 IMPRESSION: No acute findings. EVIDENCE OF ACUTE STROKE: NO. Assessment & Plan - Diagnosis (1) Acute kidney injury Is this a current diagnosis for this admission?: Yes Plan: Continue IV fluid therapy, ultrasound of the kidney ordered to rule out post renal azotemia, continue to follow lab (2) Infarction of right basal ganglia Is this a current diagnosis for this admission?: Yes Plan: He has a history of right basal ganglia infarction, this could be a contributing factor to his abnormal balance and impaired mobility (3) Type 2 diabetes mellitus with diabetic chronic kidney disease Qualifiers: Diabetes mellitus skilled nursing insulin use: with truck terminal manager use Chronic kidney disease stage: stage 3 (moderate) Qualified Code(s): E11.22 - Type 2 diabetes mellitus with diabetic chronic kidney disease; N18.3 - Chronic kidney disease, stage 3 (moderate); Z79.4 - terminal make up operator (current) use of insulin Is this a current diagnosis for this admission?: Yes Plan: , Diabetes presently controlled from previous A1c testing - Time Time Spent with patient: 25-34 minutes
[2019-10-19 16:05] LABS: ALBUMIN 3.5 g/dL (3.5-5.0); ALKALINE PHOSPHATASE 76 U/L (38-126); ANION GAP 11 (5-19); ASPARTATE AMINO TRANSFERASE 37 U/L (17-59); BILIRUBIN,DIRECT 0.4 mg/dL (0.0-0.4); BILIRUBIN,TOTAL 0.5 mg/dL (0.2-1.3); BLOOD UREA NITROGEN 31 mg/dL (7-20); CALCIUM 8.6 mg/dL (8.4-10.2); CARBON DIOXIDE 22 mmol/L (22-30); CHLORIDE 113 mmol/L (98-107); GLUCOSE 109 mg/dL (75-110); POTASSIUM 5.1 mmol/L (3.6-5.0); TOTAL PROTEIN 6.9 g/dL (6.3-8.2)
--- NOTE | 2019-10-19 16:43 | RADIOLOGY REPORT (SQ) ---
EXAM DESCRIPTION: U/S RETROPERITON (RENAL/AORTA) COMPLETED DATE/TIME: 10/19/2019 4:17 pm REASON FOR STUDY: acute kidney injury N17.9 ACUTE KIDNEY FAILURE, UNSPECIFIED E11.22 TYPE 2 DIABE RAFI MELLITUS W DIABETIC CHRONIC KIDNEY DI COMPARISON: None. TECHNIQUE: Dynamic and static grayscale images acquired of the kidneys and bladder and recorded on P ACS. Additional selected color Doppler and spectral images recorded. LIMITATIONS: None. FINDINGS: RIGHT KIDNEY: Normal size, 10.7 cm. Slightly increased echogenicity. No solid or suspici ous masses. No calcifications. No hydronephrosis. LEFT KIDNEY: Normal size, 12.7 cm. Slightly increased echogenicity. No solid or suspicious masses. No calcifications. No hydronephrosis. BLADDER: No masses. Ureteral jets were not seen. OTHER FINDINGS: No other significant finding. IMPRESSION: There slight increased echogenicity bilaterally. The kidneys are otherwise unremarkable . There is no bladder mass. TECHNICAL DOCUMENTATION: JOB ID: [id number] [employer]- All Rights Reserved Reading location - IP/workstation name: [email or web address]
[2019-10-19] MEDS ORDERED: ACETAMINOPHEN 325 MG TABLET PO PRN (17:55)
[2019-10-19] MEDS: ATORVASTATIN CALCIUM 10 MG TABLET PO SCH (21:29)
[2019-10-19] MEDS: DULOXETINE HCL 30 MG CAPSULE.DR PO SCH (21:31)
[2019-10-20] MEDS: HEPARIN SOD (PORCINE) 5,000 UNIT/ML 1 ML VIAL SUBCUT SCH ×3 (05:06→22:04)
[2019-10-20] MEDS: PANTOPRAZOLE SODIUM 40 MG TABLET.DR PO SCH (05:06)
[2019-10-20] MEDS: INSULIN LISPRO 100 UNIT/ML 3 ML VIAL SUBCUT SCH ×7 (08:21→22:15)
[2019-10-20] MEDS: ALLOPURINOL 300 MG TABLET PO SCH (08:23)
[2019-10-20 09:16] LABS: ANION GAP 10 (5-19); BLOOD UREA NITROGEN 24 mg/dL (7-20); CALCIUM 8.9 mg/dL (8.4-10.2); CARBON DIOXIDE 20 mmol/L (22-30); CHLORIDE 117 mmol/L (98-107); GLUCOSE 116 mg/dL (75-110); HEMATOCRIT 35.2 % (37.9-51.0); HEMOGLOBIN 11.9 g/dL (13.5-17.0); MEAN CORPUSCULAR HEMOGLOBIN 31.2 pg (27.0-33.4); MEAN CORPUSCULAR HGB CONC 33.8 g/dL (32.0-36.0); MEAN CORPUSCULAR VOLUME 92 fl (80-97); PLATELET COUNT 187 10^3/uL (150-450); POTASSIUM 4.6 mmol/L (3.6-5.0); RED BLOOD COUNT 3.82 10^6/uL (4.35-5.55); RED CELL DISTRIBUTION WIDTH 15.1 % (11.5-14.0); WHITE BLOOD COUNT 3.5 10^3/uL (4.0-10.5)
[2019-10-20] MEDS: CARVEDILOL 3.125 MG TABLET PO SCH ×2 (10:54→22:02)
[2019-10-20] MEDS: GABAPENTIN 300 MG CAPSULE PO SCH ×2 (10:54→22:02)
[2019-10-20] MEDS: LISINOPRIL 5 MG TABLET PO SCH (10:55)
[2019-10-20] MEDS: POTASSIUM CHLORIDE 10 MEQ TABLET.ER PO SCH (10:55)
[2019-10-20] MEDS: ASPIRIN 81 MG TABLET, ENT COATED PO SCH (10:57)
[2019-10-20] MEDS: VALPROATE SODIUM SYRUP 250 MG/5 ML UDCUP PO SCH ×2 (10:58→22:03)
--- NOTE | 2019-10-20 12:25 | PDOC PROGRESS REPORT ---
Subjective Progress Note for:: 10/20/19 Subjective:: Patient seen by the bedside, he was admitted when he presented with acute kidney injury, the serum creatinine was 4, kidney ultrasound suggests medical renal disease with areas of increased echogenicity. The baseline serum creatinine is 1.6 so clearly there is an acute kidney injury superimposed on a pre-existing chronic kidney disease. I explained to patient that issue stay few more days to continue present line of management, there is progressive improvement in kidney function. The utilization management committee is suggesting that patient should be observation, that does not make any sense to me, patient was admitted with acute kidney injury with serum creatinine of 4, it is not feasible to get patient back to the baseline serum creatinine of 1.6 in 24 hours. He has other comorbid conditions including diabetes mellitus, history of malignant neoplasm of the right kidney status post robotic assisted resection of the upper lobe of the right kidney, history of CVA with gait and balance disorder Reason For Visit: ACUTE KIDNEY INJURY, H/O CKD Physical Exam Vital Signs: Temp Pulse Resp BP Pulse Ox 98.1 F 57 L 16 147/87 H 100 10/20/19 08:12 10/20/19 08:12 10/20/19 08:12 10/20/19 08:12 10/20/19 08:12 Intake & Output 10/19/19 10/20/19 10/21/19 06:59 06:59 06:59 Intake Total 3528 2175 Output Total 2125 1300 Balance 1403 875 Weight 99.3 kg 102.5 kg General appearance: PRESENT: no acute distress Eye exam: PRESENT: PERRLA Respiratory exam: PRESENT: clear to auscultation anamaria Cardiovascular exam: PRESENT: +S1, +S2 GI/Abdominal exam: PRESENT: soft Neurological exam: PRESENT: alert Results Laboratory Results: 10/20/19 08:31 10/20/19 08:31 10/19/19 10/20/19 10/20/19 15:24 08:31 08:31 WBC 3.5 L RBC 3.82 L Hgb 11.9 L Hct 35.2 L MCV 92 MCH 31.2 MCHC 33.8 RDW 15.1 H Plt Count 187 Sodium 146.1 H 146.9 H Potassium 5.1 H 4.6 Chloride 113 H 117 H Carbon Dioxide 22 20 L Anion Gap 11 10 BUN 31 H 24 H Creatinine 2.58 H 2.35 H Est GFR ( Amer) 31 L 34 L Glucose 109 116 H Calcium 8.6 8.9 Total Bilirubin 0.5 AST 37 Alkaline Phosphatase 76 Total Protein 6.9 Albumin 3.5 10/17/19 10/17/19 10:48 10:48 Creatine Kinase 105 CK-MB (CK-2) 1.80 Troponin I < 0.012 Impressions: Chest X-Ray 10/17/19 00:00 IMPRESSION: NO SIGNIFICANT RADIOGRAPHIC FINDING IN THE CHEST. Head CT 10/17/19 00:00 IMPRESSION: No acute findings. EVIDENCE OF ACUTE STROKE: NO. Renal Ultrasound 10/19/19 00:00 IMPRESSION: There slight increased echogenicity bilaterally. The kidneys are otherwise unremarkable. There is no bladder mass. Assessment & Plan - Diagnosis (1) Acute kidney injury Is this a current diagnosis for this admission?: Yes Plan: Continue IV hydration until baseline creatinine of 1.6 (2) Infarction of right basal ganglia Is this a current diagnosis for this admission?: Yes (3) Type 2 diabetes mellitus with diabetic chronic kidney disease Qualifiers: Diabetes mellitus care home insulin use: with broke worker use Chronic kidney disease stage: stage 3 (moderate) Qualified Code(s): E11.22 - Type 2 diabetes mellitus with diabetic chronic kidney disease; N18.3 - Chronic kidney disease, stage 3 (moderate); Z79.4 - [facility] (current) use of insulin Is this a current diagnosis for this admission?: Yes - Time Time Spent with patient: 35 or more minutes
[2019-10-20] MEDS: DULOXETINE HCL 30 MG CAPSULE.DR PO SCH (22:03)
[2019-10-20] MEDS: ATORVASTATIN CALCIUM 10 MG TABLET PO SCH (22:03)
[2019-10-21] MEDS: NORMAL SALINE 1000 ML 1,000 ML IV PRN (01:38)
[2019-10-21] MEDS: PANTOPRAZOLE SODIUM 40 MG TABLET.DR PO SCH (06:47)
[2019-10-21] MEDS: HEPARIN SOD (PORCINE) 5,000 UNIT/ML 1 ML VIAL SUBCUT SCH ×2 (06:47→13:09)
[2019-10-21] MEDS: INSULIN LISPRO 100 UNIT/ML 3 ML VIAL SUBCUT SCH ×6 (08:43→16:25)
[2019-10-21] MEDS: ALLOPURINOL 300 MG TABLET PO SCH (09:01)
[2019-10-21] MEDS: CARVEDILOL 3.125 MG TABLET PO SCH (09:02)
[2019-10-21] MEDS: POTASSIUM CHLORIDE 10 MEQ TABLET.ER PO SCH (09:03)
[2019-10-21] MEDS: ASPIRIN 81 MG TABLET, ENT COATED PO SCH (09:03)
[2019-10-21] MEDS: GABAPENTIN 300 MG CAPSULE PO SCH (09:03)
[2019-10-21] MEDS: VALPROATE SODIUM SYRUP 250 MG/5 ML UDCUP PO SCH (09:03)
[2019-10-21] MEDS: LISINOPRIL 5 MG TABLET PO SCH (09:03)
[2019-10-21 17:18] VITALS: BP 174/82
--- NOTE | 2019-10-22 18:12 | Left Against Medical Advice ---
Against Medical Advice Admission Date/Time: 10/19/19 14:23 Primary Care Provider: ÁNGEL ORNELAS MD Date of Patient Emigration: 10/21/19 - Diagnosis: (1) Acute kidney injury Is this a current diagnosis for this admission?: Yes (2) Infarction of right basal ganglia Is this a current diagnosis for this admission?: Yes (3) Type 2 diabetes mellitus with diabetic chronic kidney disease Is this a current diagnosis for this admission?: Yes - Summary: Summary: Please see Admission and Progress Notes as well. LO ENCARNACION is a 58 M, who LEFT AGAINST MEDICAL ADVICE. The Patient was admitted on 10/19/19 14:23. ÁNGEL ORNELAS MD History of Present Illness: LO ENCARNACION is a 58 year old male patient of Dr. Ornelas who presented to the ED with 2 weeks duration of worsening generalized weakness and associated recurrent falls at home in his bedroom and toilet. He was recently diagnosed with clinical stroke about 1 month ago. Patient localized his residual weakness more to his legs than his upper extremities. Likewise he reported recent angie gnosis of disc herniation at L5-S1 level without significant stenosis on spinal MRI. He denied any associated incontinence or saddle numbness or tingling. He reported chest congestion with minimally productive coughing, chills, intermittent diaphoresis, and right sided abdominal pain. No definite fever, nasal, or sinus congestion. His morbidities are as listed below. He was advised hospitalization for further evaluation and management.Patient was admitted for the management of acute kidney injury on admission the serum creatinine was 4, kidney ultrasound that was done demonstrated increased echogenicity consistent with medical renal disease. Patient serum creatinine was improving with IV fluid suggesting a prerenal component, he was not ready yet for discharge but he left AMA before management was complete.
== END 2019-10-21 17:13 | disposition left against medical advice (07) | DRG 683 ==
LOC: ER 10:00 → EH 14:25 → UNDOADMOB 14:25 → EH 15:33 → 3N 15:43 → OBSVTOIN 10-19 14:23
PROVIDERS: ADMIT Internal Medicine; ATTEND Internal Medicine
DX: N17.9 Acute kidney failure, unspecified (principal); I13.0 Hypertensive heart and chronic kidney disease with heart failure and stage 1 through stage 4 chronic kidney disease, or unspecified chronic kidney disease; E11.22 Type 2 diabetes mellitus with diabetic chronic kidney disease; E11.42 Type 2 diabetes mellitus with diabetic polyneuropathy; I50.9 Heart failure, unspecified; D64.9 Anemia, unspecified; R53.1 Weakness; M51.27 Other intervertebral disc displacement, lumbosacral region; I25.10 Atherosclerotic heart disease of native coronary artery without angina pectoris; E78.5 Hyperlipidemia, unspecified; J44.9 Chronic obstructive pulmonary disease, unspecified; K21.9 Gastro-esophageal reflux disease without esophagitis; G40.909 Epilepsy, unspecified, not intractable, without status epilepticus; N18.3 Chronic kidney disease, stage 3 (moderate); Z85.828 Personal history of other malignant neoplasm of skin; Z91.81 History of falling; I25.2 Old myocardial infarction; Z85.528 Personal history of other malignant neoplasm of kidney; Z90.5 Acquired absence of kidney; Z87.891 Personal history of nicotine dependence
CPT/HCPCS: 36415; 70450; 71046; 76770; 80048; 80053; 81001; 82550; 82553; 82962; 83036; 84484; 85025; 85027; 93005; 93010; 96360; 99285; G0378; J1644; J1815; J3490; J7030

== ENCOUNTER 2019-11-09 09:09 | Emergency (ER) | payer MEDICARE ==
--- NOTE | 2019-11-09 10:10 | ER Document Report ---
ED Medical Screen (RME) - General Chief Complaint: Feet Swelling Stated Complaint: FALL/TAILBONE PAIN, FEET SWELLING Primary Care Provider: ÁNGEL ORNELAS MD [Primary Care Provider] - Follow up as needed Mode of Arrival: Wheelchair Information source: Patient Notes: 59-year-old male presented to ED for a fall on Saturday. He states his feet have been swelling for about a week is got pain to his tailbone from his fall. He does have a history of a heart attack a stroke coronary artery disease blood pressure cholesterol diabetes kidney cancer with cancer to multiple other 8 areas with surgery. He is alert oriented respirations regular nonlabored speaking in full sentences. I have greeted and performed a rapid initial assessment of this patient. A comprehensive ED assessment and evaluation of the patient, analysis of test results and completion of medical decision making process will be conducted by an additional ED providers. TRAVEL OUTSIDE OF THE [place] IN LAST 30 DAYS: No - Related Data Allergies/Adverse Reactions: No Known Allergies Allergy (Verified 09/18/19 13:44) Past Medical History - Past Medical History Cardiac Medical History: Reports: Hx Congestive Heart Failure, Hx Coronary Artery Disease, Hx Heart Attack, Hx Hypercholesterolemia, Hx Hypertension Denies: Hx Atrial Fibrillation, Hx DVT, Hx Pulmonary Embolism Pulmonary Medical History: Reports: Hx COPD Denies: Hx Asthma, Hx Sleep Apnea Neurological Medical History: Reports: Hx Seizures. Denies: Hx Cerebrovascular Accident Endocrine Medical History: Reports: Hx Diabetes Mellitus Type 2. Denies: Hx Diabetes Mellitus Type 1, Hx Hyperthyroidism, Hx Hypothyroidism Renal/ Medical History: Denies: Hx Hemodialysis, Hx Kidney Stones, Hx Peritoneal Dialysis Malignancy Medical History: Reports Hx Renal (Kidney) Cancer - s/p partial nephrectomy and renal surgeries., Reports Hx Skin Cancer GI Medical History: Reports: Hx Gastroesophageal Reflux Disease. Denies: Hx Cirrhosis, Hx Crohn's Disease, Hx Hepatitis, Hx Ulcerative Colitis Musculoskeltal Medical History: Denies Hx Arthritis, Denies Hx Gout Skin Medical History: Denies Hx Eczema, Denies Hx Psoriasis Infectious Medical History: Denies: Hx C-Diff, Hx Hepatitis, Hx HIV Past Surgical History: Reports: Hx Cardiac Catheterization, Hx Kidney (Renal Surgery) - Right Kidney Removed, Other - skin cancer removal - Immunizations Immunizations up to date: Yes Physical Exam - Vital signs Vitals: Temp Pulse Resp BP Pulse Ox 98.3 F 71 18 115/71 98 11/09/19 09:27 11/09/19 09:27 11/09/19 09:27 11/09/19 09:27 11/09/19 09:27 Course - Vital Signs Vital signs: Temp Pulse Resp BP Pulse Ox 98.3 F 71 18 115/71 98 11/09/19 09:27 11/09/19 09:27 11/09/19 09:27 11/09/19 09:27 11/09/19 09:27 Doctor's Discharge - Discharge Referrals: ÁNGEL ORNELAS MD [Primary Care Provider] - Follow up as needed
[2019-11-09 10:34] LABS: ABSOLUTE EOSINOPHILS # (AUTO) 0.1 10^3/uL (0.0-0.6); ABSOLUTE LYMPHOCYTES (AUTO) 1.7 10^3/uL (0.5-4.7); ABSOLUTE MONOCYTES (AUTO) 0.4 10^3/uL (0.1-1.4); BASOPHILS % (AUTO) 0.5 % (0-2); EOSINOPHILS % (AUTO) 3.2 % (0-6); HEMATOCRIT 38.2 % (37.9-51.0); HEMOGLOBIN 12.8 g/dL (13.5-17.0); MEAN CORPUSCULAR HGB CONC 33.5 g/dL (32.0-36.0); MEAN CORPUSCULAR VOLUME 92 fl (80-97); MONOCYTES % (AUTO) 8.9 % (3-13); PLATELET COUNT 196 10^3/uL (150-450); RED BLOOD COUNT 4.14 10^6/uL (4.35-5.55); RED CELL DISTRIBUTION WIDTH 15.2 % (11.5-14.0); SEGMENTED NEUTROPHILS % (AUTO) 47.4 % (42-78); TOTAL CELLS COUNTED % (AUTO) 100 %; WHITE BLOOD COUNT 4.3 10^3/uL (4.0-10.5)
[2019-11-09 11:03] LABS: ALBUMIN 4.2 g/dL (3.5-5.0); ALKALINE PHOSPHATASE 79 U/L (38-126); ANION GAP 9 (5-19); ASPARTATE AMINO TRANSFERASE 37 U/L (17-59); BILIRUBIN,DIRECT 0.4 mg/dL (0.0-0.4); BILIRUBIN,TOTAL 0.7 mg/dL (0.2-1.3); BLOOD UREA NITROGEN 42 mg/dL (7-20); CALCIUM 9.7 mg/dL (8.4-10.2); CARBON DIOXIDE 30 mmol/L (22-30); CHLORIDE 105 mmol/L (98-107); GLUCOSE 117 mg/dL (75-110); POTASSIUM 5.3 mmol/L (3.6-5.0); TOTAL PROTEIN 7.7 g/dL (6.3-8.2)
[2019-11-09 11:29] LABS: APPEARANCE,URINE CLEAR; BILIRUBIN,URINE NEGATIVE (NEGATIVE); COLOR,URINE YELLOW; GLUCOSE, URINE NEGATIVE (NEGATIVE); KETONES,URINE NEGATIVE (NEGATIVE); PROTEIN,URINE NEGATIVE (NEGATIVE)
--- NOTE | 2019-11-09 11:38 | RADIOLOGY REPORT (SQ) ---
EXAM DESCRIPTION: CHEST 2 VIEWS COMPLETED DATE/TIME: 11/09/2019 11:19 am REASON FOR STUDY: pedal edema COMPARISON: PA and lateral views of the chest from 10/17/2019. EXAM PARAMETERS: NUMBER OF VIEWS: two views TECHNIQUE: PA and lateral views of the chest were obtained. RADIATION DOSE: NA LIMITATIONS: none FINDINGS: LUNGS AND PLEURA: No consolidation, pleural effusion or pneumothorax. MEDIASTINUM AND HILAR STRUCTURES: No mediastinal or hilar contour abnormality. HEART AND VASCULAR STRUCTURES: The cardiac silhouette and pulmonary vasculature are within normal romo its. BONES: No acute findings. HARDWARE: Interbody fusion hardware in the cervical spine. OTHER: No other finding. IMPRESSION: No acute cardiopulmonary process. TECHNICAL DOCUMENTATION: JOB ID: [id number] [employer]- All Rights Reserved Reading location - IP/workstation name: [email or web address]
--- NOTE | 2019-11-09 11:42 | RADIOLOGY REPORT (SQ) ---
EXAM DESCRIPTION: L SPINE WHOLE COMPLETED DATE/TIME: 11/09/2019 11:19 am REASON FOR STUDY: fall pain COMPARISON: None. NUMBER OF VIEWS: Five views including obliques. TECHNIQUE: AP, lateral, oblique, and sacral radiographic images acquired of the lumbar spine. LIMITATIONS: None. FINDINGS: MINERALIZATION: Normal. SEGMENTATION: There are 5 lumbar-type vertebral bodies. There is no transitional anatomy at the lumb osacral junction. ALIGNMENT: Normal. VERTEBRAE: The lumbar vertebral body heights are preserved. DISCS: The L5-S1 intervertebral disc space is narrowed. POSTERIOR ELEMENTS: Intact. There is no pars interarticularis defect. The L5-S1 facet joint is scle rotic. HARDWARE: None in the spine. PARASPINAL SOFT TISSUES: Atherosclerotic calcification of the abdominal aorta. PELVIS: Intact. OTHER: No other finding. IMPRESSION: No acute fracture or malalignment of the lumbar spine. TECHNICAL DOCUMENTATION: JOB ID: [id number] [employer]- All Rights Reserved Reading location - IP/workstation name: [email or web address]
--- NOTE | 2019-11-09 12:33 | ER Document Report ---
ED General - General Chief Complaint: Feet Swelling Stated Complaint: FALL/TAILBONE PAIN, FEET SWELLING Time Seen by Provider: 11/09/19 12:13 Primary Care Provider: ÁNGEL ORNELAS MD [Primary Care Provider] - Follow up as needed Mode of Arrival: Wheelchair Notes: CHIEF COMPLAINT: Tailbone pain, rash on feet and in groin HPI: 59-year-old male presenting to the emergency department complaining of pain to the tailbone region after mechanical fall that occurred 4 days ago. Patient walks with a walker normally, states he lost his balance and fell onto his buttocks. Denies head injury neck pain upper back pain. Complains of pain specifically over the tailbone region. Denies perineal numbness. Patient also reports a mildly pruritic erythematous rash over the dorsum of the feet b ilaterally, between the toes and through the groin region. Patient states that he does have some swelling over the dorsal feet. No fever. ROS: See HPI - all other systems were reviewed and are otherwise negative Constitutional: no fever Integumentary: + rash Allergy: no hives Musculoskeletal: no extremity pain, tailbone pain Neurological: no numbness/tingling, no weakness MEDICATIONS: I agree with the patient medications as charted by the RN. ALLERGIES: I agree with the allergies as charted by the RN. PAST MEDICAL HISTORY/PAST SURGICAL HISTORY: Reviewed and agree as charted by RN. SOCIAL HISTORY: Reviewed and agree as charted by RN. FAMILY HISTORY: No significant familial comorbid conditions directly related to patient complaint EXAM: Reviewed vital signs as charted by RN. CONSTITUTIONAL: Alert and oriented and responds appropriately to questions. Well-appearing; well-nourished. No acute distress HEAD: Normocephalic; atraumatic EYES: Conjunctivae clear, sclerae non-icteric ENT: normal nose; no rhinorrhea; moist mucous membranes NECK: Supple without meningismus; non-tender; no cervical lymphadenopathy, no masses CARD: RRR; no murmurs, no clicks, no rubs, no gallops; symmetric distal pulses RESP: Normal chest excursion without splinting or tachypnea; breath sounds clear and equal bilaterally; no wheezes, no rhonchi, no rales, pulse oximetry 80% on room air not hypoxic ABD/GI: Normal bowel sounds; non-distended; soft, non-tender, no rebound, no guarding; no palpable organomegaly or masses. BACK: The back appears normal and is non-tender to palpation over the lumbar region of the back. There is mild tenderness over the lower sacrum and tailbone region without visible bruising or soft tissue swelling, there is no CVA tenderness EXT: Normal ROM in all joints; non-tender to palpation; no cyanosis, no effusions, no edema SKIN: Normal color for age and race; warm; dry; good turgor; there is a mildly erythematous demarcated rash to the perennial folds bilaterally upper thighs as well as over the dorsum of the feet and between the toes. There is no signifi cant bilateral foot or ankle swelling that is fluctuant or pitting. NEURO: Moves all extremities equally; Motor and sensory function intact PSYCH: The patient's mood and manner are appropriate. Grooming and personal hygiene are appropriate. MDM: 59-year-old diabetic male with injury to the tailbone region from a mechanical fall no visible fracture on x-ray. He has no complaints of cough or shortness of breath. He stated that he had some swelling of the feet although I do not visualize any definitive edema suggesting exacerbation of COPD or fluid retention. There is a slight erythematous rash between the toes and over the dorsum of the feet but it is not hot or tender. Low suspicion for cellulitis at this time. He likely has tinea pedis. He has a similar rash in the groin region. Will place patient on a course of Lotrisone. Short course of pain medication for his tailbone injury follow-up PCP TRAVEL OUTSIDE OF THE [place] IN LAST 30 DAYS: No - Related Data Allergies/Adverse Reactions: No Known Allergies Allergy (Verified 09/18/19 13:44) Past Medical History - General Information source: Patient - Social History Smoking Status: Former Smoker Family History: Reviewed & Not Pertinent Patient has suicidal ideation: No Patient has homicidal ideation: No - Past Medical History Cardiac Medical History: Reports: Hx Congestive Heart Failure, Hx Coronary Artery Disease, Hx Heart Attack, Hx Hypercholesterolemia, Hx Hypertension Denies: Hx Atrial Fibrillation, Hx DVT, Hx Pulmonary Embolism Pulmonary Medical History: Reports: Hx COPD Denies: Hx Asthma, Hx Sleep Apnea Neurological Medical History: Reports: Hx Seizures. Denies: Hx Cerebrovascular Accident Endocrine Medical History: Reports: Hx Diabetes Mellitus Type 2. Denies: Hx Diabetes Mellitus Type 1, Hx Hyperthyroidism, Hx Hypothyroidism Renal/ Medical History: Denies: Hx Hemodialysis, Hx Kidney Stones, Hx Peritoneal Dialysis Malignancy Medical History: Reports Hx Renal (Kidney) Cancer - s/p partial nephrectomy and renal surgeries., Reports Hx Skin Cancer GI Medical History: Reports: Hx Gastroesophageal Reflux Disease. Denies: Hx Cirrhosis, Hx Crohn's Disease, Hx Hepatitis, Hx Ulcerative Colitis Musculoskeletal Medical History: Denies Hx Arthritis, Denies Hx Gout Skin Medical History: Denies Hx Eczema, Denies Hx Psoriasis Infectious Medical History: Denies: Hx C-Diff, Hx Hepatitis, Hx HIV Past Surgical History: Reports: Hx Cardiac Catheterization, Hx Kidney (Renal Surgery) - Right Kidney Removed, Other - skin cancer removal - Immunizations Immunizations up to date: Yes Physical Exam - Vital signs Vitals: Temp Pulse Resp BP Pulse Ox 98.3 F 71 18 115/71 98 11/09/19 09:27 11/09/19 09:27 11/09/19 09:27 11/09/19 09:27 11/09/19 09:27 Course - Vital Signs Vital signs: Temp Pulse Resp BP Pulse Ox 98.3 F 71 18 115/71 98 11/09/19 09:27 11/09/19 09:27 11/09/19 09:27 11/09/19 09:27 11/09/19 09:27 - Laboratory Result Diagrams: 11/09/19 10:17 11/09/19 10:17 Laboratory results interpreted by me: 11/09/19 11/09/19 11/09/19 10:17 10:17 10:17 RBC 4.14 L Hgb 12.8 L RDW 15.2 H Potassium 5.3 H BUN 42 H Creatinine 2.64 H Est GFR ( Amer) 30 L Est GFR (MDRD) Non-Af 25 L Glucose 117 H NT-Pro-B Natriuret Pep 134 H Urine Blood Urine Urobilinogen 11/09/19 11:11 RBC Hgb RDW Potassium BUN Creatinine Est GFR ( Amer) Est GFR (MDRD) Non-Af Glucose NT-Pro-B Natriuret Pep Urine Blood SMALL H Urine Urobilinogen 2.0 H Discharge - Discharge Clinical Impression: Sacral back pain, Tinea corporis Fall Qualifiers: Encounter type: initial encounter Qualified Code(s): W19.XXXA - Unspecified fall, initial encounter Tinea pedis Qualifiers: Laterality: bilateral Qualified Code(s): B35.3 - Tinea pedis Condition: Stable Disposition: HOME, SELF-CARE Instructions: Ringworm (Tinea Corporis) ([facility]) Additional Instructions: Use the Lotrisone cream in the groin and on the feet and between the toes as prescribed. Take the pain medication as prescribed for the tailbone injury. Follow-up with your primary care provider this week for reevaluation of symptoms Prescriptions: Tramadol HCl [Ultram 50 mg Tablet] 50 mg PO Q4HP PRN #12 tab PRN Reason: Clotrimazole/Betamethasone Dip [Lotrisone Cream 15 gm] 1 applic TP BID #1 tube Referrals: ÁNGEL ORNELAS MD [Primary Care Provider] - Follow up as needed
[2019-11-09 13:37] VITALS: BP 132/86
== END 2019-11-09 13:10 | disposition home or self-care (01) ==
LOC: ER 09:09
DX: M53.3 Sacrococcygeal disorders, not elsewhere classified (principal); B35.4 Tinea corporis; B35.3 Tinea pedis; M79.89 Other specified soft tissue disorders; W19.XXXA Unspecified fall, initial encounter; I50.9 Heart failure, unspecified; I25.10 Atherosclerotic heart disease of native coronary artery without angina pectoris; I25.2 Old myocardial infarction; E78.00 Pure hypercholesterolemia, unspecified; I11.0 Hypertensive heart disease with heart failure; J44.9 Chronic obstructive pulmonary disease, unspecified; E11.9 Type 2 diabetes mellitus without complications
CPT/HCPCS: 36415; 71046; 72110; 80053; 81001; 83880; 85025; 99283

== ENCOUNTER 2019-11-27 11:09 | Observation (INO) | payer MEDICARE ==
--- NOTE | 2019-11-27 11:50 | ER Document Report ---
ED Medical Screen (RME) - General Chief Complaint: Blood Pressure Problem Stated Complaint: BLOOD PRESSURE PROBLEM/FOOT SWELLING Time Seen by Provider: 11/27/19 11:44 Primary Care Provider: ÁNGEL ORNELAS MD [Primary Care Provider] - Follow up as needed TRAVEL OUTSIDE OF THE [place] IN LAST 30 DAYS: No - HPI Notes: 11/27/19 11:49 Patient is a 59-year-old male with an extensive medical history who presents with from physical therapy for having orthostatic positive vital signs and lower blood pressure. He was noted to have 6 pound weight increase recently and some swelling to his lower extremities. Patient has felt dizziness on occasion and some generalized weakness. Patient states that is not uncommon for him to have occasional falls. He did have one recently, but did not injure himself. He is otherwise able to eat and drink without difficulty. He is urinating normally and having normal bowel movements. No fever. No chest pain, shortness of breath, abdominal pain, nausea/vomiting. I have treated and performed a rapid initial assessment of this patient. A comprehensive ED assessment and evaluation of the patient, analysis of test results and completion of medical decision making process will be conducted by additional ED providers. PHYSICAL EXAMINATION: GENERAL: Well-appearing, well-nourished and in no acute distress. A&Ox4. Answers questions appropriately. Ext's: trace to 1+ pitting b/l. Abd: grossly soft, limited exam Lungs: CTAB. Heart: RRR - Related Data Allergies/Adverse Reactions: No Known Allergies Allergy (Verified 09/18/19 13:44) Past Medical History - Past Medical History Cardiac Medical History: Reports: Hx Congestive Heart Failure, Hx Coronary Artery Disease, Hx Heart Attack, Hx Hypercholesterolemia, Hx Hypertension Denies: Hx Atrial Fibrillation, Hx DVT, Hx Pulmonary Embolism Pulmonary Medical History: Reports: Hx COPD Denies: Hx Asthma, Hx Sleep Apnea Neurological Medical History: Reports: Hx Seizures. Denies: Hx Cerebrovascular Accident Endocrine Medical History: Reports: Hx Diabetes Mellitus Type 2. Denies: Hx Diabetes Mellitus Type 1, Hx Hyperthyroidism, Hx Hypothyroidism Renal/ Medical History: Denies: Hx Hemodialysis, Hx Kidney Stones, Hx Peritoneal Dialysis Malignancy Medical History: Reports Hx Renal (Kidney) Cancer - s/p partial nephrectomy and renal surgeries., Reports Hx Skin Cancer GI Medical History: Reports: Hx Gastroesophageal Reflux Disease. Denies: Hx Cirrhosis, Hx Crohn's Disease, Hx Hepatitis, Hx Ulcerative Colitis Musculoskeltal Medical History: Denies Hx Arthritis, Denies Hx Gout Skin Medical History: Denies Hx Eczema, Denies Hx Psoriasis Infectious Medical History: Denies: Hx C-Diff, Hx Hepatitis, Hx HIV Past Surgical History: Reports: Hx Cardiac Catheterization, Hx Kidney (Renal Surgery) - Right Kidney Removed, Other - skin cancer removal - Immunizations Immunizations up to date: Yes Physical Exam - Vital signs Vitals: Temp Pulse Resp BP Pulse Ox 98.4 F 80 16 87/61 L 98 11/27/19 11:26 11/27/19 11:26 11/27/19 11:26 11/27/19 11:26 11/27/19 11:26 Course - Vital Signs Vital signs: Temp Pulse Resp BP Pulse Ox 98.4 F 80 16 87/61 L 98 11/27/19 11:26 11/27/19 11:26 11/27/19 11:26 11/27/19 11:26 11/27/19 11:26 Doctor's Discharge - Discharge Referrals: ÁNGEL ORNELAS MD [Primary Care Provider] - Follow up as needed
[2019-11-27] MEDS ORDERED: NORMAL SALINE 500 ML IV ONE ×2 (11:54→13:27)
[2019-11-27 13:13] LABS: ABSOLUTE EOSINOPHILS # (AUTO) 0.2 10^3/uL (0.0-0.6); ABSOLUTE LYMPHOCYTES (AUTO) 3.4 10^3/uL (0.5-4.7); ABSOLUTE MONOCYTES (AUTO) 0.7 10^3/uL (0.1-1.4); ABSOLUTE NEUT (AUTO) 3.1 10^3/uL (1.7-8.2); BASOPHILS % (AUTO) 0.5 % (0-2); EOSINOPHILS % (AUTO) 2.7 % (0-6); HEMATOCRIT 38.6 % (37.9-51.0); HEMOGLOBIN 12.8 g/dL (13.5-17.0); LYMPHOCYTES % (AUTO) 45.5 % (13-45); MEAN CORPUSCULAR HEMOGLOBIN 30.9 pg (27.0-33.4); MEAN CORPUSCULAR HGB CONC 33.2 g/dL (32.0-36.0); MEAN CORPUSCULAR VOLUME 93 fl (80-97); MONOCYTES % (AUTO) 9.5 % (3-13); PLATELET COUNT 167 10^3/uL (150-450); RED BLOOD COUNT 4.15 10^6/uL (4.35-5.55); RED CELL DISTRIBUTION WIDTH 15.3 % (11.5-14.0); SEGMENTED NEUTROPHILS % (AUTO) 41.8 % (42-78); TOTAL CELLS COUNTED % (AUTO) 100 %; WHITE BLOOD COUNT 7.5 10^3/uL (4.0-10.5)
--- NOTE | 2019-11-27 13:16 | RADIOLOGY REPORT (SQ) ---
EXAM DESCRIPTION: CHEST 2 VIEWS COMPLETED DATE/TIME: 11/27/2019 1:02 pm REASON FOR STUDY: weakness, LE edema COMPARISON: 11/09/2019 EXAM PARAMETERS: NUMBER OF VIEWS: two views TECHNIQUE: Digital Frontal and Lateral radiographic views of the chest acquired. RADIATION DOSE: NA LIMITATIONS: none FINDINGS: LUNGS AND PLEURA: No opacities, masses or pneumothorax. No pleural effusion. MEDIASTINUM AND HILAR STRUCTURES: No masses or contour abnormalities. HEART AND VASCULAR STRUCTURES: Heart normal size. No evidence for failure. BONES: No acute findings. HARDWARE: None in the chest. OTHER: No other significant finding. IMPRESSION: NO ACUTE RADIOGRAPHIC FINDING IN THE CHEST. TECHNICAL DOCUMENTATION: JOB ID: [id number] [employer]- All Rights Reserved Reading location - IP/workstation name: [email or web address]
[2019-11-27 13:26] LABS: APPEARANCE,URINE CLEAR; BILIRUBIN,URINE NEGATIVE (NEGATIVE); COLOR,URINE YELLOW; GLUCOSE, URINE NEGATIVE (NEGATIVE); KETONES,URINE NEGATIVE (NEGATIVE); PROTEIN,URINE NEGATIVE (NEGATIVE); URINE SPECIFIC GRAVITY 1.013; UROBILINOGEN,URINE NEGATIVE mg/dL (<2.0)
--- NOTE | 2019-11-27 13:36 | ER Document Report ---
ED General - General Chief Complaint: Dizziness Stated Complaint: BLOOD PRESSURE PROBLEM/FOOT SWELLING Time Seen by Provider: 11/27/19 11:44 Primary Care Provider: ÁNGEL ORNELAS MD [Primary Care Provider] - Follow up as needed TRAVEL OUTSIDE OF THE [place] IN LAST 30 DAYS: No - HPI Notes: Mr. Emanuel Lemus is a 59-year-old male seen with a chief complaint of generalized weakness, failure to thrive, low blood pressure and recurrent falls at home. This gentleman is followed regularly by Dr. Ornelas and has a longstanding history of diabetes, hypertension, seizure disorder, old stroke and renal insufficiency. He was hospitalized last month with dehydration and acute kidney injury and signed himself out AMA at that time. He is a non-smoker. He denies alcohol intake. He denies headache currently. He denies chest pain. He denies cough or shortness of breath. Patient had a cerebellar stroke within the past year. He is used a walker for ambulation since then and has chronic gait instability. He is receiving physical therapy. When he was seen at the physical therapy department earlier today he was noted to have orthostatic hypotension with systolic pressure dropping to 87 in an upright position. - Related Data Allergies/Adverse Reactions: No Known Allergies Allergy (Verified 11/27/19 11:56) Home Medications: cva kidney failure htn ca dm Past Medical History - General Information source: Patient, Relative - Social History Smoking Status: Former Smoker Chew tobacco use (# tins/day): No Frequency of alcohol use: None Drug Abuse: None Family History: Reviewed & Not Pertinent Patient has suicidal ideation: No Patient has homicidal ideation: No - Past Medical History Cardiac Medical History: Reports: Hx Congestive Heart Failure, Hx Coronary Artery Disease, Hx Heart Attack, Hx Hypercholesterolemia, Hx Hypertension Denies: Hx Atrial Fibrillation, Hx DVT, Hx Pulmonary Embolism Pulmonary Medical History: Reports: Hx COPD Denies: Hx Asthma, Hx Sleep Apnea Neurological Medical History: Reports: Hx Seizures. Denies: Hx Cerebrovascular Accident Endocrine Medical History: Reports: Hx Diabetes Mellitus Type 2. Denies: Hx Diabetes Mellitus Type 1, Hx Hyperthyroidism, Hx Hypothyroidism Renal/ Medical History: Denies: Hx Hemodialysis, Hx Kidney Stones, Hx Peritoneal Dialysis Malignancy Medical History: Reports Hx Renal (Kidney) Cancer - s/p partial neph rectomy and renal surgeries., Reports Hx Skin Cancer GI Medical History: Reports: Hx Gastroesophageal Reflux Disease. Denies: Hx Cirrhosis, Hx Crohn's Disease, Hx Hepatitis, Hx Ulcerative Colitis Musculoskeletal Medical History: Denies Hx Arthritis, Denies Hx Gout Skin Medical History: Denies Hx Eczema, Denies Hx Psoriasis Infectious Medical History: Denies: Hx C-Diff, Hx Hepatitis, Hx HIV Past Surgical History: Reports: Hx Cardiac Catheterization, Hx Kidney (Renal Surgery) - Right Kidney Removed, Other - skin cancer removal - Immunizations Immunizations up to date: Yes Review of Systems - Review of Systems Notes: Constitutional: Negative for fever. HENT: Negative for sore throat. Eyes: Negative for visual changes. Cardiovascular: Negative for chest pain. Respiratory: Negative for shortness of breath. Gastrointestinal: Negative for abdominal pain, vomiting or diarrhea. Genitourinary: Negative for dysuria. Musculoskeletal: Negative for back pain. Skin: Negative for rash. Neurological: Negative for headaches, new focal weakness or numbness. 10 point ROS negative except as marked above and in HPI. Physical Exam - Vital signs Vitals: Temp Pulse Resp BP Pulse Ox 98.4 F 80 16 87/61 L 98 11/27/19 11:26 11/27/19 11:26 11/27/19 11:26 11/27/19 11:26 11/27/19 11:26 - Notes Notes: GENERAL: Somewhat chronically ill appearing man who looks a little older than his stated age. SKIN: Shawn complexion. Good turgor no rashes. HEAD: Normocephalic atraumatic. EYES: PERRLA. EOMI. Conjunctivae and sclerae clear. EARS: CANALS AND TMS CLEAR. NOSE: CLEAR. MOUTH: Tacky mucosa. Good dentition. No stridor or edema. No drooling. NECK: Supple. No masses or thyromegaly. No adenopathy. Carotids 2+ without bruits. No JVD. BACK: Symmetrical without tenderness. CHEST: Respirations unlabored. Breath sounds clear and symmetrical. HEART: Regular rhythm. No murmur gallop or rub. ABDOMEN: Soft nontender without masses, organomegaly or rebound. Bowel sounds normally active. No bruits. GENITALIA: Deferred. EXTREMITIES: 1+ bilateral pretibial edema. No calf tenderness. Cap refill less than 1.5 seconds. Dorsalis pedis and posterior tibial pulses 3+ and symmetrical. NEUROLOGICAL: GCS 15. Alert and oriented x3. Unsteady gait. Fluent speech. Cranial nerves II through XII intact. Sensation is grossly intact. Patient has some motor weakness of both lower extremities left more prominent than right. Patient has mild dysmetria on finger-nose testing in the left upper extremity. Normal tone. PSYCHIATRIC: Appropriate affect. Course - Re-evaluation Re-evalutation: 11/27/19 14:58 Clinically this man looks volume depleted. Blood pressures are much better here after getting a liter of normal saline. His renal function has however deteriorated somewhat within the last several weeks. Findings were discussed with his primary care physician Dr. Ornelas who is going to admit him to observation for additional hydration and serial creatinine levels. - Vital Signs Vital signs: Temp Pulse Resp BP Pulse Ox 98.4 F 80 13 113/69 98 11/27/19 11:26 11/27/19 11:26 11/27/19 14:07 11/27/19 14:07 11/27/19 14:07 - Laboratory Result Diagrams: 11/27/19 12:50 11/27/19 12:50 Laboratory results interpreted by me: 11/27/19 11/27/19 11/27/19 12:50 12:50 12:50 RBC 4.15 L Hgb 12.8 L RDW 15.3 H Lymph % (Auto) 45.5 H Seg Neutrophils % 41.8 L BUN 52 H Creatinine 2.98 H Est GFR ( Amer) 26 L Est GFR (MDRD) Non-Af 22 L Magnesium 2.5 H NT-Pro-B Natriuret Pep 144 H Discharge - Discharge Clinical Impression: Acute kidney injury superimposed on chronic kidney disease, Dehydration Condition: Fair Disposition: ADMITTED OBSERVATION Admitting Provider: Ant Unit Admitted: Medical Floor Referrals: ÁNGEL ORNELAS MD [Primary Care Provider] - Follow up as needed
[2019-11-27 13:37] LABS: ALBUMIN 4.3 g/dL (3.5-5.0); ALKALINE PHOSPHATASE 73 U/L (38-126); ANION GAP 11 (5-19); ASPARTATE AMINO TRANSFERASE 30 U/L (17-59); BILIRUBIN,DIRECT 0.4 mg/dL (0.0-0.4); BILIRUBIN,TOTAL 0.6 mg/dL (0.2-1.3); BLOOD UREA NITROGEN 52 mg/dL (7-20); CARBON DIOXIDE 27 mmol/L (22-30); CHLORIDE 105 mmol/L (98-107); GLUCOSE 78 mg/dL (75-110); POTASSIUM 4.6 mmol/L (3.6-5.0); TOTAL PROTEIN 7.8 g/dL (6.3-8.2)
[2019-11-27 13:47] LABS: NT PRO BNP 144 pg/mL (<125)
[2019-11-27 13:48] LABS: TROPONIN I < 0.012 ng/mL
--- NOTE | 2019-11-27 14:15 | RADIOLOGY REPORT (SQ) ---
EXAM DESCRIPTION: CT HEAD WITHOUT COMPLETED DATE/TIME: 11/27/2019 2:02 pm REASON FOR STUDY: left side weakness COMPARISON: 10/17/2019 TECHNIQUE: Axial images acquired through the brain without intravenous contrast. Images reviewed wi th bone, brain and subdural windows. Additional sagittal and coronal reconstructions were generated. Images stored on PACS. All CT scanners at this facility use dose modulation, iterative reconstruction, and/or weight based d osing when appropriate to reduce radiation dose to as low as reasonably achievable (ALARA). [facility]: Dose Right [facility]: CareDose [facility]: Dose Right [facility]: Teradose 4D [facility]: [employer] - [place] RADIATION DOSE: CT Rad equipment meets quality standard of care and radiation dose reduction techniq ues were employed. CTDIvol: 53.2 mGy. DLP: 1017 mGy-cm. mGy. LIMITATIONS: None. FINDINGS: VENTRICLES: Normal size and contour. CEREBRUM: No masses. No hemorrhage. No midline shift. No evidence for acute large vascular territo ry infarction. Few scattered areas of low density in the white matter most likely chronic small vesse l ischemic changes. Stable focal area of hypoattenuation within the left caudate and basal ganglia c ompatible prior infarct. CEREBELLUM: No masses. No hemorrhage. No alteration of density. No evidence for acute infarction. EXTRAAXIAL SPACES: No fluid collections. No masses. ORBITS AND GLOBE: No intra- or extraconal masses. Normal contour of globe without masses. CALVARIUM: No fracture. PARANASAL SINUSES: No fluid or mucosal thickening. SOFT TISSUES: No mass or hematoma. OTHER: No other significant finding. IMPRESSION: No evidence of acute intracranial process. Stable chronic left caudate lacunar infarct. EVIDENCE OF ACUTE STROKE: NO. COMMENT: Quality ID # [id number]: Final reports with documentation of one or more dose reduction techniques (e.g., Automated exposure control, adjustment of the mA and/or kV according to patient size, use of iterative reconstruction technique) TECHNICAL DOCUMENTATION: JOB ID: [id number] [employer]- All Rights Reserved Reading location - IP/workstation name: [email or web address]
--- NOTE | 2019-11-27 14:54 | EKG REPORT ---
SEVERITY:- OTHERWISE NORMAL ECG - SINUS RHYTHM BORDERLINE LEFT AXIS DEVIATION : Confirmed by: Brittney Harman MD 27-Nov-2019 14:52:57
[2019-11-27] MEDS: NORMAL SALINE 1000 ML 1,000 ML IV PRN (19:23)
[2019-11-27 20:11] LABS: ANION GAP 10 (5-19); BLOOD UREA NITROGEN 46 mg/dL (7-20); CALCIUM 8.7 mg/dL (8.4-10.2); CARBON DIOXIDE 25 mmol/L (22-30); CHLORIDE 107 mmol/L (98-107); GLUCOSE 143 mg/dL (75-110); POTASSIUM 4.2 mmol/L (3.6-5.0)
[2019-11-27] MEDS: HEPARIN SOD (PORCINE) 5,000 UNIT/ML 1 ML VIAL SUBCUT SCH (21:17)
--- NOTE | 2019-11-27 22:36 | PDOC H&P ---
History of Present Illness Admission Date/PCP: 11/27/19 15:04 ÁNGEL ORNELAS MD History of Present Illness: LO ENCARNACION is a 59 year old male, he has a history of diabetes mellitus complicated with chronic kidney disease, his baseline creatinine is about 1.7, he apparently was at physical therapy, he could not participate partly from low blood pressure was very fatigued with generalized body weakness, the blood pressure recorded in the emergency room was 87/61. He was referred to the ER by the physical therapy emergency room serum creatinine that was assayed was 2.98. I saw him in the office yesterday when he came for follow-up evaluation, at that time he was also found to have low blood pressure the blood pressure recorded was 89 systolic, I adjusted medication, I reduce the dosage of the lisinopril from 40 mg to 5 mg p.o. daily, he also have blood work done in the office, the serum creatinine was 2.5. Patient is not oliguric the worsening serum creatinine is most likely hemodynamic in etiology due to low blood pressure. The ED physician felt patient needed to be admitted for observation. Past Medical History Cardiac Medical History: Reports: Congestive Heart Failure, Coronary Artery Disease, Myocardial Infarction, Hyperlipidema, Hypertension Pulmonary Medical History: Reports: Chronic Obstructive Pulmonary Disease (COPD) Neurological Medical History: Reports: Seizures Endocrine Medical History: Reports: Diabetes Mellitus Type 2 Malignancy Medical History: Reports: Renal (Kidney) Cancer - s/p partial nephrectomy and renal surgeries., Skin Cancer GI Medical History: Reports: Gastroesophageal Reflux Disease Hematology: Reports: Anemia Past Surgical History Past Surgical History: Reports: Cardiac Catheterization, Other - skin cancer removal Social History Smoking Status: Former Smoker Electronic Cigarette use?: No Frequency of Alcohol Use: None Hx Recreational Drug Use: No Drugs: None Hx Prescription Drug Abuse: No Family History Family History: Reviewed & Not Pertinent Parental Family History Reviewed: Yes Children Family History Reviewed: Yes Sibling(s) Family History Reviewed.: Yes Medication/Allergy Home Medications: Allopurinol [Zyloprim 300 mg Tablet] 150 mg PO QAM 11/27/19 Aspirin [[place] Aspirin] 81 mg PO QAM 11/27/19 Atorvastatin Calcium [Lipitor 10 mg Tablet] 10 mg PO QAM 11/27/19 Carvedilol [Coreg 3.125 mg Tablet] 3.125 mg PO Q12 11/27/19 Duloxetine HCl [Cymbalta] 60 mg PO QAM 11/27/19 Gabapentin [Neurontin 300 mg Capsule] 300 mg PO Q12 11/27/19 Insulin Aspart [Novolog Flexpen] 6 unit SUBCUT BIDACBS 11/27/19 Insulin Degludec [Tresiba Flextouch U-100] 14 unit SQ DAILY 11/27/19 Liraglutide [Victoza 2-Elton] 1.2 mg SQ DAILY 11/27/19 Valproic Acid 500 mg PO Q12 11/27/19 Allergies/Adverse Reactions: No Known Allergies Allergy (Verified 11/27/19 11:56) Review of Systems Constitutional: PRESENT: weakness. ABSENT: chills, fever(s), headache(s), weight gain, weight loss Eyes: ABSENT: visual disturbances Ears: ABSENT: hearing changes Cardiovascular: ABSENT: chest pain, dyspnea on exertion, edema, orthropnea, palpitations Respiratory: ABSENT: cough, hemoptysis Gastrointestinal: ABSENT: abdominal pain, constipation, diarrhea, hematemesis, hematochezia, nausea, vomiting Genitourinary: ABSENT: dysuria, hematuria Musculoskeletal: ABSENT: joint swelling Integumentary: ABSENT: rash, wounds Neurological: ABSENT: abnormal gait, abnormal speech, confusion, dizziness, focal weakness, syncope Psychiatric: ABSENT: anxiety, depression, homidical ideation, suicidal ideation Endocrine: ABSENT: cold intolerance, heat intolerance, menstrual abnormalities, polydipsia, polyuria Hematologic/Lymphatic: ABSENT: easy bleeding, easy bruising, lymphadenopathy Physical Exam Vital Signs: Temp Pulse Resp BP Pulse Ox 98.0 F 77 17 104/70 100 11/27/19 19:39 11/27/19 19:39 11/27/19 19:39 11/27/19 19:39 11/27/19 19:39 Intake & Output 11/26/19 11/27/19 11/28/19 06:59 06:59 06:59 Intake Total 1000 Balance 1000 Weight 94.6 kg General appearance: PRESENT: no acute distress, well-developed, well-nourished Head exam: PRESENT: atraumatic, normocephalic Eye exam: PRESENT: conjunctiva pink, EOMI, PERRLA Ear exam: PRESENT: normal external ear exam Mouth exam: PRESENT: moist, tongue midline Neck exam: PRESENT: full ROM Respiratory exam: PRESENT: clear to auscultation anamaria Cardiovascular exam: PRESENT: RRR, +S1, +S2 Pulses: PRESENT: normal dorsalis pedis pul, +2 pedal pulses bilateral Vascular exam: PRESENT: normal capillary refill GI/Abdominal exam: PRESENT: normal bowel sounds, soft Rectal exam: PRESENT: deferred Neurological exam: PRESENT: alert, awake, oriented to person, oriented to place, oriented to time, oriented to situation, CN II-XII grossly intact Psychiatric exam: PRESENT: appropriate affect, normal mood Skin exam: PRESENT: dry, intact, warm Results Laboratory Results: 11/27/19 12:50 11/27/19 19:35 11/27/19 11/27/19 11/27/19 12:50 12:50 12:50 WBC 7.5 RBC 4.15 L Hgb 12.8 L Hct 38.6 MCV 93 MCH 30.9 MCHC 33.2 RDW 15.3 H Plt Count 167 Seg Neutrophils % 41.8 L Sodium 142.7 Potassium 4.6 Chloride 105 Carbon Dioxide 27 Anion Gap 11 BUN 52 H Creatinine 2.98 H Est GFR ( Amer) 26 L Glucose 78 Calcium 9.0 Magnesium 2.5 H Total Bilirubin 0.6 AST 30 Alkaline Phosphatase 73 Total Protein 7.8 Albumin 4.3 Urine Color YELLOW Urine Appearance CLEAR Urine pH 5.0 Ur Specific [place] 1.013 Urine Protein NEGATIVE Urine Glucose (UA) NEGATIVE Urine Ketones NEGATIVE Urine Blood NEGATIVE Urine RBC (Auto) 0 11/27/19 19:35 WBC RBC Hgb Hct MCV MCH MCHC RDW Plt Count Seg Neutrophils % Sodium 141.8 Potassium 4.2 Chloride 107 Carbon Dioxide 25 Anion Gap 10 BUN 46 H Creatinine 2.33 H Est GFR ( Amer) 35 L Glucose 143 H Calcium 8.7 Magnesium Total Bilirubin AST Alkaline Phosphatase Total Protein Albumin Urine Color Urine Appearance Urine pH Ur Specific [place] Urine Protein Urine Glucose (UA) Urine Ketones Urine Blood Urine RBC (Auto) 11/27/19 12:50 Troponin I < 0.012 NT-Pro-B Natriuret Pep 144 H Impressions: Chest X-Ray 11/27/19 11:47 IMPRESSION: NO ACUTE RADIOGRAPHIC FINDING IN THE CHEST. Head CT 11/27/19 13:28 IMPRESSION: No evidence of acute intracranial process. Stable chronic left caudate lacunar infarct. EVIDENCE OF ACUTE STROKE: NO. 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
[2019-11-28 00:12] VITALS: BP 111/63
[2019-11-28] MEDS: HEPARIN SOD (PORCINE) 5,000 UNIT/ML 1 ML VIAL SUBCUT SCH ×2 (05:13→14:11)
[2019-11-28] MEDS: NORMAL SALINE 1000 ML 1,000 ML IV PRN (05:14)
--- NOTE | 2019-11-28 15:02 | PDOC DISCHARGE SUMMARY ---
Impression - Admit/DC Date/PCP Admission Date/Primary Care Provider: 11/27/19 15:04 ÁNGEL ORNELAS MD Discharge Date: 11/28/19 - Discharge Diagnosis (1) Acute kidney injury Is this a current diagnosis for this admission?: Yes (2) Hypotension Is this a current diagnosis for this admission?: Yes (3) Chronic kidney disease, stage 3 Is this a current diagnosis for this admission?: Yes - Additional Information Referrals: ÁNGEL ORNELAS MD [Primary Care Provider] - Follow up as needed Home Medications: Allopurinol [Zyloprim 300 mg Tablet] 150 mg PO QAM 11/27/19 Aspirin [[place] Aspirin] 81 mg PO QAM 11/27/19 Atorvastatin Calcium [Lipitor 10 mg Tablet] 10 mg PO QAM 11/27/19 Carvedilol [Coreg 3.125 mg Tablet] 3.125 mg PO Q12 11/27/19 Duloxetine HCl [Cymbalta] 60 mg PO QAM 11/27/19 Gabapentin [Neurontin 300 mg Capsule] 300 mg PO Q12 11/27/19 Insulin Aspart [Novolog Flexpen] 6 unit SUBCUT BIDACBS 11/27/19 Insulin Degludec [Tresiba Flextouch U-100] 14 unit SQ DAILY 11/27/19 Liraglutide [Victoza 2-Elton] 1.2 mg SQ DAILY 11/27/19 Valproic Acid 500 mg PO Q12 11/27/19 History of Present Illiness History of Present Illness: LO ENCARNACION is a 59 year old male, he has a history of diabetes mellitus complicated with chronic kidney disease, his baseline creatinine is about 1.7, he apparently was at physical therapy, he could not participate partly from low blood pressure was very fatigued with generalized body weakness, the blood pressure recorded in the emergency room was 87/61. He was referred to the ER by the physical therapy emergency room serum creatinine that was assayed was 2.98. I saw him in the office yesterday when he came for follow-up evaluation, at that time he was also found to have low blood pressure the blood pressure recorded was 89 systolic, I adjusted medication, I reduce the dosage of the lisinopril from 40 mg to 5 mg p.o. daily, he also have blood work done in the office, the serum creatinine was 2.5. Patient is not oliguric the worsening serum creatini ne is most likely hemodynamic in etiology due to low blood pressure. The ED physician felt patient needed to be admitted for observation. Hospital Course Hospital Course: Patient was admitted for the management of acute kidney injury associated with low blood pressure, he was treated with intravenous fluid normal saline, on admission the serum creatinine was 2.9, the serum creatinine today is 2.3. The low blood pressure is most likely from medication, the medication for the control blood pressure was held including lisinopril, beta-vandana and furose mide. The last blood pressure recorded was 113/63 Physical Exam Vital Signs: Temp Pulse Resp BP Pulse Ox 98.1 F 74 17 111/63 96 11/27/19 23:29 11/28/19 10:00 11/27/19 23:29 11/27/19 23:29 11/27/19 23:29 Intake & Output 11/27/19 11/28/19 11/29/19 06:59 06:59 06:59 Intake Total 1985 Output Total 1025 Balance 960 Weight 95.2 kg General appearance: PRESENT: no acute distress Eye exam: PRESENT: PERRLA Respiratory exam: PRESENT: clear to auscultation anamaria Cardiovascular exam: PRESENT: +S1, +S2 GI/Abdominal exam: PRESENT: soft Neurological exam: PRESENT: alert Results Laboratory Results: WBC 7.5 10^3/uL (4.0-10.5) 11/27/19 12:50 RBC 4.15 10^6/uL (4.35-5.55) L 11/27/19 12:50 Hgb 12.8 g/dL (13.5-17.0) L 11/27/19 12:50 Hct 38.6 % (37.9-51.0) 11/27/19 12:50 MCV 93 fl (80-97) 11/27/19 12:50 MCH 30.9 pg (27.0-33.4) 11/27/19 12:50 MCHC 33.2 g/dL (32.0-36.0) 11/27/19 12:50 RDW 15.3 % (11.5-14.0) H 11/27/19 12:50 Plt Count 167 10^3/uL (150-450) 11/27/19 12:50 Lymph % (Auto) 45.5 % (13-45) H 11/27/19 12:50 [place] % (Auto) 9.5 % (3-13) 11/27/19 12:50 Eos % (Auto) 2.7 % (0-6) 11/27/19 12:50 Baso % (Auto) 0.5 % (0-2) 11/27/19 12:50 Absolute Neuts (auto) 3.1 10^3/uL (1.7-8.2) 11/27/19 12:50 Absolute Lymphs (auto) 3.4 10^3/uL (0.5-4.7) 11/27/19 12:50 Absolute Monos (auto) 0.7 10^3/uL (0.1-1.4) 11/27/19 12:50 Absolute Eos (auto) 0.2 10^3/uL (0.0-0.6) 11/27/19 12:50 Absolute Basos (auto) 0.0 10^3/uL (0.0-0.2) 11/27/19 12:50 Seg Neutrophils % 41.8 % (42-78) L 11/27/19 12:50 Sodium 141.8 mmol/L (137-145) 11/27/19 19:35 Potassium 4.2 mmol/L (3.6-5.0) 11/27/19 19:35 Chloride 107 mmol/L (98-107) 11/27/19 19:35 Carbon Dioxide 25 mmol/L (22-30) 11/27/19 19:35 Anion Gap 10 (5-19) 11/27/19 19:35 BUN 46 mg/dL (7-20) H 11/27/19 19:35 Creatinine 2.33 mg/dL (0.52-1.25) H 11/27/19 19:35 Est GFR ( Amer) 35 (>60) L 11/27/19 19:35 Est GFR (MDRD) Non-Af 29 (>60) L 11/27/19 19:35 Glucose 143 mg/dL (75-110) H 11/27/19 19:35 POC Glucose 89 mg/dL (70-110) 11/28/19 06:16 Calcium 8.7 mg/dL (8.4-10.2) 11/27/19 19:35 Magnesium 2.5 mg/dL (1.6-2.3) H 11/27/19 12:50 Total Bilirubin 0.6 mg/dL (0.2-1.3) 11/27/19 12:50 Direct Bilirubin 0.4 mg/dL (0.0-0.4) 11/27/19 12:50 Neonat Total Bilirubin Not Reportable 11/27/19 12:50 Neonat Direct Bilirubin Not Reportable 11/27/19 12:50 Neonat Indirect Bili Not Reportable 11/27/19 12:50 AST 30 U/L (17-59) 11/27/19 12:50 ALT 18 U/L (<50) 11/27/19 12:50 Alkaline Phosphatase 73 U/L (38-126) 11/27/19 12:50 Troponin I < 0.012 ng/mL 11/27/19 12:50 NT-Pro-B Natriuret Pep 144 pg/mL (<125) H 11/27/19 12:50 Total Protein 7.8 g/dL (6.3-8.2) 11/27/19 12:50 Albumin 4.3 g/dL (3.5-5.0) 11/27/19 12:50 Urine Color YELLOW 11/27/19 12:50 Urine Appearance CLEAR 11/27/19 12:50 Urine pH 5.0 (5.0-9.0) 11/27/19 12:50 Ur Specific [place] 1.013 11/27/19 12:50 Urine Protein NEGATIVE mg/dL (NEGATIVE) 11/27/19 12:50 Urine Glucose (UA) NEGATIVE mg/dL (NEGATIVE) 11/27/19 12:50 Urine Ketones NEGATIVE mg/dL (NEGATIVE) 11/27/19 12:50 Urine Blood NEGATIVE (NEGATIVE) 11/27/19 12:50 Urine Nitrite (Reflex) NEGATIVE (NEGATIVE) 11/27/19 12:50 Urine Bilirubin NEGATIVE (NEGATIVE) 11/27/19 12:50 Urine Urobilinogen NEGATIVE mg/dL (<2.0) 11/27/19 12:50 Leukocyte Esterase Rfl NEGATIVE (NEGATIVE) 11/27/19 12:50 Urine RBC (Auto) 0 /HPF 11/27/19 12:50 U Hyaline Cast (Auto) 4 /LPF 11/27/19 12:50 Urine Bacteria (Auto) TRACE /HPF 11/27/19 12:50 Urine WBC (Reflex) < 1 /HPF 11/27/19 12:50 Squamous Epi Cells Auto <1 /HPF 11/27/19 12:50 Urine Mucus (Auto) RARE /LPF 11/27/19 12:50 Urine Ascorbic Acid NEGATIVE (NEGATIVE) 11/27/19 12:50 Valproic Acid 71.2 ug/mL (50.0-120.0) 11/27/19 12:50 11/27/19 12:50 Troponin I < 0.012 NT-Pro-B Natriuret Pep 144 H Impressions: Chest X-Ray 11/27/19 11:47 IMPRESSION: NO ACUTE RADIOGRAPHIC FINDING IN THE CHEST. Head CT 11/27/19 13:28 IMPRESSION: No evidence of acute intracranial process. Stable chronic left caudate lacunar infarct. EVIDENCE OF ACUTE STROKE: NO. Stroke Is this a Stroke Patient?: No Acute Heart Failure - Is this a Heart Failure Patient?: No
== END 2019-11-28 14:22 | disposition home or self-care (01) ==
LOC: ER 11:09 → EH 15:04 → 4N 16:41
PROVIDERS: ADMIT Internal Medicine; ATTEND Internal Medicine
DX: I95.9 Hypotension, unspecified (principal); E11.22 Type 2 diabetes mellitus with diabetic chronic kidney disease; I13.0 Hypertensive heart and chronic kidney disease with heart failure and stage 1 through stage 4 chronic kidney disease, or unspecified chronic kidney disease; I50.9 Heart failure, unspecified; N18.3 Chronic kidney disease, stage 3 (moderate); N17.9 Acute kidney failure, unspecified; I25.10 Atherosclerotic heart disease of native coronary artery without angina pectoris; E86.0 Dehydration; I69.398 Other sequelae of cerebral infarction; R26.81 Unsteadiness on feet; R27.8 Other lack of coordination; R29.6 Repeated falls; M79.89 Other specified soft tissue disorders; I25.2 Old myocardial infarction; Z85.528 Personal history of other malignant neoplasm of kidney; Z90.5 Acquired absence of kidney; Z79.4 Long term (current) use of insulin; Z85.828 Personal history of other malignant neoplasm of skin; Z87.891 Personal history of nicotine dependence; Z91.81 History of falling
CPT/HCPCS: 93005; 99285; 96360; 96361; 36415; 82962 ×2; 83735; 85025; 80053; 81001; 84484; 80164; 83880; 71046; 70450; 93010; G0378 ×2; J1644 ×2; J7030 ×2; J7040

== ENCOUNTER → 2019-12-04 | Outpatient (CLI) | payer MEDICARE ==
[2019-12-04 10:38] LABS: ABSOLUTE EOSINOPHILS # (AUTO) 0.1 10^3/uL (0.0-0.6); ABSOLUTE LYMPHOCYTES (AUTO) 2.3 10^3/uL (0.5-4.7); ABSOLUTE MONOCYTES (AUTO) 0.5 10^3/uL (0.1-1.4); ABSOLUTE NEUT (AUTO) 2.3 10^3/uL (1.7-8.2); BASOPHILS % (AUTO) 0.4 % (0-2); EOSINOPHILS % (AUTO) 2.6 % (0-6); HEMATOCRIT 36.3 % (37.9-51.0); HEMOGLOBIN 12.3 g/dL (13.5-17.0); MEAN CORPUSCULAR HEMOGLOBIN 30.8 pg (27.0-33.4); MEAN CORPUSCULAR HGB CONC 33.8 g/dL (32.0-36.0); MEAN CORPUSCULAR VOLUME 91 fl (80-97); MONOCYTES % (AUTO) 8.8 % (3-13); PLATELET COUNT 173 10^3/uL (150-450); RED BLOOD COUNT 3.98 10^6/uL (4.35-5.55); RED CELL DISTRIBUTION WIDTH 15.5 % (11.5-14.0); SEGMENTED NEUTROPHILS % (AUTO) 44.2 % (42-78); TOTAL CELLS COUNTED % (AUTO) 100 %; WHITE BLOOD COUNT 5.3 10^3/uL (4.0-10.5)
[2019-12-04 10:49] LABS: ALBUMIN 3.7 g/dL (3.5-5.0); ANION GAP 7 (5-19); BLOOD UREA NITROGEN 17 mg/dL (7-20); CARBON DIOXIDE 29 mmol/L (22-30); CHLORIDE 107 mmol/L (98-107); GLUCOSE 98 mg/dL (75-110); PHOSPHORUS 3.2 mg/dL (2.5-4.5); POTASSIUM 4.1 mmol/L (3.6-5.0)
[2019-12-04 11:06] LABS: APPEARANCE,URINE CLEAR; BILIRUBIN,URINE NEGATIVE (NEGATIVE); COLOR,URINE YELLOW; GLUCOSE, URINE NEGATIVE (NEGATIVE); KETONES,URINE NEGATIVE (NEGATIVE); LEUKOCYTE ESTERASE,URINE NEGATIVE (NEGATIVE); NITRITE,URINE NEGATIVE (NEGATIVE); PROTEIN,URINE NEGATIVE (NEGATIVE)
[2019-12-05 14:36] LABS: CREATININE URINE 97.1 mg/dL (Not Estab.); MICROALBUMIN URINE 6.5 ug/mL (Not Estab.)
== END ==
LOC: OD 09:51
PROVIDERS: ATTEND Internal Medicine Nephrology
DX: N17.9 Acute kidney failure, unspecified (principal); N18.3 Chronic kidney disease, stage 3 (moderate); I12.9 Hypertensive chronic kidney disease with stage 1 through stage 4 chronic kidney disease, or unspecified chronic kidney disease; D63.1 Anemia in chronic kidney disease; E11.9 Type 2 diabetes mellitus without complications
CPT/HCPCS: 36415; 80069; 81001; 82043; 82306; 82570; 83970; 85025

== ENCOUNTER 2019-12-26 04:36 | Emergency (ER) | payer MEDICARE ==
[2019-12-26] MEDS ORDERED: ONDANSETRON HCL INJ/PF 4 MG/2 ML SDV IV ONE (04:42)
[2019-12-26 05:19] LABS: ABSOLUTE LYMPHOCYTES (AUTO) 2.5 10^3/uL (0.5-4.7); ABSOLUTE MONOCYTES (AUTO) 0.6 10^3/uL (0.1-1.4); ABSOLUTE NEUT (AUTO) 4.4 10^3/uL (1.7-8.2); BASOPHILS % (AUTO) 0.5 % (0-2); EOSINOPHILS % (AUTO) 0.5 % (0-6); HEMATOCRIT 40.3 % (37.9-51.0); HEMOGLOBIN 13.8 g/dL (13.5-17.0); LYMPHOCYTES % (AUTO) 33.1 % (13-45); MEAN CORPUSCULAR HEMOGLOBIN 30.5 pg (27.0-33.4); MEAN CORPUSCULAR HGB CONC 34.3 g/dL (32.0-36.0); MEAN CORPUSCULAR VOLUME 89 fl (80-97); MONOCYTES % (AUTO) 7.8 % (3-13); PLATELET COUNT 235 10^3/uL (150-450); RED BLOOD COUNT 4.53 10^6/uL (4.35-5.55); RED CELL DISTRIBUTION WIDTH 15.2 % (11.5-14.0); SEGMENTED NEUTROPHILS % (AUTO) 58.1 % (42-78); TOTAL CELLS COUNTED % (AUTO) 100 %; WHITE BLOOD COUNT 7.7 10^3/uL (4.0-10.5)
[2019-12-26 05:27] LABS: ALBUMIN 4.2 g/dL (3.5-5.0); ALKALINE PHOSPHATASE 80 U/L (38-126); ANION GAP 10 (5-19); ASPARTATE AMINO TRANSFERASE 28 U/L (17-59); BILIRUBIN,DIRECT 0.1 mg/dL (0.0-0.4); BILIRUBIN,TOTAL 0.5 mg/dL (0.2-1.3); BLOOD UREA NITROGEN 18 mg/dL (7-20); CALCIUM 9.1 mg/dL (8.4-10.2); CARBON DIOXIDE 27 mmol/L (22-30); CHLORIDE 107 mmol/L (98-107); GLUCOSE 103 mg/dL (75-110); POTASSIUM 3.6 mmol/L (3.6-5.0); TOTAL PROTEIN 7.3 g/dL (6.3-8.2)
[2019-12-26 05:58] LABS: APPEARANCE,URINE CLEAR; BILIRUBIN,URINE NEGATIVE (NEGATIVE); COLOR,URINE YELLOW; GLUCOSE, URINE NEGATIVE (NEGATIVE); KETONES,URINE NEGATIVE (NEGATIVE); LEUKOCYTE ESTERASE,URINE NEGATIVE (NEGATIVE); NITRITE,URINE NEGATIVE (NEGATIVE); PROTEIN,URINE NEGATIVE (NEGATIVE); URINE SPECIFIC GRAVITY 1.013; UROBILINOGEN,URINE NEGATIVE mg/dL (<2.0)
[2019-12-26] MEDS ORDERED: NORMAL SALINE 1000 ML 1,000 ML IV ONE (06:49)
--- NOTE | 2019-12-26 06:50 | ER Document Report ---
ED General - General Chief Complaint: Nausea/Vomiting Stated Complaint: WEAKNESS Time Seen by Provider: 12/26/19 06:13 Primary Care Provider: ÁNGEL ORNELAS MD [Primary Care Provider] - Follow up as needed Mode of Arrival: Ambulatory Information source: Patient Notes: 59-year-old man presents to the emergency department with a history of vomiting episodes which began yesterday afternoon. He states that he ate an egg sandwich in the late afternoon and then early this morning began having vomiting and nausea. He denies ophelia pain, diarrhea or fever. TRAVEL OUTSIDE OF THE [place] IN LAST 30 DAYS: No - Related Data Allergies/Adverse Reactions: No Known Allergies Allergy (Verified 12/26/19 04:49) Past Medical History - Social History Smoking Status: Former Smoker Frequency of alcohol use: None Drug Abuse: None Family History: Reviewed & Not Pertinent Patient has suicidal ideation: No Patient has homicidal ideation: No - Past Medical History Cardiac Medical History: Reports: Hx Congestive Heart Failure, Hx Coronary Artery Disease, Hx Heart Attack, Hx Hypercholesterolemia, Hx Hypertension Denies: Hx Atrial Fibrillation, Hx DVT, Hx Pulmonary Embolism Pulmonary Medical History: Reports: Hx COPD Denies: Hx Asthma, Hx Sleep Apnea Neurological Medical History: Reports: Hx Seizures. Denies: Hx Cerebrovascular Accident Endocrine Medical History: Reports: Hx Diabetes Mellitus Type 2. Denies: Hx Diabetes Mellitus Type 1, Hx Hyperthyroidism, Hx Hypothyroidism Renal/ Medical History: Denies: Hx Hemodialysis, Hx Kidney Stones, Hx Peritoneal Dialysis Malignancy Medical History: Reports Hx Renal (Kidney) Cancer - s/p partial nephrectomy and renal surgeries., Reports Hx Skin Cancer GI Medical History: Reports: Hx Gastroesophageal Reflux Disease. Denies: Hx Cirrhosis, Hx Crohn's Disease, Hx Hepatitis, Hx Ulcerative Colitis Musculoskeletal Medical History: Denies Hx Arthritis, Denies Hx Gout Skin Medical History: Denies Hx Eczema, Denies Hx Psoriasis Infectious Medical History: Denies: Hx C-Diff, Hx Hepatitis, Hx HIV Past Surgical History: Reports: Hx Cardiac Catheterization, Hx Kidney (Renal Surgery) - Right Kidney Removed, Other - skin cancer removal - Immunizations Immunizations up to date: Yes Review of Systems - Review of Systems Notes: Constitutional: Negative for fever. HENT: Negative for sore throat. Eyes: Negative for visual changes. Cardiovascular: Negative for chest pain. Respiratory: Negative for shortness of breath. Gastrointestinal: + Nausea and vomiting, no diarrhea Genitourinary: Negative for dysuria. Musculoskeletal: Negative for back pain. Skin: Negative for rash. Neurological: Negative for headaches, weakness or numbness. 10 point ROS negative except as marked above and in HPI. Physical Exam - Vital signs Vitals: Resp BP Pulse Ox 12 151/96 H 100 12/26/19 04:39 12/26/19 04:39 12/26/19 04:39 - Notes Notes: PHYSICAL EXAMINATION: Physical Exam: General: Well-nourished well-developed 59-year-old man in no acute distress HEENT: NC/AT, pupils equal round and reactive to light, MM moist,nares clear, oropharynx clear, airway patent Neck: supple, no adenopathy, no masses. Good range of motion Lungs: clear, no wheezing, no rales no rhonchi CVS: Regular rate and rhythm no murmur gallop or rub Abdomen: Soft, active, nontender, no masses, no hepatosplenomegaly Ext: No edema, clubbing or cyanosis. Neuro: Alert and responsive, moving all 4 extremities on command, cranial nerves intact, no focal findings Skin: Intact no open lesions, no rash PSYCH: Normal mood, normal affect. Course - Re-evaluation Re-evalutation: 12/26/19 07:27 59-year-old man presents with nausea vomiting, no diarrhea and no abdominal pain. Symptoms began early in the morning approximately 2 AM. He denies fever apparently ate a exam which his made before bedtime last night. He denies chest pain shortness of breath diaphoresis or dizziness. He is given IV fluids and Zofran labs were performed including a troponin I. These tests were all negative and the patient felt much better after the IV fluids and Zofran. He is being discharged home on antiemetics and told to push fluids to avoid fried, greasy foods or meat. Patient and voiced an understanding of this plan and are in agreement. - Vital Signs Vital signs: Temp Pulse Resp BP Pulse Ox 98.8 F 14 133/87 H 99 12/26/19 04:50 12/26/19 06:01 12/26/19 05:01 12/26/19 06:01 - Laboratory Result Diagrams: 12/26/19 04:50 12/26/19 04:50 Laboratory results interpreted by me: 12/26/19 12/26/19 04:50 04:50 RDW 15.2 H Creatinine 1.71 H Est GFR ( Amer) 49 L Est GFR (MDRD) Non-Af 41 L 12/26/19 07:29 I have reviewed laboratory data and used this information for the treatment decisions regarding the patient. - EKG Interpretation by Me EKG shows normal: Sinus rhythm - Rate of 85, no acute ST or T wave abnormalities. Discharge - Discharge Clinical Impression: Acute gastroenteritis Nausea and vomiting Qualifiers: Vomiting type: unspecified Vomiting Intractability: unspecified Qualified Code(s): R11.2 - Nausea with vomiting, unspecified Condition: Good Disposition: HOME, SELF-CARE Instructions: Antinausea Medication ([facility]) Additional Instructions: Please use the medication for nausea Zofran. Push fluids, avoid foods which are greasy, fried, heavy meats as that would likely cause more nausea and vomiting. Please follow-up with your doctor as needed or you may return to the emergency department if your symptoms are worsening or you have other concerns. HOME CARE INSTRUCTIONS & INFORMATION: Thank you for choosing us for your medical needs. We hope you're satisfied with the care you received. After you leave, you must properly care for your problem and, at the same time, observe its progress. Any condition can change. Some illnesses can change rapidly over hours or days. If your condition worsens, return to the Emergency Department or see your physician promptly. ABOUT YOUR X-RAYS AND EKG'S: If you had an EKG or X-rays taken, they have been read by the Emergency Physician. The X-rays and EKG's will also be read by a Radiologist or [employer]per within 24 hours. If discrepancies are noted, you wi ll be notified by telephone. Please be certain the ED has a correct telephone number & address where you can be reached. Also, realize that some fractures or abnormalities do not show up on initial X-rays. If your symptoms continue, see your physician. ABOUT YOUR LABORATORY TEST: If you had laboratory tests, the results have been reviewed by the Emergency Physician. Some test results (for example cultures) may not be available for several days. You will be contacted if any test result shows you need additional treatment. Please be certain the ED has a correct telephone number and address where you can be reached. ABOUT YOUR MEDICATIONS: You will receive instructions on how to take your medicine on the prescription label you receive. Additional information may be provided by the Pharmacy. If you have questions afterwards, call the ED for clarification or further instructions. Some prescribed medications may cause drowsiness. Do not perform tasks such as driving a car or operating machinery without consulting your Pharmacist. If you feel you need a refill of pain medication, your condition will need re-evaluation. Please do not call for a refill of any medication. ABOUT YOUR SIGNATURE: Signature of this document acknowledges to followin. Understanding that you received emergency treatment and that you may be released before al medical problems are known or treated. Please be certain the ED has a correct phone number & address where you can be reached. 2. Acknowledgement that you will arrange for follow-up care as recommended. 3. Authorization for the Emergency Physician to provide information to your follow-up Physician in order to maximize your care. AT ANY TIME, IF YOUR SYMPTOMS CHANGE SIGNIFICANTLY OR WORSEN OR YOU DEVELOP NEW SYMPTOMS, RETURN TO THE EMERGENCY DEPARTMENT IMMEDIATELY FOR RE-EVALUATION. OUR GOAL IS TO PROVIDE EXCELLENT MEDICAL CARE! WE HOPE THAT WE HAVE MET YOUR EXPECTATIONS DURING YOUR EMERGENCY DEPARTMENT VISIT AND THAT YOU FEEL YOU HAVE RECEIVED EXCELLENT CARE! Prescriptions: Ondansetron [Zofran Odt 4 mg Tablet] 1 - 2 tab PO Q4H PRN #10 tab.rapdis PRN Reason: For Nausea/Vomiting Referrals: ÁNGEL ORNELAS MD [Primary Care Provider] - Follow up as needed
[2019-12-26 07:44] VITALS: BP 158/89
--- NOTE | 2019-12-26 08:43 | EKG REPORT ---
SEVERITY:- OTHERWISE NORMAL ECG - SINUS RHYTHM BORDERLINE LEFT AXIS DEVIATION : Confirmed by: Phillip Montaño MD 26-Dec-2019 08:42:37
== END 2019-12-26 07:55 | disposition home or self-care (01) ==
LOC: ER 04:36
DX: K52.9 Noninfective gastroenteritis and colitis, unspecified (principal); R11.2 Nausea with vomiting, unspecified; R53.1 Weakness; Z87.891 Personal history of nicotine dependence; I50.9 Heart failure, unspecified; I25.10 Atherosclerotic heart disease of native coronary artery without angina pectoris; I25.2 Old myocardial infarction; I11.0 Hypertensive heart disease with heart failure; J44.9 Chronic obstructive pulmonary disease, unspecified; E11.9 Type 2 diabetes mellitus without complications
CPT/HCPCS: 93005; 99284; 96361; 96374; 36415; 85025; 80053; 81001; 84484; 93010; J2405; J7030

== ENCOUNTER → 2020-06-13 | Outpatient (CLI) | payer MEDICARE ==
--- NOTE | 2020-06-13 12:27 | RADIOLOGY REPORT (SQ) ---
EXAM DESCRIPTION: C SP 3 VWS OR LESS IMAGES COMPLETED DATE/TIME: 06/13/2020 12:08 pm REASON FOR STUDY: OTHER POLYOSTEOARTHRITIS M15.8 OTHER POLYOSTEOARTHRITIS COMPARISON: None. NUMBER OF VIEWS: Three views. TECHNIQUE: AP, lateral and odontoid radiographic images acquired of the cervical spine. LIMITATIONS: None. FINDINGS: MINERALIZATION: Normal. ALIGNMENT: Anatomic. VERTEBRAE: Vertebral bodies of normal height. DISCS: Post surgical changes with hardware C6-C7. No evidence for hardware complications. HARDWARE: None in the spine. SOFT TISSUES: A few soft tissue small calcifications mid left neck. Lung apices clear. OTHER: No other significant finding. IMPRESSION: 1. Post surgical changes at C6-C7. 2. No acute osseous findings. TECHNICAL DOCUMENTATION: JOB ID: [id number] [employer]- All Rights Reserved Reading location - IP/workstation name: [email or web address]
--- NOTE | 2020-06-13 12:29 | RADIOLOGY REPORT (SQ) ---
EXAM DESCRIPTION: SHOULDER RIGHT 2 OR MORE VIEWS IMAGES COMPLETED DATE/TIME: 06/13/2020 12:08 pm REASON FOR STUDY: OTHER POLYOSTEOARTHRITIS M15.8 OTHER POLYOSTEOARTHRITIS COMPARISON: None. NUMBER OF VIEWS: Two views. TECHNIQUE: Internal rotation and Y view images acquired of the right shoulder. LIMITATIONS: None. FINDINGS: MINERALIZATION: Normal. BONES: No acute fracture. No worrisome bone lesions. JOINTS: Mild to moderate acromioclavicular arthrosis. VISUALIZED LUNGS AND RIBS: No pneumothorax. No rib fracture. SOFT TISSUES: No radiopaque foreign body. OTHER: No other significant finding. IMPRESSION: 1. Mild to moderate acromioclavicular arthrosis. 2. No acute osseous findings. TECHNICAL DOCUMENTATION: JOB ID: [id number] [employer]- All Rights Reserved Reading location - IP/workstation name: [email or web address]
== END ==
LOC: OD 11:51
PROVIDERS: ATTEND Internal Medicine
DX: M15.8 Other polyosteoarthritis (principal)
CPT/HCPCS: 72040

== ENCOUNTER → 2020-07-22 | Outpatient (CLI) | payer MEDICARE ==
[2020-07-22 09:04] LABS: ABSOLUTE EOSINOPHILS # (AUTO) 0.1 10^3/uL (0.0-0.6); ABSOLUTE LYMPHOCYTES (AUTO) 2.2 10^3/uL (0.5-4.7); ABSOLUTE MONOCYTES (AUTO) 0.5 10^3/uL (0.1-1.4); ABSOLUTE NEUT (AUTO) 2.5 10^3/uL (1.7-8.2); BASOPHILS % (AUTO) 0.5 % (0-2); EOSINOPHILS % (AUTO) 2.2 % (0-6); HEMOGLOBIN 11.5 g/dL (13.5-17.0); LYMPHOCYTES % (AUTO) 41.7 % (13-45); MEAN CORPUSCULAR HEMOGLOBIN 32.6 pg (27.0-33.4); MEAN CORPUSCULAR HGB CONC 34.8 g/dL (32.0-36.0); MEAN CORPUSCULAR VOLUME 94 fl (80-97); MONOCYTES % (AUTO) 8.9 % (3-13); PLATELET COUNT 186 10^3/uL (150-450); RED BLOOD COUNT 3.53 10^6/uL (4.35-5.55); RED CELL DISTRIBUTION WIDTH 16.7 % (11.5-14.0); SEGMENTED NEUTROPHILS % (AUTO) 46.7 % (42-78); TOTAL CELLS COUNTED % (AUTO) 100 %; WHITE BLOOD COUNT 5.2 10^3/uL (4.0-10.5)
[2020-07-22 09:07] LABS: APPEARANCE,URINE CLEAR; BILIRUBIN,URINE NEGATIVE (NEGATIVE); COLOR,URINE YELLOW; GLUCOSE, URINE 50 mg/dL (NEGATIVE); KETONES,URINE NEGATIVE (NEGATIVE); LEUKOCYTE ESTERASE,URINE NEGATIVE (NEGATIVE); NITRITE,URINE NEGATIVE (NEGATIVE); PROTEIN,URINE NEGATIVE (NEGATIVE); URINE SPECIFIC GRAVITY 1.013; UROBILINOGEN,URINE NEGATIVE mg/dL (<2.0)
[2020-07-22 09:25] LABS: ALBUMIN 4.2 g/dL (3.5-5.0); ANION GAP 10 (5-19); BLOOD UREA NITROGEN 31 mg/dL (7-20); CALCIUM 9.2 mg/dL (8.4-10.2); CARBON DIOXIDE 26 mmol/L (22-30); CHLORIDE 107 mmol/L (98-107); GLUCOSE 131 mg/dL (75-110); PHOSPHORUS 2.9 mg/dL (2.5-4.5); POTASSIUM 3.7 mmol/L (3.6-5.0)
[2020-07-23 18:36] LABS: CREATININE URINE 100.9 mg/dL (Not Estab.); MICROALBUMIN URINE 4.1 ug/mL (Not Estab.)
== END ==
LOC: OD 08:12
PROVIDERS: ATTEND Internal Medicine Nephrology
DX: N18.30 Chronic kidney disease, stage 3 unspecified (principal)
CPT/HCPCS: 36415; 80069; 81001; 82043; 82306; 82570; 83970; 85025

== ENCOUNTER 2020-08-30 15:35 | Inpatient (IN) | payer MEDICARE ==
--- NOTE | 2020-08-30 18:32 | ER Document Report ---
ED Medical Screen (RME) - General Chief Complaint: Leg Swelling Stated Complaint: BILATERAL LEG SWELLING Time Seen by Provider: 08/30/20 18:24 Primary Care Provider: ÁNGEL ORNELAS MD [Primary Care Provider] - Follow up as needed Mode of Arrival: Ambulatory Information source: Patient Notes: HPI; 59-year-old male presents to the emergency room complaining of bilateral lower leg swelling for the past week. He denies any trauma or injury. He denies any shortness of breath, denies any difficulty breathing. States was sent to the emergency room by his primary care physician. States he does have a history of CHF but is taking his medications as prescribed. He denies any recent travel. He denies any recent surgery. Denies any history of PE or DVTs in the past. PE: Alert and oriented x3. Mild distress noted. Lungs: Clear to auscultation without rales, rhonchi, wheezes. Heart: Regular rate and rhythm without murmurs, rubs, gallops. 2+ pitting edema bilaterally. Mild erythema noted to bilateral lower extremities. I have greeted and performed a rapid initial assessment of this patient. A comprehensive ED assessment and evaluation of the patient, analysis of test results and completion of the medical decision making process will be conducted by additional ED providers. I have specifically instructed the patient or family members with the patient to immediately return to any nursing staff should anything change in the patient's condition or with their chief complaint. TRAVEL OUTSIDE OF THE [place] IN LAST 30 DAYS: No - Related Data Allergies/Adverse Reactions: No Known Allergies Allergy (Verified 08/30/20 18:24) Past Medical History - Social History Chew tobacco use (# tins/day): No Frequency of alcohol use: None Drug Abuse: None - Past Medical History Cardiac Medical History: Reports: Hx Congestive Heart Failure, Hx Coronary Artery Disease, Hx Heart Attack, Hx Hypercholesterolemia, Hx Hypertension Denies: Hx Atrial Fibrillation, Hx DVT, Hx Pulmonary Embolism Pulmonary Medical History: Reports: Hx COPD Denies: Hx Asthma, Hx Sleep Apnea Neurological Medical History: Reports: Hx Seizures. Denies: Hx Cerebrovascular Accident Endocrine Medical History: Reports: Hx Diabetes Mellitus Type 2. Denies: Hx Diabetes Mellitus Type 1, Hx Hyperthyroidism, Hx Hypothyroidism Renal/ Medical History: Denies: Hx Hemodialysis, Hx Kidney Stones, Hx Peritoneal Dialysis Malignancy Medical History: Reports Hx Renal (Kidney) Cancer - s/p partial nephrectomy and renal surgeries., Reports Hx Skin Cancer GI Medical History: Reports: Hx Gastroesophageal Reflux Disease. Denies: Hx Cirrhosis, Hx Crohn's Disease, Hx Hepatitis, Hx Ulcerative Colitis Musculoskeltal Medical History: Denies Hx Arthritis, Denies Hx Gout Skin Medical History: Denies Hx Eczema, Denies Hx Psoriasis Infectious Medical History: Denies: Hx C-Diff, Hx Hepatitis, Hx HIV Past Surgical History: Reports: Hx Cardiac Catheterization, Hx Kidney (Renal Surgery) - Right Kidney Removed, Other - skin cancer removal - Immunizations Immunizations up to date: Yes Physical Exam - Vital signs Vitals: Temp Pulse Resp BP Pulse Ox 97.1 F 97 18 113/59 L 100 08/30/20 15:48 08/30/20 15:48 08/30/20 15:48 08/30/20 15:48 08/30/20 15:48 Course - Vital Signs Vital signs: Temp Pulse Resp BP Pulse Ox 97.1 F 97 18 113/59 L 100 08/30/20 15:48 08/30/20 15:48 08/30/20 15:48 08/30/20 15:48 08/30/20 15:48 Doctor's Discharge - Discharge Referrals: ÁNGEL ORNELAS MD [Primary Care Provider] - Follow up as needed
[2020-08-30 19:01] LABS: ABSOLUTE EOSINOPHILS # (AUTO) 0.1 10^3/uL (0.0-0.6); ABSOLUTE MONOCYTES (AUTO) 0.8 10^3/uL (0.1-1.4); ABSOLUTE NEUT (AUTO) 4.6 10^3/uL (1.7-8.2); BASOPHILS % (AUTO) 0.4 % (0-2); EOSINOPHILS % (AUTO) 1.2 % (0-6); HEMATOCRIT 30.5 % (37.9-51.0); HEMOGLOBIN 10.5 g/dL (13.5-17.0); MEAN CORPUSCULAR HEMOGLOBIN 33.7 pg (27.0-33.4); MEAN CORPUSCULAR HGB CONC 34.5 g/dL (32.0-36.0); MEAN CORPUSCULAR VOLUME 98 fl (80-97); MONOCYTES % (AUTO) 10.2 % (3-13); PLATELET COUNT 198 10^3/uL (150-450); RED BLOOD COUNT 3.12 10^6/uL (4.35-5.55); RED CELL DISTRIBUTION WIDTH 15.9 % (11.5-14.0); SEGMENTED NEUTROPHILS % (AUTO) 61.2 % (42-78); TOTAL CELLS COUNTED % (AUTO) 100 %; WHITE BLOOD COUNT 7.5 10^3/uL (4.0-10.5)
--- NOTE | 2020-08-30 19:07 | RADIOLOGY REPORT (SQ) ---
EXAM DESCRIPTION: CHEST 2 VIEWS IMAGES COMPLETED DATE/TIME: 08/30/2020 6:57 pm REASON FOR STUDY: edema COMPARISON: 11/27/2019 EXAM PARAMETERS: NUMBER OF VIEWS: two views TECHNIQUE: Digital Frontal and Lateral radiographic views of the chest acquired. RADIATION DOSE: NA LIMITATIONS: none FINDINGS: LUNGS AND PLEURA: No opacities, masses or pneumothorax. No pleural effusion. MEDIASTINUM AND HILAR STRUCTURES: No masses or contour abnormalities. HEART AND VASCULAR STRUCTURES: Heart normal size. No evidence for failure. BONES: No acute findings. HARDWARE: None in the chest. OTHER: No other significant finding. IMPRESSION: NO ACUTE RADIOGRAPHIC FINDING IN THE CHEST. TECHNICAL DOCUMENTATION: JOB ID: [id number] 2010 [employer]- All Rights Reserved Reading location - IP/workstation name: [email or web address]
[2020-08-30 19:18] LABS: ALBUMIN 3.9 g/dL (3.5-5.0); ALKALINE PHOSPHATASE 75 U/L (38-126); ANION GAP 10 (5-19); ASPARTATE AMINO TRANSFERASE 27 U/L (17-59); BILIRUBIN,DIRECT 0.2 mg/dL (0.0-0.4); BILIRUBIN,TOTAL 0.5 mg/dL (0.2-1.3); BLOOD UREA NITROGEN 46 mg/dL (7-20); CALCIUM 9.2 mg/dL (8.4-10.2); CARBON DIOXIDE 27 mmol/L (22-30); CHLORIDE 104 mmol/L (98-107); GLUCOSE 99 mg/dL (75-110); POTASSIUM 4.7 mmol/L (3.6-5.0); TOTAL PROTEIN 7.1 g/dL (6.3-8.2)
--- NOTE | 2020-08-30 23:15 | ER Document Report ---
ED General - General Chief Complaint: Leg Swelling Stated Complaint: BILATERAL LEG SWELLING Time Seen by Provider: 08/30/20 18:24 Primary Care Provider: ÁNGEL ORNELAS MD [Primary Care Provider] - Follow up as needed Mode of Arrival: Ambulatory TRAVEL OUTSIDE OF THE [place] IN LAST 30 DAYS: No - HPI Notes: Patient is a 59-year-old male who presents to the emergency department for evaluation of bilateral lower extremity swelling. Is been ongoing for about a week. He states is getting more and more painful. He contacted his primary care provider, who started him on Zaroxolyn. It has not helped in any way. He was sent here to the ER for further evaluation. The patient does have history of chronic kidney disease as well as congestive heart failure. He states he has been taking his medications as prescribed. He denies any fevers or chills. No chest pain or shortness of breath. No nausea or vomiting. He is still urinating. - Related Data Allergies/Adverse Reactions: No Known Allergies Allergy (Verified 08/30/20 18:24) Home Medications: List reviewed with patient at bedside Past Medical History - General Information source: Patient - Social History Smoking Status: Former Smoker Chew tobacco use (# tins/day): No Frequency of alcohol use: None Drug Abuse: None Family History: Reviewed & Not Pertinent Patient has homicidal ideation: No - Past Medical History Cardiac Medical History: Reports: Hx Congestive Heart Failure, Hx Coronary Artery Disease, Hx Heart Attack, Hx Hypercholesterolemia, Hx Hypertension Denies: Hx Atrial Fibrillation, Hx DVT, Hx Pulmonary Embolism Pulmonary Medical History: Reports: Hx COPD Denies: Hx Asthma, Hx Sleep Apnea Neurological Medical History: Reports: Hx Seizures. Denies: Hx Cerebrovascular Accident Endocrine Medical History: Reports: Hx Diabetes Mellitus Type 2. Denies: Hx Diabetes Mellitus Type 1, Hx Hyperthyroidism, Hx Hypothyroidism Renal/ Medical History: Reports: Hx Renal Insufficiency. Denies: Hx Hemodialysis, Hx Kidney Stones, Hx Peritoneal Dialysis Malignancy Medical History: Reports Hx Renal (Kidney) Cancer - s/p partial nephrectomy and renal surgeries., Reports Hx Skin Cancer GI Medical History: Reports: Hx Gastroesophageal Reflux Disease. Denies: Hx Cirrhosis, Hx Crohn's Disease, Hx Hepatitis, Hx Ulcerative Colitis Musculoskeletal Medical History: Denies Hx Arthritis, Denies Hx Gout Skin Medical History: Denies Hx Eczema, Denies Hx Psoriasis Infectious Medical History: Denies: Hx C-Diff, Hx Hepatitis, Hx HIV Past Surgical History: Reports: Hx Cardiac Catheterization, Hx Kidney (Renal Surgery) - Right Kidney Removed, Other - skin cancer removal - Immunizations Immunizations up to date: Yes Review of Systems - Review of Systems Constitutional: No symptoms reported EENT: No symptoms reported Cardiovascular: See HPI Respiratory: No symptoms reported Gastrointestinal: No symptoms reported Genitourinary: No symptoms reported Musculoskeletal: See HPI Skin: No symptoms reported Neurological/Psychological: No symptoms reported -: Yes All other systems reviewed and negative Physical Exam - Vital signs Vitals: Temp Pulse Resp BP Pulse Ox 97.1 F 97 18 113/59 L 100 08/30/20 15:48 08/30/20 15:48 08/30/20 15:48 08/30/20 15:48 08/30/20 15:48 - Notes Notes: Vital signs reviewed, please refer to chart. Head is normocephalic, atraumatic. Pupils equal round, reactive to light. Neck is supple without meningismus. Heart is regular rate and rhythm. Lungs are clear to auscultation bilaterally. Abdomen is soft, nontender, normoactive bowel sounds throughout. Extremities without cyanosis, clubbing. 2+ pitting edema in the pretibial region down into the feet. Posterior calves are nontender. Peripheral pulses are equal. Skin is warm and dry. Patient is awake, alert, neurological exam is nonfocal. Course - Re-evaluation Re-evalutation: 08/30/20 23:17 Patient is a 59-year-old male who presents to the emergency department for e valuation of bilateral lower extremity edema. Laboratory investigations and imaging was obtained through triage. Laboratory investigations does show some acute on chronic renal insufficiency, with a creatinine of 3.31 today. His last creatinine was 1.98 1-month ago. Chest x-ray fails to show any signs of significant fluid overload. His proBNP is normal. He is already failed outpatient diuretics. I will contact his primary care provider. 08/30/20 23:[address] Ornelas, he will admit the patient for further care. - Vital Signs Vital signs: Temp Pulse Resp BP Pulse Ox 97.1 F 97 18 113/59 L 100 08/30/20 15:48 08/30/20 15:48 08/30/20 15:48 08/30/20 15:48 08/30/20 15:48 - Laboratory Result Diagrams: 08/30/20 18:47 08/30/20 18:47 Laboratory results interpreted by me: 08/30/20 08/30/20 18:47 18:47 RBC 3.12 L Hgb 10.5 L Hct 30.5 L MCV 98 H MCH 33.7 H RDW 15.9 H BUN 46 H Creatinine 3.31 H Est GFR ( Amer) 23 L Est GFR (MDRD) Non-Af 19 L - Diagnostic Test Radiology reviewed: Reports reviewed Radiology results interpreted by me: 08/30/20 23:16 Chest X-Ray 08/30/20 18:29 IMPRESSION: NO ACUTE RADIOGRAPHIC FINDING IN THE CHEST. - EKG Interpretation by Me Additional EKG results interpreted by me: 08/30/20 23:16 Increased baseline artifact. Sinus mechanism with a rate of 90 bpm. Normal axis and intervals. No acute ST changes concerning for ischemia or infarction. No significant change compared to prior study. Discharge - Discharge Clinical Impression: Acute kidney injury, Bilateral lower extremity edema Condition: Stable Disposition: ADMITTED INPATIENT Admitting Provider: [facility] Unit Admitted: Medical Floor Referrals: ÁNGEL ORNELAS MD [Primary Care Provider] - Follow up as needed
[2020-08-30 23:42] LABS: APPEARANCE,URINE CLEAR; BILIRUBIN,URINE NEGATIVE (NEGATIVE); COLOR,URINE STRAW; GLUCOSE, URINE NEGATIVE (NEGATIVE); KETONES,URINE NEGATIVE (NEGATIVE); LEUKOCYTE ESTERASE,URINE NEGATIVE (NEGATIVE); NITRITE,URINE NEGATIVE (NEGATIVE); PROTEIN,URINE NEGATIVE (NEGATIVE); URINE SPECIFIC GRAVITY 1.006; UROBILINOGEN,URINE NEGATIVE mg/dL (<2.0)
[2020-08-31] MEDS ORDERED: GLUCAGON,HUMAN RECOMB 1 MG INJ IM PRN (08:21)
[2020-08-31] MEDS ORDERED: DEXTROSE 40% GEL 15 GM TUBE PO PRN ×2 (08:21)
[2020-08-31] MEDS ORDERED: DEXTROSE 50%-WATER 25 GM/50 ML DISP.SYRIN IV PRN ×2 (08:21)
[2020-08-31] MEDS ORDERED: NORMAL SALINE 1000 ML 1,000 ML IV PRN (08:24)
[2020-08-31 10:29] LABS: AMYLASE 54 U/L (30-110); ANION GAP 11 (5-19); BLOOD UREA NITROGEN 41 mg/dL (7-20); CALCIUM 9.3 mg/dL (8.4-10.2); CARBON DIOXIDE 27 mmol/L (22-30); CHLORIDE 105 mmol/L (98-107); GLUCOSE 113 mg/dL (75-110); PHOSPHORUS 3.5 mg/dL (2.5-4.5); POTASSIUM 4.9 mmol/L (3.6-5.0)
[2020-08-31] MEDS: NORMAL SALINE 1000 ML 1,000 ML IV PRN (10:32)
[2020-08-31 10:39] LABS: CREATINE KINASE MB 1.99 ng/mL (<4.55)
[2020-08-31 10:42] LABS: TROPONIN I < 0.012 ng/mL
[2020-08-31 10:45] LABS: FREE T4 (FREE THYROXINE) 0.73 ng/dL (0.78-2.19)
[2020-08-31 10:59] LABS: THYROID STIMULATING HORMONE 1.61 uIU/mL (0.47-4.68)
[2020-08-31 11:08] LABS: INTERNATIONAL RATION (INR) 0.94; PROTHROMBIN TIME 12.8 SEC (11.4-15.4)
[2020-08-31 11:09] LABS: PARTIAL THROMBOPLASTIN TIME 25.8 SEC (23.5-35.8)
[2020-08-31 11:11] LABS: APPEARANCE,URINE CLEAR; BILIRUBIN,URINE NEGATIVE (NEGATIVE); COLOR,URINE STRAW; GLUCOSE, URINE NEGATIVE (NEGATIVE); KETONES,URINE NEGATIVE (NEGATIVE); LEUKOCYTE ESTERASE,URINE NEGATIVE (NEGATIVE); NITRITE,URINE NEGATIVE (NEGATIVE); PROTEIN,URINE NEGATIVE (NEGATIVE); URINE SPECIFIC GRAVITY 1.009; UROBILINOGEN,URINE NEGATIVE mg/dL (<2.0)
--- NOTE | 2020-08-31 11:48 | RADIOLOGY REPORT (SQ) ---
EXAM DESCRIPTION: U/S RETROPERITON (RENAL/AORTA) IMAGES COMPLETED DATE/TIME: 08/31/2020 11:36 am REASON FOR STUDY: acute kidney failure COMPARISON: 10/19/2019 TECHNIQUE: Dynamic and static grayscale images acquired of the kidneys and bladder and recorded on P ACS. Additional selected color Doppler and spectral images recorded. LIMITATIONS: None. FINDINGS: RIGHT KIDNEY: Normal size. Increased cortical echogenicity. No solid or suspicious ma sses. No hydronephrosis. No calcifications. LEFT KIDNEY: Normal size. Increased cortical echogenicity. Several cysts measuring up to 9 mm. N o solid or suspicious masses. No hydronephrosis. No calcifications. BLADDER: No masses. OTHER: No other significant finding. IMPRESSION: CHRONIC MEDICAL RENAL DISEASE. NO HYDRONEPHROSIS. TECHNICAL DOCUMENTATION: JOB ID: [id number] 2010 [employer]- All Rights Reserved Reading location - IP/workstation name: [email or web address]
[2020-08-31] MEDS ORDERED: ONDANSETRON HCL INJ/PF 4 MG/2 ML SDV IV PRN (12:05)
[2020-08-31] MEDS: INSULIN LISPRO 100 UNIT/ML 3 ML VIAL SUBCUT SCH ×4 (12:19→21:49)
[2020-08-31] MEDS ORDERED: TRAMADOL HCL 50 MG TABLET PO PRN (12:37)
[2020-08-31] MEDS: HEPARIN SOD (PORCINE) 5,000 UNIT/ML 1 ML VIAL SUBCUT SCH ×2 (15:17→21:48)
[2020-08-31] MEDS: GABAPENTIN 300 MG CAPSULE PO SCH ×2 (15:20→21:49)
[2020-08-31] MEDS: CILOSTAZOL 100 MG TABLET PO SCH (15:21)
[2020-08-31 15:54] LABS: CREATINE KINASE MB 1.83 ng/mL (<4.55)
[2020-08-31 15:55] LABS: TROPONIN I < 0.012 ng/mL
[2020-08-31] MEDS ORDERED: (PENDING PHARMACY ID) (Insulin Aspart [Novolog Flexpen] 6 UNIT) SUBCUT SCH (16:00)
--- NOTE | 2020-08-31 17:18 | PDOC H&P ---
History of Present Illness Admission Date/PCP: 08/30/20 23:33 ÁNGEL ORNELAS MD History of Present Illness: LO ENCARNACION is a 59 year old male, Patient came to the emergency room for evaluation of bilateral lower extremity edema/swelling, he was found to have serum creatinine of 3.31. He has chronic kidney disease with a baseline creatinine of 1.5-1.7.He has bilateral lower extremity edema, he was on 2 diuretic metolazone and furosemide so he probably over diuresed. The acute kidney injury is most likely prerenal azotemia. Venous Doppler of the lower extremities was negative for deep vein thrombosis there is no proteinuria to suggest nephrotic syndrome there is no CHF there is no liver disease no thyroid disease, the potential etiology of the lower extremity edema is most likely multifactorial including medication, patient is on gabapentin, venous valve insufficiency, patient is advised to use compression stocking. Past Medical History Cardiac Medical History: Reports: Coronary Artery Disease, Myocardial Infarction, Hyperlipidema, Hypertension Pulmonary Medical History: Reports: Chronic Obstructive Pulmonary Disease (COPD) Neurological Medical History: Reports: Seizures Endocrine Medical History: Reports: Diabetes Mellitus Type 2 Malignancy Medical History: Reports: Renal (Kidney) Cancer - s/p partial nephrectomy and renal surgeries., Skin Cancer GI Medical History: Reports: Gastroesophageal Reflux Disease Hematology: Reports: Anemia Past Surgical History Past Surgical History: Reports: Cardiac Catheterization, Other - skin cancer removal Social History Smoking Status: Former Smoker Electronic Cigarette use?: No Frequency of Alcohol Use: None Hx Recreational Drug Use: No Drugs: None Hx Prescription Drug Abuse: No Family History Family History: Reviewed & Not Pertinent Parental Family History Reviewed: Yes Children Family History Reviewed: Yes Sibling(s) Family History Reviewed.: Yes Medication/Allergy Home Medications: Allopurinol [Zyloprim 300 mg Tablet] 300 mg PO DAILY 11/27/19 Atorvastatin Calcium [Lipitor 10 mg Tablet] 10 mg PO DAILY 11/27/19 Carvedilol [Coreg 3.125 mg Tablet] 3.125 mg PO Q12 11/27/19 Duloxetine HCl [Cymbalta] 60 mg PO DAILY 11/27/19 Insulin Aspart [Novolog Flexpen] 6 unit SUBCUT AC 11/27/19 Insulin Degludec [Tresiba Flextouch U-100] 14 unit SQ DAILY 11/27/19 Valproic Acid 500 mg PO BID 11/27/19 Aspirin [Aspirin 81 mg Chewable Tablet] 81 mg PO DAILY 08/31/20 Cilostazol 100 mg PO 0800,1400 08/31/20 Ergocalciferol (Vitamin D2) [Drisdol 50,000 unit (1.25MG) Capsule] 50,000 unit PO MO@1000 08/31/20 Gabapentin [Neurontin 300 mg Capsule] 300 mg PO Q8 08/31/20 Lisinopril [Zestril] 2.5 mg PO DAILY 08/31/20 Quetiapine Fumarate [Seroquel 25 mg Tablet] 25 mg PO QHS 08/31/20 Tramadol HCl [Ultram 50 mg Tablet] 50 mg PO Q8HP PRN 08/31/20 Allergies/Adverse Reactions: No Known Allergies Allergy (Verified 08/30/20 18:24) Review of Systems Constitutional: ABSENT: chills, fever(s), headache(s), weight gain, weight loss Eyes: ABSENT: visual disturbances Ears: ABSENT: hearing changes Cardiovascular: PRESENT: edema. ABSENT: chest pain, dyspnea on exertion, orthropnea, palpitations Respiratory: ABSENT: cough, hemoptysis Gastrointestinal: ABSENT: abdominal pain, constipation, diarrhea, hematemesis, hematochezia, nausea, vomiting Genitourinary: ABSENT: dysuria, hematuria Musculoskeletal: ABSENT: joint swelling Integumentary: ABSENT: rash, wounds Neurological: ABSENT: abnormal gait, abnormal speech, confusion, dizziness, focal weakness, syncope Psychiatric: ABSENT: anxiety, depression, homidical ideation, suicidal ideation Endocrine: ABSENT: cold intolerance, heat intolerance, menstrual abnormalities, polydipsia, polyuria Hematologic/Lymphatic: ABSENT: easy bleeding, easy bruising, lymphadenopathy Physical Exam Vital Signs: Temp Pulse Resp BP Pulse Ox 97.9 F 84 14 135/74 H 100 08/31/20 16:00 08/31/20 16:00 08/31/20 16:00 08/31/20 16:00 08/31/20 16:00 Intake & Output 08/30/20 08/31/20 09/01/20 06:59 06:59 06:59 Intake Total 120 1240 Output Total 225 Balance 120 1015 Weight 95.5 kg General appearance: PRESENT: no acute distress Head exam: PRESENT: atraumatic, normocephalic Eye exam: PRESENT: PERRLA Ear exam: PRESENT: normal external ear exam Mouth exam: PRESENT: moist, tongue midline Neck exam: PRESENT: full ROM Respiratory exam: PRESENT: clear to auscultation anamaria Cardiovascular exam: PRESENT: RRR, +S1, +S2 Pulses: PRESENT: normal dorsalis pedis pul, +2 pedal pulses bilateral Vascular exam: PRESENT: normal capillary refill GI/Abdominal exam: PRESENT: normal bowel sounds, soft Rectal exam: PRESENT: deferred Extremities exam: PRESENT: pedal edema Neurological exam: PRESENT: alert, CN II-XII grossly intact Psychiatric exam: PRESENT: appropriate affect, normal mood Skin exam: PRESENT: dry, intact, warm Results Laboratory Results: 08/30/20 18:47 08/31/20 09:20 08/30/20 08/30/20 08/30/20 18:47 18:47 23:28 WBC 7.5 RBC 3.12 L Hgb 10.5 L Hct 30.5 L MCV 98 H MCH 33.7 H MCHC 34.5 RDW 15.9 H Plt Count 198 Seg Neutrophils % 61.2 Sodium 140.7 Potassium 4.7 Chloride 104 Carbon Dioxide 27 Anion Gap 10 BUN 46 H Creatinine 3.31 H Est GFR ( Amer) 23 L Glucose 99 Calcium 9.2 Phosphorus Magnesium Total Bilirubin 0.5 AST 27 Alkaline Phosphatase 75 Total Protein 7.1 Albumin 3.9 Amylase Lipase TSH Free T4 Urine Color STRAW Urine Appearance CLEAR Urine pH 6.0 Ur Specific [place] 1.006 Urine Protein NEGATIVE Urine Glucose (UA) NEGATIVE Urine Ketones NEGATIVE Urine Blood SMALL H Urine Nitrite NEGATIVE Ur Leukocyte Esterase NEGATIVE Urine RBC (Auto) 1 08/31/20 08/31/20 08/31/20 07:30 09:20 09:20 WBC RBC Hgb Hct MCV MCH MCHC RDW Plt Count Seg Neutrophils % Sodium 142.7 Potassium 4.9 Chloride 105 Carbon Dioxide 27 Anion Gap 11 BUN 41 H Creatinine 2.39 H Est GFR ( Amer) 34 L Glucose 113 H Calcium 9.3 Phosphorus 3.5 Magnesium 2.3 Total Bilirubin AST Alkaline Phosphatase Total Protein Albumin Amylase 54 Lipase 82.7 TSH 1.61 Free T4 0.73 L Urine Color STRAW Urine Appearance CLEAR Urine pH 6.0 Ur Specific [place] 1.009 Urine Protein NEGATIVE Urine Glucose (UA) NEGATIVE Urine Ketones NEGATIVE Urine Blood NEGATIVE Urine Nitrite NEGATIVE Ur Leukocyte Esterase NEGATIVE Urine RBC (Auto) 0 08/30/20 08/30/20 08/31/20 18:47 18:47 09:20 CK-MB (CK-2) 1.99 Troponin I < 0.012 < 0.012 NT-Pro-B Natriuret Pep 118 08/31/20 15:02 CK-MB (CK-2) 1.83 Troponin I < 0.012 NT-Pro-B Natriuret Pep Impressions: Chest X-Ray 08/30/20 18:29 IMPRESSION: NO ACUTE RADIOGRAPHIC FINDING IN THE CHEST. Renal Ultrasound 08/31/20 00:00 IMPRESSION: CHRONIC MEDICAL RENAL DISEASE. NO HYDRONEPHROSIS. Assessment & Plan - Diagnosis (1) Acute kidney injury Is this a current diagnosis for this admission?: Yes Plan: This most likely due to prerenal azotemia slow hydration with IV fluid (2) Bilateral lower extremity edema Is this a current diagnosis for this admission?: Yes - Time Time Spent: Greater than 70 Minutes Medications reviewed and adjusted accordingly: Yes Anticipated Discharge Disposition: Home, Self Care Anticipated Discharge Timeframe: within 24 hours
[2020-08-31] MEDS ORDERED: VALPROIC ACID 500 MG PO SCH (18:00)
[2020-08-31] MEDS: VALPROATE SODIUM SYRUP 250 MG/5 ML UDCUP PO SCH (18:35)
--- NOTE | 2020-08-31 19:00 | RADIOLOGY REPORT (SQ) ---
EXAM DESCRIPTION: VENOUS BILATERAL LOWER IMAGES COMPLETED DATE/TIME: 08/31/2020 6:40 pm REASON FOR STUDY: LOWER EXTREMITY EDEMA COMPARISON: None. TECHNIQUE: Dynamic and static lawrence scale and color images acquired of both lower extremity venous sy stems. Selected spectral images acquired with additional compression and augmentation maneuvers. Imag es stored on PACS. LIMITATIONS: None. FINDINGS: RIGHT LEG COMMON FEMORAL AND FEMORAL: Normal phasicity, compression and augmentation. No visualized echogenic m aterial on lawrence scale. No defects on color images. POPLITEAL: Normal compression and augmentation. No visualized echogenic material on lawrence scale. No de fects on color images. CALF VESSELS: Normal compression and augmentation. No visualized echogenic material on lawrence scale. No defects on color image. GSV AND SSV: Normal compression. No visualized echogenic material on lawrence scale. No defects on color images. ANY DEEP VENOUS INSUFFICIENCY: Not evaluated. ANY EVIDENCE OF POPLITEAL CYST: No. OTHER: No other significant finding. LEFT LEG COMMON FEMORAL AND FEMORAL: Normal phasicity, compression and augmentation. No visualized echogenic m aterial on lawrence scale. No defects on color images. POPLITEAL: Normal compression and augmentation. No visualized echogenic material on lawrence scale. No de fects on color images. CALF VESSELS: Normal compression and augmentation. No visualized echogenic material on lawrence scale. No defects on color images. GSV AND SSV: Normal compression. No visualized echogenic material on lawrence scale. No defects on color images. ANY DEEP VENOUS INSUFFICIENCY: Not evaluated. ANY EVIDENCE POPLITEAL CYST: No. OTHER: No other significant finding. IMPRESSION: NO EVIDENCE DVT OR SVT IN EITHER LEG. TECHNICAL DOCUMENTATION: JOB ID: [id number] [employer]- All Rights Reserved Reading location - IP/workstation name: [email or web address]
[2020-08-31] MEDS: CARVEDILOL 3.125 MG TABLET PO SCH (21:49)
[2020-08-31] MEDS ORDERED: QUETIAPINE FUMARATE 25 MG TABLET PO SCH (22:00)
[2020-08-31 22:28] LABS: CREATINE KINASE MB 1.34 ng/mL (<4.55)
[2020-08-31 22:32] LABS: TROPONIN I < 0.012 ng/mL
[2020-09-01] MEDS: GABAPENTIN 300 MG CAPSULE PO SCH ×2 (05:22→14:42)
[2020-09-01] MEDS: NORMAL SALINE 1000 ML 1,000 ML IV PRN (05:24)
[2020-09-01] MEDS: HEPARIN SOD (PORCINE) 5,000 UNIT/ML 1 ML VIAL SUBCUT SCH ×2 (05:24→14:43)
[2020-09-01 06:49] LABS: ABSOLUTE EOSINOPHILS # (AUTO) 0.1 10^3/uL (0.0-0.6); ABSOLUTE LYMPHOCYTES (AUTO) 1.7 10^3/uL (0.5-4.7); ABSOLUTE MONOCYTES (AUTO) 0.4 10^3/uL (0.1-1.4); ABSOLUTE NEUT (AUTO) 2.2 10^3/uL (1.7-8.2); BASOPHILS % (AUTO) 0.3 % (0-2); EOSINOPHILS % (AUTO) 1.3 % (0-6); HEMATOCRIT 30.2 % (37.9-51.0); HEMOGLOBIN 10.4 g/dL (13.5-17.0); LYMPHOCYTES % (AUTO) 39.2 % (13-45); MEAN CORPUSCULAR HEMOGLOBIN 33.5 pg (27.0-33.4); MEAN CORPUSCULAR HGB CONC 34.5 g/dL (32.0-36.0); MEAN CORPUSCULAR VOLUME 97 fl (80-97); MONOCYTES % (AUTO) 9.7 % (3-13); PLATELET COUNT 191 10^3/uL (150-450); RED BLOOD COUNT 3.11 10^6/uL (4.35-5.55); RED CELL DISTRIBUTION WIDTH 16.2 % (11.5-14.0); SEGMENTED NEUTROPHILS % (AUTO) 49.5 % (42-78); TOTAL CELLS COUNTED % (AUTO) 100 %; WHITE BLOOD COUNT 4.4 10^3/uL (4.0-10.5)
[2020-09-01 07:10] LABS: ALBUMIN 3.4 g/dL (3.5-5.0); ALKALINE PHOSPHATASE 72 U/L (38-126); ASPARTATE AMINO TRANSFERASE 37 U/L (17-59); BILIRUBIN,DIRECT 0.2 mg/dL (0.0-0.4); BILIRUBIN,TOTAL 0.5 mg/dL (0.2-1.3); TOTAL PROTEIN 6.4 g/dL (6.3-8.2)
[2020-09-01] MEDS: CILOSTAZOL 100 MG TABLET PO SCH ×2 (08:22→14:42)
[2020-09-01] MEDS: INSULIN LISPRO 100 UNIT/ML 3 ML VIAL SUBCUT SCH ×6 (08:25→16:39)
[2020-09-01 08:38] LABS: ANION GAP 9 (5-19); BLOOD UREA NITROGEN 33 mg/dL (7-20); CARBON DIOXIDE 24 mmol/L (22-30); CHLORIDE 109 mmol/L (98-107); GLUCOSE 104 mg/dL (75-110); POTASSIUM 4.8 mmol/L (3.6-5.0)
[2020-09-01] MEDS: VALPROATE SODIUM SYRUP 250 MG/5 ML UDCUP PO SCH (09:48)
[2020-09-01] MEDS: CARVEDILOL 3.125 MG TABLET PO SCH (09:50)
[2020-09-01] MEDS ORDERED: INSULIN DEGLUDEC 14 UNIT SUBCUT SCH (10:00)
[2020-09-01] MEDS ORDERED: METOLAZONE 5 MG TABLET PO SCH (10:00)
[2020-09-01] MEDS ORDERED: ALLOPURINOL 300 MG TABLET PO SCH (10:00)
[2020-09-01] MEDS ORDERED: INSULIN DEGLUDEC 14 UNIT SQ SCH (10:00)
[2020-09-01] MEDS ORDERED: ATORVASTATIN CALCIUM 10 MG TABLET PO SCH (10:00)
[2020-09-01] MEDS ORDERED: ASPIRIN 81 MG TABLET, CHEWABLE PO SCH (10:00)
[2020-09-01] MEDS ORDERED: (PENDING PHARMACY ID) (Lisinopril [Zestril] 2.5 MG) PO SCH (10:00)
[2020-09-01] MEDS ORDERED: LISINOPRIL 5 MG TABLET PO SCH (10:00)
[2020-09-01] MEDS ORDERED: DULOXETINE HCL 30 MG CAPSULE.DR PO SCH (10:00)
[2020-09-01 17:33] VITALS: BP 141/83
--- OUTSIDE RECORDS SUMMARY | 2020-09-01 17:46 | XMS REPORT ---
:1960 [facility] [place] [address] [place] [address] Care Team Providers Name Role Phone Ant, Dominga Primary Care Physician Unavailable SMITHA PALENCIA Attending Clinician Unavailable RICCARDO CHRIS Attending Clinician Unavailable ARIANNE WELSH Attending Clinician Unavailable DUANE RAMOS Attending Clinician Unavailable AKIKO WU Attending Clinician Unavailable Estrellita Medina Attending Clinician Unavailable Milton Chavez Attending Clinician Unavailable Ciarra Welsh Attending Clinician Unavailable Ryan Chris Attending Clinician Unavailable Kirit Attending Clinician Unavailable Pam Nur Attending Clinician Unavailable Tanika Ballard Attending Clinician Unavailable Lexus Samson Attending Clinician Unavailable Doimnga Rodríguez Attending Clinician Unavailable Blayne Cadena Attending Clinician Unavailable Pam Spain Attending Clinician Unavailable Maldonado Zaman Attending Clinician Unavailable Heather Spain Attending Clinician Unavailable Lucia Larsen Attending Clinician Unavailable Walter SPRINGER Attending Clinician Unavailable Mars WHEELER Attending Clinician Unavailable Chapin SPRINGER Attending Clinician Unavailable Gary SPRINGER Attending Clinician Unavailable Burt Attending Clinician Unavailable DIANE LOPEZ Admitting Clinician Unavailable AKIKO WU Admitting Clinician Unavailable Nichole Guzman Admitting Clinician Unavailable Blayne Cadena Admitting Clinician Unavailable Allergies, Adverse Reactions, Alerts This patient has no known allergies or adverse reactions. Medications Ordered Filled Start Stop Current Ordering Indication Dosage Frequency Signature Comments Components Medication Medication Date Date Medication? Clinician (SIG) Name Name Metolazone 2020-0 No QD 1 tablet 2.5 MG 6-22 Orally 00:00: Once a day 00 Cilostazol 2020-0 No BID 1 tablet 50 MG 5-29 30 minutes 00:00: before or 00 2 hours after breakfast and dinner Orally Twice a day Tramadol 2020-0 No TID 1 tablet HCl 50 MG 5-19 as needed 00:00: Orally 00 three times a day Drysol 20 % No BID 1 5-19 11-10 applicatio 00:00: 00:00 n at 00 :00 bedtime Externally twice a day Cyclobenzap 2019- No QD 1 tablet rine HCl 10 4-03 05-03 at bedtime MG 00:00: 00:00 as needed 00 :00 Orally Once a day Seroquel 25 No QD 1 tablet MG 309 at bedtime 00:00: Orally 00 Once a day Lisinopril No QD 1 tablet 2.5 MG 12-27 Orally 00:00: Once a day 00 Ozempic No 0.5 mg (0.25 or 12-27 subcutaneo 0.5 00:00: usly MG/DOSE) 2 00 weekly MG/1.5ML Tramadol No TID 1 tablet HCl 50 MG 12-27 as needed 00:00: Orally 00 three times a day furosemide 2018-10 Yes Leg edema 40mg Take 2 Marcelino e 2 (LASIX) 20 1-13 tablets tablets MG tablet 00:00: (40 mg (40 mg 00 total) by total) by mouth Two mouth Two (2) times (2) times a day. a day. furosemide Leg edema 40mg Take 2 Marcelino e 2 (LASIX) 20 8-26 11-13 tablets tablets MG tablet 00:00: 00:00 (40 mg (40 mg 00 :00 total) by total) by mouth Two mouth Two (2) times (2) times a day. a day. ACCU-CHEK Yes Type 2 Use 3 test Use 3 EMIGDIO Strp 03-11 diabetes strips test 00:00: mellitus daily to strips 00 without check daily to complicatio sugar. check n, with Dispense sugar. long-term accu chek Dispen se current use emigdio. accu ch ek of insulin e11.65 emigdio. ([facility]) e11.65 insulin Yes Type 2 15U Inject Inject degludec 5-13 diabetes 0.15 mL 0.15 m L (TRESIBA 00:00: mellitus (15 Units (15 Units FLEXTOUCH 00 with total) total) U-100) 100 chronic under the und er the unit/mL (3 kidney skin skin mL) InPn disease, daily. daily. with long-term current use of insulin, unspecified CKD stage ([facility]) furosemide 2019- No Leg edema 40mg Take 2 Marcelino e 2 (LASIX) 20 5-13 08-26 tablets tablets MG tablet 00:00: 00:00 (40 mg (40 mg 00 :00 total) by total) by mouth Two mouth Two (2) times (2) times a day. a day. insulin Yes 6U Inject Inject ASPART 2-06 0.06 mL (6 0.06 mL (NOVOLOG 00:00: Units (6 Units FLEXPEN 00 total) total) U-100 under the under the INSULIN) skin skin 100 unit/mL daily. daily. injection Take 6 Take 6 pen units with units evening with meal only evening meal only liraglutide Yes 1.8mg Inject 0.3 In ject (VICTOZA 2-06 mL (1.8 mg 0.3 mL 3-JEFFREY) 0.6 00:00: total) (1.8 mg mg/0.1 mL 00 under the total) (18 mg/3 skin under the mL) daily. skin injection daily. carvedilol Yes carvedilol (COREG) 2-05 (COREG) 6.25 MG 00:00: 6.25 MG tablet 00 tablet potassium Yes potassium chloride SA 1-31 chloride (K-DUR,KLOR 00:00: SA -CON) 20 00 (K-DUR,KLO MEQ tablet R-CON) 20 MEQ tablet blood-gluco 2019- No 1{each} 1 each by 1 each by se meter 11-0415 Other Other kit 14:30: 00:00 route route 05 :00 once. Use once. Use to test to test blood blood sugar.e11. sugar.e11 65 .65 blood sugar 2019- No Check Check diagnostic 11-0415 sugar 3 sugar 3 (GLUCOSE 14:30: 00:00 times times BLOOD) Strp 05 :00 daily.e11. ang ly.e11 65 .65 blood sugar No Check Check diagnostic 15 sugar 3 sugar 3 (GLUCOSE 00:00: times times BLOOD) Strp 00 daily.e11. ang ly.e11 65 .65 blood-gluco Yes 1{each} 1 each by 1 each by se meter 1-15 Other Other kit 00:00: route route 00 once. for once. for 1 dose Use 1 dose to test Use to blood test sugar.e11. blood 65 sugar.e11 Dispense .65 whichever Dispense insurance whichever covers. insurance covers. blood sugar Yes Check Check diagnostic 1-15 sugar 3 sugar 3 (GLUCOSE 00:00: times times BLOOD) Strp 00 daily.e11. ang ly.e11 65 .65 nitroglycer Yes nitroglyce in 1-05 rin (NITROSTAT) 00:00: (NITROSTAT 0.4 MG SL 00 ) 0.4 MG tablet SL tablet traMADol-ac 2017-10 Yes 1{tbl} Take 1 Take 1 etaminophen 1-30 tablet by tabl et by (ULTRACET) 00:00: mouth mouth 37.5-325 mg 00 every six ever y six per tablet (6) hours (6) h ours as needed as needed for pain. for pain. for up to for up to 12 doses 12 doses gabapentin 2017-10 2018- No 600mg Take 2 Take 2 (NEURONTIN) 0-23 11-22 capsules capsu les 300 MG 00:00: 23:59 (600 mg (600 mg capsule 00 :00 total) by total) b y mouth Two mouth Two (2) times (2) times a day. a day. lisinopril 2017-10 Yes 5mg Take 5 mg Take 5 mg (PRINIVIL,Z 0-18 by mouth by mo saji ESTRIL) 5 18:19: daily. daily. MG tablet 35 isosorbide 2017-10 Yes 15mg Take 15 mg Marcelino e 15 dinitrate 0-18 by mouth mg by (ISORDIL) 18:19: daily. mouth 30 MG 35 daily. tablet aspirin 2017-10 Yes 81mg Take 81 mg Take 8 1 (ECOTRIN) 0-18 by mouth mg by 81 MG 18:19: daily. mouth tablet 35 daily. Diphenoxyla Yes General 1TAB EVERY SIX te 9-18 Acute Care HOURS PRN Hcl/[facility]ropin [facility]: [facility] Diarrhea Ondansetron Yes General 8MG EVERY SIX Hcl 9-18 Acute Care HOURS PRN 00:00: [facility] N[facility] 00 / Vomiting insulin 2018- No 18U Inject 18 Inject 18 degludec 7-24 07-24 Units Units (TRESIBA 10:15: 00:00 under the under the FLEXTOUCH 22 :00 skin skin U-100) 100 daily. daily. unit/mL (3 mL) InPn insulin 2018- No 18U Inject Inject degludec 7-24 05-13 0.18 mL 0.18 mL (TRESIBA 00:00: 00:00 (18 Units (18 Un its FLEXTOUCH 00 :00 total) total) U-100) 100 under the under the unit/mL (3 skin skin mL) InPn daily. daily. insulin 2018- No 6U Inject 6 Inject 6 aspart 4-30 02-06 Units Units (NOVOLOG 11:43: 00:00 under the under the FLEXPEN) 08 :00 skin skin 100 unit/mL daily. daily. injection Take 6 Take 6 pen units with units evening with meal only evening meal only pen needle, Yes Use 5 pen Use 5 pen diabetic 4-30 needles needles (BD 00:00: daily daily ULTRA-FINE 00 STEPHANY PEN NEEDLE) 32 gauge x 5/32" Ndle liraglutide 2018- No 1.8MG Inject 0.3 In ject (VICTOZA 4-30 02-06 mL (1.8 mg 0.3 mL 3-JEFFREY) 0.6 00:00: 00:00 total) (1.8 mg mg/0.1 mL 00 :00 under the total) (18 mg/3 skin under the mL) daily. skin injection daily. Meloxicam 2017- No General 7.5MG EVERY DAY 12-1218 Acute Care 00:00: 13:24 Hospital 00 :00 carvedilol 2016-10 Yes 6.25mg Take 6.25 Marcelino e 6.25 (COREG) 2-04 mg by mg by 12.5 MG 16:07: mouth Two mouth T wo tablet 36 (2) times (2) times a day. a day. atorvastati 2016-10 Yes 10mg Take 10 mg Ta ke 10 n (LIPITOR) 2-04 by mouth mg by 10 MG 16:07: daily. mouth tablet 36 daily. allopurinol 2016-10 Yes Take 0.5 Take 0.5 (ZYLOPRIM) 2-04 tablet tablet 300 MG 16:07: daily daily tablet 36 potassium 2017 Yes 20meq Take 20 Take 20 chloride 20 2-04 mEq by mEq by mEq TbER 16:07: mouth mouth 36 daily. daily. furosemide 2016-10 2019- No 20mg Take 20 mg Marcelino e 20 (LASIX) 20 2-04 05-13 by mouth mg by MG tablet 16:07: 00:00 Two (2) mouth T wo 36 :00 times a (2) times day. a day. tamsulosin 2016-10 2019- No .4MG Take 0.4 Take 0.4 (FLOMAX) 2-04 02-06 mg by mg by 0.4 mg 16:07: 00:00 mouth mouth capsule 36 :00 daily. daily. gabapentin 2016-10- No 600MG Take 600 Take 600 (NEURONTIN) 2-04 10-23 mg by mg by 600 MG 16:07: 00:00 mouth Two mouth Tw o tablet 36 :00 (2) times (2) times a day. a day. HYDROcodone 2016-10 Yes 1{tbl} Take 1 Take 1 -acetaminop 2-04 tablet by tabl et by jimmy (NORCO 16:07: mouth mouth 10-325) 35 every six every si x 10-325 mg (6) hours (6) ho urs per tablet as needed as ne eded for pain. for pain. valproic 2016-10 Yes Four (4) Four (4 ) acid 1-04 times a times a (DEPAKENE) 00:00: day. day. 250 mg 00 capsule Allopurinol Yes General 300MG EVERY 8-09 Acute Care MORNING 00:00: Hospital 00 Furosemide Yes General 20MG EVERY 8-09 Acute Care MORNING 00:00: Hospital 00 Gabapentin Yes General 600MG TWO TIMES 8-09 Acute Care DAILY 00:00: Hospital 00 Insulin Yes General 6UNIT THREE Aspart 7-24 Acute Care TIMES A 00:00: Hospital DAY Insulin Yes General 18UNIT EVERY Degludec - Acute Care MORNING 00:00: Hospital 00 Liraglutide Yes General 1.6MG EVERY 7-24 Acute Care MORNING 00:00: Hospital 00 Ondansetron 2018- No General 4MG EVERY FOUR 7-24 02-22 Acute Care HOURS PRN 00:00: 10:50 [facility] 00 :00 Ketorolac 2017- No General 10MG Q12H PRN Tromethamin 05-13 Acute Care For Pain e 00:00: 10:27 Hospital 00 :00 Aspirin, 2018- No General 81MG EVERY DAY Enteric 02-16 Acute Care Coated 00:00: 13:23 Hospital 00 :00 Furosemide 2017- No General 20MG TWO TIMES 02-16 Acute Care DAILY 00:00: 07:39 Hospital 00 :00 Insulin 2017- No General 30UNIT EVERY Glargine, 02-16 Acute Care NIGHT AT Rec.Anlog 00:00: 07:40 Hospital BEDTIME 00 :00 Betamethaso 2017- No General 15GM EVERY DAY ne 02-16 Acute Care Dipropionat 00:00: 10:52 Hospital e 00 :00 Cefadroxil 2017- No General 500MG TWO TIMES Hydrate 12-28 Acute Care DAILY 00:00: 14:40 Hospital 00 :00 Insulin 2017- No General 8UNIT THREE Lispro 11-25 Acute Care TIMES A 00:00: 07:40 Hospital DAY 00 :00 Aspirin, 2017- No General 81MG EVERY DAY Enteric 11-25 Acute Care Coated 00:00: 14:41 Hospital 00 :00 Insulin 2017- No General 20UNIT EVERY DAY Glargine,Hu 11-25 Acute Care .Rec.Anlog 00:00: 14:41 Hospital 00 :00 Atorvastati Yes General 10MG EVERY n Calcium 07-11 Acute Care MORNING 00:00: Hospital 00 Cephalexin 2017- No General 500MG THREE Monohydrate 07-11 Acute Care TIMES A 00:00: 14:06 Hospital DAY 00 :00 Ondansetron 2017- No General 8MG EVERY -11-23 Acute Care TWELVE 00:00: 14:06 Hospital HOURS 00 :00 Hydrocodone 2018- No General 1TAB FOUR TIMES Bit/Acetami 07-02 Acute Care A DAY nophen 00:00: 13:23 Hospital 00 :00 Carvedilol Yes General 12.5MG TWO TIMES 05-12 Acute Care DAILY 00:00: Hospital 00 Potassium Yes General 20MEQ EVERY Chloride 05-12 Acute Care MORNING 00:00: Hospital 00 Tamsulosin Yes General .4MG EVERY Hcl 05-12 Acute Care MORNING 00:00: Hospital 00 Valproic Yes General 250MG FOUR TIMES Acid 05-12 Acute Care A DAY 00:00: Hospital 00 Allopurinol 2017- No General 150MG EVERY 05-12 Acute Care MORNING 00:00: 10:29 Hospital 00 :00 Gabapentin 2016- No General 600MG TWO TIMES 05-12 Acute Care DAILY 00:00: 07:39 Hospital 00 :00 Bumetanide 2016- No General 2MG TWO TIMES 05-12 Acute Care DAILY 00:00: 14:07 Hospital 00 :00 Hydrocodone 2015- No General 1TAB EVERY FOUR Bit/Acetami 05-1212 Acute Care HOURS PRN saida 00:00: 15:35 [facility] 00 :00 Victoza 18 No QD 1.2 mg MG/3ML Subcutaneo us once a day Allopurinol No QD 1 tablet 300 MG Orally Once a day Aspirin No QD 1 tab Oral once a day Gabapentin No BID 2 capsule 300 MG Orally twice a day Lisinopril No QD 1 tablet 5 MG Orally Once a day NovoLog No 6 units Flexpen 100 subcutaneo UNIT/ML usly three times a day Tresiba No QD 14 units FlexTouch Subcutaneo 100 UNIT/ML us once a day Atorvastati No QD 1 tablet n Calcium Orally 10 MG Once a day Valproic Yes QID 1 capsule Acid 250 MG Orally four times a day Potassium No QD 1 tablet Chloride with food Tamiko ER 20 Orally MEQ Once a day Duloxetine No QD 1 capsule HCl 60 MG Orally Once a day Furosemide No BID 2 tablets 20 MG Orally Twice a day Valproic No QID 1 capsule Acid 250 MG Orally four times a day Allopurinol No QD 1 tablet 300 MG Orally Once a day Duloxetine No QD 1 capsule HCl 60 MG Orally Once a day Victoza 18 No QD 1.2 mg MG/3ML Subcutaneo us once a day NovoLog No 6 units Flexpen 100 subcutaneo UNIT/ML usly three times a day Tresiba No QD 14 units FlexTouch Subcutaneo 100 UNIT/ML us once a day Potassium No QD 1 tablet Chloride with food Tamiko ER 20 Orally MEQ Once a day Lisinopril No QD 1 tablet 5 MG Orally Once a day Atorvastati No QD 1 tablet n Calcium Orally 10 MG Once a day Gabapentin No BID 2 capsule 300 MG Orally twice a day Furosemide No BID 2 tablets 20 MG Orally Twice a day Furosemide No QD 1 tablet 40 MG Orally Once a day Metolazone No QD 1 tablet 2.5 mg Orally Once a day Ondansetron No QD 1 tablet HCl 4 MG Orally Once a day Problems Condition Condition Condition Status Onset Resolution Last Treatin g Comments Name Details Category Date Date Treatment Clinician Date 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 8-19 thritis 00:00: 00 Morbid Morbid Problem Active obesity (severe) 7-30 obesity due 00:00: to excess 00 calories Fall on or Fall (on) Problem Active from steps (from) 7-30 other 00:00: stairs and 00 steps, initial encounter Primary Primary Problem Active focal focal 7-30 hyperhidros hyperhidros 00:00: is is, palms 00 Peripheral Peripheral Problem Active vascular vascular 5-29 disease disease, 00:00: unspecified 00 Acute renal Acute Problem Active failure kidney 4-05 syndrome failure, 00:00: unspecified 00 Hypotension Hypotension Problem Active , 4-05 unspecified 00:00: 00 Spasm of Muscle Problem Active back spasm of 4-03 muscles back 00:00: 00 Adult Encounter Problem Active health for general 3-21 examination adult 00:00: medical 00 examination without abnormal findings Chronic Chronic Problem Active kidney kidney 3-21 disease disease, 00:00: stage 3 stage 3 00 (moderate) Insomnia Insomnia, Problem Active unspecified 3-09 00:00: 00 Polyneuropa Type 2 Problem Active thy due to diabetes 3-09 type 2 mellitus 00:00: diabetes with 00 mellitus diabetic polyneuropa thy Body mass Body mass Problem Active index 30+ - index (BMI) 2-23 obesity 30.0-30.9, 00:00: adult 00 Venous Chronic Problem Active ulcer of venous 1-13 lower hypertensio 00:00: extremity n 00 due to (idiopathic chronic ) with peripheral inflammatio venous n of hypertensio bilateral n lower extremity Neurogenic Spinal Problem Active 2018-10 claudicatio stenosis, 2-30 n lumbar 00:00: region with 00 neurogenic claudicatio n Lower Benign Problem Active 2018-10 urinary prostatic 2-30 tract hyperplasia 00:00: symptoms with lower 00 due to urinary benign tract prostatic symptoms hypertrophy Malignant Malignant Problem Active 2018-10 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 00:00: kidney, 00 except renal pelvis Basal cell Basal cell Problem Active 2018-10 carcinoma carcinoma 11-15 of nose of skin of 00:00: nose 00 Essential Essential Problem Active 2018-10 hypertensio (primary) 1- n hypertensio 00:00: n 00 Muscle pain Myalgia, Problem Active 2018-10 unspecified 11-15 site 00:00: 00 Chronic Chronic Problem Active 2018-10 obstructive obstructive 11-15 pulmonary pulmonary 00:00: disease disease, 00 unspecified Cerebral Cerebral Problem Active 2018-10 infarction infarction, 11-15 unspecified 00:00: 00 Diabetic Type 2 Problem Active 2018-10 renal diabetes 11-15 disease mellitus 00:00: with 00 diabetic chronic kidney disease Chest pain Chest pain Condition Active 2017-102018-08-12 Overview: 0-18 16:12:55 Problem 00:00: #1 00 patient is currentl y asymptom a tic and hemodyna m ically stable. He reports a fleeting type chest pain. Hi s stable cardiac enzymes are negative and EKG showed ischemic changes. He has been evaluate d by Dr. Murdock schedule d for diagnost i c coronary angiogra m on Saturday. We will continue current manageme n t plan. Continue aggressi v e blood pressure control with current antihype r tensives . Maintain patient on antiplat e let and statin therapy. The patient is on long-act i ng nitrates and on transder m al nitrogly c dipesh. 08/09 patient currentl y asymptom a tic. Serial cardiac enzymes are negative x4. Currentl y awaiting cardiac catheter i zation schedule d for Saturday. Essential Essential Condition Active 2017-102018-08-12 Overview: hypertensio hypertensio 0-18 16:12:56 Blood n n 00:00: pressure 00 adequate l y controll e d. Continue home antihype r tensives and adjust a s necessar y . CHF CHF Condition Active 2017-102018-08-12 Ove rview: (congestive (congestive 018 16:13:08 He has a heart heart 00:00: preserve d failure) failure) 00 EF without signs suggesti v e of volume overload Type 2 Type 2 Condition Inactiv 2016-102017-09-24 diabetes diabetes e 2- 08:39:23 mellitus mellitus 00:00: without without 00 complicatio complicatio n ([facility] n ([facility] Type 2 Type 2 Condition Active 2016-102018-08-12 Ove rview: diabetes diabetes 2- 16:13:05 Resta rt mellitus mellitus 00:00: basal with with 00 bolus chronic chronic insulin kidney kidney and disease, disease, diabet ic with with diet. long-term long-term Seri al current use current use blood of insulin of insulin gross gars show goo d glycemic control. Benign Benign Condition Inactiv 2016-102017-09-18 prostatic prostatic e 11-18 07:46:01 hyperplasia hyperplasia 00:00: without without 00 lower lower urinary urinary tract tract symptoms symptoms Acquired Acquired Condition Inactiv 2016-102017-09-18 O verview: renal cyst renal cyst e 11-18 07:46:02 L eft of left of left 00:00: upper kidney kidney 00 pole Chronic Chronic Condition Inactiv 2016-102017-09-18 renal renal e 11-18 07:46:04 insufficien insufficien 00:00: cy, stage 3 cy, stage 3 00 (moderate) (moderate) ([facility] Renal Renal Condition Active 2016-102018-08-08 Ove rview: 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 Amirah lopez Microscopic Microscopic Condition Active 2016-102017-09-18 Overview: hematuria hematuria 11-18 07:46:07 Neg ative 00:00: workup September and cystosco p y with bilatera l retrogra d e pyelogra m s 7 negative for any signific a nt lesio n CKD stage 3 CKD stage 3 Condition Active 2016-102018-08-12 Overview: due to type due to type 11-18 16:13:02 Stable 2 diabetes 2 diabetes 00:00: BU N/creat mellitus mellitus 00 inine. He has been counsele d by Dr. Talha jennings g possible worsenin g CKD with coronary angiogra m . Avoid nephroto x ic agent . Maintain LEONEL inhibito r therapy for karin l protecti v e effect . Acquired Acquired [id number] Active 2016-102017-09-18 Ov erview: renal cyst renal cyst 11-18 07:46:02 L eft of left of left 00:00: upper kidney kidney 00 pole Peripheral Peripheral Condition Active 2018-08-08 Overview: vascular vascular 07-07 04:59:17 Overv iew: disease disease 00:00: Updated 00 invalid ICD 9 codes fo r ICD 10 g o live Dehydration Dehydration Finding Active Emesis Emesis Finding Inactiv e Left eye Left eye Finding Inactiv pain pain e Shingles Shingles Finding Inactiv e Sinus Sinus Finding Inactiv bradycardia bradycardia e UTI UTI Finding Inactiv (urinary (urinary e tract tract infection) infection) BPH (benign BPH (benign Finding Active prostatic prostatic hyperplasia hyperplasia ) ) Bipolar Bipolar Finding Active disorder disorder DVT DVT Finding Active prophylaxis prophylaxis IMO-PROB-55 IMO-PROB-55 Finding Active [id number] Diabetic Diabetic Finding Inactiv neuropathy neuropathy e Gout Gout Finding Inactiv e Hyperglycem Hyperglycem Finding Active ia due to ia due to type 2 type 2 diabetes diabetes mellitus mellitus Hyperlipide Hyperlipide Finding Inactiv aaron aaron e Hypertensio Hypertensio Finding Inactiv n n e Seizure Seizure Finding Inactiv disorder disorder e 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 Rash and Rash and Finding Inactiv nonspecific nonspecific e skin skin eruption eruption Bilateral Bilateral Finding Inactiv swelling of swelling of e feet feet Chronic Chronic Finding Inactiv renal renal e disease disease History of History of Finding Inactiv nephrectomy nephrectomy e , , unilateral unilateral Pulmonary Pulmonary Finding Inactiv nodule nodule e Right flank Right flank Finding Inactiv pain pain e At high At high Finding Inactiv risk for risk for e elopement elopement Chronic Chronic Finding Inactiv lumbar pain lumbar pain e Flank pain Flank pain Finding Inactiv e Low back Low back Finding Inactiv strain strain e Right flank Right flank Finding Inactiv pain, pain, e chronic chronic DVT DVT Finding Active prophylaxis prophylaxis Bilateral Bilateral Finding Inactiv swelling of swelling of e feet feet Chronic Chronic Finding Inactiv pain pain e Nausea and Nausea and Finding Active vomiting vomiting Procedures Procedure Date / Time Performed Performing Clinician Irene quigley [facility]/CURRENT MED MERGE 2019-12-04 00:00:00 transitional care management 2019-12-04 00:00:00 service [facility] MED/CURRENT MED MERGE 2019-12-04 00:00:00 transitional care management 2019-12-04 00:00:00 service ANNUAL DEPRESSION SCREENING 15 2019-11-26 00:00:00 MIN ANNUAL WELLNESS VST; [facility] 2019-11-26 00:00:00 SUBSQT VST ANNUAL DEPRESSION SCREENING 15 2019-11-26 00:00:00 MIN ANNUAL WELLNESS VST; [facility] 2019-11-26 00:00:00 SUBSQT VST ANNUAL DEPRESSION SCREENING 15 2019-11-26 00:00:00 MIN ANNUAL WELLNESS VST; [facility] 2019-11-26 00:00:00 SUBSQT VST [facility] MED/CURRENT MED MERGE 2019-09-25 00:00:00 POCT GLYCOSYLATED HEMOGLOBIN 2019-03-02 13:44:00 Marciano Ballard (HGB A1C) POCT URINALYSIS DIPSTICK 2018-11-26 09:07:00 Karolina Chris NM MYOCARDIAL PERFUSION SPECT 2018-11-06 12:39:26 Celena Palencia n [place] MULTIPLE NM MYOCARDIAL PERFUSION SPECT 2018-11-06 12:39:26 Celena Palencia n [place] MULTIPLE NM MYOCARDIAL PERFUSION SPECT 2018-11-06 12:39:26 Celena Palencia n [place] MULTIPLE NM MYOCARDIAL PERFUSION SPECT 2018-11-06 12:39:26 Celena Palencia [place] MULTIPLE POCT GLUCOSE, INTERFACED 2018-08-12 16:18:00 Norman Ramos POCT GLUCOSE, INTERFACED 2018-08-12 11:08:00 Norman Ramos BASIC METABOLIC PANEL 2018-08-12 11:02:00 Herb Palencias POCT GLUCOSE, INTERFACED 2018-08-12 06:10:00 Norman Ramos POCT GLUCOSE, INTERFACED 2018-08-12 00:07:00 Norman Ramos enee POCT GLUCOSE, INTERFACED 2018-08-11 18:17:00 Norman Ramos enee LEFT HEART CATHETERIZATION W 2018-08-11 15:33:22 Herb Palencia INTERVENTION POCT GLUCOSE, INTERFACED 2018-08-11 11:19:00 Norman Ramos enee BASIC METABOLIC PANEL 2018-08-11 05:59:00 Herb Palencias CBC 2018-08-11 05:59:00 Herb Palencia PROTIME-INR 2018-08-11 05:59:00 Herb Palencia APTT 2018-08-11 05:59:00 Herb Palencias POCT GLUCOSE, INTERFACED 2018-08-10 20:34:00 Dolly Wolfe Isy aku POCT GLUCOSE, INTERFACED 2018-08-10 16:52:00 Maggie Wolfeu Isy aku BASIC METABOLIC PANEL 2018-08-10 14:55:00 Herb Palencia [place] POCT GLUCOSE, INTERFACED 2018-08-10 12:37:00 Dolly Wolfe Isy aku POCT GLUCOSE, INTERFACED 2018-08-10 12:02:00 Maggie Wolfeu Isy aku ECG 12-LEAD 2018-08-10 07:17:11 Luciano Lopez Ch[place]wuem[place]a POCT GLUCOSE, INTERFACED 2018-08-10 05:38:00 Dolly Wolfe Isy aku POCT GLUCOSE, INTERFACED 2018-08-09 21:27:00 Maggie Wolfeu Isy aku POCT GLUCOSE, INTERFACED 2018-08-09 16:05:00 Maggie Wolfeu Isy aku POCT GLUCOSE, INTERFACED 2018-08-09 11:27:00 Maggie Wolfeu Isy aku ECG 12-LEAD 2018-08-09 07:40:47 Luciano Lopez [place] POCT GLUCOSE, INTERFACED 2018-08-09 06:38:00 Dolly Wolfe Isy aku POCT GLUCOSE, INTERFACED 2018-08-08 21:53:00 Maggie Wolfeu Isy aku POCT GLUCOSE, INTERFACED 2018-08-08 18:19:00 YanethDolly Isy aku POCT GLUCOSE, INTERFACED 2018-08-08 11:17:00 Dolly Wolfe Isy aku ECG 12-LEAD 2018-08-08 08:45:02 Luciano Lopezka POCT GLUCOSE, INTERFACED 2018-08-08 06:17:00 Dolly Wolfe Isalverto aku TROPONIN I 2018-08-08 05:46:00 Luciano Lopezueka BASIC METABOLIC PANEL 2018-08-08 02:42:00 Luciano Lopez LIPID PANEL 2018-08-08 02:42:00 Luciano Lopez HEMOGLOBIN A1C 2018-08-08 02:42:00 Luciano Lopezkyolandauemeka MAGNESIUM 2018-08-08 02:42:00 Luciano Lopezkyolandauemeka PHOSPHORUS 2018-08-08 02:42:00 Luciano Lopez TROPONIN I 2018-08-08 02:42:00 Luciano Lopez POCT GLUCOSE, INTERFACED 2018-08-08 00:42:00 Juaquin Lopez TROPONIN I 2018-08-08 00:03:00 Luciano Lopez DRUG SCREEN, URINE 2018-08-07 20:05:00 Quinton Velarde XR CHEST PORTABLE 2018-08-07 18:55:00 Susi Welsh VALPROIC ACID LEVEL, TOTAL 2018-08-07 18:29:00 Susi Welsh B-TYPE NATRIURETIC PEPTIDE 2018-08-07 18:29:00 Susi Welsh COMPREHENSIVE METABOLIC PANEL 2018-08-07 15:53:00 Susi Welsh CK TOTAL AND CKMB 2018-08-07 15:53:00 Susi Welsh CBC W/ AUTO DIFF 2018-08-07 15:53:00 Susi Welsh TROPONIN I 2018-08-07 15:53:00 BlaiseSusi LACTATE 2018-08-07 15:53:00 BlaiseSusi URINALYSIS 2018-08-07 15:47:00 BlaiseSusi ECG 12-LEAD 2018-08-07 15:45:54 BlaiseSusi URINALYSIS 2018-07-08 14:10:00 Bennett Medina COMPREHENSIVE METABOLIC PANEL 2018-07-08 12:49:00 Arnold, Orth opedic Pt For CBC W/ DIFFERENTIAL 2018-07-08 12:49:00 Arnold, Orthopedic Pt For POCT GLUCOSE 2018-07-08 12:37:00 Arnold, Orthopedic Pt For URINALYSIS 2018-04-12 11:27:00 Risa Gonsalez COMPREHENSIVE METABOLIC PANEL 2018-04-12 11:17:00 Melissa Gonsalez CBC W/ DIFFERENTIAL 2018-04-12 11:17:00 Risa Gonsalez ABDOMEN/KUB 2018-04-12 00:00:00 ROUTINE VENIPUNCTURE 2018-04-12 00:00:00 ROUTINE VENIPUNCTURE 2017-12-12 00:00:00 RENAL / KIDNEY + 2017-09-03 00:00:00 MRI Brain WWO Contrast 2017-07-24 00:00:00 POCT GLUCOSE 2017-06-03 14:35:00 Karolina Chris POCT GLUCOSE 2017-06-03 09:47:00 Karolina Chris PYELOGRAM RETROGRADE(SURGERY) 2017-06-03 00:00:00 CYSTOSCOPY 2017-06-03 00:00:00 ROUTINE VENIPUNCTURE 2017-06-03 00:00:00 ANESTH BLADDER SURGERY 2017-06-03 00:00:00 CBC 2017-05-28 17:01:00 Karolina Chris RENAL / KIDNEY + 2017-05-28 00:00:00 POCT GLUCOSE 2017-05-13 09:15:00 Arnold, Orthopedic Pt For SPINE LUMBAR LIMITED 2017-05-13 00:00:00 POCT GLUCOSE 2017-04-21 08:18:00 Arnold, Orthopedic Pt For POCT GLUCOSE 2017-04-21 07:42:00 Arnold, Orthopedic Pt For POCT GLUCOSE 2017-03-17 10:30:00 Wayneunc, Orthopedic Pt For URINALYSIS 2017-02-16 15:30:00 Leilani Johnson URINE MICROSCOPIC 2017-02-16 15:30:00 Leilani Johnson COMPREHENSIVE METABOLIC PANEL 2017-02-16 15:09:00 Leilani Johnson VALPROIC ACID LEVEL, TOTAL 2017-02-16 15:09:00 Leilani Johnson CBC W/ DIFFERENTIAL 2017-02-16 15:09:00 SoldierLeilani POCT GLUCOSE 2017-02-16 13:23:00 Wayneunc, Orthopedic Pt For Abd & Pelvis No Cont 2017-02-16 00:00:00 ROUTINE VENIPUNCTURE 2017-02-16 00:00:00 Urine Culture 2017-02-16 00:00:00 COMPREHENSIVE METABOLIC PANEL 2016-12-28 12:43:00 Leilani Johnson VALPROIC ACID LEVEL, TOTAL 2016-12-28 12:43:00 Leilani Johnson CK 2016-12-28 12:43:00 Leilani Johnson B-TYPE NATRIURETIC PEPTIDE 2016-12-28 12:43:00 Leilani Johnson CBC W/ DIFFERENTIAL 2016-12-28 12:43:00 Leilani Johnson URINALYSIS 2016-12-28 12:42:00 Leilani Johnson URINE MICROSCOPIC 2016-12-28 12:42:00 Leilani Johnson POCT GLUCOSE 2016-12-28 10:38:00 Wayneaicha, Orthopedic Pt For CHEST (PORTABLE)- OR 1 VIEW 2016-12-28 00:00:00 POCT GLUCOSE 2016-11-25 11:17:00 Quinton Guzman POCT GLUCOSE 2016-11-25 06:58:00 Quinton Guzman BASIC METABOLIC PANEL 2016-11-25 04:28:00 Josse Rodríguez CBC 2016-11-25 04:28:00 Josse Rodríguez POCT GLUCOSE 2016-11-24 21:08:00 Quinton Guzman POCT GLUCOSE 2016-11-24 15:57:00 Quinton Guzman POCT GLUCOSE 2016-11-24 11:37:00 Quinton Guzman POCT GLUCOSE 2016-11-24 07:37:00 Quinton Guzman BASIC METABOLIC PANEL 2016-11-24 04:46:00 Quinton Guzman CBC 2016-11-24 04:46:00 Quinton Guzman POCT GLUCOSE 2016-11-23 21:34:00 Quinton Guzman POCT GLUCOSE 2016-11-23 20:24:00 Orlandoneaicha, Orthopedic Pt For POCT GLUCOSE 2016-11-23 19:31:00 Wayneunc, Orthopedic Pt For POCT GLUCOSE 2016-11-23 18:39:00 Wayneunc, Orthopedic Pt For POCT GLUCOSE 2016-11-23 16:19:00 Orlandoneaicha, Orthopedic Pt For URINALYSIS 2016-11-23 15:15:00 Nikunj Zaman URINE MICROSCOPIC 2016-11-23 15:15:00 Nikunj Zaman COMPREHENSIVE METABOLIC PANEL 2016-11-23 12:41:00 Orlandoneaicha, Orth opedic Pt For CBC W/ DIFFERENTIAL 2016-11-23 12:41:00 Orlandoneaicha, Orthopedic Pt For VALPROIC ACID LEVEL, TOTAL 2016-11-23 12:38:00 Nikunj Zaman BASIC METABOLIC PANEL 2016-09-05 11:14:00 Karolina Chris PSA, DIAGNOSTIC 2016-09-05 11:14:00 Karolina Chris SPINE CERVICAL LIMITED 2016-08-16 00:00:00 LIPASE 2016-07-11 11:55:00 Tip Jorge TROPONIN I 2016-07-11 11:55:00 Tip Jorge COMPREHENSIVE METABOLIC PANEL 2016-07-11 10:57:00 Wayneunc, Orth opedic Pt For VALPROIC ACID LEVEL, TOTAL 2016-07-11 10:57:00 Wayneunc, Orthope dic Pt For CBC W/ DIFFERENTIAL 2016-07-11 10:54:00 Wayneunc, Orthopedic Pt For URINALYSIS 2016-07-11 10:45:00 Wayneunc, Orthopedic Pt For URINE MICROSCOPIC 2016-07-11 10:45:00 Wayneunc, Orthopedic Pt For Abd & Pelvis No Cont 2016-07-11 00:00:00 HEAD WITHOUT IV CONTRAST 2016-07-11 00:00:00 SPINE CERVICAL WITHOUT CONTRAS 2016-07-11 00:00:00 Urine Culture 2016-07-11 00:00:00 CHEST (PORTABLE)- OR 1 VIEW 2016-07-11 00:00:00 Blood Culture 2016-07-11 00:00:00 POCT GLUCOSE 2016-07-06 06:00:00 Walker Cadena SPINE CERVICAL X-TABLE 2016-07-06 00:00:00 REPAIR SPINAL MENINGES, OPEN 2016-07-06 00:00:00 APPROACH FUSION CERV JT W INTBD FUS 2016-07-06 00:00:00 DEV, ANT APPR A COL, OPEN EXCISION OF CERVICAL VERTEBRAL 2016-07-06 00:00:00 DISC, OPEN APPROACH ANESTH SPINE CORD SURGERY 2016-07-06 00:00:00 URINALYSIS 2016-07-03 06:30:00 Walker Cadena URINE MICROSCOPIC 2016-07-03 06:30:00 Walker Cadena BASIC METABOLIC PANEL 2016-07-02 14:41:00 Walker Cadena CBC 2016-07-02 14:41:00 Walker Cadena CHEST PA AND LATERAL 2016-07-02 00:00:00 MRI Cervical Spine WO Cont 2016-06-01 00:00:00 SPINE CERVICAL, ROUTINE 2016-06-01 00:00:00 POCT GLUCOSE 2016-05-12 14:40:00 Arnold Orthopedic Pt For MRI Lumbar Spine WWO Contrast 2016-01-23 00:00:00 Ofc Visit; Est Level 4 2015-10-20 00:00:00 Ofc Visit; Est Level 4 2015-09-29 00:00:00 Ofc Visit; Est Level 5 2015-09-23 00:00:00 Ofc Visit; Est Level 4 2015-09-08 00:00:00 Ofc Visit; Est Level 5 2015-09-01 00:00:00 OFFICE OUTPATIENT VISIT 2015-08-25 08:00:00 MINUTES OFFICE OUTPATIENT VISIT 2015-07-13 14:39:00 MINUTES OFFICE OUTPATIENT VISIT 2015-06-14 08:30:00 MINUTES Results Test Description Test Time Test Comments Text Results Atomic Results Result Comments URINALYSIS 2020-01-25 00:00:00 Test Item Value Reference Range Comments COLOR (test code = COLOR) YELLOW YELLOW CLARITY (test code = CLARITY) CLEAR CLEAR SPECIFICGRAVITY (test code = SPECIFICGRAVITY) 1.019 1. 005-1.025 pH (test code = pH) 5.0 5.0-8.5 URINEPROTEIN (test code = URINEPROTEIN) NEGATIVE NEGATIVE URINEGLUCOSE (test code = URINEGLUCOSE) NEGATIVE NEGATIVE URINEKETONE (test code = URINEKETONE) NEGATIVE NEGATIVE URINEBILIRUBIN (test code = URINEBILIRUBIN) NEGATIVE NEGA TIVE URINEBLOOD (test code = URINEBLOOD) NEGATIVE NEGATIVE URINENITRITE (test code = URINENITRITE) NEGATIVE NEGATIVE UROBILINOGEN (test code = UROBILINOGEN) 0.2 0.2-1.0 LEUKOCYTE (test code = LEUKOCYTE) NEGATIVE NEGATIVE *PleaseNote: (test code = *PleaseNote:) MICROALBUMIN/CREATINE [id number] 00:00:00 Test Item Value Reference Range Comments MICROALB/CREATRATIO (test code = 90287-0) 4 0-29 CREATININE,URINE (test code = CREATININE,URINE) 234 20-300 CBC + AUTOMATED [id number] 00:00:00 Test Item Value Reference Range Comments WBC (test code = WBC) 6.3 4.2-11.8 RBC (test code = RBC) 4.53 4.4-5.8 HEMOGLOBIN (test code = HEMOGLOBIN) 13.5 13.1-17.1 HEMATOCRIT (test code = HEMATOCRIT) 42 40-50.4 MCV (test code = MCV) 92 80.8-97.4 MCH (test code = MCH) 29.9 26.6-33.0 MCHC (test code = MCHC) 32.3 32-34.9 RDW (test code = RDW) 16.4 11.8-15.5 PLATELET (test code = PLATELET) 208 147-365 MPV (test code = MPV) 7.75 6.00-12.00 SEGMENTED% (test code = SEGMENTED%) 48.8 43.7-73.5 SEGMENTED# (test code = SEGMENTED#) 3.1 1.9-7.5 LYMPHOCYTES% (test code = LYMPHOCYTES%) 40.38 17.9-45. 1 LYMPHOCYTES# (test code = LYMPHOCYTES#) 2.5 1-4 MONOCYTES% (test code = MONOCYTES%) 9.6 3.8-10 MONOCYTES# (test code = MONOCYTES#) 0.6 0.2-0.9 EOSINOPHILS% (test code = EOSINOPHILS%) 0.90 0.0-6.1 EOSINOPHILS# (test code = EOSINOPHILS#) 0.06 0.0-0.5 BASOPHILS% (test code = BASOPHILS%) 0.35 0.0-0.9 BASOPHILS# (test code = BASOPHILS#) 0.02 0.0-0.1 COMPREHENSIVE [id number] 00:00:00 Test Item Value Reference Range Comments SODIUM (test code = SODIUM) 144 136-145 POTASSIUM (test code = POTASSIUM) 3.9 3.5-5.1 CHLORIDE (test code = CHLORIDE) 108 98-107 CARBONDIOXIDE (test code = CARBONDIOXIDE) 27.0 17-32 GLUCOSE (test code = GLUCOSE) 82 70-99 BUN (test code = BUN) 18 7-25 CREATININESERUM (test code = CREATININESERUM) 1.69 0. 7-1.3 BUN/CREATININERATIO (test code = BUN/CREATININERATIO) 11 8-28 BILIRUBIN,Total (test code = BILIRUBIN,Total) 0.6 0. 2-1.0 CALCIUM (test code = CALCIUM) 8.7 8.6-10.5 PROTEINTOTAL (test code = PROTEINTOTAL) 6.5 6.6-8.2 ALBUMIN (test code = ALBUMIN) 3.8 3.5-5.7 ALK.PHOSPHATASE (test code = ALK.PHOSPHATASE) 69 34 -104 ALT(SGPT) (test code = ALT(SGPT)) 7 7-52 AST(SGOT) (test code = AST(SGOT)) 14 11-39 GLOBULIN (test code = GLOBULIN) 2.7 1.8-4.0 A/GRATIO (test code = A/GRATIO) 1.4 0.8-2.7 GLOMERULARFILT.RATE (test code = GLOMERULARFILT.RATE) 44 >60 HEMOGLOBIN A1c (HGB AIC)2020-01-22 00:00:00 Test Item Value Reference Range Comments [id number](HGBAIC) (test code = 4548-4) 5.2 4.0-5 .6 LIPID [id number] 00:00:00 Test Item Value Reference Range Comments CHOLESTEROL (test code = CHOLESTEROL) 170 <200 TRIGLYCERIDES (test code = TRIGLYCERIDES) 260 10-149 HDLCHOLESTEROL (test code = HDLCHOLESTEROL) 31 40-1 99 LDL/HDLRATIO (test code = LDL/HDLRATIO) 2.81 0.00-4.9 7 LDLCHOLESTEROL,calc. (test code = 87 <100 LDLCHOLESTEROL,calc.) VLDLCHOLESTEROL,calc. (test code = 52 5-40 VLDLCHOLESTEROL,calc.) CHOLESTEROL/HDLRATIO (test code = 5.48 2.00-5.00 CHOLESTEROL/HDLRATIO) NON-HDLCHOLESTEROL (test code = NON-HDLCHOLESTEROL) 139 0-159 URIC [id number] 00:00:00 Test Item Value Reference Range Comments URICACID (test code = URICACID) 6.0 4.4-7.6 PTH [id number] 00:00:00 Test Item Value Reference Range Comments PTHINTACT (test code = PTHINTACT) 89 12.0-88.0 TSH + FREE [id number] 00:00:00 Test Item Value Reference Range Comments [id number] (test code = [id number]) 2.325 0.340-4.410 FREET4 (test code = FREET4) 0.71 0.61-1.12 LAB [id number] 00:00:00 Test Item Value Reference Range Comments PDF (test code = PDF) LAB CBC + AUTOMATED [id number] 00:00:00 Test Item Value Reference Range Comments WBC (test code = WBC) 6.9 4.2-11.8 RBC (test code = RBC) 4.06 4.4-5.8 HEMOGLOBIN (test code = HEMOGLOBIN) 12.5 13.1-17.1 HEMATOCRIT (test code = HEMATOCRIT) 38 40-50.4 MCV (test code = MCV) 95 80.8-97.4 MCH (test code = MCH) 30.8 26.6-33.0 MCHC (test code = MCHC) 32.6 32-34.9 RDW (test code = RDW) 15.0 11.8-15.5 PLATELET (test code = PLATELET) 177 147-365 MPV (test code = MPV) 8.90 6.00-12.00 SEGMENTED% (test code = SEGMENTED%) 44.4 43.7-73.5 SEGMENTED# (test code = SEGMENTED#) 3.1 1.9-7.5 LYMPHOCYTES% (test code = LYMPHOCYTES%) 45.50 17.9-45. 1 LYMPHOCYTES# (test code = LYMPHOCYTES#) 3.1 1-4 MONOCYTES% (test code = MONOCYTES%) 7.7 3.8-10 MONOCYTES# (test code = MONOCYTES#) 0.5 0.2-0.9 EOSINOPHILS% (test code = EOSINOPHILS%) 2.05 0.0-6.1 EOSINOPHILS# (test code = EOSINOPHILS#) 0.14 0.0-0.5 BASOPHILS% (test code = BASOPHILS%) 0.40 0.0-0.9 BASOPHILS# (test code = BASOPHILS#) 0.03 0.0-0.1 [facility]2020-02-06 00:00:00 Test Item Value Reference Range Comments SODIUM (test code = SODIUM) 142 136-145 POTASSIUM (test code = POTASSIUM) 4.3 3.5-5.1 CHLORIDE (test code = CHLORIDE) 105 98-107 CARBONDIOXIDE (test code = CARBONDIOXIDE) 26.0 17-32 GLUCOSE (test code = GLUCOSE) 74 70-99 BUN (test code = BUN) 45 7-25 CREATININESERUM (test code = CREATININESERUM) 2.50 0. 7-1.3 BUN/CREATININERATIO (test code = BUN/CREATININERATIO) 18 8-28 BILIRUBIN,Total (test code = BILIRUBIN,Total) 0.4 0. 2-1.0 CALCIUM (test code = CALCIUM) 8.7 8.6-10.5 PROTEINTOTAL (test code = PROTEINTOTAL) 6.8 6.6-8.2 ALBUMIN (test code = ALBUMIN) 4.0 3.5-5.7 ALK.PHOSPHATASE (test code = ALK.PHOSPHATASE) 70 34 -104 ALT(SGPT) (test code = ALT(SGPT)) 11 7-52 AST(SGOT) (test code = AST(SGOT)) 19 11-39 GLOBULIN (test code = GLOBULIN) 2.8 1.8-4.0 A/GRATIO (test code = A/GRATIO) 1.4 0.8-2.7 GLOMERULARFILT.RATE (test code = GLOMERULARFILT.RATE) 28 >60 HEMOGLOBIN A1c (HGB AIC)2019-11-26 00:00:00 Test Item Value Reference Range Comments [id number](HGBAIC) (test code = 4548-4) 5.2 4.0-5 .6 LIPID [id number] 00:00:00 Test Item Value Reference Range Comments CHOLESTEROL (test code = CHOLESTEROL) 148 <200 TRIGLYCERIDES (test code = TRIGLYCERIDES) 232 10-149 HDLCHOLESTEROL (test code = HDLCHOLESTEROL) 31 40-1 99 LDL/HDLRATIO (test code = LDL/HDLRATIO) 2.29 0.00-4.9 7 LDLCHOLESTEROL,calc. (test code = 71 <100 LDLCHOLESTEROL,calc.) VLDLCHOLESTEROL,calc. (test code = 46 5-40 VLDLCHOLESTEROL,calc.) CHOLESTEROL/HDLRATIO (test code = 4.77 2.00-5.00 CHOLESTEROL/HDLRATIO) NON-HDLCHOLESTEROL (test code = NON-HDLCHOLESTEROL) 117 0-159 URIC [id number] 00:00:00 Test Item Value Reference Range Comments URICACID (test code = URICACID) 5.5 4.4-7.6 [id number] 00:00:00 Test Item Value Reference Range Comments COLOR (test code = COLOR) YELLOW YELLOW CLARITY (test code = CLARITY) CLEAR CLEAR SPECIFICGRAVITY (test code = SPECIFICGRAVITY) 1.011 1. 005-1.025 pH (test code = pH) 5.0 5.0-8.5 URINEPROTEIN (test code = URINEPROTEIN) NEGATIVE NEGATIVE URINEGLUCOSE (test code = URINEGLUCOSE) NEGATIVE NEGATIVE URINEKETONE (test code = URINEKETONE) NEGATIVE NEGATIVE URINEBILIRUBIN (test code = URINEBILIRUBIN) NEGATIVE NEGA TIVE URINEBLOOD (test code = URINEBLOOD) NEGATIVE NEGATIVE URINENITRITE (test code = URINENITRITE) NEGATIVE NEGATIVE UROBILINOGEN (test code = UROBILINOGEN) 0.2 0.2-1.0 LEUKOCYTE (test code = LEUKOCYTE) NEGATIVE NEGATIVE *PleaseNote: (test code = *PleaseNote:) MICROALBUMIN/CREATINE [id number] 00:00:00 Test Item Value Reference Range Comments MICROALB/CREATRATIO (test code = 89039-4) 1 0-29 CREATININE,URINE (test code = CREATININE,URINE) 84 20-300 PTH [id number] 00:00:00 Test Item Value Reference Range Comments PTHINTACT (test code = PTHINTACT) 114 12.0-88.0 TSH + FREE [id number] 00:00:00 Test Item Value Reference Range Comments [id number] (test code = [id number]) 2.934 0.340-4.410 FREET4 (test code = FREET4) 0.81 0.61-1.12 LAB [id number] 00:00:00 Test Item Value Reference Range Comments PDF (test code = PDF) LAB CBC + AUTOMATED [id number] 00:00:00 Test Item Value Reference Range Comments WBC (test code = WBC) 6.9 4.2-11.8 RBC (test code = RBC) 4.06 4.4-5.8 HEMOGLOBIN (test code = HEMOGLOBIN) 12.5 13.1-17.1 HEMATOCRIT (test code = HEMATOCRIT) 38 40-50.4 MCV (test code = MCV) 95 80.8-97.4 MCH (test code = MCH) 30.8 26.6-33.0 MCHC (test code = MCHC) 32.6 32-34.9 RDW (test code = RDW) 15.0 11.8-15.5 PLATELET (test code = PLATELET) 177 147-365 MPV (test code = MPV) 8.90 6.00-12.00 SEGMENTED% (test code = SEGMENTED%) 44.4 43.7-73.5 SEGMENTED# (test code = SEGMENTED#) 3.1 1.9-7.5 LYMPHOCYTES% (test code = LYMPHOCYTES%) 45.50 17.9-45. 1 LYMPHOCYTES# (test code = LYMPHOCYTES#) 3.1 1-4 MONOCYTES% (test code = MONOCYTES%) 7.7 3.8-10 MONOCYTES# (test code = MONOCYTES#) 0.5 0.2-0.9 EOSINOPHILS% (test code = EOSINOPHILS%) 2.05 0.0-6.1 EOSINOPHILS# (test code = EOSINOPHILS#) 0.14 0.0-0.5 BASOPHILS% (test code = BASOPHILS%) 0.40 0.0-0.9 BASOPHILS# (test code = BASOPHILS#) 0.03 0.0-0.1 COMPREHENSIVE [id number] 00:00:00 Test Item Value Reference Range Comments SODIUM (test code = SODIUM) 142 136-145 POTASSIUM (test code = POTASSIUM) 4.3 3.5-5.1 CHLORIDE (test code = CHLORIDE) 105 98-107 CARBONDIOXIDE (test code = CARBONDIOXIDE) 26.0 17-32 GLUCOSE (test code = GLUCOSE) 74 70-99 BUN (test code = BUN) 45 7-25 CREATININESERUM (test code = CREATININESERUM) 2.50 0. 7-1.3 BUN/CREATININERATIO (test code = BUN/CREATININERATIO) 18 8-28 BILIRUBIN,Total (test code = BILIRUBIN,Total) 0.4 0. 2-1.0 CALCIUM (test code = CALCIUM) 8.7 8.6-10.5 PROTEINTOTAL (test code = PROTEINTOTAL) 6.8 6.6-8.2 ALBUMIN (test code = ALBUMIN) 4.0 3.5-5.7 ALK.PHOSPHATASE (test code = ALK.PHOSPHATASE) 70 34 -104 ALT(SGPT) (test code = ALT(SGPT)) 11 7-52 AST(SGOT) (test code = AST(SGOT)) 19 11-39 GLOBULIN (test code = GLOBULIN) 2.8 1.8-4.0 A/GRATIO (test code = A/GRATIO) 1.4 0.8-2.7 GLOMERULARFILT.RATE (test code = GLOMERULARFILT.RATE) 28 >60 HEMOGLOBIN A1c (HGB AIC)2019-11-26 00:00:00 Test Item Value Reference Range Comments [id number](HGBAIC) (test code = 4548-4) 5.2 4.0-5 .6 LIPID [id number] 00:00:00 Test Item Value Reference Range Comments CHOLESTEROL (test code = CHOLESTEROL) 148 <200 TRIGLYCERIDES (test code = TRIGLYCERIDES) 232 10-149 HDLCHOLESTEROL (test code = HDLCHOLESTEROL) 31 40-1 99 LDL/HDLRATIO (test code = LDL/HDLRATIO) 2.29 0.00-4.9 7 LDLCHOLESTEROL,calc. (test code = 71 <100 LDLCHOLESTEROL,calc.) VLDLCHOLESTEROL,calc. (test code = 46 5-40 VLDLCHOLESTEROL,calc.) CHOLESTEROL/HDLRATIO (test code = 4.77 2.00-5.00 CHOLESTEROL/HDLRATIO) NON-HDLCHOLESTEROL (test code = NON-HDLCHOLESTEROL) 117 0-159 URIC [id number] 00:00:00 Test Item Value Reference Range Comments URICACID (test code = URICACID) 5.5 4.4-7.6 [id number] 00:00:00 Test Item Value Reference Range Comments COLOR (test code = COLOR) YELLOW YELLOW CLARITY (test code = CLARITY) CLEAR CLEAR SPECIFICGRAVITY (test code = SPECIFICGRAVITY) 1.011 1. 005-1.025 pH (test code = pH) 5.0 5.0-8.5 URINEPROTEIN (test code = URINEPROTEIN) NEGATIVE NEGATIVE URINEGLUCOSE (test code = URINEGLUCOSE) NEGATIVE NEGATIVE URINEKETONE (test code = URINEKETONE) NEGATIVE NEGATIVE URINEBILIRUBIN (test code = URINEBILIRUBIN) NEGATIVE NEGA TIVE URINEBLOOD (test code = URINEBLOOD) NEGATIVE NEGATIVE URINENITRITE (test code = URINENITRITE) NEGATIVE NEGATIVE UROBILINOGEN (test code = UROBILINOGEN) 0.2 0.2-1.0 LEUKOCYTE (test code = LEUKOCYTE) NEGATIVE NEGATIVE *PleaseNote: (test code = *PleaseNote:) MICROALBUMIN/CREATINE [id number] 00:00:00 Test Item Value Reference Range Comments MICROALB/CREATRATIO (test code = 36449-0) 1 0-29 CREATININE,URINE (test code = CREATININE,URINE) 84 20-300 PTH [id number] 00:00:00 Test Item Value Reference Range Comments PTHINTACT (test code = PTHINTACT) 114 12.0-88.0 TSH + FREE [id number] 00:00:00 Test Item Value Reference Range Comments [id number] (test code = [id number]) 2.934 0.340-4.410 FREET4 (test code = FREET4) 0.81 0.61-1.12 LAB [id number] 00:00:00 Test Item Value Reference Range Comments PDF (test code = PDF) LAB CBC + AUTOMATED [id number] 00:00:00 Test Item Value Reference Range Comments WBC (test code = WBC) 6.9 4.2-11.8 RBC (test code = RBC) 4.06 4.4-5.8 HEMOGLOBIN (test code = HEMOGLOBIN) 12.5 13.1-17.1 HEMATOCRIT (test code = HEMATOCRIT) 38 40-50.4 MCV (test code = MCV) 95 80.8-97.4 MCH (test code = MCH) 30.8 26.6-33.0 MCHC (test code = MCHC) 32.6 32-34.9 RDW (test code = RDW) 15.0 11.8-15.5 PLATELET (test code = PLATELET) 177 147-365 MPV (test code = MPV) 8.90 6.00-12.00 SEGMENTED% (test code = SEGMENTED%) 44.4 43.7-73.5 SEGMENTED# (test code = SEGMENTED#) 3.1 1.9-7.5 LYMPHOCYTES% (test code = LYMPHOCYTES%) 45.50 17.9-45. 1 LYMPHOCYTES# (test code = LYMPHOCYTES#) 3.1 1-4 MONOCYTES% (test code = MONOCYTES%) 7.7 3.8-10 MONOCYTES# (test code = MONOCYTES#) 0.5 0.2-0.9 EOSINOPHILS% (test code = EOSINOPHILS%) 2.05 0.0-6.1 EOSINOPHILS# (test code = EOSINOPHILS#) 0.14 0.0-0.5 BASOPHILS% (test code = BASOPHILS%) 0.40 0.0-0.9 BASOPHILS# (test code = BASOPHILS#) 0.03 0.0-0.1 COMPREHENSIVE [id number] 00:00:00 Test Item Value Reference Range Comments SODIUM (test code = SODIUM) 142 136-145 POTASSIUM (test code = POTASSIUM) 4.3 3.5-5.1 CHLORIDE (test code = CHLORIDE) 105 98-107 CARBONDIOXIDE (test code = CARBONDIOXIDE) 26.0 17-32 GLUCOSE (test code = GLUCOSE) 74 70-99 BUN (test code = BUN) 45 7-25 CREATININESERUM (test code = CREATININESERUM) 2.50 0. 7-1.3 BUN/CREATININERATIO (test code = BUN/CREATININERATIO) 18 8-28 BILIRUBIN,Total (test code = BILIRUBIN,Total) 0.4 0. 2-1.0 CALCIUM (test code = CALCIUM) 8.7 8.6-10.5 PROTEINTOTAL (test code = PROTEINTOTAL) 6.8 6.6-8.2 ALBUMIN (test code = ALBUMIN) 4.0 3.5-5.7 ALK.PHOSPHATASE (test code = ALK.PHOSPHATASE) 70 34 -104 ALT(SGPT) (test code = ALT(SGPT)) 11 7-52 AST(SGOT) (test code = AST(SGOT)) 19 11-39 GLOBULIN (test code = GLOBULIN) 2.8 1.8-4.0 A/GRATIO (test code = A/GRATIO) 1.4 0.8-2.7 GLOMERULARFILT.RATE (test code = GLOMERULARFILT.RATE) 28 >60 HEMOGLOBIN A1c (HGB AIC)[id number] 00:00:00 Test Item Value Reference Range Comments [id number](HGBAIC) (test code = 4548-4) 5.2 4.0-5 .6 LIPID [id number] 00:00:00 Test Item Value Reference Range Comments CHOLESTEROL (test code = CHOLESTEROL) 148 <200 TRIGLYCERIDES (test code = TRIGLYCERIDES) 232 10-149 HDLCHOLESTEROL (test code = HDLCHOLESTEROL) 31 40-1 99 LDL/HDLRATIO (test code = LDL/HDLRATIO) 2.29 0.00-4.9 7 LDLCHOLESTEROL,calc. (test code = 71 <100 LDLCHOLESTEROL,calc.) VLDLCHOLESTEROL,calc. (test code = 46 5-40 VLDLCHOLESTEROL,calc.) CHOLESTEROL/HDLRATIO (test code = 4.77 2.00-5.00 CHOLESTEROL/HDLRATIO) NON-HDLCHOLESTEROL (test code = NON-HDLCHOLESTEROL) 117 0-159 URIC [id number] 00:00:00 Test Item Value Reference Range Comments URICACID (test code = URICACID) 5.5 4.4-7.6 [id number] 00:00:00 Test Item Value Reference Range Comments COLOR (test code = COLOR) YELLOW YELLOW CLARITY (test code = CLARITY) CLEAR CLEAR SPECIFICGRAVITY (test code = SPECIFICGRAVITY) 1.011 1. 005-1.025 pH (test code = pH) 5.0 5.0-8.5 URINEPROTEIN (test code = URINEPROTEIN) NEGATIVE NEGATIVE URINEGLUCOSE (test code = URINEGLUCOSE) NEGATIVE NEGATIVE URINEKETONE (test code = URINEKETONE) NEGATIVE NEGATIVE URINEBILIRUBIN (test code = URINEBILIRUBIN) NEGATIVE NEGA TIVE URINEBLOOD (test code = URINEBLOOD) NEGATIVE NEGATIVE URINENITRITE (test code = URINENITRITE) NEGATIVE NEGATIVE UROBILINOGEN (test code = UROBILINOGEN) 0.2 0.2-1.0 LEUKOCYTE (test code = LEUKOCYTE) NEGATIVE NEGATIVE *PleaseNote: (test code = *PleaseNote:) MICROALBUMIN/CREATINE [id number] 00:00:00 Test Item Value Reference Range Comments MICROALB/CREATRATIO (test code = 97197-7) 1 0-29 CREATININE,URINE (test code = CREATININE,URINE) 84 20-300 PTH [id number] 00:00:00 Test Item Value Reference Range Comments PTHINTACT (test code = PTHINTACT) 114 12.0-88.0 TSH + FREE [id number] 00:00:00 Test Item Value Reference Range Comments [id number] (test code = [id number]) 2.934 0.340-4.410 FREET4 (test code = FREET4) 0.81 0.61-1.12 LAB [id number] 00:00:00 Test Item Value Reference Range Comments PDF (test code = PDF) LAB CBC + AUTOMATED [id number] 00:00:00 Test Item Value Reference Range Comments WBC (test code = WBC) 4.4 4.2-11.8 RBC (test code = RBC) 4.13 4.4-5.8 HEMOGLOBIN (test code = HEMOGLOBIN) 13.2 13.1-17.1 HEMATOCRIT (test code = HEMATOCRIT) 39 40-50.4 MCV (test code = MCV) 96 80.8-97.4 MCH (test code = MCH) 31.9 26.6-33.0 MCHC (test code = MCHC) 33.3 32-34.9 RDW (test code = RDW) 15.9 11.8-15.5 PLATELET (test code = PLATELET) 211 147-365 MPV (test code = MPV) 7.53 6.00-12.00 SEGMENTED% (test code = SEGMENTED%) 47.9 43.7-73.5 SEGMENTED# (test code = SEGMENTED#) 2.1 1.9-7.5 LYMPHOCYTES% (test code = LYMPHOCYTES%) 34.14 17.9-45. 1 LYMPHOCYTES# (test code = LYMPHOCYTES#) 1.5 1-4 MONOCYTES% (test code = MONOCYTES%) 13.7 3.8-10 MONOCYTES# (test code = MONOCYTES#) 0.6 0.2-0.9 EOSINOPHILS% (test code = EOSINOPHILS%) 3.74 0.0-6.1 EOSINOPHILS# (test code = EOSINOPHILS#) 0.16 0.0-0.5 BASOPHILS% (test code = BASOPHILS%) 0.55 0.0-0.9 BASOPHILS# (test code = BASOPHILS#) 0.02 0.0-0.1 [facility] [facility] [id number] 00:00:00 Test Item Value Reference Range Comments SODIUM (test code = SODIUM) 143 136-145 POTASSIUM (test code = POTASSIUM) 4.3 3.5-5.1 CHLORIDE (test code = CHLORIDE) 108 98-107 CARBONDIOXIDE (test code = CARBONDIOXIDE) 22.0 17-32 GLUCOSE (test code = GLUCOSE) 113 70-99 BUN (test code = BUN) 45 7-25 CREATININESERUM (test code = CREATININESERUM) 2.24 0. 7-1.3 BUN/CREATININERATIO (test code = BUN/CREATININERATIO) 20 8-28 BILIRUBIN,Total (test code = BILIRUBIN,Total) 0.8 0. 2-1.0 CALCIUM (test code = CALCIUM) 8.5 8.6-10.5 PROTEINTOTAL (test code = PROTEINTOTAL) 7.1 6.6-8.2 ALBUMIN (test code = ALBUMIN) 3.9 3.5-5.7 ALK.PHOSPHATASE (test code = ALK.PHOSPHATASE) 77 34 -104 ALT(SGPT) (test code = ALT(SGPT)) 30 7-52 AST(SGOT) (test code = AST(SGOT)) 44 11-39 GLOBULIN (test code = GLOBULIN) 3.2 1.8-4.0 A/GRATIO (test code = A/GRATIO) 1.2 0.8-2.7 GLOMERULARFILT.RATE (test code = GLOMERULARFILT.RATE) 32 >60 CPK(CREATININE KINASE)2019-09-15 00:00:00 Test Item Value Reference Range Comments CPK(CREATINEKINASE) (test code = CPK(CREATINEKINASE)) 220 23-223 HEMOGLOBIN A1c (HGB AIC)2019-09-15 00:00:00 Test Item Value Reference Range Comments [id number](HGBAIC) (test code = 4548-4) 6.7 4.0-5 .6 LIPID [id number] 00:00:00 Test Item Value Reference Range Comments CHOLESTEROL (test code = CHOLESTEROL) 193 <200 TRIGLYCERIDES (test code = TRIGLYCERIDES) 402 10-149 HDLCHOLESTEROL (test code = HDLCHOLESTEROL) 27 40-1 99 LDL/HDLRATIO (test code = LDL/HDLRATIO) 3.19 0.00-4.9 7 VLDLCHOLESTEROL,calc. (test code = 80 5-40 VLDLCHOLESTEROL,calc.) CHOLESTEROL/HDLRATIO (test code = 7.15 2.00-5.00 CHOLESTEROL/HDLRATIO) NON-HDLCHOLESTEROL (test code = NON-HDLCHOLESTEROL) 166 0-159 URIC [id number] 00:00:00 Test Item Value Reference Range Comments URICACID (test code = URICACID) 8.0 4.4-7.6 [id number] 00:00:00 Test Item Value Reference Range Comments COLOR (test code = COLOR) YELLOW YELLOW CLARITY (test code = CLARITY) CLEAR CLEAR SPECIFICGRAVITY (test code = SPECIFICGRAVITY) 1.011 1. 005-1.025 pH (test code = pH) 5.0 5.0-8.5 URINEPROTEIN (test code = URINEPROTEIN) NEGATIVE NEGATIVE URINEGLUCOSE (test code = URINEGLUCOSE) NEGATIVE NEGATIVE URINEKETONE (test code = URINEKETONE) NEGATIVE NEGATIVE URINEBILIRUBIN (test code = URINEBILIRUBIN) NEGATIVE NEGA TIVE URINEBLOOD (test code = URINEBLOOD) NEGATIVE NEGATIVE URINENITRITE (test code = URINENITRITE) NEGATIVE NEGATIVE UROBILINOGEN (test code = UROBILINOGEN) 0.2 0.2-1.0 LEUKOCYTE (test code = LEUKOCYTE) NEGATIVE NEGATIVE *PleaseNote: (test code = *PleaseNote:) MICROALBUMIN/CREATINE [id number] 00:00:00 Test Item Value Reference Range Comments MICROALB/CREATRATIO (test code = 01796-5) 8 0-29 CREATININE,URINE (test code = CREATININE,URINE) 56 20-300 TSH + FREE [id number] 00:00:00 Test Item Value Reference Range Comments [id number] (test code = [id number]) 1.814 0.340-4.410 FREET4 (test code = FREET4) 0.61 0.61-1.12 LAB [id number] 00:00:00 Test Item Value Reference Range Comments PDF (test code = PDF) LAB #[id number] 09:44:00 Test Item Value Reference Range Comments Hemoglobin A1C (test code = Hemoglobin A1C) 5.6 % 4- 6 % A1C LOT NBR (test code = A1C LOT NBR) [id number] A1C STRIP EXP (test code = A1C STRIP EXP) [id number] POCT urinalysis [id number] 09:07:00 Test Item Value Reference Range Comments Color, UA (test code = Color, UA) Yellow Clarity, UA (test code = Clarity, UA) Glucose, UA (test code = Glucose, UA) Negative Negative Bilirubin, UA (test code = Bilirubin, UA) Negative Negati ve Ketones, POC (test code = Ketones, POC) Negative Negative Spec Grav, UA (test code = Spec Grav, UA) 1.015 1.005- 1.030 Blood, UA (test code = Blood, UA) Trace-intact Negative pH, UA (test code = pH, UA) 5.5 5.0-9.0 Protein, UA (test code = Protein, UA) Negative Negative Urobilinogen, UA (test code = 0.2 mg/dL Negative (0.2 mg/d L) Urobilinogen, UA) Leukocytes, UA (test code = Leukocytes, Negative Negative UA) Nitrite, UA (test code = Nitrite, UA) Negative Negative STRIP LOT NUMBER (test code = STRIP LOT [id number] NUMBER) STRIP LOT EXPIRATION (test code = STRIP 09/19/19 LOT EXPIRATION) NM Myocardial Perfusion Spect [id number] 09:45:00NM Myocardial Perfusion Spect Multiple (11/06/2018 12:39 PM) Narrative Performed At Myocardial Perfusion Report [address] [place] [address] LO ENCARNACION Exam Date: 11/06/2018 09:45 Ordering Physician: HERB PALENCIA([id number]) Age: 58 Gender: M Exam Location: [facility] Referring Physician: HERB PALENCIA : 1960 Ht (in): 70 Wt (lb): 208 Technol ogist: MARIAN Hendricks(N) Technologist: Teresa Moncada RRT,RC Procedure CPT: Indications: chest pain- ICD Codes: IMPRESSIONS & RECOMMENDATIONS Myocardial perfusion imaging is normal. Normal left ventricular systolic function. The ejection fraction at rest is 60% Cardiac History: IA, NEGATIVE CATH 07/2018 Cardiac Meds: coreg asa lisinopril lasix Meds past 24 hrs: tramadol gabapentin tresiba victoza dipakene zyloprim asa lipitor coreg lasix novolog esordil lisinopril kcl flomax Technique / Intravenous access using saline lock was established prior to the procedure and maintained throughout. At Imaging Protocol: rest, the patient was intravenously administered Tc-99m Sestamibi per protocol. Approximately 45-60 minutes after the injection the patient underwent REST SPECT imaging per protocol. The patient was then brought to the stress lab and given intravenously Lexican/Regadenoson over 10 seconds, followed immediately by 5 ml saline flush an then received Stress Tc-99m Sest amibi intravenously at peak pharmacologic effect per protocol. Aminophylline was available. The postpharmacologic STRESS SPECT images were obtained approximately 45-60 minutes post tracer injection. The stress SPECT study was gated to evaluate regional wall motion and calculate the LV ejection fraction. The data was reconstructed in the short, horizontal long and vertical long axis and tomographic slices were generated. STRESS TEST Pharmacologic Protocol: Lexiscan Dose: 0.4 mg Resting HR (bpm): 57 Resting BP (mmHg): 149 / 87 MaxPHR: 160 Target HR 136 (bpm): Peak HR (bpm): 71 Peak BP (mmHg): 168 / 94 % MaxPHR: 44 Double Product: 38608 BP Response: Stress Termination: Regadenosine infusion complete Stress Symptoms: ECG Resting ECG: NSR, WNL Stress ECG: No ischemia noted IMAGE PROTOCOL Rest/Stress 1 Day Radiopharmaceutical Dose (mCi) ImagingDate Rest: Tc-99m Sestamibi IV 10.5 11/06/2018 Stress:Tc-99m Sestamibi IV 32.1 11/06/2018 Patient Injected at: 1021 TM Protocol Post-Injection Exercise: Person Administering: SPECT RESULTS Technical Quality: Technically adequate study Raw Data Analysis: PERFUSION: FUNCTIONAL RESULTS (calculated via Gated SPECT) Stress Image LV EF: 61 % EDV: 87 ml EDVI: 40 ml/m TID: 0.94 ESV: 33 ml ESVI: 15 ml/m Herb Bruno (Electronically Signed) Final Date: 06 November 2018 13:33 [facility] Procedure Note Interface, Rad Results In - 11/06/2018 1:34 PM EST Myocardial Perfusion Report [address] [place] [address] [place] ENCARNACION Exam Date: 11/06/2018 09:45 Ordering Physician: HERB PALENCIA ([id number]) Age: 58 Gender: M Exam Location: [facility] Referring Physician: HERB PALENCIA : 1960 Ht (in): 70 Wt (lb): 208 Technologist: MARIAN Hendricks(N) Technologist: Teresa Moncada HAND COLLATOR,RC Procedure CPT: Indications: chest pain- ICD Codes: IMPRESSIONS & RECOMMENDATIONS Myocardial perfusion imaging is normal. Normal left ventricular systolic function. Theejection fraction at rest is 60% Cardiac History: IA, NEGATIVE CATH 07/2018 Cardiac Meds: coreg asa lisinopril lasix Meds past 24 hrs: tramadol gabapentin tresiba victoza dipakene zyloprim asa lipitor coreg lasix novolog esordil lisinopril kcl flomax Technique / Intravenous access using saline lock was established prior to the procedure and maintained throughout. At Imaging Protocol: rest, the patient was intravenously administered Tc-99m Sestamibi per protocol. Approximately 45-60 minutes after theinjection the patient underwent REST SPECT imaging per protocol. The patient was then brought to thestress lab and given intravenously Lexican/Regadenoson over 10 seconds, followed immediately by 5 mlsaline flush an then received Stress Tc-99m Sestamibi intravenously at peak pharmacologic effect perprotocol. Aminophylline was available. The post pharmacologic STRESS SPECT images were obtained approximately 45-60 minutes post tracer injection. The stress SPECT study was gated to evaluate regional wall motion and calculate the LV ejection fraction. The data was reconstructed in the short, horizontal long and vertical long axis and tomographic slices were generated. STRESS TEST Pharmacologic Protocol: Lexiscan Dose: 0.4 mg Resting HR (bpm): 57 Resting BP (mmHg): 149 / 87 MaxPHR: 160 Target HR 136(bpm): Peak HR (bpm): 71 Peak BP (mmHg): 168 / 94 % MaxPHR: 44 Double Product: 24434 BP Response: Stress Termination: Regadenosine infusion complete Stress Symptoms: ECG Resting ECG: NSR, WNL Stress ECG: No ischemia noted IMAGE PROTOCOL Rest/Stress 1 Day Radiopharmaceutical Dose (mCi) Imaging Date Rest: Tc-99m Sestamibi IV 10.5 11/06/2018 Stress: Tc-99m Sestamibi IV 32.1 11/06/2018 Patient Injected at:1021 TM Protocol Post-Injection Exercise: Person Administering: SPECT RESULTS Technical Quality: Technically adequate study Raw Data Analysis: PERFUSION: FUNCTIONAL RESULTS (calculated via Gated SPECT)Stress Image LV EF: 61 % EDV: 87 ml EDVI: 40 ml/m TID: 0.94 ESV: 33 ml ESVI: 15 ml/m Herb Palencia MD (Electronically Signed) Final Date: 06 November 2018 13:33 Performing Organization Address City/ State/Zipcode Phone Number [facility] [address] [facility]. [place], [place] [address]XZLZ [id number] 16:18:00 Test Item Value Reference Range Comments Glucose, POC (test code = Glucose, POC) 114 mg/dL 70- 110 mg/dL Clerical Dentist Assistant ID (test code = Clerical Dentist Assistant ID) KADI MURRAY POCT [id number] 11:08:00 Test Item Value Reference Range Comments Glucose, POC (test code = Glucose, POC) 212 mg/dL 70- 110 mg/dL Clerical Dentist Assistant ID (test code = Clerical Dentist Assistant ID) KADI MURRAY Basic Metabolic [id number] 11:02:00 Test Item Value Reference Range Comments Sodium (test code = Sodium) 142 mmol/L 135- 153 mmol/L Potassium (test code = Potassium) 3.8 mmol/L 3.5- 5.3 mmol/ L Chloride (test code = Chloride) 107 mmol/L 96- 112 mmol/L CO2 (test code = CO2) 25.0 mmol/L 23.0- 33.0 mmol/L BUN (test code = BUN) 18 mg/dL 7- 22 mg/dL Creatinine (test code = Creatinine) 1.50 mg/dL 0.50- 1.20 m g/dL BUN/Creatinine Ratio (test code = 12 15-24 BUN/Creatinine Ratio) EGFR MDRD Non Af Amer (test code = EGFR 48 mL/min/1.73m2 >=60 mL /min/1.73m2 MDRD Non Af Amer) EGFR MDRD Af Amer (test code = EGFR MDRD 58 mL/min/1.73m2 >=60 m L/min/1.73m2 Af Amer) Anion Gap (test code = Anion Gap) 10 mmol/L 5- 15 mmol/L Glucose (test code = Glucose) 211 mg/dL 70- 110 mg/dL Calcium (test code = Calcium) 9.2 mg/dL 8.7- 10.7 mg/dL OSMOCALC (test code = OSMOCALC) 291 mOsm/kg 266- 308 mOsm/kg POCT [id number] 06:10:00 Test Item Value Reference Range Comments Glucose, POC (test code = Glucose, POC) 127 mg/dL 70- 110 mg/dL Clerical Dentist Assistant ID (test code = Clerical Dentist Assistant ID) DEQUAN REILLY POCT [id number] 00:07:00 Test Item Value Reference Range Comments Glucose, POC (test code = Glucose, POC) 162 mg/dL 70- 110 mg/dL Clerical Dentist Assistant ID (test code = Clerical Dentist Assistant ID) DEQUAN REILLY POCT [id number] 18:17:00 Test Item Value Reference Range Comments Glucose, POC (test code = Glucose, POC) 213 mg/dL 70- 110 mg/dL Clerical Dentist Assistant ID (test code = Clerical Dentist Assistant ID) KADI MURRAY POCT [id number] 11:19:00 Test Item Value Reference Range Comments Glucose, POC (test code = Glucose, POC) 144 mg/dL 70- 110 mg/dL Clerical Dentist Assistant ID (test code = Clerical Dentist Assistant ID) KADI MURRAY [id number] 05:59:00 Test Item Value Reference Range Comments APTT (test code = APTT) 25.5 sec 20.7- 28.5 sec Basic Metabolic [id number] 05:59:00 Test Item Value Reference Range Comments Sodium (test code = Sodium) 147 mmol/L 135- 153 mmol/L Potassium (test code = Potassium) 3.5 mmol/L 3.5- 5.3 mmol/ L Chloride (test code = Chloride) 109 mmol/L 96- 112 mmol/L CO2 (test code = CO2) 29.0 mmol/L 23.0- 33.0 mmol/L BUN (test code = BUN) 12 mg/dL 7- 22 mg/dL Creatinine (test code = Creatinine) 1.70 mg/dL 0.50- 1.20 m g/dL BUN/Creatinine Ratio (test code = 7 15-24 BUN/Creatinine Ratio) EGFR MDRD Non Af Amer (test code = EGFR 41 mL/min/1.73m2 >=60 mL /min/1.73m2 MDRD Non Af Amer) EGFR MDRD Af Amer (test code = EGFR MDRD 50 mL/min/1.73m2 >=60 m L/min/1.73m2 Af Amer) Anion Gap (test code = Anion Gap) 9 mmol/L 5- 15 mmol/L Glucose (test code = Glucose) 102 mg/dL 70- 110 mg/dL Calcium (test code = Calcium) 8.4 mg/dL 8.7- 10.7 mg/dL OSMOCALC (test code = OSMOCALC) 292 mOsm/kg 266- 308 mOsm/kg [id number] 05:59:00 Test Item Value Reference Range Comments WBC (test code = WBC) 4.5 10*9/L 4.5- 13.0 10*9/L RBC (test code = RBC) 4.48 10*12/L 3.10- 5.80 10*12/L HGB (test code = HGB) 13.6 g/dL 12.0- 16.9 g/dL HCT (test code = HCT) 39.7 % 36.0- 49.0 % MCV (test code = MCV) 88.5 fL 78.0- 100.0 fL MCH (test code = MCH) 30.3 pg 25.0- 35.0 pg MCHC (test code = MCHC) 34.2 g/dL 31.0- 36.0 g/dL RDW (test code = RDW) 13.9 % 11.0- 15.0 % MPV (test code = MPV) 7.5 fL 6.0- 9.5 fL Platelet (test code = Platelet) 141 10*9/L 140- 400 10*9/L [id number] 05:59:00 Test Item Value Reference Range Comments PT (test code = PT) 11.0 sec 9.7- 11.5 sec INR (test code = INR) 1.09 2.00-3.00 POCT [id number] 20:34:00 Test Item Value Reference Range Comments Glucose, POC (test code = Glucose, 137 mg/dL 70- 110 mg/dL POC) Clerical Dentist Assistant ID (test code = Clerical Dentist Assistant ID) ROSALINDA-NATASHA BOWERSA POCT [id number] 16:52:00 Test Item Value Reference Range Comments Glucose, POC (test code = Glucose, POC) 115 mg/dL 70- 110 mg/dL Clerical Dentist Assistant ID (test code = Clerical Dentist Assistant ID) [facility] Basic Metabolic [id number] 14:55:00 Test Item Value Reference Range Comments Sodium (test code = Sodium) 144 mmol/L 135- 153 mmol/L Potassium (test code = Potassium) 3.8 mmol/L 3.5- 5.3 mmol/ L Chloride (test code = Chloride) 105 mmol/L 96- 112 mmol/L CO2 (test code = CO2) 31.0 mmol/L 23.0- 33.0 mmol/L BUN (test code = BUN) 12 mg/dL 7- 22 mg/dL Creatinine (test code = Creatinine) 1.70 mg/dL 0.50- 1.20 m g/dL BUN/Creatinine Ratio (test code = 7 15-24 BUN/Creatinine Ratio) EGFR MDRD Non Af Amer (test code = EGFR 41 mL/min/1.73m2 >=60 mL /min/1.73m2 MDRD Non Af Amer) EGFR MDRD Af Amer (test code = EGFR MDRD 50 mL/min/1.73m2 >=60 m L/min/1.73m2 Af Amer) Anion Gap (test code = Anion Gap) 8 mmol/L 5- 15 mmol/L Glucose (test code = Glucose) 116 mg/dL 70- 110 mg/dL Calcium (test code = Calcium) 8.6 mg/dL 8.7- 10.7 mg/dL OSMOCALC (test code = OSMOCALC) 288 mOsm/kg 266- 308 mOsm/kg POCT [id number] 12:37:00 Test Item Value Reference Range Comments Glucose, POC (test code = Glucose, POC) 103 mg/dL 70- 110 mg/dL Clerical Dentist Assistant ID (test code = Clerical Dentist Assistant ID) [facility] POCT [id number] 12:02:00 Test Item Value Reference Range Comments Glucose, POC (test code = Glucose, POC) 68 mg/dL 70- 110 mg/dL Clerical Dentist Assistant ID (test code = Clerical Dentist Assistant ID) [facility] ECG 12 Lead (Daily)2018-08-10 07:17:11ECG 12 Lead (Daily) (08/10/2018 7:17 AM) Performing Organization Address City/[facility] Phone Number [facility] [address] [facility]. [place], [place] [address]JRRQ [id number] 05:38:00 Test Item Value Reference Range Comments Glucose, POC (test code = Glucose, POC) 142 mg/dL 70- 110 mg/dL Clerical Dentist Assistant ID (test code = Clerical Dentist Assistant ID) NIRALI PAYNE POCT [id number] 21:27:00 Test Item Value Reference Range Comments Glucose, POC (test code = Glucose, POC) 114 mg/dL 70- 110 mg/dL Clerical Dentist Assistant ID (test code = Clerical Dentist Assistant ID) NIRALI FARLEYARA POCT [id number] 16:05:00 Test Item Value Reference Range Comments Glucose, POC (test code = Glucose, POC) 96 mg/dL 70- 110 mg/dL Clerical Dentist Assistant ID (test code = Clerical Dentist Assistant ID) [facility] POCT [id number] 11:27:00 Test Item Value Reference Range Comments Glucose, POC (test code = Glucose, POC) 91 mg/dL 70- 110 mg/dL Clerical Dentist Assistant ID (test code = Clerical Dentist Assistant ID) MARISA SANTIZO ECG 12 Lead (Daily)2018-08-09 07:40:47ECG 12 Lead (Daily) (08/09/2018 7:40 AM) Performing Organization Address [facility] Phone Number [facility] [address] [employer] [place], [place] [address]GYBY [id number] 06:38:00 Test Item Value Reference Range Comments Glucose, POC (test code = Glucose, POC) 87 mg/dL 70- 110 mg/dL Clerical Dentist Assistant ID (test code = Clerical Dentist Assistant ID) DENI LEIVA POCT [id number] 21:53:00 Test Item Value Reference Range Comments Glucose, POC (test code = Glucose, POC) 84 mg/dL 70- 110 mg/dL Clerical Dentist Assistant ID (test code = Clerical Dentist Assistant ID) ANUSHA SANABRIA POCT [id number] 18:19:00 Test Item Value Reference Range Comments Glucose, POC (test code = Glucose, POC) 101 mg/dL 70- 110 mg/dL Clerical Dentist Assistant ID (test code = Clerical Dentist Assistant ID) TIM DIA POCT [id number] 11:17:00 Test Item Value Reference Range Comments Glucose, POC (test code = Glucose, POC) 121 mg/dL 70- 110 mg/dL Clerical Dentist Assistant ID (test code = Clerical Dentist Assistant ID) VENTURA ANH ECG 12 Lead (Daily)2018-08-08 08:45:02ECG 12 Lead (Daily) (08/08/2018 8:45 AM) Performing Organization Address [facility] Phone Number [facility] [address] [employer] [place], [place] [address]OQFY [id number] 06:17:00 Test Item Value Reference Range Comments Glucose, POC (test code = Glucose, POC) 99 mg/dL 70- 110 mg/dL Clerical Dentist Assistant ID (test code = Clerical Dentist Assistant ID) JOE PENN Troponin I (Now & Every 3 Hrs X 3)2018-08-08 05:46:00 Test Item Value Reference Range Comments Troponin I (test code = Troponin I) <0.030 0.000-<0.490 ng/mL Basic metabolic [id number] 02:42:00 Test Item Value Reference Range Comments Sodium (test code = Sodium) 144 mmol/L 135- 153 mmol/L Potassium (test code = Potassium) 3.5 mmol/L 3.5- 5.3 mmol/ L Chloride (test code = Chloride) 108 mmol/L 96- 112 mmol/L CO2 (test code = CO2) 30.0 mmol/L 23.0- 33.0 mmol/L BUN (test code = BUN) 22 mg/dL 7- 22 mg/dL Creatinine (test code = Creatinine) 1.90 mg/dL 0.50- 1.20 m g/dL BUN/Creatinine Ratio (test code = 12 15-24 BUN/Creatinine Ratio) EGFR MDRD Non Af Amer (test code = EGFR 36 mL/min/1.73m2 >=60 mL /min/1.73m2 MDRD Non Af Amer) EGFR MDRD Af Amer (test code = EGFR MDRD 44 mL/min/1.73m2 >=60 m L/min/1.73m2 Af Amer) Anion Gap (test code = Anion Gap) 6 mmol/L 5- 15 mmol/L Glucose (test code = Glucose) 104 mg/dL 70- 110 mg/dL Calcium (test code = Calcium) 8.3 mg/dL 8.7- 10.7 mg/dL OSMOCALC (test code = OSMOCALC) 290 mOsm/kg 266- 308 mOsm/kg Magnesium [id number] 02:42:00 Test Item Value Reference Range Comments Magnesium (test code = Magnesium) 2.0 mg/dL 1.6- 2.4 mg/dL Phosphorus [id number] 02:42:00 Test Item Value Reference Range Comments Phosphorus (test code = Phosphorus) 3.5 mg/dL 3.4- 5.2 mg/ dL Troponin I (Now & Every 3 Hrs X 3)2018-08-08 02:42:00 Test Item Value Reference Range Comments Troponin I (test code = Troponin I) <0.030 0.000-<0.490 ng/mL Hemoglobin [id number] 02:42:00 Test Item Value Reference Range Comments Hemoglobin A1C (test code = Hemoglobin A1C) 5.6 % <=6. 0 % Estimated Average Glucose (test code = Estimated 114 mg/dL Average Glucose) Lipid [id number] 02:42:00 Test Item Value Reference Range Comments Triglycerides (test code = Triglycerides) 315 mg/dL 35- 16 0 mg/dL Cholesterol (test code = Cholesterol) 181 mg/dL 140- 200 m g/dL HDL (test code = HDL) 27 mg/dL 30- 65 mg/dL VLDL Cholesterol Morteza (test code = VLDL 63 mg/dL 5- 40 mg/ dL Cholesterol Morteza) Chol/HDL Ratio (test code = Chol/HDL Ratio) 6.7 Non-HDL Cholesterol (test code = Non-HDL 154 mg/dL Cholesterol) FASTING (test code = FASTING) LDL Direct (test code = LDL Direct) 112.0 mg/dL 0.0- 129.0 m g/dL POCT [id number] 00:42:00 Test Item Value Reference Range Comments Glucose, POC (test code = Glucose, POC) 124 mg/dL 70- 110 mg/dL Clerical Dentist Assistant ID (test code = Clerical Dentist Assistant ID) JOE PENN Troponin I (Now & Every 3 Hrs X 3)2018-08-08 00:03:00 Test Item Value Reference Range Comments Troponin I (test code = Troponin I) <0.030 0.000-<0.490 ng/mL XR Chest [id number] 20:19:44XR Chest Portable (08/07/2018 6:55 PM) Impressions Performed At Negative chest. Dictated on: 08/07/2018 8:19 PM EDT Dictated by: Ramsey Crane MD Approved and Electronically Signed by: Ramsey Crane MD Approved on: 08/07/2018 8:21 PM EDT [facility] Narrative Performed At PROCEDURE:AP PORTABLE CHEST DATE OF EXAM: 08/07/2018 6:55 PM EDT INDICATION: CHEST PAIN-. COMPARISON: 12/28/2016. FINDINGS: Lung melgoza are clear.No evidence of pleural effusion.The cardiomediastinal silhouette and pulmonary vasculature are within normal limits.Overlying EKG leads are seen. [facility] Procedure Note Interface, Rad Results In - 08/07/2018 8:23 PM EDT PROCEDURE: AP PORTABLE CHEST DATE OF EXAM: 08/07/2018 6:55 PM EDT INDICATION: CHEST PAIN-. COMPARISON: 12/28/2016. FINDINGS: Lung melgoza are clear. No evidence of pleural effusion. The cardiomediastinal silhouette and pulmonary vasculature are within normal limits. Overlying EKG leads are seen. IMPRESSION: Negative chest. Dictated on: 08/07/2018 8:19 PM EDT Dictated by: Ramsey Crane MD Approved and Electronically Signed by: Ramsey Crane MD Approved on: 08/07/2018 8:21 PM EDT [facility] Organization Address [facility] Phone Number [facility] [address] [facility]. [place], [place] [address]Vyjm Screen, [id number] 20:05:00 Test Item Value Reference Range Comments Cannabinoid Scrn, Ur (test code = Cannabinoid Scrn, Negative Negative Ur) PCP Screen, Urine (test code = PCP Screen, Urine) Negative Negative Cocaine(Metab.)Screen, Urine (test code = Negative Negati ve Cocaine(Metab.)Screen, Urine) METHAMPHETAMINE UR (test code = METHAMPHETAMINE UR) Negative Negative Opiate Scrn, Ur (test code = Opiate Scrn, Ur) Negative Ne gative Amphetamine Screen, Ur (test code = Amphetamine Negative Negative Screen, Ur) Benzodiazepine Screen, Urine (test code = Negative Negati ve Benzodiazepine Screen, Urine) Tricyclic Antidepressant, Urine (test code = Negative Neg ative Tricyclic Antidepressant, Urine) Methadone Screen, Urine (test code = Methadone Negative N egative Screen, Urine) Barbiturate Screen, Ur (test code = Barbiturate Negative Negative Screen, Ur) Oxycodone Screen, Ur (test code = Oxycodone Screen, Negative Negative Ur) PROPOXYPHENE SCREEN, URINE (test code = Negative Negative PROPOXYPHENE SCREEN, URINE) Buprenorphine, Ur (test code = Buprenorphine, Ur) Negative Negative Valproic Acid [id number] 18:29:00 Test Item Value Reference Range Comments Valproic Acid, Total (test code = Valproic 108.6 ug/mL 50.0- <100.0 ug/mL Acid, Total) B-type natriuretic [id number] 18:29:00 Test Item Value Reference Range Comments BNP (test code = BNP) 33 pg/mL 0- 100 pg/mL CK total and [id number] 15:53:00 Test Item Value Reference Range Comments Creatine Kinase, Total (test code = Creatine 57.0 U/L 22. 0- 269.0 U/L Kinase, Total) CK-MB (test code = CK-MB) 0.80 ng/mL 0.60- 6.30 ng/mL CK Index (test code = CK Index) 1.4 % 0.0- 2.5 % Comprehensive Metabolic [id number] 15:53:00 Test Item Value Reference Range Comments Sodium (test code = Sodium) 143 mmol/L 135- 153 mmol/L Potassium (test code = Potassium) 3.6 mmol/L 3.5- 5.3 mmol/ L Chloride (test code = Chloride) 102 mmol/L 96- 112 mmol/L CO2 (test code = CO2) 29.0 mmol/L 23.0- 33.0 mmol/L BUN (test code = BUN) 23 mg/dL 7- 22 mg/dL Creatinine (test code = Creatinine) 1.90 mg/dL 0.50- 1.20 m g/dL BUN/Creatinine Ratio (test code = 12 15-24 BUN/Creatinine Ratio) EGFR MDRD Non Af Amer (test code = EGFR 36 mL/min/1.73m2 >=60 mL /min/1.73m2 MDRD Non Af Amer) EGFR MDRD Af Amer (test code = EGFR MDRD 44 mL/min/1.73m2 >=60 m L/min/1.73m2 Af Amer) Anion Gap (test code = Anion Gap) 12 mmol/L 5- 15 mmol/L Glucose (test code = Glucose) 145 mg/dL 70- 110 mg/dL Calcium (test code = Calcium) 9.0 mg/dL 8.7- 10.7 mg/dL Albumin (test code = Albumin) 4.2 g/dL 3.5- 5.2 g/dL Total Protein (test code = Total 7.5 g/dL 6.1- 8.0 g/dL Protein) Total Bilirubin (test code = Total 0.5 mg/dL 0.3- 1.2 mg/d L Bilirubin) AST (test code = AST) 25 U/L 12- 45 U/L ALT (test code = ALT) 20 U/L 10- 40 U/L Alkaline Phosphatase (test code = 86 U/L 37- 107 U/L Alkaline Phosphatase) Globulin, Total (test code = Globulin, 3.3 g/dL 2.3- 3.5 g/dL Total) OSMOCALC (test code = OSMOCALC) 291 mOsm/kg 266- 308 mOsm/kg ALBGLOBRAT (test code = ALBGLOBRAT) 1.3 1.1-1.8 [id number] 15:53:00 Test Item Value Reference Range Comments Lactate (test code = Lactate) 1.4 mmol/L 0.5- 2.2 mmol/L Troponin [id number] 15:53:00 Test Item Value Reference Range Comments Troponin I (test code = Troponin I) <0.030 0.000-<0.490 ng/mL CBC w/ Pdgoygfbqpcf8925-13-75 15:53:00 Test Item Value Reference Range Comments WBC (test code = WBC) 5.8 10*9/L 4.5- 13.0 10*9/L RBC (test code = RBC) 4.99 10*12/L 3.10- 5.80 10*12/L HGB (test code = HGB) 15.5 g/dL 12.0- 16.9 g/dL HCT (test code = HCT) 44.0 % 36.0- 49.0 % MCV (test code = MCV) 88.2 fL 78.0- 100.0 fL MCH (test code = MCH) 31.0 pg 25.0- 35.0 pg MCHC (test code = MCHC) 35.2 g/dL 31.0- 36.0 g/dL RDW (test code = RDW) 14.2 % 11.0- 15.0 % MPV (test code = MPV) 8.5 fL 6.0- 9.5 fL Platelet (test code = Platelet) 185 10*9/L 140- 400 10*9/L Neutrophils % (test code = Neutrophils %) 44.8 % Lymphocytes % (test code = Lymphocytes %) 46.2 % Monocytes % (test code = Monocytes %) 7.9 % Eosinophils % (test code = Eosinophils %) 0.7 % Basophils % (test code = Basophils %) 0.4 % Absolute Neutrophils (test code = Absolute 2.6 10*9/L 1.8- 8.0 10*9/L Neutrophils) Absolute Lymphocytes (test code = Absolute 2.7 10*9/L 1.2- 5.2 10*9/L Lymphocytes) Absolute Monocytes (test code = Absolute 0.5 10*9/L 0.0- 0. 9 10*9/L Monocytes) Absolute Eosinophils (test code = Absolute 0.0 10*9/L 0.0- 0.6 10*9/L Eosinophils) Absolute Basophils (test code = Absolute 0.0 10*9/L 0.0- 0. 2 10*9/L Basophils) [id number] 15:47:00 Test Item Value Reference Range Comments Color, UA (test code = Color, UA) Yellow Yellow, Colorl ess Clarity, UA (test code = Clarity, UA) Clear Clear Specific [place], UA (test code = Specific 1.010 1.005 -1.030 [place], UA) pH, UA (test code = pH, UA) 5.0 5.0-8.0 Leukocyte Esterase, UA (test code = Leukocyte Negative Ne gative Esterase, UA) Nitrite, UA (test code = Nitrite, UA) Negative Negative Protein, UA (test code = Protein, UA) Negative Negative Glucose, UA (test code = Glucose, UA) Negative Negative Ketones, UA (test code = Ketones, UA) Negative Negative Urobilinogen, UA (test code = Urobilinogen, UA) 0.2 mg/dL 0.2- 1.0 mg/dL Bilirubin, UA (test code = Bilirubin, UA) Negative Negati ve Blood, UA (test code = Blood, UA) Small Negative RBC, UA (test code = RBC, UA) 1 /HPF 0- 5 /HPF Hyaline Casts, UA (test code = Hyaline Casts, 3 /LPF <= 0 /LPF UA) Mucus, UA (test code = Mucus, UA) Rare None Seen /HPF ECG 12 [id number] 15:45:54ECG 12 Lead (08/07/2018 3:45 PM) Performing Organization Address City/State/Zipcode Phone Number [facility] [phone] [facility], [place] [address]Trcjhdsruq5630-22-13 14:10:00 Test Item Value Reference Range Comments Urine Source (test code = Urine Source) CLEAN CATCH Color, UA (test code = Color, UA) YELLOW Clarity, UA (test code = Clarity, UA) CLEAR pH, Urine (test code = pH, Urine) 7 5.0-8.0 Specific [place] UA (test code = Specific 1.01 1.005- 1.030 [place] UA) Protein, Ur (test code = Protein, Ur) 30 MG/DL NEGATIVE M G/DL Glucose, UA (test code = Glucose, UA) NEGATIVE NEGATIVE M G/DL Ketones, UA (test code = Ketones, UA) NEGATIVE NEGATIVE M G/DL Blood, UA (test code = Blood, UA) SMALL NEGATIVE MG/DL Nitrite, UA (test code = Nitrite, UA) NEGATIVE NEGATIVE Bilirubin, UA (test code = Bilirubin, UA) NEGATIVE NEGATI VE MG/DL Urobilinogen, UA (test code = Urobilinogen, UA) 2.0 E.U./DL 0.2- 1.0 E.U./DL Leukocyte Esterase, UA (test code = Leukocyte NEGATIVE NE GATIVE WBC/UL Esterase, UA) WBC, UA (test code = WBC, UA) 1 #/HPF <5 #/HPF Lab - Urine [id number] 14:10:00 Test Item Value Reference Range Comments Urine pH (test code = 37940-3) 7.0 5.0-8.0 Lab - Urine [id number] 14:10:00 Test Item Value Reference Range Comments Urine WBC (test code = Urine WBC) 1 #/HPF 0-5 Lab - Urine Ogdbxcbfbuua2417-98-37 14:10:00 Test Item Value Reference Range Comments Urine Urobilinogen (test code = 21875-8) 2.0 E.U./DL Lab - Urine Specific [id number] 14:10:00 Test Item Value Reference Range Comments Urine Specific [place] (test code = 04204-9) 1.010 1.0 05-1.030 Lab - Urine [id number] 14:10:00 Test Item Value Reference Range Comments Urine Protein (test code = 60845-8) 30 MG/DL Lab - Urine [id number] 14:10:00 Test Item Value Reference Range Comments Urine Nitrite (test code = 55417-9) Negative Lab - Urine Leukocyte Mtzifnuc1845-27-77 14:10:00 Test Item Value Reference Range Comments Urine Leukocyte Esterase (test code = Negative WBC/UL 34252-8) Lab - Urine [id number] 14:10:00 Test Item Value Reference Range Comments Urine Ketones (test code = 54167-0) Negative MG/DL Lab - Urine Bthspwdq9353-17-60 14:10:00 Test Item Value Reference Range Comments Urine Ictotest (test code = 57237-4) Not Reportable Lab - Urine Glucose (UA)2018-07-08 14:10:00 Test Item Value Reference Range Comments Urine Glucose (UA) (test code = 86444-3) Negative MG/DL Lab - Urine [id number] 14:10:00 Test Item Value Reference Range Comments Urine Color (test code = 45106-5) Yellow Lab - Urine [id number] 14:10:00 Test Item Value Reference Range Comments Urine Clarity (test code = 28578-3) Clear Lab - Urine [id number] 14:10:00 Test Item Value Reference Range Comments Urine Blood (test code = 73923-2) Small MG/DL Lab - Urine [id number] 14:10:00 Test Item Value Reference Range Comments Urine Bilirubin (test code = 91120-7) Negative MG/DL Lab - Urine [id number] 14:10:00 Test Item Value Reference Range Comments Urine Source (test code = Urine Source) Clean catch CBC w/ Kricqhvoktpw0298-81-26 12:49:00 Test Item Value Reference Range Comments WBC (test code = WBC) 5.7 K/mm3 4.5- 13.0 K/mm3 RBC (test code = RBC) 4.82 M/mm3 3.10- 5.80 M/mm3 HGB (test code = HGB) 14.8 G/DL 12.0- 16.9 G/DL HCT (test code = HCT) 44.1 % 36.0- 49.0 % MCV (test code = MCV) 91.7 fL 78- 100 fL MCH (test code = MCH) 30.7 pg 25- 35 pg MCHC (test code = MCHC) 33.5 g/dl 31- 36 g/dl RDW (test code = RDW) 15.0 % 11.0- 15.0 % Platelet (test code = Platelet) 214 K/mm3 140- 400 K/mm3 MPV (test code = MPV) 7.4 fL 6.0- 9.5 fL Neutrophils % (test code = Neutrophils %) 58.1 % 42.2- 75.2 % Lymphocytes % (test code = Lymphocytes %) 31.7 % 20.5- 51.1 % Monocytes % (test code = Monocytes %) 9.5 % 1.7- 9.3 % Eosinophils % (test code = Eosinophils %) 0.3 % 0- 10 % Basophils % (test code = Basophils %) 0.4 % 0- 3.0 % Neutrophils (Absolute) (test code = Neutrophils 3.3 K/mm3 1.8- 8.0 K/mm3 (Absolute)) Lymphs (Absolute) (test code = Lymphs 1.8 K/mm3 1.2- 5.2 K /mm3 (Absolute)) Monocytes(Absolute) (test code = 0.5 K/mm3 0- 0.9 K/mm3 Monocytes(Absolute)) Eos (Absolute) (test code = Eos (Absolute)) 0 K/mm3 0- 0 .6 K/mm3 Baso (Absolute) (test code = Baso (Absolute)) 0 K/mm3 0. 0- 0.2 K/mm3 REPEAT AUTO DIFF (test code = REPEAT AUTO DIFF) YES Comprehensive Metabolic [id number] 12:49:00 Test Item Value Reference Range Comments Sodium (test code = Sodium) 144 mmol/L 135- 153 mmol/L Potassium (test code = Potassium) 4.1 mmol/L 3.5- 5.3 mmol/ L Chloride (test code = Chloride) 107 mmol/L 96- 112 mmol/L CO2 (test code = CO2) 27 mmol/L 23- 33 mmol/L Anion Gap (test code = Anion Gap) 10 mmol/L 5- 15 mmol/L BUN (test code = BUN) 13 mg/dL 7- 22 mg/dL Creatinine (test code = Creatinine) 1.7 mg/dL 0.5- 1.2 mg/ dL eGFR (test code = eGFR) 44 >60 Creatinine Clearance (test code = Creatinine 53.5 ML/MIN 60- ML/MIN Clearance) BUN/Creatinine Ratio (test code = 8 15-24 BUN/Creatinine Ratio) Glucose (test code = Glucose) 128 mg/dL 70- 110 mg/dL Calcium (test code = Calcium) 9.3 mg/dL 8.7- 10.7 mg/dL Total Protein (test code = Total Protein) 7.7 g/dL 6.1- 8 .0 g/dL Albumin (test code = Albumin) 4.1 g/dL 3.5- 5.2 g/dL Globulin, Total (test code = Globulin, Total) 3.6 g/dL 2. 3- 3.5 g/dL ALBUMIN/GLOBULIN RATIO (test code = 1.1 1.1-1.8 ALBUMIN/GLOBULIN RATIO) Osmolality Calc (test code = Osmolality Calc) 289 26 6-308 Total Bilirubin (test code = Total Bilirubin) 0.97 mg/dL 0. 30- 1.20 mg/dL AST (test code = AST) 33 U/L 12- 45 U/L ALT (test code = ALT) 24 U/L 10- 40 U/L Alkaline Phosphatase (test code = Alkaline 83 U/L 37- 1 07 U/L Phosphatase) Lab - Total [id number] 12:49:00 Test Item Value Reference Range Comments Total Protein (test code = 2885-2) 7.7 g/dL 6.1-8.0 Lab - Total Kbfdsvber3436-31-89 12:49:00 Test Item Value Reference Range Comments Total Bilirubin (test code = 0.97 mg/dL 0.30-1.20 Wilmer ples taken from patients 1976-) who have taken N aproxen have shown spurious e levation in Total Bilirubin levels. A metabolite of Na proxen (O-Desmethylnapr oxen) has been shown to in terfere with the Ashwin mujica method for measuring To pérez Bilirubin. Lab - Sodium [id number] 12:49:00 Test Item Value Reference Range Comments Sodium Level (test code = 2951-2) 144 mmol/L 135-153 Lab - Potassium [id number] 12:49:00 Test Item Value Reference Range Comments Potassium Level (test code = 2823-3) 4.1 mmol/L 3.5-5.3 Lab - Glucose [id number] 12:49:00 Test Item Value Reference Range Comments Glucose Level (test code = 2345-7) 128 mg/dL 70-110 Lab - [id number] 12:49:00 Test Item Value Reference Range Comments Globulin (test code = 24088-6) 3.6 g/dL 2.3-3.5 Lab - Estimated GFR (MDRD)2018-07-08 12:49:00 Test Item Value Reference Range Comments Estimated GFR (MDRD) (test code 44 60-100 eGFR by MDRD equation. Units = 03931-4) mL/min./1.73m sq . Less than 60 suggests signifi cant renal disease. Lab - Estimated Creatinine Clearance [id number] 12:49:00 Test Item Value Reference Range Comments Estimated Creatinine 53.5 ML/MIN >60 Estimated c reatinine Clearance Calc (test code = charlee powers calculated by Estimated Creatinine Cockcroft-G melissa method. Clearance Calc) Lab - Sjnfiinfrg9858-20-83 12:49:00 Test Item Value Reference Range Comments Creatinine (test code = 2160-0) 1.7 mg/dL 0.5-1.2 Lab - Chloride [id number] 12:49:00 Test Item Value Reference Range Comments Chloride Level (test code = 2075-0) 107 mmol/L 96-112 Lab - Carbon Dioxide [id number] 12:49:00 Test Item Value Reference Range Comments Carbon Dioxide Level (test code = 8-9) 27 mmol/L 23-33 Lab - Calculated Ueheaqorwf9570-75-71 12:49:00 Test Item Value Reference Range Comments Calculated Osmolality (test code = Calculated 289 26 6-308 Osmolality) Lab - Calcium [id number] 12:49:00 Test Item Value Reference Range Comments Calcium Level (test code = 59047-3) 9.3 mg/dL 8.7-10.7 Lab - Blood Urea [id number] 12:49:00 Test Item Value Reference Range Comments Blood Urea Nitrogen (test code = 3094-0) 13 mg/dL 7-22 Lab - BUN/Creatinine [id number] 12:49:00 Test Item Value Reference Range Comments BUN/Creatinine Ratio (test code = 3097-3) 8 15-24 Lab - Aspartate Amino Transf (AST/SGOT)2018-07-08 12:49:00 Test Item Value Reference Range Comments Aspartate Amino Transf (AST/SGOT) (test code = 33 U/L 1 2-45 21239-6) Lab - Anion [id number] 12:49:00 Test Item Value Reference Range Comments Anion Gap (test code = 90125-6) 10 mmol/L 5-15 Lab - Alkaline Ikzghvdpbxb1050-33-58 12:49:00 Test Item Value Reference Range Comments Alkaline Phosphatase (test code = 6768-6) 83 U/L 37-107 Lab - Albumin/Globulin [id number] 12:49:00 Test Item Value Reference Range Comments Albumin/Globulin Ratio (test code = 1759-0) 1.1 1.1- 1.8 Lab - [id number] 12:49:00 Test Item Value Reference Range Comments Albumin (test code = 1751-7) 4.1 g/dL 3.5-5.2 Lab - Alanine Aminotransferase (ALT/SGPT)2018-07-08 12:49:00 Test Item Value Reference Range Comments Alanine Aminotransferase (ALT/SGPT) (test code = 24 U/L 10-40 1743-4) Lab - White Blood Uikau8621-04-81 12:49:00 Test Item Value Reference Range Comments White Blood Count (test code = 28862-7) 5.7 K/mm3 4.5-13.0 Lab - Red Cell Distribution [id number] 12:49:00 Test Item Value Reference Range Comments Red Cell Distribution Width (test code = 788-0) 15.0 % 11.0-15.0 Lab - Red Blood [id number] 12:49:00 Test Item Value Reference Range Comments Red Blood Count (test code = 789-8) 4.82 M/mm3 3.10-5.80 Lab - Platelet [id number] 12:49:00 Test Item Value Reference Range Comments Platelet Count (test code = 777-3) 214 K/mm3 140-400 Lab - Neutrophils (%) (Auto)2018-07-08 12:49:00 Test Item Value Reference Range Comments Neutrophils (%) (Auto) (test code = 770-8) 58.1 % 42.2- 75.2 Lab - Neutrophils # (Auto)2018-07-08 12:49:00 Test Item Value Reference Range Comments Neutrophils # (Auto) (test code = 751-8) 3.3 K/mm3 1.8-8.0 Lab - Monocytes (%) (Auto)2018-07-08 12:49:00 Test Item Value Reference Range Comments Monocytes (%) (Auto) (test code = 5905-5) 9.5 % 1.7-9. 3 Lab - Monocytes # (Auto)2018-07-08 12:49:00 Test Item Value Reference Range Comments Monocytes # (Auto) (test code = HDA4647) 0.5 K/mm3 0-0.9 Lab - Mean Platelet Cvrimd7065-09-05 12:49:00 Test Item Value Reference Range Comments Mean Platelet Volume (test code = 63491-0) 7.4 fL 6.0-9 .5 Lab - Mean Corpuscular [id number] 12:49:00 Test Item Value Reference Range Comments Mean Corpuscular Volume (test code = 787-2) 91.7 fL 78-1 00 Lab - Mean Corpuscular Hemoglobin [id number] 12:49:00 Test Item Value Reference Range Comments Mean Corpuscular Hemoglobin Concent (test code = 33.5 g/dl 31-36 786-4) Lab - Mean Corpuscular [id number] 12:49:00 Test Item Value Reference Range Comments Mean Corpuscular Hemoglobin (test code = 785-6) 30.7 pg 25-35 Lab - Lymphocytes (%) (Auto)2018-07-08 12:49:00 Test Item Value Reference Range Comments Lymphocytes (%) (Auto) (test code = 736-9) 31.7 % 20.5- 51.1 Lab - Lymphocytes # (Auto)2018-07-08 12:49:00 Test Item Value Reference Range Comments Lymphocytes # (Auto) (test code = 731-0) 1.8 K/mm3 1.2-5.2 Lab - Dtgmaegtgo5334-22-52 12:49:00 Test Item Value Reference Range Comments Hemoglobin (test code = 718-7) 14.8 G/DL 12.0-16.9 Lab - Khbfflnkki7359-48-66 12:49:00 Test Item Value Reference Range Comments Hematocrit (test code = Hematocrit) 44.1 % 36.0-49.0 Lab - Eosinophils (%) (Auto)2018-07-08 12:49:00 Test Item Value Reference Range Comments Eosinophils (%) (Auto) (test code = 713-8) 0.3 % 0-10 Lab - Eosinophils # (Auto)2018-07-08 12:49:00 Test Item Value Reference Range Comments Eosinophils # (Auto) (test code = 711-2) 0.0 K/mm3 0-0.6 Lab - Basophils (%) (Auto)2018-07-08 12:49:00 Test Item Value Reference Range Comments Basophils (%) (Auto) (test code = 48889-9) 0.4 % 0-3.0 Lab - Basophils # (Auto)2018-07-08 12:49:00 Test Item Value Reference Range Comments Basophils # (Auto) (test code = 704-7) 0.0 K/mm3 0.0-0.2 POCT [id number] 12:37:00 Test Item Value Reference Range Comments Glucose-POC (test code = Glucose-POC) 117 mg/dL 70- 110 mg /dL Lab - Bedside Glucose (Misc Panel)2018-07-08 12:37:00 Test Item Value Reference Range Comments Bedside Glucose (Misc Panel) 117.0 mg/dL 70-110 Met er ID: [id number] (test code = Bedside Glucose Ope rator: [id number] (Misc Panel)) [id number] 11:27:00 Test Item Value Reference Range Comments Urine Source (test code = Urine Source) CLEAN CATCH Protein, Ur (test code = Protein, Ur) NEGATIVE NEGATIVE M G/DL Blood, UA (test code = Blood, UA) SMALL NEGATIVE MG/DL Color, UA (test code = Color, UA) STRAW Specific [place], UA (test code = Specific 1.009 1.005 -1.030 [place], UA) Urobilinogen, UA (test code = Urobilinogen, UA) 0.2 E.U./DL 0.2- 1.0 E.U./DL RBC, UA (test code = RBC, UA) < 1 0- 5 #/HPF WBC, UA (test code = WBC, UA) < 1 <5 #/HPF Clarity, UA (test code = Clarity, UA) CLEAR pH, Urine (test code = pH, Urine) 6 5.0-8.0 Bilirubin, UA (test code = Bilirubin, UA) NEGATIVE NEGATI VE MG/DL Squam Epithel, UA (test code = Squam Epithel, < 1 0- 10 #/HPF UA) Glucose, UA (test code = Glucose, UA) NEGATIVE NEGATIVE M G/DL Ketones, UA (test code = Ketones, UA) NEGATIVE NEGATIVE M G/DL Nitrite, UA (test code = Nitrite, UA) NEGATIVE NEGATIVE Leukocyte Esterase, UA (test code = Leukocyte NEGATIVE NE GATIVE WBC/UL Esterase, UA) Lab - Urine [id number] 11:27:00 Test Item Value Reference Range Comments Urine pH (test code = 00133-6) 6.0 5.0-8.0 Lab - Urine [id number] 11:27:00 Test Item Value Reference Range Comments Urine WBC (test code = Urine WBC) < 1 #/HPF 0-5 Lab - Urine [id number] 11:27:00 Test Item Value Reference Range Comments Urine Urobilinogen (test code = 66644-3) 0.2 E.U./DL Lab - Urine Squamous Epithelial [id number] 11:27:00 Test Item Value Reference Range Comments Urine Squamous Epithelial Cells (test code = < 1 #/HPF 0-1 0 61557-7) Lab - Urine Specific Wedshso5864-97-03 11:27:00 Test Item Value Reference Range Comments Urine Specific [place] (test code = 57570-2) 1.009 1.0 05-1.030 Lab - Urine [id number] 11:27:00 Test Item Value Reference Range Comments Urine RBC (test code = 81061-2) < 1 #/HPF 0-5 Lab - Urine Jvcgcav7776-24-73 11:27:00 Test Item Value Reference Range Comments Urine Protein (test code = 70755-8) Negative MG/DL Lab - Urine Gkdjnyu2028-12-68 11:27:00 Test Item Value Reference Range Comments Urine Nitrite (test code = 10641-7) Negative Lab - Urine Leukocyte Swbdsaye9695-56-01 11:27:00 Test Item Value Reference Range Comments Urine Leukocyte Esterase (test code = Negative WBC/UL 55185-5) Lab - Urine [id number] 11:27:00 Test Item Value Reference Range Comments Urine Ketones (test code = 95479-3) Negative MG/DL Lab - Urine [id number] 11:27:00 Test Item Value Reference Range Comments Urine Ictotest (test code = 80195-3) Not Reportable Lab - Urine Glucose (UA)2018-04-12 11:27:00 Test Item Value Reference Range Comments Urine Glucose (UA) (test code = 71194-2) Negative MG/DL Lab - Urine [id number] 11:27:00 Test Item Value Reference Range Comments Urine Color (test code = 08500-1) Straw Lab - Urine [id number] 11:27:00 Test Item Value Reference Range Comments Urine Clarity (test code = 84154-8) Clear Lab - Urine [id number] 11:27:00 Test Item Value Reference Range Comments Urine Blood (test code = 05061-8) Small MG/DL Lab - Urine [id number] 11:27:00 Test Item Value Reference Range Comments Urine Bilirubin (test code = 32311-2) Negative MG/DL Lab - Urine [id number] 11:27:00 Test Item Value Reference Range Comments Urine Source (test code = Urine Source) Clean catch CBC w/ Byfqkqvkpqrz6367-77-09 11:17:00 Test Item Value Reference Range Comments RBC (test code = RBC) 4.32 M/mm3 3.10- 5.80 M/mm3 HCT (test code = HCT) 39.4 % 36.0- 49.0 % MCH (test code = MCH) 31.0 pg 25- 35 pg MPV (test code = MPV) 7.3 fL 6.0- 9.5 fL Neutrophils (Absolute) (test code = Neutrophils 3.9 K/mm3 1.8- 8.0 K/mm3 (Absolute)) Baso (Absolute) (test code = Baso (Absolute)) 0 K/mm3 0. 0- 0.2 K/mm3 WBC (test code = WBC) 7.2 K/mm3 4.5- 13.0 K/mm3 HGB (test code = HGB) 13.4 G/DL 12.0- 16.9 G/DL Lymphocytes % (test code = Lymphocytes %) 35.5 % 20.5- 51.1 % Eosinophils % (test code = Eosinophils %) 1.4 % 0- 10 % Basophils % (test code = Basophils %) 0.5 % 0- 3.0 % Eos (Absolute) (test code = Eos (Absolute)) 0.1 K/mm3 0- 0 .6 K/mm3 REPEAT AUTO DIFF (test code = REPEAT AUTO DIFF) YES MCV (test code = MCV) 91.2 fL 78- 100 fL MCHC (test code = MCHC) 34.0 g/dl 31- 36 g/dl Platelet (test code = Platelet) 174 K/mm3 140- 400 K/mm3 Neutrophils % (test code = Neutrophils %) 53.9 % 42.2- 75.2 % RDW (test code = RDW) 15.3 % 11.0- 15.0 % Monocytes % (test code = Monocytes %) 8.7 % 1.7- 9.3 % Lymphs (Absolute) (test code = Lymphs 2.5 K/mm3 1.2- 5.2 K /mm3 (Absolute)) Monocytes(Absolute) (test code = 0.6 K/mm3 0- 0.9 K/mm3 Monocytes(Absolute)) Comprehensive Metabolic [id number] 11:17:00 Test Item Value Reference Range Comments CO2 (test code = CO2) 32 mmol/L 23- 33 mmol/L eGFR (test code = eGFR) 41 >60 BUN/Creatinine Ratio (test code = 13 15-24 BUN/Creatinine Ratio) Calcium (test code = Calcium) 8.7 mg/dL 8.7- 10.7 mg/dL Sodium (test code = Sodium) 144 mmol/L 135- 153 mmol/L Potassium (test code = Potassium) 3.6 mmol/L 3.5- 5.3 mmol/ L Chloride (test code = Chloride) 103 mmol/L 96- 112 mmol/L BUN (test code = BUN) 24 mg/dL 7- 22 mg/dL Globulin, Total (test code = Globulin, Total) 3.1 g/dL 2. 3- 3.5 g/dL Osmolality Calc (test code = Osmolality Calc) 292 26 6-308 Anion Gap (test code = Anion Gap) 9 mmol/L 5- 15 mmol/L Total Protein (test code = Total Protein) 6.8 g/dL 6.1- 8 .0 g/dL Albumin (test code = Albumin) 3.7 g/dL 3.5- 5.2 g/dL ALBUMIN/GLOBULIN RATIO (test code = 1.2 1.1-1.8 ALBUMIN/GLOBULIN RATIO) ALT (test code = ALT) 24 U/L 10- 40 U/L Creatinine (test code = Creatinine) 1.8 mg/dL 0.5- 1.2 mg/ dL Creatinine Clearance (test code = Creatinine 51.3 ML/MIN 60- ML/MIN Clearance) Glucose (test code = Glucose) 123 mg/dL 70- 110 mg/dL Total Bilirubin (test code = Total Bilirubin) 0.42 mg/dL 0. 30- 1.20 mg/dL AST (test code = AST) 26 U/L 12- 45 U/L Alkaline Phosphatase (test code = Alkaline 69 U/L 37- 1 07 U/L Phosphatase) Lab - Total [id number] 11:17:00 Test Item Value Reference Range Comments Total Protein (test code = 2885-2) 6.8 g/dL 6.1-8.0 Lab - Total [id number] 11:17:00 Test Item Value Reference Range Comments Total Bilirubin (test code = 0.42 mg/dL 0.30-1.[address] taken from patients 1975-2) who have taken N aproxen have shown spurious e levation in Total Bilirubin levels. A metabolite of Na proxen (O-Desmethylnapr oxen) has been shown to in terfere with the Ashwin mujica method for measuring To pérez Bilirubin. Lab - Sodium [id number] 11:17:00 Test Item Value Reference Range Comments Sodium Level (test code = 2951-2) 144 mmol/L 135-153 Lab - Potassium Ttwab0324-30-01 11:17:00 Test Item Value Reference Range Comments Potassium Level (test code = 2823-3) 3.6 mmol/L 3.5-5.3 Lab - Glucose Lwrkx0770-23-23 11:17:00 Test Item Value Reference Range Comments Glucose Level (test code = 2345-7) 123 mg/dL 70-110 Lab - Eivlqnbl7739-14-02 11:17:00 Test Item Value Reference Range Comments Globulin (test code = 83343-7) 3.1 g/dL 2.3-3.5 Lab - Estimated GFR (MDRD)2018-04-12 11:17:00 Test Item Value Reference Range Comments Estimated GFR (MDRD) (test code 41 60-100 eGFR by MDRD equation. Units = 45207-2) mL/min./1.73m sq . Less than 60 suggests signifi cant renal disease. Lab - Estimated Creatinine Clearance Find0503-08-25 11:17:00 Test Item Value Reference Range Comments Estimated Creatinine 51.3 ML/MIN >60 Estimated c reatinine Clearance Calc (test code = charlee powers calculated by Estimated Creatinine Cockcroft-G melissa method. Clearance Calc) Lab - Cvmyuzpvvu7751-93-12 11:17:00 Test Item Value Reference Range Comments Creatinine (test code = 2160-0) 1.8 mg/dL 0.5-1.2 Lab - Chloride Cheem4361-06-82 11:17:00 Test Item Value Reference Range Comments Chloride Level (test code = 2075-0) 103 mmol/L 96-112 Lab - Carbon Dioxide Pdwld5831-23-02 11:17:00 Test Item Value Reference Range Comments Carbon Dioxide Level (test code = 8-9) 32 mmol/L 23-33 Lab - Calculated Nxcprvbosa6053-15-13 11:17:00 Test Item Value Reference Range Comments Calculated Osmolality (test code = Calculated 292 26 6-308 Osmolality) Lab - Calcium Hmddb5530-51-37 11:17:00 Test Item Value Reference Range Comments Calcium Level (test code = 53282-7) 8.7 mg/dL 8.7-10.7 Lab - Blood Urea Xicodbxy5857-99-07 11:17:00 Test Item Value Reference Range Comments Blood Urea Nitrogen (test code = 3094-0) 24 mg/dL 7-22 Lab - BUN/Creatinine Bdhfo3497-26-27 11:17:00 Test Item Value Reference Range Comments BUN/Creatinine Ratio (test code = 3097-3) 13 15-24 Lab - Aspartate Amino Transf (AST/SGOT)2018-04-12 11:17:00 Test Item Value Reference Range Comments Aspartate Amino Transf (AST/SGOT) (test code = 26 U/L 1 2-45 50913-9) Lab - Anion Ggm1279-21-61 11:17:00 Test Item Value Reference Range Comments Anion Gap (test code = 38561-6) 9 mmol/L 5-15 Lab - Alkaline Ohhexymhdvg9469-47-59 11:17:00 Test Item Value Reference Range Comments Alkaline Phosphatase (test code = 6768-6) 69 U/L 37-107 Lab - Albumin/Globulin Ptgmx9937-41-71 11:17:00 Test Item Value Reference Range Comments Albumin/Globulin Ratio (test code = 1759-0) 1.2 1.1- 1.8 Lab - Cwvbmet2297-30-47 11:17:00 Test Item Value Reference Range Comments Albumin (test code = 1751-7) 3.7 g/dL 3.5-5.2 Lab - Alanine Aminotransferase (ALT/SGPT)2018-04-12 11:17:00 Test Item Value Reference Range Comments Alanine Aminotransferase (ALT/SGPT) (test code = 24 U/L 1743-4) Lab - White Blood Oljog0228-97-63 11:17:00 Test Item Value Reference Range Comments White Blood Count (test code = 60111-4) 7.2 K/mm3 4.5-13.0 Lab - Red Cell Distribution Qopsi5741-39-43 11:17:00 Test Item Value Reference Range Comments Red Cell Distribution Width (test code = 788-0) 15.3 % 11.0-15.0 Lab - Red Blood Qynhl3233-23-35 11:17:00 Test Item Value Reference Range Comments Red Blood Count (test code = 789-8) 4.32 M/mm3 3.10-5.80 Lab - Platelet Algat6877-31-95 11:17:00 Test Item Value Reference Range Comments Platelet Count (test code = 777-3) 174 K/mm3 140-400 Lab - Neutrophils (%) (Auto)2018-04-12 11:17:00 Test Item Value Reference Range Comments Neutrophils (%) (Auto) (test code = 770-8) 53.9 % 42.2- 75.2 Lab - Neutrophils # (Auto)2018-04-12 11:17:00 Test Item Value Reference Range Comments Neutrophils # (Auto) (test code = 751-8) 3.9 K/mm3 1.8-8.0 Lab - Monocytes (%) (Auto)2018-04-12 11:17:00 Test Item Value Reference Range Comments Monocytes (%) (Auto) (test code = 5905-5) 8.7 % 1.7-9. 3 Lab - Monocytes # (Auto)2018-04-12 11:17:00 Test Item Value Reference Range Comments Monocytes # (Auto) (test code = SMU8392) 0.6 K/mm3 0-0.9 Lab - Mean Platelet Nhhnzd5257-92-24 11:17:00 Test Item Value Reference Range Comments Mean Platelet Volume (test code = 31417-6) 7.3 fL 6.0-9 .5 Lab - Mean Corpuscular Ercnsv3767-87-29 11:17:00 Test Item Value Reference Range Comments Mean Corpuscular Volume (test code = 787-2) 91.2 fL 78-1 00 Lab - Mean Corpuscular Hemoglobin Zqazgyt3971-29-22 11:17:00 Test Item Value Reference Range Comments Mean Corpuscular Hemoglobin Concent (test code = 34.0 g/dl 31-36 786-4) Lab - Mean Corpuscular Ijswimhxcs8692-71-45 11:17:00 Test Item Value Reference Range Comments Mean Corpuscular Hemoglobin (test code = 785-6) 31.0 pg 25-35 Lab - Lymphocytes (%) (Auto)2018-04-12 11:17:00 Test Item Value Reference Range Comments Lymphocytes (%) (Auto) (test code = 736-9) 35.5 % 20.5- 51.1 Lab - Lymphocytes # (Auto)2018-04-12 11:17:00 Test Item Value Reference Range Comments Lymphocytes # (Auto) (test code = 731-0) 2.5 K/mm3 1.2-5.2 Lab - Cyvybdldxn7473-46-13 11:17:00 Test Item Value Reference Range Comments Hemoglobin (test code = 718-7) 13.4 G/DL 12.0-16.9 Lab - Kkhgvzulpa3420-58-16 11:17:00 Test Item Value Reference Range Comments Hematocrit (test code = Hematocrit) 39.4 % 36.0-49.0 Lab - Eosinophils (%) (Auto)2018-04-12 11:17:00 Test Item Value Reference Range Comments Eosinophils (%) (Auto) (test code = 713-8) 1.4 % 0-10 Lab - Eosinophils # (Auto)2018-04-12 11:17:00 Test Item Value Reference Range Comments Eosinophils # (Auto) (test code = 711-2) 0.1 K/mm3 0-0.6 Lab - Basophils (%) (Auto)2018-04-12 11:17:00 Test Item Value Reference Range Comments Basophils (%) (Auto) (test code = 09831-3) 0.5 % 0-3.0 Lab - Basophils # (Auto)2018-04-12 11:17:00 Test Item Value Reference Range Comments Basophils # (Auto) (test code = 704-7) 0.0 K/mm3 0.0-0.2 Lab - Urine YMA1612-81-94 10:21:00 Test Item Value Reference Range Comments Urine WBC (test code = Urine WBC) None seen #/HPF Lab - Urine yB5842-52-72 10:21:00 Test Item Value Reference Range Comments Urine pH (test code = 20326-6) 5.0 Lab - Urine Lveapgdpbwux2451-76-90 10:21:00 Test Item Value Reference Range Comments Urine Urobilinogen (test code = 73326-5) 0.2 E.U./DL Lab - Urine Specific [place] (Refractom)2017-12-12 10:21:00 Test Item Value Reference Range Comments Urine Specific [place] (Refractom) (test code Not Reportable = 5810-7) Lab - Urine Specific Nefmvoc6649-24-94 10:21:00 Test Item Value Reference Range Comments Urine Specific [place] (test code = 93090-6) 1.009 Lab - Urine HWC2792-39-24 10:21:00 Test Item Value Reference Range Comments Urine RBC (test code = 00225-2) 0-5 #/HPF Lab - Urine Hzvfexq3643-24-44 10:21:00 Test Item Value Reference Range Comments Urine Protein (test code = 39028-0) Negative MG/DL Lab - Urine Cudcapi7049-76-35 10:21:00 Test Item Value Reference Range Comments Urine Nitrite (test code = 35396-4) Negative Lab - Urine Leukocyte Epnezwch8122-87-89 10:21:00 Test Item Value Reference Range Comments Urine Leukocyte Esterase (test code = Negative WBC/UL 18948-5) Lab - Urine Sasdvhe5601-36-44 10:21:00 Test Item Value Reference Range Comments Urine Ketones (test code = 56642-4) Negative MG/DL Lab - Urine Jqovtpls8647-75-77 10:21:00 Test Item Value Reference Range Comments Urine Ictotest (test code = 62181-3) Not Reportable Lab - Urine Glucose (UA)2017-12-12 10:21:00 Test Item Value Reference Range Comments Urine Glucose (UA) (test code = 35026-8) Negative MG/DL Lab - Urine Eckfh3154-08-89 10:21:00 Test Item Value Reference Range Comments Urine Color (test code = 76448-0) Yellow Lab - Urine Cwifbum1021-40-92 10:21:00 Test Item Value Reference Range Comments Urine Clarity (test code = 28560-8) Sl cloudy Lab - Urine Ogkrb5850-05-14 10:21:00 Test Item Value Reference Range Comments Urine Blood (test code = 83509-0) Moderate MG/DL Lab - Urine Ceuwmhnlt8082-99-64 10:21:00 Test Item Value Reference Range Comments Urine Bilirubin (test code = 26064-0) Negative MG/DL Lab - Urine Lzefmoaa1641-99-04 10:21:00 Test Item Value Reference Range Comments Urine Bacteria (test code = 23232-0) 1+ RENNY/HPF Lab - Urine Mdygmm8247-62-38 10:21:00 Test Item Value Reference Range Comments Urine Source (test code = Urine Source) Clean catch Lab - Valproic Acid (Depakene) Dlqvg1450-05-84 10:04:00 Test Item Value Reference Range Comments Valproic Acid (Depakene) Level (test code = 72.2 mcg/mL 50.0 -100.0 4086-5) Lab - Total Miogwpy5988-34-33 10:04:00 Test Item Value Reference Range Comments Total Protein (test code = 2885-2) 7.6 g/dL 6.1-8.0 Lab - Total Oreooupeq1227-73-44 10:04:00 Test Item Value Reference Range Comments Total Bilirubin (test code = 0.78 mg/dL 0.30-1.20 Wilmer ples taken from patients 1975-2) who have taken N aproxen have shown spurious e levation in Total Bilirubin levels. A metabolite of Na proxen (O-Desmethylnapr oxen) has been shown to in terfere with the Ashwin mujica method for measuring To pérez Bilirubin. Lab - Sodium Dlnfh0487-70-45 10:04:00 Test Item Value Reference Range Comments Sodium Level (test code = 2951-2) 144 mmol/L 135-153 Lab - Potassium Tlovl2416-83-95 10:04:00 Test Item Value Reference Range Comments Potassium Level (test code = 2823-3) 3.4 mmol/L 3.5-5.3 Lab - Phosphorus Aaanc9994-50-04 10:04:00 Test Item Value Reference Range Comments Phosphorus Level (test code = 2777-1) 3.8 mg/dL 3.4-5.2 Lab - Magnesium Gnvlk0044-14-81 10:04:00 Test Item Value Reference Range Comments Magnesium Level (test code = 42936-5) 2.2 mg/dL 1.6-2.4 Lab - Glucose Ipccw6145-09-13 10:04:00 Test Item Value Reference Range Comments Glucose Level (test code = 2345-7) 100 mg/dL 70-110 Lab - Akutqwsz3838-67-95 10:04:00 Test Item Value Reference Range Comments Globulin (test code = 74793-6) 3.5 g/dL 2.3-3.5 Lab - Estimated GFR (MDRD)2017-12-12 10:04:00 Test Item Value Reference Range Comments Estimated GFR (MDRD) (test code 41 60-100 eGFR by MDRD equation. Units = 25449-7) mL/min./1.73m sq . Less than 60 suggests signifi cant renal disease. Lab - Estimated Creatinine Clearance Qbxa4025-09-77 10:04:00 Test Item Value Reference Range Comments Estimated Creatinine 45.6 ML/MIN >60 Estimated c reatinine Clearance Calc (test code = charlee powers calculated by Estimated Creatinine Cockcroft-G melissa method. Clearance Calc) Lab - Fzehlxhutl9065-44-70 10:04:00 Test Item Value Reference Range Comments Creatinine (test code = 2160-0) 1.8 mg/dL 0.5-1.2 Lab - Chloride Knixf8246-99-28 10:04:00 Test Item Value Reference Range Comments Chloride Level (test code = 2075-0) 104 mmol/L 96-112 Lab - Carbon Dioxide Vtaij6388-87-83 10:04:00 Test Item Value Reference Range Comments Carbon Dioxide Level (test code = 8-9) 32 mmol/L 23-33 Lab - Calculated Tvbmgndtgm2522-26-29 10:04:00 Test Item Value Reference Range Comments Calculated Osmolality (test code = Calculated 291 26 6-308 Osmolality) Lab - Calcium Gwpun2469-50-24 10:04:00 Test Item Value Reference Range Comments Calcium Level (test code = 32469-8) 9.3 mg/dL 8.7-10.7 Lab - Blood Urea Sdzgycep8037-09-29 10:04:00 Test Item Value Reference Range Comments Blood Urea Nitrogen (test code = 3094-0) 23 mg/dL 7-22 Lab - BUN/Creatinine Eoewu0387-26-35 10:04:00 Test Item Value Reference Range Comments BUN/Creatinine Ratio (test code = 3097-3) 13 15-24 Lab - Aspartate Amino Transf (AST/SGOT)2017-12-12 10:04:00 Test Item Value Reference Range Comments Aspartate Amino Transf (AST/SGOT) (test code = 22 U/L 1 2-45 77330-7) Lab - Anion Kpp1733-51-62 10:04:00 Test Item Value Reference Range Comments Anion Gap (test code = 04656-8) 8 mmol/L 5-15 Lab - Alkaline Ihqsnycbsbv2978-35-92 10:04:00 Test Item Value Reference Range Comments Alkaline Phosphatase (test code = 6768-6) 70 U/L 37-107 Lab - Albumin/Globulin Zbpzl7851-23-47 10:04:00 Test Item Value Reference Range Comments Albumin/Globulin Ratio (test code = 1759-0) 1.2 1.1- 1.8 Lab - Brxxcfm9450-69-14 10:04:00 Test Item Value Reference Range Comments Albumin (test code = 1751-7) 4.1 g/dL 3.5-5.2 Lab - Alanine Aminotransferase (ALT/SGPT)2017-12-12 10:04:00 Test Item Value Reference Range Comments Alanine Aminotransferase (ALT/SGPT) (test code = 15 U/L 1040 1743-4) Lab - White Blood Fspgi0174-90-40 10:04:00 Test Item Value Reference Range Comments White Blood Count (test code = 60152-4) 5.4 K/mm3 4.5-13.0 Lab - Red Cell Distribution Qrjdj5588-28-63 10:04:00 Test Item Value Reference Range Comments Red Cell Distribution Width (test code = 788-0) 14.4 % 11.0-15.0 Lab - Red Blood Jotmm2374-92-30 10:04:00 Test Item Value Reference Range Comments Red Blood Count (test code = 789-8) 4.66 M/mm3 3.10-5.80 Lab - Platelet Jpllt8542-13-20 10:04:00 Test Item Value Reference Range Comments Platelet Count (test code = 777-3) 191 K/mm3 140-400 Lab - Mean Platelet Xlpnpw5621-67-91 10:04:00 Test Item Value Reference Range Comments Mean Platelet Volume (test code = 99384-3) 7.7 fL 6.0-9 .5 Lab - Mean Corpuscular Pzcbhq1803-79-62 10:04:00 Test Item Value Reference Range Comments Mean Corpuscular Volume (test code = 787-2) 89.0 fL 78-1 00 Lab - Mean Corpuscular Hemoglobin Ywmogpv6408-26-02 10:04:00 Test Item Value Reference Range Comments Mean Corpuscular Hemoglobin Concent (test code = 34.1 g/dl 31-36 786-4) Lab - Mean Corpuscular Qqlejxunkq7613-31-67 10:04:00 Test Item Value Reference Range Comments Mean Corpuscular Hemoglobin (test code = 785-6) 30.3 pg 25-35 Lab - Rzgxnuldxd3906-39-40 10:04:00 Test Item Value Reference Range Comments Hemoglobin (test code = 718-7) 14.1 G/DL 12.0-16.9 Lab - Qxpvuytbnd1187-55-15 10:04:00 Test Item Value Reference Range Comments Hematocrit (test code = Hematocrit) 41.5 % 36.0-49.0 Lab - B-Type Natriuretic Zbjxlfz9714-17-07 10:01:00 Test Item Value Reference Range Comments B-Type Natriuretic Peptide (test code = 49715-0) 13 pg/mL 0-100 POCT xgjiixv6182-00-69 14:35:00 Test Item Value Reference Range Comments Glucose-POC (test code = Glucose-POC) 93 mg/dL 70- 110 mg /dL Lab - Bedside Glucose (Misc Panel)2017-06-03 14:35:00 Test Item Value Reference Range Comments Bedside Glucose (Misc Panel) 93.0 mg/dL 70-110 Met er ID: [id number] (test code = Bedside Glucose Ope rator: [id number] ([facility] [place] Panel)) POCT czkvllf0257-65-71 09:47:00 Test Item Value Reference Range Comments Glucose-POC (test code = Glucose-POC) 107 mg/dL 70- 110 mg /dL MDI0538-76-76 17:01:00 Test Item Value Reference Range Comments RBC (test code = RBC) 4.10 M/mm3 3.10- 5.80 M/mm3 HCT (test code = HCT) 37.1 % 36.0- 49.0 % MCH (test code = MCH) 30.8 pg 25- 35 pg MPV (test code = MPV) 7.8 fL 6.0- 9.5 fL RDW (test code = RDW) 14.6 % 11.0- 15.0 % MCV (test code = MCV) 90.6 fL 78- 100 fL MCHC (test code = MCHC) 34.0 g/dl 31- 36 g/dl Platelet (test code = Platelet) 182 K/mm3 140- 400 K/mm3 WBC (test code = WBC) 6.2 K/mm3 4.5- 13.0 K/mm3 HGB (test code = HGB) 12.6 G/DL 12.0- 16.9 G/DL Lab - White Blood Impxi0535-04-77 17:01:00 Test Item Value Reference Range Comments White Blood Count (test code = 31991-0) 6.2 K/mm3 4.5-13.0 Lab - Red Cell Distribution [id number] 17:01:00 Test Item Value Reference Range Comments Red Cell Distribution Width (test code = 788-0) 14.6 % 11.0-15.0 Lab - Red Blood Dcxsp6132-86-68 17:01:00 Test Item Value Reference Range Comments Red Blood Count (test code = 789-8) 4.10 M/mm3 3.10-5.80 Lab - Platelet Lkwbu0509-00-91 17:01:00 Test Item Value Reference Range Comments Platelet Count (test code = 777-3) 182 K/mm3 140-400 Lab - Mean Platelet Lhqdhb3783-20-64 17:01:00 Test Item Value Reference Range Comments Mean Platelet Volume (test code = 88011-2) 7.8 fL 6.0-9 .5 Lab - Mean Corpuscular Xotqma1054-01-19 17:01:00 Test Item Value Reference Range Comments Mean Corpuscular Volume (test code = 787-2) 90.6 fL 78-1 00 Lab - Mean Corpuscular Hemoglobin Tcyqktv7949-21-14 17:01:00 Test Item Value Reference Range Comments Mean Corpuscular Hemoglobin Concent (test code = 34.0 g/dl 31-36 786-4) Lab - Mean Corpuscular Odhpavfady7407-54-66 17:01:00 Test Item Value Reference Range Comments Mean Corpuscular Hemoglobin (test code = 785-6) 30.8 pg 25-35 Lab - Tvsnbitoab8453-51-71 17:01:00 Test Item Value Reference Range Comments Hemoglobin (test code = 718-7) 12.6 G/DL 12.0-16.9 Lab - Eqfgmkrbjo2721-90-68 17:01:00 Test Item Value Reference Range Comments Hematocrit (test code = Hematocrit) 37.1 % 36.0-49.0 POCT ognkpbm8704-73-25 09:15:00 Test Item Value Reference Range Comments Glucose-POC (test code = Glucose-POC) 96 mg/dL 70- 110 mg /dL Lab - Bedside Glucose (Misc Panel)2017-05-13 09:15:00 Test Item Value Reference Range Comments Bedside Glucose (Misc Panel) 96.0 mg/dL 70-110 Met er ID: [id number] (test code = Bedside Glucose Ope rator: [id number] (Misc Panel)) POCT kzjbagj4145-48-67 08:18:00 Test Item Value Reference Range Comments Glucose-POC (test code = Glucose-POC) 252 mg/dL 70- 110 mg /dL Lab - Bedside Glucose (Misc Panel)2017-04-21 08:18:00 Test Item Value Reference Range Comments Bedside Glucose (Misc Panel) 252.0 mg/dL 70-110 Met er ID: [id number] (test code = Bedside Glucose Ope rator: [id number] (Misc Panel)) POCT [id number] 07:42:00 Test Item Value Reference Range Comments Glucose-POC (test code = Glucose-POC) 70 mg/dL 70- 110 mg /dL POCT ajbnnkl8599-38-03 10:30:00 Test Item Value Reference Range Comments Glucose-POC (test code = Glucose-POC) 187 mg/dL 70- 110 mg /dL Itxhajuhmi5531-51-59 15:30:00 Test Item Value Reference Range Comments Urine Source (test code = Urine Source) CLEAN CATCH Color, UA (test code = Color, UA) YELLOW YELLOW Urobilinogen, UA (test code = Urobilinogen, UA) 0.2 E.U./DL 0.2- 1.0 E.U./DL pH, UA (test code = pH, UA) 5.5 5.0-8.0 Protein, Ur (test code = Protein, Ur) NEGATIVE NEGATIVE M G/DL Blood, UA (test code = Blood, UA) LARGE NEGATIVE Specific [place], Urine (test code = Specific 1.008 1. 005-1.030 [place], Urine) Glucose, UA (test code = Glucose, UA) NEGATIVE NEGATIVE M G/DL Ketones, UA (test code = Ketones, UA) NEGATIVE NEGATIVE M G/DL Nitrite, UA (test code = Nitrite, UA) NEGATIVE NEGATIVE Leukocyte Esterase, UA (test code = Leukocyte NEGATIVE NE GATIVE Esterase, UA) Clarity, UA (test code = Clarity, UA) CLEAR CLEAR Bilirubin, UA (test code = Bilirubin, UA) NEGATIVE NEGATI VE Urine Eaklbqxwfof9211-57-63 15:30:00 Test Item Value Reference Range Comments Renal Epithel, UA (test code = Renal Epithel, UA) RARE 0- 5 #/HPF RBC, UA (test code = RBC, UA) 20-50 0-5 WBC, UA (test code = WBC, UA) RARE 0- 5 #/HPF Bacteria, UA (test code = Bacteria, UA) TRACE TRACE BA C/HPF Lab - Urine [id number] 15:30:00 Test Item Value Reference Range Comments Urine pH (test code = 06629-8) 5.5 Lab - Urine [id number] 15:30:00 Test Item Value Reference Range Comments Urine WBC (test code = Urine WBC) Rare #/HPF Lab - Urine Wgcrvdlsceyn9583-84-88 15:30:00 Test Item Value Reference Range Comments Urine Urobilinogen (test code = 67707-7) 0.2 E.U./DL Lab - Urine Specific Ykdnnhq8031-78-90 15:30:00 Test Item Value Reference Range Comments Urine Specific [place] (test code = 33575-7) 1.008 Lab - Urine Wtjkfm2373-86-16 15:30:00 Test Item Value Reference Range Comments Urine Source (test code = Urine Source) Clean catch Lab - Urine [id number] 15:30:00 Test Item Value Reference Range Comments Urine RBC (test code = 66443-7) 20-50 Lab - Urine Clqrmmd0001-80-43 15:30:00 Test Item Value Reference Range Comments Urine Protein (test code = 38876-4) Negative MG/DL Lab - Urine Krmylvr7627-72-78 15:30:00 Test Item Value Reference Range Comments Urine Nitrite (test code = 83696-6) Negative Lab - Urine Leukocyte Fuuyugou9959-67-47 15:30:00 Test Item Value Reference Range Comments Urine Leukocyte Esterase (test code = 44777-1) Negative Lab - Urine Cotukbs3616-84-43 15:30:00 Test Item Value Reference Range Comments Urine Ketones (test code = 25332-9) Negative MG/DL Lab - Urine Glucose (UA)2017-02-16 15:30:00 Test Item Value Reference Range Comments Urine Glucose (UA) (test code = 76274-2) Negative MG/DL Lab - Urine Epithelial Wqjvg9168-34-51 15:30:00 Test Item Value Reference Range Comments Urine Epithelial Cells (test code = 03878-9) Rare #/HPF Lab - Urine Lfpxu8751-72-33 15:30:00 Test Item Value Reference Range Comments Urine Color (test code = 54764-1) Yellow Lab - Urine Idnmjdn7609-77-00 15:30:00 Test Item Value Reference Range Comments Urine Clarity (test code = 41666-5) Clear Lab - Urine Mresv0788-79-16 15:30:00 Test Item Value Reference Range Comments Urine Blood (test code = 05976-1) Large Lab - Urine Cwgdwrnbl3855-46-19 15:30:00 Test Item Value Reference Range Comments Urine Bilirubin (test code = 33588-8) Negative Lab - Urine Mlhgyudc8180-77-78 15:30:00 Test Item Value Reference Range Comments Urine Bacteria (test code = 37654-9) Trace RENNY/HPF Lab - Urine Specific [place] (Refractom)2017-02-16 15:30:00 Test Item Value Reference Range Comments Urine Specific [place] (Refractom) (test code Not Reportable = 5810-7) Lab - Urine Prot Sulfosalicylic Nlcn1243-80-73 15:30:00 Test Item Value Reference Range Comments Urine Prot Sulfosalicylic Acid (test code = Not Reportable [id number]) Lab - Urine Jqyxtqnr9571-42-44 15:30:00 Test Item Value Reference Range Comments Urine Ictotest (test code = 35068-1) Not Reportable Urine Iyuokhf8409-98-26 15:30:00Urine Culture, Comprehensive Comment: URINE CULTUREFinal NO GROWTH DAY 2 [facility] CONVERSIONCBC w/ Vgmvssqhyfnk8979-52-99 15:09:00 Test Item Value Reference Range Comments RBC (test code = RBC) 4.12 M/mm3 3.10- 5.80 M/mm3 HCT (test code = HCT) 37.1 % 36.0- 49.0 % MCH (test code = MCH) 30.1 pg 25- 35 pg MPV (test code = MPV) 7.2 fL 6.0- 9.5 fL Neutrophils (Absolute) (test code = Neutrophils 2.5 K/mm3 1.8- 8.0 K/mm3 (Absolute)) Baso (Absolute) (test code = Baso (Absolute)) 0 K/mm3 0. 0- 0.2 K/mm3 WBC (test code = WBC) 5.6 K/mm3 4.5- 13.0 K/mm3 HGB (test code = HGB) 12.4 G/DL 12.0- 16.9 G/DL Lymphocytes % (test code = Lymphocytes %) 44.6 % 20.5- 51.1 % Eosinophils % (test code = Eosinophils %) 1.4 % 0- 10 % Basophils % (test code = Basophils %) 0.6 % 0- 3.0 % Eos (Absolute) (test code = Eos (Absolute)) 0.1 K/mm3 0- 0 .6 K/mm3 REPEAT AUTO DIFF (test code = REPEAT AUTO DIFF) YES MCV (test code = MCV) 90.0 fL 78- 100 fL MCHC (test code = MCHC) 33.5 g/dl 31- 36 g/dl Platelet (test code = Platelet) 181 K/mm3 140- 400 K/mm3 Neutrophils % (test code = Neutrophils %) 43.7 % 42.2- 75.2 % RDW (test code = RDW) 14.4 % 11.0- 15.0 % Monocytes % (test code = Monocytes %) 9.7 % 1.7- 9.3 % Lymphs (Absolute) (test code = Lymphs 2.5 K/mm3 1.2- 5.2 K /mm3 (Absolute)) Monocytes(Absolute) (test code = 0.5 K/mm3 0- 0.9 K/mm3 Monocytes(Absolute)) Comprehensive Metabolic [id number] 15:09:00 Test Item Value Reference Range Comments CO2 (test code = CO2) 29 mmol/L 23- 33 mmol/L eGFR (test code = eGFR) 33 >60 BUN/Creatinine Ratio (test code = 10 15-24 BUN/Creatinine Ratio) Calcium (test code = Calcium) 9.2 mg/dL 8.7- 10.7 mg/dL Sodium (test code = Sodium) 144 mmol/L 135- 153 mmol/L Potassium (test code = Potassium) 3.5 mmol/L 3.5- 5.3 mmol/ L Chloride (test code = Chloride) 103 mmol/L 96- 112 mmol/L BUN (test code = BUN) 23 mg/dL 7- 22 mg/dL Globulin, Total (test code = Globulin, Total) 3.7 g/dL 2. 3- 3.5 g/dL Osmolality Calc (test code = Osmolality Calc) 295 26 6-308 Anion Gap (test code = Anion Gap) 12 mmol/L 5- 15 mmol/L Total Protein (test code = Total Protein) 7.8 g/dL 6.1- 8 .0 g/dL Albumin (test code = Albumin) 4.1 g/dL 3.5- 5.2 g/dL ALBUMIN/GLOBULIN RATIO (test code = 1.1 1.1-1.8 ALBUMIN/GLOBULIN RATIO) ALT (test code = ALT) 24 U/L 10- 40 U/L Creatinine (test code = Creatinine) 2.2 mg/dL 0.5- 1.2 mg/ dL Creatinine Clearance (test code = Creatinine 42.8 ML/MIN 60- ML/MIN Clearance) Glucose (test code = Glucose) 182 mg/dL 70- 110 mg/dL Total Bilirubin (test code = Total Bilirubin) 0.55 mg/dL 0. 30- 1.20 mg/dL AST (test code = AST) 40 U/L 12- 45 U/L Alkaline Phosphatase (test code = Alkaline 72 U/L 37- 1 07 U/L Phosphatase) Valproic Acid Nbmmz5468-50-73 15:09:00 Test Item Value Reference Range Comments Valproic Acid, Total (test code = Valproic 71.3 mcg/mL 50.0- 100.0 mcg/mL Acid, Total) Lab - Valproic Acid (Depakene) Gaqof5953-04-17 15:09:00 Test Item Value Reference Range Comments Valproic Acid (Depakene) Level (test code = 71.3 mcg/mL 50.0 -100.0 4086-5) Lab - Total Ucvpell7836-30-04 15:09:00 Test Item Value Reference Range Comments Total Protein (test code = 2885-2) 7.8 g/dL 6.1-8.0 Lab - Total Dlrmjbvpm5981-38-22 15:09:00 Test Item Value Reference Range Comments Total Bilirubin (test code = 0.55 mg/dL 0.30-1.20 Wilmer ples taken from patients 1975-2) who have taken N aproxen have shown spurious e levation in Total Bilirubin levels. A metabolite of Na proxen (O-Desmethylnapr oxen) has been shown to in terfere with the Ashwin mujica method for measuring To pérez Bilirubin. Lab - Sodium [id number] 15:09:00 Test Item Value Reference Range Comments Sodium Level (test code = 2951-2) 144 mmol/L 135-153 Lab - Potassium [id number] 15:09:00 Test Item Value Reference Range Comments Potassium Level (test code = 2823-3) 3.5 mmol/L 3.5-5.3 Lab - Glucose [id number] 15:09:00 Test Item Value Reference Range Comments Glucose Level (test code = 2345-7) 182 mg/dL 70-110 Lab - [id number] 15:09:00 Test Item Value Reference Range Comments Globulin (test code = 56907-1) 3.7 g/dL 2.3-3.5 Lab - Estimated GFR (MDRD)2017-02-16 15:09:00 Test Item Value Reference Range Comments Estimated GFR (MDRD) (test code 33 60-100 eGFR by MDRD equation. Units = 82632-0) mL/min./1.73m sq . Less than 60 suggests signifi cant renal disease. Lab - Estimated Creatinine Clearance Sken3201-31-99 15:09:00 Test Item Value Reference Range Comments Estimated Creatinine 42.8 ML/MIN >60 Estimated c reatinine Clearance Calc (test code = charlee powers calculated by Estimated Creatinine Cockcroft-G melissa method. Clearance Calc) Lab - Gfnhuqdkyb8217-25-93 15:09:00 Test Item Value Reference Range Comments Creatinine (test code = 2160-0) 2.2 mg/dL 0.5-1.2 Lab - Chloride Nrkbv9814-84-39 15:09:00 Test Item Value Reference Range Comments Chloride Level (test code = 2075-0) 103 mmol/L 96-112 Lab - Carbon Dioxide Haomn2910-89-60 15:09:00 Test Item Value Reference Range Comments Carbon Dioxide Level (test code = 8-9) 29 mmol/L 23-33 Lab - Calculated Ievrfcazjn4876-05-76 15:09:00 Test Item Value Reference Range Comments Calculated Osmolality (test code = Calculated 295 26 6-308 Osmolality) Lab - Calcium Anlce6435-61-12 15:09:00 Test Item Value Reference Range Comments Calcium Level (test code = 60085-5) 9.2 mg/dL 8.7-10.7 Lab - Blood Urea Ltbrfdbu3800-18-92 15:09:00 Test Item Value Reference Range Comments Blood Urea Nitrogen (test code = 3094-0) 23 mg/dL 7-22 Lab - BUN/Creatinine Wurkk3160-97-86 15:09:00 Test Item Value Reference Range Comments BUN/Creatinine Ratio (test code = 3097-3) 10 15-24 Lab - Aspartate Amino Transf (AST/SGOT)2017-02-16 15:09:00 Test Item Value Reference Range Comments Aspartate Amino Transf (AST/SGOT) (test code = 40 U/L 1 2-45 03633-4) Lab - Anion Nxg6022-52-11 15:09:00 Test Item Value Reference Range Comments Anion Gap (test code = 39727-8) 12 mmol/L 5-15 Lab - Alkaline Iablyhwfcmc2803-54-98 15:09:00 Test Item Value Reference Range Comments Alkaline Phosphatase (test code = 6768-6) 72 U/L 37-107 Lab - Albumin/Globulin Taxei6774-36-51 15:09:00 Test Item Value Reference Range Comments Albumin/Globulin Ratio (test code = 1759-0) 1.1 1.1- 1.8 Lab - Lohaega8762-70-93 15:09:00 Test Item Value Reference Range Comments Albumin (test code = 1751-7) 4.1 g/dL 3.5-5.2 Lab - Alanine Aminotransferase (ALT/SGPT)2017-02-16 15:09:00 Test Item Value Reference Range Comments Alanine Aminotransferase (ALT/SGPT) (test code = 24 U/L 10-40 1743-4) Lab - White Blood Xppdk8099-01-05 15:09:00 Test Item Value Reference Range Comments White Blood Count (test code = 20100-2) 5.6 K/mm3 4.5-13.0 Lab - Red Cell Distribution Akvld9099-36-88 15:09:00 Test Item Value Reference Range Comments Red Cell Distribution Width (test code = 788-0) 14.4 % 11.0-15.0 Lab - Red Blood Cwybf1760-26-84 15:09:00 Test Item Value Reference Range Comments Red Blood Count (test code = 789-8) 4.12 M/mm3 3.10-5.80 Lab - Platelet Aigpg9751-96-55 15:09:00 Test Item Value Reference Range Comments Platelet Count (test code = 777-3) 181 K/mm3 140-400 Lab - Neutrophils (%) (Auto)2017-02-16 15:09:00 Test Item Value Reference Range Comments Neutrophils (%) (Auto) (test code = 770-8) 43.7 % 42.2- 75.2 Lab - Neutrophils # (Auto)2017-02-16 15:09:00 Test Item Value Reference Range Comments Neutrophils # (Auto) (test code = 751-8) 2.5 K/mm3 1.8-8.0 Lab - Monocytes (%) (Auto)2017-02-16 15:09:00 Test Item Value Reference Range Comments Monocytes (%) (Auto) (test code = 5905-5) 9.7 % 1.7-9. 3 Lab - Monocytes # (Auto)2017-02-16 15:09:00 Test Item Value Reference Range Comments Monocytes # (Auto) (test code = BOT3738) 0.5 K/mm3 0-0.9 Lab - Mean Platelet Ztymhv0274-82-11 15:09:00 Test Item Value Reference Range Comments Mean Platelet Volume (test code = 92305-5) 7.2 fL 6.0-9 .5 Lab - Mean Corpuscular Qaarla7433-54-52 15:09:00 Test Item Value Reference Range Comments Mean Corpuscular Volume (test code = 787-2) 90.0 fL 78-1 00 Lab - Mean Corpuscular Hemoglobin Bgzqrnp1773-93-10 15:09:00 Test Item Value Reference Range Comments Mean Corpuscular Hemoglobin Concent (test code = 33.5 g/dl 31-36 786-4) Lab - Mean Corpuscular Xbjdwoujqs6031-35-78 15:09:00 Test Item Value Reference Range Comments Mean Corpuscular Hemoglobin (test code = 785-6) 30.1 pg 25-35 Lab - Lymphocytes (%) (Auto)2017-02-16 15:09:00 Test Item Value Reference Range Comments Lymphocytes (%) (Auto) (test code = 736-9) 44.6 % 20.5- 51.1 Lab - Lymphocytes # (Auto)2017-02-16 15:09:00 Test Item Value Reference Range Comments Lymphocytes # (Auto) (test code = 731-0) 2.5 K/mm3 1.2-5.2 Lab - Xrxbojjugr7889-00-29 15:09:00 Test Item Value Reference Range Comments Hemoglobin (test code = 718-7) 12.4 G/DL 12.0-16.9 Lab - Haiynvpyvd7104-04-07 15:09:00 Test Item Value Reference Range Comments Hematocrit (test code = Hematocrit) 37.1 % 36.0-49.0 Lab - Eosinophils (%) (Auto)2017-02-16 15:09:00 Test Item Value Reference Range Comments Eosinophils (%) (Auto) (test code = 713-8) 1.4 % 0-10 Lab - Eosinophils # (Auto)2017-02-16 15:09:00 Test Item Value Reference Range Comments Eosinophils # (Auto) (test code = 711-2) 0.1 K/mm3 0-0.6 Lab - Basophils (%) (Auto)2017-02-16 15:09:00 Test Item Value Reference Range Comments Basophils (%) (Auto) (test code = 72443-9) 0.6 % 0-3.0 Lab - Basophils # (Auto)2017-02-16 15:09:00 Test Item Value Reference Range Comments Basophils # (Auto) (test code = 704-7) 0.0 K/mm3 0.0-0.2 POCT cauzfya6940-68-21 13:23:00 Test Item Value Reference Range Comments Glucose-POC (test code = Glucose-POC) 88 mg/dL 70- 110 mg /dL Lab - Bedside Glucose (Misc Panel)2017-02-16 13:23:00 Test Item Value Reference Range Comments Bedside Glucose (Misc Panel) 88.0 mg/dL 70-110 Met er ID: [id number] (test code = Bedside Glucose Ope rator: [id number] (Misc Panel)) CBC w/ Certohbplmdn1553-71-52 12:43:00 Test Item Value Reference Range Comments RBC (test code = RBC) 3.73 M/mm3 3.10- 5.80 M/mm3 HCT (test code = HCT) 33.6 % 36.0- 49.0 % MCH (test code = MCH) 30.3 pg 25- 35 pg MPV (test code = MPV) 7.2 fL 6.0- 9.5 fL Neutrophils (Absolute) (test code = Neutrophils 1.4 K/mm3 1.8- 8.0 K/mm3 (Absolute)) Baso (Absolute) (test code = Baso (Absolute)) 0 K/mm3 0. 0- 0.2 K/mm3 WBC (test code = WBC) 4.0 K/mm3 4.5- 13.0 K/mm3 HGB (test code = HGB) 11.3 G/DL 12.0- 16.9 G/DL Lymphocytes % (test code = Lymphocytes %) 52.2 % 20.5- 51.1 % Eosinophils % (test code = Eosinophils %) 2.4 % 0- 10 % Basophils % (test code = Basophils %) 0.6 % 0- 3.0 % Eos (Absolute) (test code = Eos (Absolute)) 0.1 K/mm3 0- 0 .6 K/mm3 REPEAT AUTO DIFF (test code = REPEAT AUTO DIFF) YES MCV (test code = MCV) 90.0 fL 78- 100 fL MCHC (test code = MCHC) 33.6 g/dl 31- 36 g/dl Platelet (test code = Platelet) 181 K/mm3 140- 400 K/mm3 Neutrophils % (test code = Neutrophils %) 33.9 % 42.2- 75.2 % RDW (test code = RDW) 14.9 % 11.0- 15.0 % Monocytes % (test code = Monocytes %) 10.9 % 1.7- 9.3 % Lymphs (Absolute) (test code = Lymphs 2.1 K/mm3 1.2- 5.2 K /mm3 (Absolute)) Monocytes(Absolute) (test code = 0.4 K/mm3 0- 0.9 K/mm3 Monocytes(Absolute)) [id number] 12:43:00 Test Item Value Reference Range Comments Creatine Kinase, Total (test code = Creatine 84 U/L 22- 269 U/L Kinase, Total) CK-MB (test code = CK-MB) 1.45 ng/mL 0.6- 6.3 ng/mL Troponin I (test code = Troponin I) <0.03 0.00- 0.49 n g/mL CK-MB Index (test code = CK-MB Index) 1.7 0.0-2.5 Comprehensive Metabolic Eaaol2979-67-91 12:43:00 Test Item Value Reference Range Comments CO2 (test code = CO2) 27 mmol/L 23- 33 mmol/L eGFR (test code = eGFR) 41 >60 BUN/Creatinine Ratio (test code = 10 15-24 BUN/Creatinine Ratio) Calcium (test code = Calcium) 9.0 mg/dL 8.7- 10.7 mg/dL Sodium (test code = Sodium) 142 mmol/L 135- 153 mmol/L Potassium (test code = Potassium) 4.1 mmol/L 3.5- 5.3 mmol/ L Chloride (test code = Chloride) 106 mmol/L 96- 112 mmol/L BUN (test code = BUN) 18 mg/dL 7- 22 mg/dL Globulin, Total (test code = Globulin, Total) 3.4 g/dL 2. 3- 3.5 g/dL Osmolality Calc (test code = Osmolality Calc) 285 26 6-308 Anion Gap (test code = Anion Gap) 9 mmol/L 5- 15 mmol/L Total Protein (test code = Total Protein) 7.1 g/dL 6.1- 8 .0 g/dL Albumin (test code = Albumin) 3.7 g/dL 3.5- 5.2 g/dL ALBUMIN/GLOBULIN RATIO (test code = 1.1 1.1-1.8 ALBUMIN/GLOBULIN RATIO) ALT (test code = ALT) 21 U/L 10- 40 U/L Creatinine (test code = Creatinine) 1.8 mg/dL 0.5- 1.2 mg/ dL Creatinine Clearance (test code = Creatinine 52.6 ML/MIN 60- ML/MIN Clearance) Glucose (test code = Glucose) 99 mg/dL 70- 110 mg/dL Total Bilirubin (test code = Total Bilirubin) 0.55 mg/dL 0. 30- 1.20 mg/dL AST (test code = AST) 31 U/L 12- 45 U/L Alkaline Phosphatase (test code = Alkaline 72 U/L 37- 1 07 U/L Phosphatase) B-type natriuretic dfufxgs6396-46-66 12:43:00 Test Item Value Reference Range Comments BNP (test code = BNP) 31 pg/mL 0- 100 pg/mL Valproic Acid Zyfvf1618-99-18 12:43:00 Test Item Value Reference Range Comments Valproic Acid, Total (test code = Valproic 82.1 mcg/mL 50.0- 100.0 mcg/mL Acid, Total) Lab - Valproic Acid (Depakene) Gkwki9797-05-29 12:43:00 Test Item Value Reference Range Comments Valproic Acid (Depakene) Level (test code = 82.1 mcg/mL 50.0 -100.0 4086-5) Lab - B-Type Natriuretic Rrshgwm9397-42-50 12:43:00 Test Item Value Reference Range Comments B-Type Natriuretic Peptide (test code = 05002-5) 31 pg/mL 0-100 Lab - Troponin [id number] 12:43:00 Test Item Value Reference Range Comments Troponin I (test code = 04863-7) < 0.03 ng/mL 0.00-0.49 Lab - Total Ypgslyj1793-63-75 12:43:00 Test Item Value Reference Range Comments Total Protein (test code = 2885-2) 7.1 g/dL 6.1-8.0 Lab - Total Creatine Sprcht8622-68-62 12:43:00 Test Item Value Reference Range Comments Total Creatine Kinase (test code = 2157-6) 84 U/L 22-26 9 Lab - Total Lhkhuevwb9308-89-43 12:43:00 Test Item Value Reference Range Comments Total Bilirubin (test code = 0.55 mg/dL 0.30-1.20 [address]es taken from patients 1976-) who have taken N aproxen have shown spurious e levation in Total Bilirubin levels. A metabolite of Na proxen (O-Desmethylnapr oxen) has been shown to in terfere with the Ashwin mujica method for measuring To pérez Bilirubin. Lab - Sodium Sudiu5898-72-05 12:43:00 Test Item Value Reference Range Comments Sodium Level (test code = 2951-2) 142 mmol/L 135-153 Lab - Potassium Jkppw7949-28-81 12:43:00 Test Item Value Reference Range Comments Potassium Level (test code = 2823-3) 4.1 mmol/L 3.5-5.3 Lab - Glucose Mdfsj7292-37-30 12:43:00 Test Item Value Reference Range Comments Glucose Level (test code = 2345-7) 99 mg/dL 70-110 Lab - Scxyrvmn6396-15-77 12:43:00 Test Item Value Reference Range Comments Globulin (test code = 21100-8) 3.4 g/dL 2.3-3.5 Lab - Estimated GFR (MDRD)2016-12-28 12:43:00 Test Item Value Reference Range Comments Estimated GFR (MDRD) (test code 41 60-100 eGFR by MDRD equation. Units = 39554-0) mL/min./1.73m sq . Less than 60 suggests signifi cant renal disease. Lab - Estimated Creatinine Clearance Olqw5828-95-16 12:43:00 Test Item Value Reference Range Comments Estimated Creatinine 52.6 ML/MIN >60 Estimated c reatinine Clearance Calc (test code = charlee powers calculated by Estimated Creatinine Cockcroft-G melissa method. Clearance Calc) Lab - Czmtpfwwwp2921-92-36 12:43:00 Test Item Value Reference Range Comments Creatinine (test code = 2160-0) 1.8 mg/dL 0.5-1.2 Lab - Creatine Kinase MB Relative Wxvse0187-01-97 12:43:00 Test Item Value Reference Range Comments Creatine Kinase MB Relative 1.7 0.0-2.5 CK I ndex should not be used for Index (test code = Creatine inte rpretation when the total CK Kinase MB Relative Index) activi ty remains within the Reference Interv al due to the potential of fal sely elevated values. Lab - Creatine Kinase [id number] 12:43:00 Test Item Value Reference Range Comments Creatine Kinase MB (test code = Creatine Kinase 1.45 ng/mL 0.6-6.3 MB) Lab - Chloride Xzbpv7203-27-01 12:43:00 Test Item Value Reference Range Comments Chloride Level (test code = 2075-0) 106 mmol/L 96-112 Lab - Carbon Dioxide Ujqze1366-31-57 12:43:00 Test Item Value Reference Range Comments Carbon Dioxide Level (test code = 8-9) 27 mmol/L 23-33 Lab - Calculated Smznawbabg7608-22-00 12:43:00 Test Item Value Reference Range Comments Calculated Osmolality (test code = Calculated 285 26 6-308 Osmolality) Lab - Calcium Yqtrt2954-66-59 12:43:00 Test Item Value Reference Range Comments Calcium Level (test code = 68099-2) 9.0 mg/dL 8.7-10.7 Lab - Blood Urea Ucqfrimq5779-94-13 12:43:00 Test Item Value Reference Range Comments Blood Urea Nitrogen (test code = 3094-0) 18 mg/dL 7-22 Lab - BUN/Creatinine Xvimc9759-55-64 12:43:00 Test Item Value Reference Range Comments BUN/Creatinine Ratio (test code = 3097-3) 10 15-24 Lab - Aspartate Amino Transf (AST/SGOT)2016-12-28 12:43:00 Test Item Value Reference Range Comments Aspartate Amino Transf (AST/SGOT) (test code = 31 U/L 1 2-45 55601-9) Lab - Anion [id number] 12:43:00 Test Item Value Reference Range Comments Anion Gap (test code = 23642-6) 9 mmol/L 5-15 Lab - Alkaline Krhwhtexiek4054-39-97 12:43:00 Test Item Value Reference Range Comments Alkaline Phosphatase (test code = 6768-6) 72 U/L 37-107 Lab - Albumin/Globulin Qpbxv1445-47-83 12:43:00 Test Item Value Reference Range Comments Albumin/Globulin Ratio (test code = 1759-0) 1.1 1.1- 1.8 Lab - Pqrenal0265-57-71 12:43:00 Test Item Value Reference Range Comments Albumin (test code = 1751-7) 3.7 g/dL 3.5-5.2 Lab - Alanine Aminotransferase (ALT/SGPT)2016-12-28 12:43:00 Test Item Value Reference Range Comments Alanine Aminotransferase (ALT/SGPT) (test code = 21 U/L 1743-4) Lab - White Blood Jocau6615-59-68 12:43:00 Test Item Value Reference Range Comments White Blood Count (test code = 33369-9) 4.0 K/mm3 4.5-13.0 Lab - Red Cell Distribution Tayaz8937-56-06 12:43:00 Test Item Value Reference Range Comments Red Cell Distribution Width (test code = 788-0) 14.9 % 11.0-15.0 Lab - Red Blood Dpkal6314-39-66 12:43:00 Test Item Value Reference Range Comments Red Blood Count (test code = 789-8) 3.73 M/mm3 3.10-5.80 Lab - Platelet Feryb1600-59-66 12:43:00 Test Item Value Reference Range Comments Platelet Count (test code = 777-3) 181 K/mm3 140-400 Lab - Neutrophils (%) (Auto)2016-12-28 12:43:00 Test Item Value Reference Range Comments Neutrophils (%) (Auto) (test code = 770-8) 33.9 % 42.2- 75.2 Lab - Neutrophils # (Auto)2016-12-28 12:43:00 Test Item Value Reference Range Comments Neutrophils # (Auto) (test code = 751-8) 1.4 K/mm3 1.8-8.0 Lab - Monocytes (%) (Auto)2016-12-28 12:43:00 Test Item Value Reference Range Comments Monocytes (%) (Auto) (test code = 5905-5) 10.9 % 1.7-9. 3 Lab - Monocytes # (Auto)2016-12-28 12:43:00 Test Item Value Reference Range Comments Monocytes # (Auto) (test code = 742-7) 0.4 K/mm3 0-0.9 Lab - Mean Platelet Mcxsud0568-91-22 12:43:00 Test Item Value Reference Range Comments Mean Platelet Volume (test code = 11335-7) 7.2 fL 6.0-9 .5 Lab - Mean Corpuscular Uucrtp9188-11-31 12:43:00 Test Item Value Reference Range Comments Mean Corpuscular Volume (test code = 787-2) 90.0 fL 78-1 00 Lab - Mean Corpuscular Hemoglobin Zxtlnib9210-73-48 12:43:00 Test Item Value Reference Range Comments Mean Corpuscular Hemoglobin Concent (test code = 33.6 g/dl 31-36 786-4) Lab - Mean Corpuscular Wjgpoxbvqh5418-86-88 12:43:00 Test Item Value Reference Range Comments Mean Corpuscular Hemoglobin (test code = 785-6) 30.3 pg 25-35 Lab - Lymphocytes (%) (Auto)2016-12-28 12:43:00 Test Item Value Reference Range Comments Lymphocytes (%) (Auto) (test code = 736-9) 52.2 % 20.5- 51.1 Lab - Lymphocytes # (Auto)2016-12-28 12:43:00 Test Item Value Reference Range Comments Lymphocytes # (Auto) (test code = 731-0) 2.1 K/mm3 1.2-5.2 Lab - Xnzeqekvlr2770-51-25 12:43:00 Test Item Value Reference Range Comments Hemoglobin (test code = 718-7) 11.3 G/DL 12.0-16.9 Lab - Yvljsyfkae5246-07-10 12:43:00 Test Item Value Reference Range Comments Hematocrit (test code = Hematocrit) 33.6 % 36.0-49.0 Lab - Eosinophils (%) (Auto)2016-12-28 12:43:00 Test Item Value Reference Range Comments Eosinophils (%) (Auto) (test code = 713-8) 2.4 % 0-10 Lab - Eosinophils # (Auto)2016-12-28 12:43:00 Test Item Value Reference Range Comments Eosinophils # (Auto) (test code = 711-2) 0.1 K/mm3 0-0.6 Lab - Basophils (%) (Auto)2016-12-28 12:43:00 Test Item Value Reference Range Comments Basophils (%) (Auto) (test code = 706-2) 0.6 % 0-3.0 Lab - Basophils # (Auto)2016-12-28 12:43:00 Test Item Value Reference Range Comments Basophils # (Auto) (test code = 704-7) 0.0 K/mm3 0.0-0.2 Jacewxkymf2162-08-49 12:42:00 Test Item Value Reference Range Comments Specific [place], Urine (test code = Specific 1.007 1. 005-1.030 [place], Urine) Glucose, UA (test code = Glucose, UA) NEGATIVE NEGATIVE M G/DL Ketones, UA (test code = Ketones, UA) NEGATIVE NEGATIVE M G/DL Nitrite, UA (test code = Nitrite, UA) NEGATIVE NEGATIVE Leukocyte Esterase, UA (test code = Leukocyte NEGATIVE NE GATIVE Esterase, UA) pH, UA (test code = pH, UA) 6.5 5.0-8.0 Protein, Ur (test code = Protein, Ur) NEGATIVE NEGATIVE M G/DL Blood, UA (test code = Blood, UA) LARGE NEGATIVE Urine Source (test code = Urine Source) CLEAN CATCH Color, UA (test code = Color, UA) YELLOW YELLOW Urobilinogen, UA (test code = Urobilinogen, UA) 1.0 E.U./DL 0.2- 1.0 E.U./DL Clarity, UA (test code = Clarity, UA) CLEAR CLEAR Bilirubin, UA (test code = Bilirubin, UA) NEGATIVE NEGATI VE Urine Dxuukiwovhj6775-12-70 12:42:00 Test Item Value Reference Range Comments RBC, UA (test code = RBC, UA) 10-20 0-5 WBC, UA (test code = WBC, UA) 0-5 0- 5 #/HPF Lab - Urine [id number] 12:42:00 Test Item Value Reference Range Comments Urine pH (test code = 04421-3) 6.5 Lab - Urine [id number] 12:42:00 Test Item Value Reference Range Comments Urine WBC (test code = Urine WBC) 0-5 #/HPF Lab - Urine Tnmuuzudrblx9625-76-55 12:42:00 Test Item Value Reference Range Comments Urine Urobilinogen (test code = 23646-8) 1.0 E.U./DL Lab - Urine Specific Wspjakh3137-73-13 12:42:00 Test Item Value Reference Range Comments Urine Specific [place] (test code = 28390-2) 1.007 Lab - Urine Qquoli4400-58-58 12:42:00 Test Item Value Reference Range Comments Urine Source (test code = Urine Source) Clean catch Lab - Urine [id number] 12:42:00 Test Item Value Reference Range Comments Urine RBC (test code = 07211-5) 10-20 Lab - Urine Fezhtxq7840-45-57 12:42:00 Test Item Value Reference Range Comments Urine Protein (test code = 81884-0) Negative MG/DL Lab - Urine Vevjoso1870-99-00 12:42:00 Test Item Value Reference Range Comments Urine Nitrite (test code = 94216-4) Negative Lab - Urine Leukocyte [id number] 12:42:00 Test Item Value Reference Range Comments Urine Leukocyte Esterase (test code = 06605-9) Negative Lab - Urine Lrgtrpu2396-18-43 12:42:00 Test Item Value Reference Range Comments Urine Ketones (test code = 52309-6) Negative MG/DL Lab - Urine Glucose (UA)2016-12-28 12:42:00 Test Item Value Reference Range Comments Urine Glucose (UA) (test code = 35285-8) Negative MG/DL Lab - Urine Pszsh8517-98-37 12:42:00 Test Item Value Reference Range Comments Urine Color (test code = 38757-4) Yellow Lab - Urine Uioqzwo1636-69-22 12:42:00 Test Item Value Reference Range Comments Urine Clarity (test code = 83683-6) Clear Lab - Urine Wgpxi0317-33-37 12:42:00 Test Item Value Reference Range Comments Urine Blood (test code = 74561-5) Large Lab - Urine Jfbvwkwze0464-92-56 12:42:00 Test Item Value Reference Range Comments Urine Bilirubin (test code = 38305-0) Negative POCT kposuos1647-14-89 10:38:00 Test Item Value Reference Range Comments Glucose-POC (test code = Glucose-POC) 133 mg/dL 70- 110 mg /dL Lab - Bedside Glucose (Misc Panel)2016-12-28 10:38:00 Test Item Value Reference Range Comments Bedside Glucose (Misc Panel) 133.0 mg/dL 70-110 Met er ID: [id number] (test code = Bedside Glucose Ope rator: [id number] (Misc Panel)) POCT [id number] 11:17:00 Test Item Value Reference Range Comments Glucose-POC (test code = Glucose-POC) 233 mg/dL 70- 110 mg /dL Lab - Bedside Glucose (Misc Panel)2016-11-25 11:17:00 Test Item Value Reference Range Comments Bedside Glucose (Misc Panel) 233.0 mg/dL 70-110 Met er ID: [id number] (test code = Bedside Glucose Ope rator: [id number] (Misc Panel)) POCT [id number] 06:58:00 Test Item Value Reference Range Comments Glucose-POC (test code = Glucose-POC) 167 mg/dL 70- 110 mg /dL Lab - Calculated Iaupfzkmib6967-68-21 04:28:00 Test Item Value Reference Range Comments Calculated Osmolality (test code = Calculated 298 26 6-308 Osmolality) Lab - Calcium Zfdlt9468-33-06 04:28:00 Test Item Value Reference Range Comments Calcium Level (test code = 79421-3) 8.7 mg/dL 8.7-10.7 Lab - Blood Urea Jwtkqqfz3573-39-23 04:28:00 Test Item Value Reference Range Comments Blood Urea Nitrogen (test code = 3094-0) 21 mg/dL 7-22 Lab - BUN/Creatinine Hbvls8252-80-82 04:28:00 Test Item Value Reference Range Comments BUN/Creatinine Ratio (test code = 3097-3) 14 15-24 Lab - Anion [id number] 04:28:00 Test Item Value Reference Range Comments Anion Gap (test code = 87418-1) 9 mmol/L 5-15 Lab - White Blood Wgbpp5674-89-54 04:28:00 Test Item Value Reference Range Comments White Blood Count (test code = 4.7 K/mm3 4.5-13.0 D elta: 5.7 on 11/24/16-0446 23926-4) Lab - Red Cell Distribution Qjypu2254-84-98 04:28:00 Test Item Value Reference Range Comments Red Cell Distribution Width (test code = 788-0) 14.8 % 11.0-15.0 Lab - Red Blood Jgukj0358-03-02 04:28:00 Test Item Value Reference Range Comments Red Blood Count (test code = 789-8) 3.40 M/mm3 3.10-5.80 Lab - Platelet [id number] 04:28:00 Test Item Value Reference Range Comments Platelet Count (test code = 777-3) 144 K/mm3 140-400 Lab - Mean Platelet [id number] 04:28:00 Test Item Value Reference Range Comments Mean Platelet Volume (test code = 15862-4) 7.7 fL 6.0-9 .5 Lab - Mean Corpuscular Nziens2718-68-02 04:28:00 Test Item Value Reference Range Comments Mean Corpuscular Volume (test code = 787-2) 90.4 fL 78-1 00 Lab - Mean Corpuscular Hemoglobin Nugmkjm1331-27-98 04:28:00 Test Item Value Reference Range Comments Mean Corpuscular Hemoglobin Concent (test code = 34.4 g/dl 31-36 786-4) Lab - Mean Corpuscular Tutvtkfxtb7289-89-56 04:28:00 Test Item Value Reference Range Comments Mean Corpuscular Hemoglobin (test code = 785-6) 31.1 pg 25-35 Lab - Zcrnokuuch1804-08-54 04:28:00 Test Item Value Reference Range Comments Hemoglobin (test code = 718-7) 10.6 G/DL 12.0-16.9 Lab - Uusuamcdew1655-78-57 04:28:00 Test Item Value Reference Range Comments Hematocrit (test code = Hematocrit) 30.8 % 36.0-49.0 [id number] 04:28:00 Test Item Value Reference Range Comments RBC (test code = RBC) 3.40 M/mm3 3.10- 5.80 M/mm3 HCT (test code = HCT) 30.8 % 36.0- 49.0 % MCH (test code = MCH) 31.1 pg 25- 35 pg MPV (test code = MPV) 7.7 fL 6.0- 9.5 fL WBC (test code = WBC) 4.7 K/mm3 4.5- 13.0 K/mm3 HGB (test code = HGB) 10.6 G/DL 12.0- 16.9 G/DL RDW (test code = RDW) 14.8 % 11.0- 15.0 % MCV (test code = MCV) 90.4 fL 78- 100 fL MCHC (test code = MCHC) 34.4 g/dl 31- 36 g/dl Platelet (test code = Platelet) 144 K/mm3 140- 400 K/mm3 Basic Metabolic Htjip8212-58-43 04:28:00 Test Item Value Reference Range Comments Sodium (test code = Sodium) 146 mmol/L 135- 153 mmol/L Potassium (test code = Potassium) 3.9 mmol/L 3.5- 5.3 mmol/ L Chloride (test code = Chloride) 113 mmol/L 96- 112 mmol/L BUN (test code = BUN) 21 mg/dL 7- 22 mg/dL Osmolality Calc (test code = Osmolality Calc) 298 26 6-308 CO2 (test code = CO2) 24 mmol/L 23- 33 mmol/L eGFR (test code = eGFR) 51 >60 BUN/Creatinine Ratio (test code = BUN/Creatinine 14 15-24 Ratio) Calcium (test code = Calcium) 8.7 mg/dL 8.7- 10.7 mg/dL Anion Gap (test code = Anion Gap) 9 mmol/L 5- 15 mmol/L Creatinine (test code = Creatinine) 1.5 mg/dL 0.5- 1.2 mg/ dL Creatinine Clearance (test code = Creatinine 62.4 ML/MIN 60- ML/MIN Clearance) Glucose (test code = Glucose) 181 mg/dL 70- 110 mg/dL Lab - Sodium [id number] 04:28:00 Test Item Value Reference Range Comments Sodium Level (test code = 2951-2) 146 mmol/L 135-153 Lab - Potassium [id number] 04:28:00 Test Item Value Reference Range Comments Potassium Level (test code = 2823-3) 3.9 mmol/L 3.5-5.3 Lab - Glucose [id number] 04:28:00 Test Item Value Reference Range Comments Glucose Level (test code = 2345-7) 181 mg/dL 70-110 Lab - Estimated GFR (MDRD)2016-11-25 04:28:00 Test Item Value Reference Range Comments Estimated GFR (MDRD) (test code 51 60-100 eGFR by MDRD equation. Units = 56733-1) mL/min./1.73m sq . Less than 60 suggests signifi cant renal disease. Lab - Estimated Creatinine Clearance [id number] 04:28:00 Test Item Value Reference Range Comments Estimated Creatinine 62.4 ML/MIN >60 Estimated c reatinine Clearance Calc (test code = charlee powers calculated by Estimated Creatinine Cockcroft-G melissa method. Clearance Calc) Lab - [id number] 04:28:00 Test Item Value Reference Range Comments Creatinine (test code = 2160-0) 1.5 mg/dL 0.5-1.2 Lab - Chloride [id number] 04:28:00 Test Item Value Reference Range Comments Chloride Level (test code = 113 mmol/L 96-112 Delt a: 103 on 11/24/165-0) Lab - Carbon Dioxide [id number] 04:28:00 Test Item Value Reference Range Comments Carbon Dioxide Level (test code = 8-9) 24 mmol/L 23-33 POCT [id number] 21:08:00 Test Item Value Reference Range Comments Glucose-POC (test code = Glucose-POC) 193 mg/dL 70- 110 mg /dL POCT [id number] 15:57:00 Test Item Value Reference Range Comments Glucose-POC (test code = Glucose-POC) 252 mg/dL 70- 110 mg /dL POCT [id number] 11:37:00 Test Item Value Reference Range Comments Glucose-POC (test code = Glucose-POC) 279 mg/dL 70- 110 mg /dL POCT [id number] 07:37:00 Test Item Value Reference Range Comments Glucose-POC (test code = Glucose-POC) 218 mg/dL 70- 110 mg /dL [id number] 04:46:00 Test Item Value Reference Range Comments WBC (test code = WBC) 5.7 K/mm3 4.5- 13.0 K/mm3 HGB (test code = HGB) 10.4 G/DL 12.0- 16.9 G/DL RBC (test code = RBC) 3.30 M/mm3 3.10- 5.80 M/mm3 HCT (test code = HCT) 30.0 % 36.0- 49.0 % MCH (test code = MCH) 31.5 pg 25- 35 pg MPV (test code = MPV) 8.1 fL 6.0- 9.5 fL MCV (test code = MCV) 90.7 fL 78- 100 fL MCHC (test code = MCHC) 34.7 g/dl 31- 36 g/dl Platelet (test code = Platelet) 142 K/mm3 140- 400 K/mm3 RDW (test code = RDW) 14.2 % 11.0- 15.0 % Basic Metabolic [id number] 04:46:00 Test Item Value Reference Range Comments CO2 (test code = CO2) 29 mmol/L 23- 33 mmol/L eGFR (test code = eGFR) 39 >60 BUN/Creatinine Ratio (test code = BUN/Creatinine 16 15-24 Ratio) Calcium (test code = Calcium) 8.8 mg/dL 8.7- 10.7 mg/dL Sodium (test code = Sodium) 142 mmol/L 135- 153 mmol/L Potassium (test code = Potassium) 3.8 mmol/L 3.5- 5.3 mmol/ L Chloride (test code = Chloride) 103 mmol/L 96- 112 mmol/L BUN (test code = BUN) 30 mg/dL 7- 22 mg/dL Osmolality Calc (test code = Osmolality Calc) 296 26 6-308 Creatinine (test code = Creatinine) 1.9 mg/dL 0.5- 1.2 mg/ dL Creatinine Clearance (test code = Creatinine 49.2 ML/MIN 60- ML/MIN Clearance) Glucose (test code = Glucose) 224 mg/dL 70- 110 mg/dL Anion Gap (test code = Anion Gap) 10 mmol/L 5- 15 mmol/L POCT [id number] 21:34:00 Test Item Value Reference Range Comments Glucose-POC (test code = Glucose-POC) 250 mg/dL 70- 110 mg /dL POCT [id number] 20:24:00 Test Item Value Reference Range Comments Glucose-POC (test code = Glucose-POC) 323 mg/dL 70- 110 mg /dL POCT [id number] 19:31:00 Test Item Value Reference Range Comments Glucose-POC (test code = Glucose-POC) 344 mg/dL 70- 110 mg /dL POCT [id number] 18:39:00 Test Item Value Reference Range Comments Glucose-POC (test code = Glucose-POC) 405 mg/dL 70- 110 mg /dL POCT [id number] 16:19:00 Test Item Value Reference Range Comments Glucose-POC (test code = Glucose-POC) > 500.0 70- 110 mg /dL Lab - Urine [id number] 15:15:00 Test Item Value Reference Range Comments Urine pH (test code = 26514-2) 6.5 Lab - Urine [id number] 15:15:00 Test Item Value Reference Range Comments Urine WBC (test code = Urine WBC) None seen #/HPF Lab - Urine [id number] 15:15:00 Test Item Value Reference Range Comments Urine Urobilinogen (test code = 71581-1) 0.2 E.U./DL Lab - Urine Specific [id number] 15:15:00 Test Item Value Reference Range Comments Urine Specific [place] (test code = 75089-8) 1.020 Lab - Urine [id number] 15:15:00 Test Item Value Reference Range Comments Urine Source (test code = Urine Source) Clean catch Lab - Urine [id number] 15:15:00 Test Item Value Reference Range Comments Urine RBC (test code = 75284-2) 51-100 Lab - Urine [id number] 15:15:00 Test Item Value Reference Range Comments Urine Protein (test code = 34738-2) Negative MG/DL Lab - Urine [id number] 15:15:00 Test Item Value Reference Range Comments Urine Nitrite (test code = 26559-0) Negative Lab - Urine Leukocyte [id number] 15:15:00 Test Item Value Reference Range Comments Urine Leukocyte Esterase (test code = 27187-7) Negative Lab - Urine [id number] 15:15:00 Test Item Value Reference Range Comments Urine Ketones (test code = 87037-4) Negative MG/DL Lab - Urine Glucose (UA)2016-11-23 15:15:00 Test Item Value Reference Range Comments Urine Glucose (UA) (test code = 41247-7) >=1000 MG/DL Lab - Urine Epithelial [id number] 15:15:00 Test Item Value Reference Range Comments Urine Epithelial Cells (test code = 31958-1) Rare #/HPF Lab - Urine [id number] 15:15:00 Test Item Value Reference Range Comments Urine Color (test code = 63707-5) Yellow Lab - Urine [id number] 15:15:00 Test Item Value Reference Range Comments Urine Clarity (test code = 77982-4) Clear Lab - Urine [id number] 15:15:00 Test Item Value Reference Range Comments Urine Blood (test code = 41567-5) Large Lab - Urine [id number] 15:15:00 Test Item Value Reference Range Comments Urine Bilirubin (test code = 84931-3) Negative Lab - Urine [id number] 15:15:00 Test Item Value Reference Range Comments Urine Bacteria (test code = 47236-9) 1+ RENNY/HPF [id number] 15:15:00 Test Item Value Reference Range Comments Urine Source (test code = Urine Source) CLEAN CATCH Color, UA (test code = Color, UA) YELLOW YELLOW Urobilinogen, UA (test code = Urobilinogen, UA) 0.2 E.U./DL 0.2- 1.0 E.U./DL pH, UA (test code = pH, UA) 6.5 5.0-8.0 Protein, Ur (test code = Protein, Ur) NEGATIVE NEGATIVE M G/DL Blood, UA (test code = Blood, UA) LARGE NEGATIVE Specific [place], Urine (test code = Specific 1.02 1. 005-1.030 [place], Urine) Glucose, UA (test code = Glucose, UA) >=1000 NEGATIVE M G/DL Ketones, UA (test code = Ketones, UA) NEGATIVE NEGATIVE M G/DL Nitrite, UA (test code = Nitrite, UA) NEGATIVE NEGATIVE Leukocyte Esterase, UA (test code = Leukocyte NEGATIVE NE GATIVE Esterase, UA) Clarity, UA (test code = Clarity, UA) CLEAR CLEAR Bilirubin, UA (test code = Bilirubin, UA) NEGATIVE NEGATI VE Urine [id number] 15:15:00 Test Item Value Reference Range Comments Renal Epithel, UA (test code = Renal Epithel, UA) RARE 0- 5 #/HPF RBC, UA (test code = RBC, UA) 51-100 0-5 WBC, UA (test code = WBC, UA) NONE SEEN 0- 5 #/HPF Bacteria, UA (test code = Bacteria, UA) 1+ TRACE BA C/HPF Lab - Neutrophils (%) (Auto)2016-11-23 12:41:00 Test Item Value Reference Range Comments Neutrophils (%) (Auto) (test code = 770-8) 57.7 % 42.2- 75.2 Lab - Neutrophils # (Auto)2016-11-23 12:41:00 Test Item Value Reference Range Comments Neutrophils # (Auto) (test code = 751-8) 3.8 K/mm3 1.8-8.0 Lab - Monocytes (%) (Auto)2016-11-23 12:41:00 Test Item Value Reference Range Comments Monocytes (%) (Auto) (test code = 5905-5) 7.7 % 1.7-9. 3 Lab - Monocytes # (Auto)2016-11-23 12:41:00 Test Item Value Reference Range Comments Monocytes # (Auto) (test code = 742-7) 0.5 K/mm3 0-0.9 Lab - Lymphocytes (%) (Auto)2016-11-23 12:41:00 Test Item Value Reference Range Comments Lymphocytes (%) (Auto) (test code = 736-9) 33.2 % 20.5- 51.1 Lab - Lymphocytes # (Auto)2016-11-23 12:41:00 Test Item Value Reference Range Comments Lymphocytes # (Auto) (test code = 731-0) 2.2 K/mm3 1.2-5.2 Lab - Eosinophils (%) (Auto)2016-11-23 12:41:00 Test Item Value Reference Range Comments Eosinophils (%) (Auto) (test code = 713-8) 1.0 % 0-10 Lab - Eosinophils # (Auto)2016-11-23 12:41:00 Test Item Value Reference Range Comments Eosinophils # (Auto) (test code = 711-2) 0.1 K/mm3 0-0.6 Lab - Basophils (%) (Auto)2016-11-23 12:41:00 Test Item Value Reference Range Comments Basophils (%) (Auto) (test code = 706-2) 0.4 % 0-3.0 Lab - Basophils # (Auto)2016-11-23 12:41:00 Test Item Value Reference Range Comments Basophils # (Auto) (test code = 704-7) 0.0 K/mm3 0.0-0.2 Lab - Total [id number] 12:41:00 Test Item Value Reference Range Comments Total Protein (test code = 2885-2) 8.3 g/dL 6.1-8.0 Lab - Total [id number] 12:41:00 Test Item Value Reference Range Comments Total Bilirubin (test code = 0.91 mg/dL 0.30-1.20 Wilmer ples taken from patients 1975-2) who have taken N aproxen have shown spurious e levation in Total Bilirubin levels. A metabolite of Na proxen (O-Desmethylnapr oxen) has been shown to in terfere with the Ashwin mujica method for measuring To pérez Bilirubin. Lab - [id number] 12:41:00 Test Item Value Reference Range Comments Globulin (test code = 52812-3) 4.3 g/dL 2.3-3.5 Lab - Aspartate Amino Transf (AST/SGOT)2016-11-23 12:41:00 Test Item Value Reference Range Comments Aspartate Amino Transf (AST/SGOT) (test code = 38 U/L 1 2-45 24050-4) Lab - Alkaline [id number] 12:41:00 Test Item Value Reference Range Comments Alkaline Phosphatase (test code = 6768-6) 121 U/L 37-107 Lab - Albumin/Globulin [id number] 12:41:00 Test Item Value Reference Range Comments Albumin/Globulin Ratio (test code = 1759-0) 0.9 1.1- 1.8 Lab - [id number] 12:41:00 Test Item Value Reference Range Comments Albumin (test code = 1751-7) 4.0 g/dL 3.5-5.2 Lab - Alanine Aminotransferase (ALT/SGPT)2016-11-23 12:41:00 Test Item Value Reference Range Comments Alanine Aminotransferase (ALT/SGPT) (test code = 26 U/L 10-40 1743-4) CBC w/ [id number] 12:41:00 Test Item Value Reference Range Comments RBC (test code = RBC) 3.95 M/mm3 3.10- 5.80 M/mm3 HCT (test code = HCT) 35.7 % 36.0- 49.0 % MCH (test code = MCH) 31.3 pg 25- 35 pg MPV (test code = MPV) 7.6 fL 6.0- 9.5 fL Neutrophils (Absolute) (test code = Neutrophils 3.8 K/mm3 1.8- 8.0 K/mm3 (Absolute)) Baso (Absolute) (test code = Baso (Absolute)) 0 K/mm3 0. 0- 0.2 K/mm3 WBC (test code = WBC) 6.6 K/mm3 4.5- 13.0 K/mm3 HGB (test code = HGB) 12.3 G/DL 12.0- 16.9 G/DL Lymphocytes % (test code = Lymphocytes %) 33.2 % 20.5- 51.1 % Eosinophils % (test code = Eosinophils %) 1.0 % 0- 10 % Basophils % (test code = Basophils %) 0.4 % 0- 3.0 % Eos (Absolute) (test code = Eos (Absolute)) 0.1 K/mm3 0- 0 .6 K/mm3 REPEAT AUTO DIFF (test code = REPEAT AUTO DIFF) YES MCV (test code = MCV) 90.5 fL 78- 100 fL MCHC (test code = MCHC) 34.6 g/dl 31- 36 g/dl Platelet (test code = Platelet) 161 K/mm3 140- 400 K/mm3 Neutrophils % (test code = Neutrophils %) 57.7 % 42.2- 75.2 % RDW (test code = RDW) 14.2 % 11.0- 15.0 % Monocytes % (test code = Monocytes %) 7.7 % 1.7- 9.3 % Lymphs (Absolute) (test code = Lymphs 2.2 K/mm3 1.2- 5.2 K /mm3 (Absolute)) Monocytes(Absolute) (test code = 0.5 K/mm3 0- 0.9 K/mm3 Monocytes(Absolute)) Comprehensive Metabolic [id number] 12:41:00 Test Item Value Reference Range Comments CO2 (test code = CO2) 32 mmol/L 23- 33 mmol/L eGFR (test code = eGFR) 28 >60 BUN/Creatinine Ratio (test code = 18 15-24 BUN/Creatinine Ratio) Calcium (test code = Calcium) 9.7 mg/dL 8.7- 10.7 mg/dL Sodium (test code = Sodium) 134 mmol/L 135- 153 mmol/L Potassium (test code = Potassium) 4.6 mmol/L 3.5- 5.3 mmol/ L Chloride (test code = Chloride) 88 mmol/L 96- 112 mmol/L BUN (test code = BUN) 45 mg/dL 7- 22 mg/dL Globulin, Total (test code = Globulin, Total) 4.3 g/dL 2. 3- 3.5 g/dL Anion Gap (test code = Anion Gap) 14 mmol/L 5- 15 mmol/L Total Protein (test code = Total Protein) 8.3 g/dL 6.1- 8 .0 g/dL Albumin (test code = Albumin) 4.0 g/dL 3.5- 5.2 g/dL ALBUMIN/GLOBULIN RATIO (test code = 0.9 1.1-1.8 ALBUMIN/GLOBULIN RATIO) ALT (test code = ALT) 26 U/L 10- 40 U/L Creatinine (test code = Creatinine) 2.5 mg/dL 0.5- 1.2 mg/ dL Creatinine Clearance (test code = Creatinine 37.9 ML/MIN 60- ML/MIN Clearance) Total Bilirubin (test code = Total Bilirubin) 0.91 mg/dL 0. 30- 1.20 mg/dL AST (test code = AST) 38 U/L 12- 45 U/L Alkaline Phosphatase (test code = Alkaline 121 U/L 37- 1 07 U/L Phosphatase) Osmolality Calc (test code = Osmolality Calc) 309 26 6-308 Glucose (test code = Glucose) 631 mg/dL 70- 110 mg/dL Lab - Hemoglobin A1c [id number] 12:38:00 Test Item Value Reference Range Comments Hemoglobin A1c Percent See comment Due to He moglobin Derivatives (test code = 27473-2) that co-el uate, possible Hemoglobin Varia nts or recent history of abnor reji high blood glucose, H bA1c can not be reported. Contac t Chemistry Laboratory for nirav leon. CORRECTED REPORT 11/26/16 0839: A1C previously r eported as: 10.6 % Hemoglobi n A1c% Reference Ranges : Hgb A1c% Degree of Glucos e Control >8% Action Suggested 7-8% Good Control <7% Glyc emia Goal 6-7% Near Normal Glyc emia <6% Non-Diabetic Lev el NOTE: The results from thi s assay should be used in conju nction with other data (sign s and symptoms, duration of diab etes, results of other tests, age of patient, clinical impress ions, degree of adherence to the rapy, etc.). This test should not be used to diagnose diabete s mellitus. The life span of red cells is shortened in pat ients with hemolytic anemia s, depending upon the severit y of the anemia. As a con sequence, specimens from s uch patients will exhibit DEC REASED glycohemoglobin levels compared to patients with expected red cell life span. The life span of red blood tabatha ls is lengthened in po lycythemia or post-splenectomy patients. Specimens from s uch patients may exhibit INCR EASED glycohemoglobin levels. Lab - Valproic Acid (Depakene) [id number] 12:38:00 Test Item Value Reference Range Comments Valproic Acid (Depakene) Level (test code = 84.2 mcg/mL 50.0 -100.0 4086-5) Valproic Acid [id number] 12:38:00 Test Item Value Reference Range Comments Valproic Acid, Total (test code = Valproic 84.2 mcg/mL 50.0- 100.0 mcg/mL Acid, Total) Lab - Prostate Specific [id number] 11:14:00 Test Item Value Reference Range Comments Prostate Specific Antigen 1.00 ng/mL 0.00-4.00 This t est was performed using (test code = 2857-1) the [place] Immunoassay Meth od. Values obtained from DI FFERENT assay methods can not be used interchangeably. PSA levels, regardless of va lue, should not be interpret ed as absolute evidence of the PRESENCE or ABSENCE of disea se. Basic Metabolic [id number] 11:14:00 Test Item Value Reference Range Comments Anion Gap (test code = Anion Gap) 9 mmol/L 5- 15 mmol/L Sodium (test code = Sodium) 139 mmol/L 135- 153 mmol/L Potassium (test code = Potassium) 3.4 mmol/L 3.5- 5.3 mmol/ L Chloride (test code = Chloride) 97 mmol/L 96- 112 mmol/L BUN (test code = BUN) 20 mg/dL 7- 22 mg/dL Osmolality Calc (test code = Osmolality Calc) 285 26 6-308 CO2 (test code = CO2) 33 mmol/L 23- 33 mmol/L eGFR (test code = eGFR) 33 >60 BUN/Creatinine Ratio (test code = BUN/Creatinine 9 15-24 Ratio) Calcium (test code = Calcium) 8.7 mg/dL 8.7- 10.7 mg/dL Creatinine (test code = Creatinine) 2.2 mg/dL 0.5- 1.2 mg/ dL Glucose (test code = Glucose) 186 mg/dL 70- 110 mg/dL PSA, [id number] 11:14:00 Test Item Value Reference Range Comments PSA (test code = PSA) 1.00 ng/mL 0.00- 4.00 ng/mL Lab - Troponin [id number] 11:55:00 Test Item Value Reference Range Comments Troponin I (test code = 80507-1) < 0.03 ng/mL 0.00-0.49 Lab - [id number] 11:55:00 Test Item Value Reference Range Comments Lipase (test code = 3040-3) 33 U/L 22-51 Lipase [id number] 11:55:00 Test Item Value Reference Range Comments Lipase (test code = Lipase) 33 U/L 22- 51 U/L Troponin [id number] 11:55:00 Test Item Value Reference Range Comments Troponin I (test code = Troponin I) <0.03 0.00- 0.49 n g/mL Blood [id number] 11:55:00B CELL Comment: BLOOD CULTUREFinal NO GROWTH - FINAL READ [facility] CONVERSIONBlood [id number] 11:55:00B CELL Comment: BLOOD CULTUREFinal NO GROWTH - FINAL READ [facility] CONVERSION Comprehensive Metabolic [id number] 10:57:00 Test Item Value Reference Range Comments CO2 (test code = CO2) 33 mmol/L 23- 33 mmol/L eGFR (test code = eGFR) 42 >60 BUN/Creatinine Ratio (test code = 17 15-24 BUN/Creatinine Ratio) Calcium (test code = Calcium) 9.0 mg/dL 8.7- 10.7 mg/dL Sodium (test code = Sodium) 142 mmol/L 135- 153 mmol/L Potassium (test code = Potassium) 4.2 mmol/L 3.5- 5.3 mmol/ L Chloride (test code = Chloride) 100 mmol/L 96- 112 mmol/L BUN (test code = BUN) 31 mg/dL 7- 22 mg/dL Globulin, Total (test code = Globulin, Total) 4 g/dL 2. 3- 3.5 g/dL Osmolality Calc (test code = Osmolality Calc) 292 26 6-308 Anion Gap (test code = Anion Gap) 9 mmol/L 5- 15 mmol/L Total Protein (test code = Total Protein) 7.6 g/dL 6.1- 8 .0 g/dL Albumin (test code = Albumin) 3.6 g/dL 3.5- 5.2 g/dL ALBUMIN/GLOBULIN RATIO (test code = 0.9 1.1-1.8 ALBUMIN/GLOBULIN RATIO) ALT (test code = ALT) 19 U/L 10- 40 U/L Creatinine (test code = Creatinine) 1.8 mg/dL 0.5- 1.2 mg/ dL Creatinine Clearance (test code = Creatinine 53.5 mL/min 60- mL/min Clearance) Glucose (test code = Glucose) 134 mg/dL 70- 110 mg/dL Total Bilirubin (test code = Total Bilirubin) 1.31 mg/dL 0. 30- 1.20 mg/dL AST (test code = AST) 53 U/L 12- 45 U/L Alkaline Phosphatase (test code = Alkaline 64 U/L 37- 1 07 U/L Phosphatase) Valproic Acid [id number] 10:57:00 Test Item Value Reference Range Comments Valproic Acid, Total (test code = Valproic 47.5 mcg/mL 50.0- 100.0 mcg/mL Acid, Total) CBC w/ [id number] 10:54:00 Test Item Value Reference Range Comments RBC (test code = RBC) 4.15 M/mm3 3.10- 5.80 M/mm3 HCT (test code = HCT) 37.5 % 36.0- 49.0 % MCH (test code = MCH) 31.5 pg 25- 35 pg MPV (test code = MPV) 8.1 fL 6.0- 9.5 fL Neutrophils (Absolute) (test code = Neutrophils 3.1 K/mm3 1.8- 8.0 K/mm3 (Absolute)) Baso (Absolute) (test code = Baso (Absolute)) 0 K/mm3 0. 0- 0.2 K/mm3 WBC (test code = WBC) 5.4 K/mm3 4.5- 13.0 K/mm3 HGB (test code = HGB) 13.1 G/DL 12.0- 16.9 G/DL Lymphocytes % (test code = Lymphocytes %) 29.7 % 20.5- 51.1 % Eosinophils % (test code = Eosinophils %) 0.6 % 0- 10 % Basophils % (test code = Basophils %) 0.9 % 0- 3.0 % Eos (Absolute) (test code = Eos (Absolute)) 0 K/mm3 0- 0 .6 K/mm3 REPEAT AUTO DIFF (test code = REPEAT AUTO DIFF) YES MCV (test code = MCV) 90.3 fL 78- 100 fL MCHC (test code = MCHC) 34.8 g/dl 31- 36 g/dl Platelet (test code = Platelet) 179 K/mm3 140- 400 K/mm3 Neutrophils % (test code = Neutrophils %) 57.6 % 42.2- 75.2 % RDW (test code = RDW) 14.0 % 11.0- 15.0 % Monocytes % (test code = Monocytes %) 11.2 % 1.7- 9.3 % Lymphs (Absolute) (test code = Lymphs 1.6 K/mm3 1.2- 5.2 K /mm3 (Absolute)) Monocytes(Absolute) (test code = 0.6 K/mm3 0- 0.9 K/mm3 Monocytes(Absolute)) Lab - Urine Prot Sulfosalicylic [id number] 10:45:00 Test Item Value Reference Range Comments Urine Prot Sulfosalicylic Acid (test code = NGN1148) 1+ [id number] 10:45:00 Test Item Value Reference Range Comments Clarity, UA (test code = Clarity, UA) CLEAR CLEAR Bilirubin, UA (test code = Bilirubin, UA) NEGATIVE NEGATI VE Specific [place], Urine (test code = Specific 1.015 1. 005-1.030 [place], Urine) Glucose, UA (test code = Glucose, UA) NEGATIVE NEGATIVE M G/DL Ketones, UA (test code = Ketones, UA) NEGATIVE NEGATIVE M G/DL Nitrite, UA (test code = Nitrite, UA) NEGATIVE NEGATIVE Leukocyte Esterase, UA (test code = Leukocyte NEGATIVE NE GATIVE Esterase, UA) pH, UA (test code = pH, UA) 7.5 5.0-8.0 Protein, Ur (test code = Protein, Ur) 100 MG/DL NEGATIVE M G/DL Blood, UA (test code = Blood, UA) LARGE NEGATIVE Urine Source (test code = Urine Source) CLEAN CATCH Color, UA (test code = Color, UA) DK YELLOW YELLOW Urobilinogen, UA (test code = Urobilinogen, UA) 4.0 E.U./DL 0.2- 1.0 E.U./DL SSA (test code = SSA) 1+ NEGATIVE Urine [id number] 10:45:00 Test Item Value Reference Range Comments Renal Epithel, UA (test code = Renal RARE 0- 5 #/HPF Epithel, UA) RBC, UA (test code = RBC, UA) GREATER THAN 100 0-5 WBC, UA (test code = WBC, UA) 0-5 0- 5 #/HPF Bacteria, UA (test code = Bacteria, UA) 2+ TRACE BA C/HPF Urine [id number] 10:45:00Urine Culture, Comprehensive Comment: URINE CULTUREFinal NO GROWTH DAY 2 [facility] CONVERSIONPOCT [id number] 06:00:00 Test Item Value Reference Range Comments Glucose-POC (test code = Glucose-POC) 117 mg/dL 70- 110 mg /dL [id number] 06:30:00 Test Item Value Reference Range Comments Urine Source (test code = Urine Source) CLEAN CATCH Color, UA (test code = Color, UA) DK YELLOW YELLOW SSA (test code = SSA) TRACE NEGATIVE Urobilinogen, UA (test code = Urobilinogen, UA) 1.0 E.U./DL 0.2- 1.0 E.U./DL pH, UA (test code = pH, UA) 6.0 5.0-8.0 Protein, Ur (test code = Protein, Ur) 30 MG/DL NEGATIVE M G/DL Blood, UA (test code = Blood, UA) LARGE NEGATIVE Specific [place], Urine (test code = Specific 1.014 1. 005-1.030 [place], Urine) Glucose, UA (test code = Glucose, UA) NEGATIVE NEGATIVE M G/DL Ketones, UA (test code = Ketones, UA) NEGATIVE NEGATIVE M G/DL Nitrite, UA (test code = Nitrite, UA) NEGATIVE NEGATIVE Leukocyte Esterase, UA (test code = Leukocyte NEGATIVE NE GATIVE Esterase, UA) Clarity, UA (test code = Clarity, UA) CLEAR CLEAR Bilirubin, UA (test code = Bilirubin, UA) NEGATIVE NEGATI VE Urine [id number] 06:30:00 Test Item Value Reference Range Comments Bacteria, UA (test code = Bacteria, UA) 1+ TRACE BA C/HPF RBC, UA (test code = RBC, UA) 20-50 0-5 WBC, UA (test code = WBC, UA) 0-5 0- 5 #/HPF Renal Epithel, UA (test code = Renal Epithel, UA) 0-5 0- 5 #/HPF [id number] 14:41:00 Test Item Value Reference Range Comments RBC (test code = RBC) 4.19 M/mm3 3.10- 5.80 M/mm3 HCT (test code = HCT) 37.7 % 36.0- 49.0 % MCH (test code = MCH) 31.1 pg 25- 35 pg MPV (test code = MPV) 7.1 fL 6.0- 9.5 fL WBC (test code = WBC) 4.4 K/mm3 4.5- 13.0 K/mm3 HGB (test code = HGB) 13.0 G/DL 12.0- 16.9 G/DL MCV (test code = MCV) 90.1 fL 78- 100 fL MCHC (test code = MCHC) 34.5 g/dl 31- 36 g/dl Platelet (test code = Platelet) 162 K/mm3 140- 400 K/mm3 RDW (test code = RDW) 14.3 % 11.0- 15.0 % Basic Metabolic [id number] 14:41:00 Test Item Value Reference Range Comments CO2 (test code = CO2) 30 mmol/L 23- 33 mmol/L eGFR (test code = eGFR) 48 >60 BUN/Creatinine Ratio (test code = BUN/Creatinine 9 15-24 Ratio) Calcium (test code = Calcium) 9.2 mg/dL 8.7- 10.7 mg/dL Sodium (test code = Sodium) 140 mmol/L 135- 153 mmol/L Potassium (test code = Potassium) 3.5 mmol/L 3.5- 5.3 mmol/ L Chloride (test code = Chloride) 99 mmol/L 96- 112 mmol/L BUN (test code = BUN) 15 mg/dL 7- 22 mg/dL Osmolality Calc (test code = Osmolality Calc) 283 26 6-308 Anion Gap (test code = Anion Gap) 11 mmol/L 5- 15 mmol/L Creatinine (test code = Creatinine) 1.6 mg/dL 0.5- 1.2 mg/ dL Glucose (test code = Glucose) 143 mg/dL 70- 110 mg/dL POCT [id number] 14:40:00 Test Item Value Reference Range Comments Glucose-POC (test code = Glucose-POC) 161 mg/dL 70- 110 mg /dL Basic [id number] 08:23:00 Test Item Value Reference Range Comments blood glucose (test code 134.00 mg/dL 60.00-99.00 = 6777-7) sodium, serum (test code 143.00 mmol/L 136.00-145.00 = 2951-2) potassium, serum (test 2.80 mmol/L 3.50-5.10 code = 2823-3) creatinine, serum (test 1.79 mg/dL 0.70-1.30 See lab report for code = 2160-0) associated comme nt(s) carbon dioxide, venous 37.00 mmol/L 21.00-32.00 blood (test code = 2020-4) chloride, serum (test 93.00 mmol/L 98.00-107.00 code = 5-0) calcium, serum (test code 9.00 mg/dL 8.50-10.10 = 1999-8) Estimated Glomerular 41.81 (?) See chemistry laboratory technician ort for Filtration Rate (calc) mL/min/1.73m2 associate d comment(s) (test code = EGFR) urea nitrogen, blood 27.00 mg/dL 7.00-18.00 (test code = 3094-0) [id number] 08:23:00 Test Item Value Reference Range Comments magnesium, serum (test code = 2601-3) 2.21 mg/dL 1.80-2.40 oxygen saturation, [id number] 08:02:00 Test Item Value Reference Range Comments oxygen saturation, oximetry (test code = 59728) 98 % oxygen saturation, [id number] 09:23:00 Test Item Value Reference Range Comments oxygen saturation, oximetry (test code = 73498) 98 % oxygen saturation, [id number] 08:36:00 Test Item Value Reference Range Comments oxygen saturation, oximetry (test code = 20546) 97 % CBC with Auto [id number] 08:32:00 Test Item Value Reference Range Comments leukocyte count, blood (test code = 4.33 10*3/mm3 4.23-9.07 804-5) erythrocyte (RBC) count (test code = 3.88 10*6/mm3 3.91-5.86 789-8) neutrophil count, blood (test code = 2.04 10*3/mm3 1.20-6.80 752-6) hemoglobin, blood (test code = 718-7) 11.60 g/dL 11.30-17.2 0 nucleated red blood cells as percent of 0.00 % 0.00-0.2 0 blood leukocytes (test code = 772-4) mean corpuscular volume, RBC (test code 91.50 fL 77.50-10 1.00 = 787-2) mean platelet volume (test code = 9.80 fL 8.90-12.40 776-5) monocytes as percent of blood 9.90 % 5.30-12.00 leukocytes (test code = 5905-5) eosinophils as percent of blood 3.90 % 0.00-6.53 leukocytes (test code = 713-8) mean corpuscular hemoglobin 32.70 G/DL % 30.40-35.30 concentration, RBC (test code = 786-4) hematocrit, blood (test code = 4544-3) 35.50 % 35.20-51. 70 monocyte count, blood, automated (test 0.43 10*3/uL 0.20-1.00 code = 742-7) platelet count (test code = 777-3) 199.00 THOUS/UL /mm3 100.00-4 18.00 red blood cell distribution width (test 14.50 % 11.30-14 .80 code = 788-0) lymphocytes as percent of blood 37.00 % 9.90-51.00 leukocytes (test code = 736-9) lymphocyte count, blood, automated 1.60 10*3/mm3 0.55-3.39 (test code = 731-0) eosinophil count, blood (test code = 0.17 THOUS/UL /mm3 0.00-0.4 6 712-0) neutrophils as percent of blood 47.10 % 34.00-78.00 leukocytes (test code = 770-8) basophils as percent of blood 0.90 % 0.05-1.49 leukocytes, automated count (test code = 706-2) mean corpuscular hemoglobin, RBC (test 29.90 pg 24.70-33. 80 code = 785-6) basophil count, blood (test code = 0.04 10*3/mm3 0.00-0.11 705-4) Glyco Hgb (HgbA1C)2015-09-01 08:32:00 Test Item Value Reference Range Comments hemoglobin A1C, blood, as % of 6.70 % 3.00-6.00 S ee lab report for associated total hemoglobin (test code = co mment(s) 4548-4) [id number] 08:32:00 Test Item Value Reference Range Comments thyroid stimulating hormone, serum (test code = 1.93 uIU/mL 0.36-3.74 3016-3) Comprehensive [id number] 08:32:00 Test Item Value Reference Range Comments blood glucose (test code = 176.00 mg/dL 60.00-99.00 6777-7) alanine aminotransferase 44.00 U/L 12.00-78.00 (SGPT), serum (test code = 1742-6) Estimated Glomerular 22.20 (?) See chemistry laboratory technician ort for Filtration Rate (calc) (test mL/min/1.73m2 ass ociated comment(s) code = EGFR) chloride, serum (test code = 98.00 mmol/L 98.00-107.00 2074-0) calcium, serum (test code = 8.00 mg/dL 8.50-10.10 2000-05) aspartate aminotransferase 39.00 U/L 15.00-37.00 (SGOT), serum (test code = 192-8) albumin, serum (test code = 3.90 g/dL 3.40-5.00 7) bilirubin, serum, total (test 0.30 mg/dL 0.20-1.00 code = 1974-2) urea nitrogen, blood (test 45.00 mg/dL 7.00-18.00 code = 309-0) carbon dioxide, venous blood 30.00 mmol/L 21.00-32.00 (test code = 2020-) protein, total, serum (test 7.30 g/dL 6.40-8.20 code = 2885-2) sodium, serum (test code = 140.00 mmol/L 136.00-145.00 2951-2) potassium, serum (test code = 3.10 mmol/L 3.50-5.10 282-3) alkaline phosphatase, serum 79.00 U/L 45.00-117.00 (test code = 1783-0) creatinine, serum (test code 3.10 mg/dL 0.60-1.30 = 2160-0) oxygen saturation, [id number] 07:56:00 Test Item Value Reference Range Comments oxygen saturation, oximetry (test code = 79508) 94 % Renal Function Panel w/ Glucose (10) ([facility]: [id number]) (72342) (51677)2015-07-27 00:00:00 Test Item Value Reference Range Comments Glucose ([facility]: 914128) (test code = 2345-7) 76 mg/dl 7 5-105 Sodium, Serum ([facility]: 626050) (test code = 144 mmol/L 136 -145 2951-2) Carbon Dioxide, Total ([facility]: 000323) (test 29 mmol/L 23 .0-29.0 code = 2027-9) Albumin, Serum ([facility]: 158143) (test code = 3.8 g/dl 3. 5-5.0 1751-7) Creatinine, Serum ([facility]: 781377) (test code 2.1 mg/dl 0 .6-1.4 = 2160-0) Calcium, Serum ([facility]: 991028) (test code = 9.0 mg/dl 8. 2-10.2 21261-7) BUN/Creatinine Ratio ([facility]: 360453) (test * code = 3097-3) eGFR If Africn Am ([facility]: 967614) (test code * mL/min > =60 = 05111-0) Potassium, Serum ([facility]: 911759) (test code = 3.4 mEq/L 3.5-5 2823-3) Chloride, Serum ([facility]: 830295) (test code = 105 mEq/L 9 7.0-107.0 2075-0) BUN (Blood Urea Nitrogen) ([facility]: 659462) 20 mg/dl 5.0- 20.0 (test code = 3094-0) eGFR ([facility]: 708309) (test code = 48440-2) 34.80 mL/min >90 Phosphorus, Serum ([facility]: 669791) (test code 4.2 mg/dl 2 .4-4.5 = 2777-1) Renal Function Panel w/ Glucose (10) ([facility]: 038467) (97927) (57626)2015-07-12 00:00:00 Test Item Value Reference Range Comments eGFR If Africn Am ([facility]: 397880) (test code * mL/min > =60 = 36908-7) Creatinine, Serum ([facility]: 197383) (test code 3.4 mg/dl 0 .6-1.4 = 2160-0) eGFR ([facility]: 964482) (test code = 74186-6) 19.96 mL/min >90 BUN/Creatinine Ratio ([facility]: 497358) (test * code = 3097-3) Albumin, Serum ([facility]: 462794) (test code = 3.8 g/dl 3. 5-5.0 1751-7) Potassium, Serum ([facility]: 542427) (test code = 2.6 mEq/L 3.5-5 2823-3) Calcium, Serum ([facility]: 116308) (test code = 9.7 mg/dl 8. 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 Ojebuoboh, [place]unle - Type 2 diabetes mellitus with diabetic Active Ojebuoboh, [place]un[place] chronic kidney disease E11.22 - Type 2 diabetes mellitus with diabetic Active Ojebuoboh, [place] chronic kidney disease E11.22 - Chronic kidney disease, stage 3 Active Ojebuoboh, [place]unle (moderate) N18.3 - 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 Ojebuoboh, [place]unle - Edema, unspecified R60.9 Active Ojebu oboh, [place]ikunle - Body mass index (BMI) 30.0-30.9, adult Active Ojebuoboh, [place]le Z68.30 - Type 2 diabetes mellitus with diabetic Active Ojebuoboh, [place] chronic kidney disease E11.22 - Edema, unspecified R60.9 Active Ojebu oboh, [place]unle - Body mass index (BMI) 30.0-30.9, adult Active Ojebuoboh, [place]le Z68.30 - Type 2 diabetes mellitus with diabetic Active Ojebuoboh, [place] chronic kidney disease E11.22 - Peripheral vascular disease, unspecified Active Ojebuoboh, [place]le I73.9 - Morbid (severe) obesity due to excess Active Ojebuoboh, [place]unle calories E66.01 - Type 2 diabetes mellitus with diabetic Active Ojebuoboh, [place]unle chronic kidney disease 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, palms Active Ojebuoboh, [place]le L74.512 - Fall (on) (from) other stairs and steps, Active Ojebuoboh, Ibikunle initial encounter W10.8XXA - Type 2 diabetes mellitus with diabetic Active Ojebuoboh, [place]unle chronic kidney disease E11.22 - Radiculopathy, sacral and sacrococcygeal Active Ojebuoboh, [place] region M54.18 - Type 2 diabetes mellitus with diabetic Active Ojebuoboh, [place]le chronic kidney disease E11.22 - Muscle spasm of back M62.830 Active O jebuoboh, [place]ikunle - Essential (primary) hypertension I10 Active Ojebuoboh, [place] - Body mass index (BMI) 28.0-28.9, adult Active Ojebuoboh, [place] Z68.28 - Insomnia, unspecified G47.00 Active O jebuoboh, [place] - Essential (primary) hypertension I10 Active Ojebuoboh, [place] - Type 2 diabetes mellitus with diabetic Active Ojebuoboh, [place] polyneuropathy E11.42 - Radiculopathy, sacral and sacrococcygeal Active Ojebuoboh, [place] region M54.18 - Acute kidney failure, unspecified N17.9 Active Ojebuoboh, [place]le - Hypotension, unspecified I95.9 Active Ojebuoboh, [place] - Chronic kidney disease, stage 3 Active Ojebuoboh, [place]le (moderate) N18.3 - Type 2 diabetes mellitus with diabetic Active Ojebuoboh, [place]le chronic kidney disease E11.22 - Type 2 diabetes mellitus with diabetic Active Ojebuoboh, [place]le chronic kidney disease E11.22 - Encounter for general adult medical Active Ojebuoboh, [place] examination without abnormal findings Z00.00 - Chronic kidney disease, stage 3 Active Ojebuoboh, [place]le (moderate) N18.3 - Benign prostatic hyperplasia with lower Active Ojebuoboh, [place] urinary tract symptoms N40.1 - Chronic venous hypertension (idiopathic) Active Ojebuoboh, [place]unle with inflammation of bilateral lower extremity I87.323 - Body mass index (BMI) 30.0-30.9, adult Active Ojebuoboh, [place]unle Z68.30 - Type 2 diabetes mellitus with diabetic Active Ojebuoboh, [place]le chronic kidney disease E11.22 - Radiculopathy, lumbar region M54.16 Active Ojebuoboh, [place] - Ataxia, unspecified R27.0 Active Ojeb uoboh, [place]unle - Type 2 diabetes mellitus with diabetic Active Ojebuoboh, [place] polyneuropathy E11.42 - Type 2 diabetes mellitus with diabetic Active Ojebuoboh, [place]unle chronic kidney disease E11.22 - Essential (primary) hypertension I10 Active Ojebuoboh, [place] - Basal cell carcinoma of skin of nose Active Ojebuoboh, Ibikunle C44.311 - Myalgia, unspecified site M79.10 Active Ojebuoboh, [place] - Cerebral infarction, unspecified I63.9 Active Ojebuoboh, [place] Hypopotassemia Active Other convulsions Active Disorders of magnesium metabolism Active Hypopotassemia Active Other convulsions Active Disorders of magnesium metabolism Active Hypopotassemia Active Other convulsions Active Disorders of magnesium metabolism Active Hypopotassemia Active Other convulsions Active Disorders of magnesium metabolism Active Hypopotassemia Active Other convulsions Active Disorders of magnesium metabolism Active Hypopotassemia Active Other convulsions Active Disorders of magnesium metabolism Active Hypopotassemia Active Other convulsions Active Disorders of magnesium metabolism Active Hypopotassemia Active Other convulsions Active Disorders of magnesium metabolism Active Hypopotassemia Active Other convulsions Active Disorders of magnesium metabolism Active Hypopotassemia Active Other convulsions Active Disorders of magnesium metabolism Active Hypopotassemia Active Other convulsions Active Disorders of magnesium metabolism Active Hypopotassemia Active Other convulsions Active Disorders of magnesium metabolism Active Syncope and collapse Active Syncope and collapse Active Syncope and collapse Active Syncope and collapse Active Syncope and collapse Active Syncope and collapse Active Syncope and collapse Active Syncope and collapse Active Syncope and collapse Active Syncope and collapse Active Syncope and collapse Active Syncope and collapse Active Syncope and collapse Active Syncope and collapse Active Syncope and collapse Active Hypokalemia Active Metabolic alkalosis Active Syncope Active Acute kidney injury Active Secondary hyperparathyroidism of renal Active origin Secondary hyperparathyroidism of renal Active origin Secondary hyperparathyroidism of renal Active origin Anemia in chronic renal disease Active Anemia in chronic renal disease Active Anemia in chronic renal disease Active Joint pain Active Joint pain Active Joint pain Active Single kidney Active Single kidney Active Single kidney Active Malignant neoplasm of kidney, right Active Malignant neoplasm of kidney, right Active Malignant neoplasm of kidney, right Active Peripheral edema Active Peripheral edema Active Peripheral edema Active 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 Hypertension w/CKD, Benign, Stage Active [facility] Hypertension w/CKD, Benign, Stage Active [facility] Hypertension w/CKD, Benign, Stage Active [facility] Right kidney mass Active Right kidney mass Active Right kidney mass Active Avitaminosis D Active Avitaminosis D Active Avitaminosis D Active Diabetes mellitus Active Diabetes mellitus Active Diabetes mellitus Active Medication management Active Medication management Active Medication management Active Hyperlipidemia Active Gout Active Hyperlipidemia Active Gout Active Hyperlipidemia Active Gout Active NSAID long-term use Active NSAID long-term use Active NSAID long-term use Active Chronic renal disease, stage III Active Chronic renal disease, stage III Active Chronic renal disease, stage III Active Encounters Start End Encounter Admission Attending Care Care Encounter ID Date/Time Date/Time Type Type Clinicians Facility Department 2020-09-27 2020-09-27 [id number] 00:00:00 00:00:00 PA PA 2020-06-23 2020-06-23 [facility] [place] [id number] 00:00:00 00:00:00 PA 2020-06-20 2020-06-20 [facility] [id number] 00:00:00 00:00:00 PA PA 2020-06-13 2020-06-13 [facility] [id number] 00:00:00 00:00:00 PA PA 2020-06-08 2020-06-08 [facility] [id number] 00:00:00 00:00:00 PA PA 2020-06-01 2020-06-01 [facility] [id number] 00:00:00 00:00:00 PA PA 2020-05-31 2020-05-31 [facility] [id number] 00:00:00 00:00:00 PA PA 2020-05-20 2020-05-20 [facility] [id number] 00:00:00 00:00:00 PA PA 2020-04-21 2020-04-21 [facility] [id number] 00:00:00 00:00:00 PA PA 2020-04-18 2020-04-18 [facility] [id number] 00:00:00 00:00:00 PA PA 2020-04-11 2020-04-11 [facility] [id number] 00:00:00 00:00:00 PA PA 2020-04-08 2020-04-08 [facility] [id number] 00:00:00 00:00:00 PA PA 2020-03-18 2020-03-18 [facility] [id number] 00:00:00 00:00:00 PA PA 2020-03-17 2020-03-17 [facility] [id number] 00:00:00 00:00:00 PA PA 2020-03-08 2020-03-08 [facility] [id number] 00:00:00 00:00:00 PA PA 2020-03-01 2020-03-01 [facility] [id number] 00:00:00 00:00:00 PA PA 2020-02-29 2020-02-29 [facility] [place] [id number] 00:00:00 00:00:00 PA 2020-01-22 2020-01-22 [facility] [id number] 00:00:00 00:00:00 PA PA 2020-01-22 2020-01-22 [facility] [id number] 00:00:00 00:00:00 PA PA 2020-01-06 2020-01-06 Outpatient [facility] [id number] 00:00:00 00:00:00 [id number] 8450-03-09 2019-12-28 [id number] 00:00:00 00:00:00 PA PA 2019-12-24 2019-12-24 [facility] [place] [id number] 00:00:00 00:00:00 PA 2019-12-23 2019-12-23 [id number] 00:00:00 00:00:00 PA PA 2019-12-08 2019-12-08 [facility] [id number] 00:00:00 00:00:00 PA PA 2019-12-04 2019-12-04 [facility] [id number] 00:00:00 00:00:00 PA PA 2019-12-02 2019-12-02 [facility] [id number] 00:00:00 00:00:00 [id number] 2019-12-02 [facility] [id number] 00:00:00 00:00:00 PA PA 2019-11-26 2019-11-26 [facility] [id number] 00:00:00 00:00:00 PA PA 2019-11-25 2019-11-25 [facility] [id number] 00:00:00 00:00:00 [id number] 2019-11-02 [facility] [id number] 00:00:00 00:00:00 PA PA 2019-10-06 2019-10-06 [facility] [id number] 00:00:00 00:00:00 [id number] 1890-12-09 2019-09-28 [facility] [id number] 00:00:00 00:00:00 [id number] 2023-12-06 2019-09-25 [facility] [id number] 00:00:00 00:00:00 PA PA 2019-09-24 2019-09-24 [facility] [id number] 00:00:00 00:00:00 2019-09-23 2019-09-23 [facility] [id number] 00:00:00 00:00:00 2019-09-23 2019-09-23 [id number] 00:00:00 00:00:00 PA PA 2019-09-15 2019-09-15 [facility] [id number] 00:00:00 00:00:00 PA PA 2019-09-15 2019-09-15 [facility] [id number] 00:00:00 00:00:00 PA PA 2019-09-10 2019-09-10 Outpatient [facility] [id number] 00:00:00 00:00:00 [id number] 2019-09-02 [facility] [id number] 09:47:56 09:58:20 [id number] 2019-09-02 2019-09-02 [facility] [id number] 09:47:56 09:58:20 2019-09-02 2019-09-02 [facility] [id number] 00:00:00 00:00:00 [id number] 5575-11-13 2019-09-02 [facility] [id number] 00:00:00 00:00:00 2019-08-26 2019-08-26 Outpatient [facility] [id number] 12:52:52 13:34:09 [id number] 2019-08-26 2019-08-26 [facility] [id number] 12:52:52 13:34:09 2019-08-26 2019-08-26 [facility] [id number] 00:00:00 00:00:00 [id number] 2302-09-12 2019-07-02 Outpatient [facility] [id number] 00:00:00 00:00:00 [id number] 7422-08-28 2019-06-17 Outpatient [facility] [id number] 00:00:00 00:00:00 [id number] 6113-08-26 2019-06-15 [facility] [id number] 00:00:00 00:00:00 2019-06-10 2019-06-10 Outpatient [facility] [id number] 00:00:00 00:00:00 [id number] 2019-05-29 [facility] [id number] 00:00:00 00:00:00 2019-04-13 2019-04-13 [facility] [id number] 00:00:00 00:00:00 2019-03-11 2019-03-11 [facility] [id number] 00:00:00 00:00:00 2019-03-02 2019-03-02 [facility] [id number] 09:25:41 09:57:24 [id number] 2019-03-02 2019-03-02 [facility] [id number] 09:25:41 09:57:24 2019-03-02 2019-03-02 [facility] [id number] 00:00:00 00:00:00 [id number] 7368-02-06 2018-11-26 [facility] [id number] 08:32:13 10:14:24 [id number] 2018-11-26 2018-11-26 [facility] [id number] 08:32:13 10:14:24 2018-11-26 2018-11-26 [facility] [id number] 00:00:00 00:00:00 [id number] 7303-02-06 2018-11-26 [facility]patient [facility] [id number] 00:00:00 00:00:00 2018-11-12 2018-11-12 [facility] [id number] 00:00:00 00:00:00 2018-11-06 2018-11-06 Outpatient EL TALHA[facility] [id number] 09:52:47 23:59:00 HERB [id number] 2018-11-06 2018-11-06 [facility]patient [facility] [id number] 09:52:47 23:59:00 2018-11-06 2018-11-06 Outpatient EL PALENCIA[facility] [id number] 08:22:56 23:59:00 HERB [id number] 2018-11-06 2018-11-06 Outpatient [facility] [id number] 08:22:56 23:59:00 2018-11-06 2018-11-06 Outpatient EL PAL[facility]IA[facility] [id number] 07:47:25 23:59:00 HERB [id number] 2018-11-06 2018-11-06 Outpatient [facility] [id number] 07:47:25 23:59:00 2018-11-06 2018-11-06 Outpatient GURU PALENCIA [facility] [id number] 07:46:46 23:59:00 HERB [id number] 2018-11-06 2018-11-06 Outpatient [facility] [id number] 07:46:46 23:59:00 2018-11-06 2018-11-06 Outpatient GURU PALENCIA [facility] [id number] 00:00:00 00:00:00 HERB [id number] 2018-11-04 2018-11-04 Outpatient [facility] [id number] 13:39:58 14:35:57 [id number] 2018-11-04 2018-11-04 Outpatient [facility] [id number] 13:39:58 14:35:57 2018-11-04 2018-11-04 Outpatient [facility] [id number] 00:00:00 00:00:00 [id number] 4818-12-21 2018-10-10 Outpatient [facility] [id number] 00:00:00 00:00:00 [id number] 6651-12-11 2018-09-30 Outpatient [facility] [id number] 00:00:00 00:00:00 [id number] 2018-09-23 Outpatient [facility] [id number] 09:37:38 09:41:04 [id number] 2018-09-23 2018-09-23 Outpatient GURU CHRIS[facility] [id number] 00:00:00 00:00:00 KAROLINA [id number] 8895-12-04 2018-09-23 Outpatient [facility] [id number] 00:00:00 00:00:00 [id number] 6616-11-30 2018-09-19 Emergency ER BLAISE, [facility] [id number] 12:24:31 15:04:00 SUSI [id number] 2018-09-19 2018-09-19 Emergency [facility] [id number] 13:25:50 13:25:50 [id number] 2018-09-19 2018-09-19 Emergency [facility] [id number] 12:54:08 12:54:08 [id number] 2018-09-19 2018-09-19 Emergency ER [facility] [id number] 09:12:00 09:12:00 [id number] 2018-09-18 2018-09-18 Outpatient [facility] [id number] 00:00:00 00:00:00 2018-08-07 2018-08-12 B ER RICHARD, [facility] [id number] 16:48:17 17:33:00 NORMAN [id number] 2018-08-07 2018-08-12 Emergency [facility] [id number] 16:48:17 17:33:00 2018-08-07 2018-08-07 Emergency [facility] [id number] 18:22:31 23:59:00 [id number] 2018-08-07 2018-08-07 B UR JAZMIN, [facility] [id number]_20 23:00:00 23:00:00 VU [id number] 2018-08-07 2018-08-07 Emergency ER [facility] [id number] 15:05:00 15:05:00 [id number] 2018-07-24 2018-07-24 Outpatient [facility] [id number] 00:00:00 00:00:00 [id number] 8466-09-18 2018-07-08 Outpatient ER SHELTON Medina [id number] 12:23:00 15:32:00 Bennett 2018-07-08 2018-07-08 Outpatient [facility] [id number] 00:00:00 00:00:00 2018-06-05 2018-06-05 Outpatient [facility] [id number] 00:00:00 00:00:00 [id number] [id number] 2018-05-27 Outpatient [facility] [id number] 09:50:58 10:40:57 [id number] 2018-05-27 2018-05-27 Outpatient [facility] [id number] 09:50:58 10:40:57 2018-05-27 2018-05-27 Outpatient [facility] [id number] 00:00:00 00:00:00 [id number] 1067-08-02 2018-05-22 Outpatient [facility] [id number] 00:00:00 00:00:00 2018-05-20 2018-05-20 Outpatient [facility] [id number] 13:47:56 16:02:49 [id number] 2018-05-20 2018-05-20 Outpatient [facility] [id number] 00:00:00 00:00:00 [id number] 0521-07-24 2018-05-13 Outpatient [facility] [id number] 00:00:00 00:00:00 2018-04-13 2018-04-13 Outpatient [facility] [id number] 00:00:00 00:00:00 2018-04-12 2018-04-12 Outpatient ER SHELTON Chavez [facility] [id number] 09:34:00 11:54:00 Michael 2018-04-12 2018-04-12 Outpatient [facility] [id number] 00:00:00 00:00:00 2018-04-12 2018-04-12 Outpatient [facility] [id number] 00:00:00 00:00:00 2018-04-12 2018-04-12 Outpatient [facility] [id number] 00:00:00 00:00:00 2018-02-17 2018-02-17 Outpatient [facility] [id number] 11:20:38 11:48:59 [id number] 2018-02-17 2018-02-17 Outpatient [facility] [id number] 00:00:00 00:00:00 [id number] 2078-04-12 2018-01-30 Outpatient [facility] [id number] 00:00:00 00:00:00 [id number] 0847-03-15 2018-01-02 Outpatient [facility] [id number] 00:00:00 00:00:00 [id number] 0945-03-06 2017-12-24 Outpatient [facility] [id number] 00:00:00 00:00:00 [id number] 0817-02-22 2017-12-12 Outpatient ER Blaise, SHE[facility]TON [facility] [id number] 09:51:00 12:10:00 Susi 2017-12-12 2017-12-12 Outpatient [facility] [id number] 00:00:00 00:00:00 2017-11-01 2017-11-01 Outpatient [facility] [id number] 10:32:11 10:58:22 [id number] 2017-11-01 2017-11-01 Outpatient [facility] [id number] 00:00:00 00:00:00 [id number] 2562-12-05 2017-09-24 Outpatient [facility] [id number] 09:36:41 10:54:15 [id number] 2017-09-24 2017-09-24 Out[facility] [id number] 08:05:21 08:41:36 [id number] 2017-09-24 2017-09-24 Outpatient [facility] [id number] 00:00:00 00:00:00 [id number] [id number] 2017-09-24 Outpatient [facility] [id number] 00:00:00 00:00:00 [id number] 4768-12-05 2017-09-24 Outpatient [facility] [id number] 00:00:00 00:00:00 [id number] 2017-09-03 Outpatient UR Wilmer [facility] [id number] 12:31:00 12:31:00 Karolina 2017-07-24 2017-07-24 Outpatient UR Kirit [facility] [id number] 11:01:00 11:01:00 Riki 2017-07-24 2017-07-24 [facility] [id number] 00:00:00 00:00:00 2017-07-16 2017-07-16 [facility] [id number] 00:00:00 00:00:00 2017-07-15 2017-07-15 Outpatient DELICIA Beth [facility] [id number] 09:00:00 09:00:00 Riki 2017-07-15 2017-07-15 Out[facility] [id number] 00:00:00 00:00:00 2017-06-03 2017-06-03 Outpatient EL [facility] [id number] 09:06:00 15:39:00 Karolina 2017-06-03 2017-06-03 [facility] [id number] 00:00:00 00:00:00 2017-05-29 2017-05-29 Out[facility] [id number] 00:00:00 00:00:00 2017-05-28 2017-05-28 Outpatient [facility] [id number] 16:15:00 16:15:00 Karolina 2017-05-28 2017-05-28 Outpatient [facility] [id number] 16:10:00 16:10:00 Karolina 2017-05-28 2017-05-28 [facility] [id number] 00:00:00 00:00:00 2017-05-28 2017-05-28 [facility] [id number] 00:00:00 00:00:00 2017-05-13 2017-05-13 Outpatient ER [facility] Nur [id number] 07:24:00 11:08:00 Hervy 2017-05-13 2017-05-13 [facility] [id number] 00:00:00 00:00:00 2017-05-13 2017-05-13 Outpatient [facility] [id number] 00:00:00 00:00:00 2017-04-21 2017-04-21 Outpatient ER SHELTON Nur [id number] 07:39:00 08:53:00 Hervy 2017-04-21 2017-04-21 [facility] [id number] 00:00:00 00:00:00 2017-04-21 2017-04-21 [facility] [id number] 00:00:00 00:00:00 2017-04-19 2017-04-19 Outpatient UR SHELTON Ballard [id number] 10:36:00 10:36:00 Marciano 2017-04-19 2017-04-19 [facility] [id number] 00:00:00 00:00:00 2017-03-19 2017-03-19 [facility] [id number] 00:00:00 00:00:00 2017-03-17 2017-03-17 Outpatient ER Renu Samson [id number] 10:12:00 12:39:00 2017-03-17 2017-03-17 [facility] [id number] 00:00:00 00:00:00 2017-03-17 2017-03-17 [facility] [id number] 00:00:00 00:00:00 2017-02-16 2017-02-16 Outpatient ER Renu Samson [id number] 13:04:00 18:36:00 2017-02-16 2017-02-16 [facility] [id number] 00:00:00 00:00:00 2017-02-16 2017-02-16 [facility] [id number] 00:00:00 00:00:00 2016-12-28 2016-12-28 Outpatient ER Renu Samson [id number] 10:28:00 14:34:00 2016-12-28 2016-12-28 [facility] [id number] 00:00:00 00:00:00 2016-12-28 2016-12-28 [facility] [id number] 00:00:00 00:00:00 2016-11-23 2016-11-25 Outpatient ER SHELTON Rodríguez [id number] 20:31:00 13:45:00 Josse 2016-11-25 2016-11-25 [facility] [id number] 00:00:00 00:00:00 2016-11-24 2016-11-24 [facility] [id number] 00:00:00 00:00:00 2016-11-23 2016-11-23 [facility] [id number] 00:00:00 00:00:00 2016-11-23 2016-11-23 [facility] [id number] 00:00:00 00:00:00 2016-09-05 2016-09-05 Outpatient UR Wilmer SHELTON PEOPLES [id number] 11:17:00 11:17:00 Karolina 2016-09-05 2016-09-05 [facility] [id number] 00:00:00 00:00:00 2016-08-16 2016-08-16 Outpatient UR SHELTON Cadena SHELTON [id number] 08:48:00 08:48:00 Walker 2016-08-16 2016-08-16 [facility] [id number] 00:00:00 00:00:00 2016-07-11 2016-07-11 Outpatient ER Taj Spain [facility] [id number] [id number] 10:17:00 15:59:00 2016-07-11 2016-07-11 [facility] [id number] 00:00:00 00:00:00 2016-07-11 2016-07-11 [facility] [id number] 00:00:00 00:00:00 2016-07-11 2016-07-11 [facility] [id number] 00:00:00 00:00:00 2016-07-09 2016-07-09 [facility] [id number] 00:00:00 00:00:00 2016-07-06 2016-07-07 Outpatient EL SHELTON Cadena SHELTON [id number] 04:53:00 13:40:00 Walker 2016-07-07 2016-07-07 [facility] [id number] 00:00:00 00:00:00 2016-07-06 2016-07-06 [facility] [id number] 00:00:00 00:00:00 2016-07-03 2016-07-03 [facility] [id number] 00:00:00 00:00:00 2016-07-02 2016-07-02 [facility] [id number] 00:00:00 00:00:00 2016-07-02 2016-07-02 [facility] [id number] 00:00:00 00:00:00 2016-07-02 2016-07-02 [facility] [id number] 00:00:00 00:00:00 2016-06-01 2016-06-01 Outpatient SHELTON Hodges SHELTON [id number] 09:51:00 09:51:00 Walker 2016-06-01 2016-06-01 [facility] [id number] 00:00:00 00:00:00 2016-05-12 2016-05-12 Outpatient ER Nikunj Zaman [id number] 14:33:00 16:32:00 2016-05-12 2016-05-12 [facility] [id number] 00:00:00 00:00:00 2016-05-12 2016-05-12 [facility] [id number] 00:00:00 00:00:00 2016-04-14 2016-04-15 Outpatient ER SHELTON Spain [id number] 22:14:00 01:05:00 Fam 2016-04-15 2016-04-15 [facility] [id number] 00:00:00 00:00:00 2016-04-14 2016-04-14 [facility] [id number] 00:00:00 00:00:00 2016-01-23 2016-01-23 Outpatient UR SHELTON Larsen [id number] 08:13:00 08:13:00 Micah 2015-10-20 2015-10-20 Outpatient Walter RN, [facility] [id number] 00:00:00 00:00:00 Radha Angulo - [address] 2015-09-29 2015-09-29 Outpatient Mars WHEELER, [facility] [id number] 00:00:00 00:00:00 Angela Angulo - [address] 2015-09-23 2015-09-23 Outpatient Chapin RN, [facility] 17 [id number] 00:00:00 00:00:00 Yaritza Angulo - [address] 2015-09-08 2015-09-08 Outpatient Gary RN, [facility] 1 [id number] 00:00:00 00:00:00 Kristine Angulo - [address] 2015-09-01 2015-09-01 Outpatient Chapin SPRINGER, [facility] [id number] 00:00:00 00:00:00 Yaritza Angulo - [address] 2015-08-25 2015-08-25 Outpatient CRISTOPHER [place] [id number] 08:00:00 08:00:00 [facility] 2015-07-13 2015-07-13 Outpatient CRISTOPHER [place] [id number] 14:39:00 14:39:00 [facility] 2015-06-14 2015-06-14 Outpatient CRISTOPHER [place] [id number] 08:30:00 08:30:00 [facility] Payers Payer Name Policy Type Policy Number Effective Date Expiration D ate [employer] MED[employer] ADV PPO [id number] 2017 00:00: 00 [employer] PPO [id number] 2015 00:00:00 NETWORK Plan of Treatment Planned Activity Planned Date Details Comments Future Scheduled Test [code = ] Future Scheduled Test [code = ] Future Scheduled Test [code = ] Future Scheduled Test [code = ] Future Scheduled Test [code = ] Future Scheduled Test [code = ] Future Scheduled Test [code = ] Future Scheduled Test [code = ] Future Scheduled Test [code = ] Future Scheduled Test [code = ] Future Scheduled Test [code = ] Future Scheduled Test [code = ] Future Scheduled Test [code = ] Future Scheduled Test [code = ] Future Scheduled Test [code = ] Future Scheduled Test [code = ] Future Scheduled Test [code = ] Future Scheduled Test [code = ] Future Scheduled Test [code = ] Social History Social Habit Start Date Stop Date Comments History of tobacco use Tobacco smoking status HIIS 2018-11-26 00:00:00 2018-11-26 00:00 :00 Alcohol intake 2018-11-26 00:00:00 2018-11-26 00:00:00 Smoking Status Start Date Stop Date Ex-smoker (finding) Never smoked tobacco (finding) Vital Signs Vital Name Observation Time Observation Value Comments height 2019-12-28 11:00:00 70 [in_us] weight 2019-12-28 11:00:00 198 [lb_av] bmi 2019-12-28 11:00:00 28.41 kg/m2 heart rate 2019-12-28 11:00:00 77 /min blood pressure systolic 2019-12-28 11:00:00 141 mm[Hg] blood pressure diastolic 2019-12-28 11:00:00 95 mm[Hg] height 2019-12-04 10:45:00 70 [in_us] weight 2019-12-04 10:45:00 198 [lb_av] bmi 2019-12-04 10:45:00 28.41 kg/m2 heart rate 2019-12-04 10:45:00 60 /min blood pressure systolic 2019-12-04 10:45:00 117 mm[Hg] blood pressure diastolic 2019-12-04 10:45:00 73 mm[Hg] height 2019-11-26 09:30:00 70 [in_us] weight 2019-11-26 09:30:00 201 [lb_av] bmi 2019-11-26 09:30:00 28.84 kg/m2 heart rate 2019-11-26 09:30:00 78 /min blood pressure systolic 2019-11-26 09:30:00 87 mm[Hg] blood pressure diastolic 2019-11-26 09:30:00 61 mm[Hg] height 2020-04-11 10:00:00 70 [in_us] weight 2020-04-11 10:00:00 213.6 [lb_av] bmi 2020-04-11 10:00:00 30.65 kg/m2 heart rate 2020-04-11 10:00:00 85 /min blood pressure systolic 2020-04-11 10:00:00 122 mm[Hg] blood pressure diastolic 2020-04-11 10:00:00 79 mm[Hg] height 2020-03-18 11:15:00 70 [in_us] weight 2020-03-18 11:15:00 214.6 [lb_av] bmi 2020-03-18 11:15:00 30.79 kg/m2 heart rate 2020-03-18 11:15:00 78 /min blood pressure systolic 2020-03-18 11:15:00 104 mm[Hg] blood pressure diastolic 2020-03-18 11:15:00 71 mm[Hg] height 2020-03-08 10:45:00 70 [in_us] weight 2020-03-08 10:45:00 218 [lb_av] bmi 2020-03-08 10:45:00 31.28 kg/m2 heart rate 2020-03-08 10:45:00 69 /min blood pressure systolic 2020-03-08 10:45:00 130 mm[Hg] blood pressure diastolic 2020-03-08 10:45:00 79 mm[Hg] height 2020-03-01 09:45:00 70 [in_us] weight 2020-03-01 09:45:00 219 [lb_av] bmi 2020-03-01 09:45:00 31.42 kg/m2 heart rate 2020-03-01 09:45:00 67 /min blood pressure systolic 2020-03-01 09:45:00 107 mm[Hg] blood pressure diastolic 2020-03-01 09:45:00 70 mm[Hg] blood pressure systolic 2019-12-28 11:00:00 141 mm[Hg] blood pressure diastolic 2019-12-28 11:00:00 95 mm[Hg] height 2019-12-28 11:00:00 70 [in_us] weight 2019-12-28 11:00:00 198 [lb_av] bmi 2019-12-28 11:00:00 28.41 kg/m2 heart rate 2019-12-28 11:00:00 77 /min height 2019-12-04 10:45:00 70 [in_us] weight 2019-12-04 10:45:00 198 [lb_av] bmi 2019-12-04 10:45:00 28.41 kg/m2 heart rate 2019-12-04 10:45:00 60 /min blood pressure systolic 2019-12-04 10:45:00 117 mm[Hg] blood pressure diastolic 2019-12-04 10:45:00 73 mm[Hg] height 2019-11-26 09:30:00 70 [in_us] weight 2019-11-26 09:30:00 201 [lb_av] bmi 2019-11-26 09:30:00 28.84 kg/m2 heart rate 2019-11-26 09:30:00 78 /min blood pressure systolic 2019-11-26 09:30:00 87 mm[Hg] blood pressure diastolic 2019-11-26 09:30:00 61 mm[Hg] height 2020-01-22 14:00:00 70 [in_us] weight 2020-01-22 14:00:00 198 [lb_av] bmi 2020-01-22 14:00:00 28.41 kg/m2 heart rate 2020-01-22 14:00:00 81 /min blood pressure systolic 2020-01-22 14:00:00 105 mm[Hg] blood pressure diastolic 2020-01-22 14:00:00 72 mm[Hg] height 2019-11-02 15:00:00 70 [in_us] weight 2019-11-02 15:00:00 211 [lb_av] bmi 2019-11-02 15:00:00 30.27 kg/m2 heart rate 2019-11-02 15:00:00 73 /min blood pressure systolic 2019-11-02 15:00:00 100 mm[Hg] blood pressure diastolic 2019-11-02 15:00:00 70 mm[Hg] bmi 2019-11-26 09:30:00 28.84 kg/m2 heart rate 2019-11-26 09:30:00 78 /min blood pressure systolic 2019-11-26 09:30:00 87 mm[Hg] blood pressure diastolic 2019-11-26 09:30:00 61 mm[Hg] height 2019-11-26 09:30:00 70 [in_us] weight 2019-11-26 09:30:00 201 [lb_av] height 2019-09-25 10:30:00 70 [in_us] weight 2019-09-25 10:30:00 216.4 [lb_av] bmi 2019-09-25 10:30:00 31.05 kg/m2 heart rate 2019-09-25 10:30:00 83 /min blood pressure systolic 2019-09-25 10:30:00 109 mm[Hg] blood pressure diastolic 2019-09-25 10:30:00 71 mm[Hg] height 2019-09-15 09:45:00 70 [in_us] weight 2019-09-15 09:45:00 218.6 [lb_av] bmi 2019-09-15 09:45:00 31.36 kg/m2 heart rate 2019-09-15 09:45:00 85 /min temperature 2019-09-15 09:45:00 98.3 [degF] blood pressure systolic 2019-09-15 09:45:00 114 mm[Hg] blood pressure diastolic 2019-09-15 09:45:00 77 mm[Hg] SYSTOLIC BLOOD PRESSURE 2018-11-26 09:23:00 91 mm[Hg] DIASTOLIC BLOOD PRESSURE 2018-11-26 09:23:00 60 mm[Hg] HEART RATE 2018-11-26 09:23:00 69 /min BODY TEMPERATURE 2018-11-26 09:23:00 37 Tabatha RESPIRATORY RATE 2018-11-26 09:23:00 16 /min HEIGHT 2018-11-26 09:23:00 177.8 cm WEIGHT 2018-11-26 09:23:00 94.348 kg OXYGEN SATURATION 2018-11-26 09:23:00 98 % SYSTOLIC BLOOD PRESSURE 2018-11-04 14:08:00 120 mm[Hg] DIASTOLIC BLOOD PRESSURE 2018-11-04 14:08:00 60 mm[Hg] HEART RATE 2018-11-04 14:08:00 74 /min RESPIRATORY RATE 2018-11-04 14:08:00 12 /min HEIGHT 2018-11-04 14:08:00 177.8 cm WEIGHT 2018-11-04 14:08:00 94.348 kg OXYGEN SATURATION 2018-11-04 14:08:00 98 % SYSTOLIC BLOOD PRESSURE 2018-08-12 16:00:00 188 mm[Hg] DIASTOLIC BLOOD PRESSURE 2018-08-12 16:00:00 90 mm[Hg] HEART RATE 2018-08-12 16:00:00 66 /min BODY TEMPERATURE 2018-08-12 16:00:00 36.11 Tabatha RESPIRATORY RATE 2018-08-12 16:00:00 18 /min OXYGEN SATURATION 2018-08-12 16:00:00 95 % HEIGHT 2018-08-07 15:34:00 175.3 cm WEIGHT 2018-08-07 15:34:00 90.719 kg Heart Rate 2018-07-08 15:31:00 77 /min Respiratory Rate 2018-07-08 15:31:00 18 /min O2 % BldC Oximetry 2018-07-08 15:31:00 100 % SYSTOLIC BLOOD PRESSURE 2018-07-08 15:31:00 132 mm[Hg] DIASTOLIC BLOOD PRESSURE 2018-07-08 15:31:00 75 mm[Hg] Weight Measured 2018-07-08 12:34:00 212 Body Temperature 2018-07-08 12:34:00 96.5 [degF] BMI (Body Mass Index) 2018-07-08 12:34:00 31.3 kg/m2 HEIGHT 2018-07-08 12:34:00 175.3 cm WEIGHT 2018-07-08 12:34:00 96.162 kg Heart Rate 2018-04-12 11:54:00 62 /min Respiratory Rate 2018-04-12 11:54:00 18 /min O2 % BldC Oximetry 2018-04-12 11:54:00 99 % SYSTOLIC BLOOD PRESSURE 2018-04-12 11:54:00 142 mm[Hg] DIASTOLIC BLOOD PRESSURE 2018-04-12 11:54:00 88 mm[Hg] Weight Measured 2018-04-12 09:37:00 211 Body Temperature 2018-04-12 09:37:00 96.9 [degF] BMI (Body Mass Index) 2018-04-12 09:37:00 30.2 kg/m2 HEIGHT 2018-04-12 09:37:00 177.8 cm WEIGHT 2018-04-12 09:37:00 95.708 kg Heart Rate 2017-12-12 12:09:00 78 /min Respiratory Rate 2017-12-12 12:09:00 20 /min O2 % BldC Oximetry 2017-12-12 12:09:00 100 % SYSTOLIC BLOOD PRESSURE 2017-12-12 12:09:00 118 mm[Hg] DIASTOLIC BLOOD PRESSURE 2017-12-12 12:09:00 78 mm[Hg] Weight Measured 2017-12-12 09:54:00 210 Body Temperature 2017-12-12 09:54:00 96.7 [degF] BMI (Body Mass Index) 2017-12-12 09:54:00 30.1 kg/m2 HEIGHT 2017-12-12 09:54:00 177.8 cm WEIGHT 2017-12-12 09:54:00 95.255 kg Body Temperature 2017-06-03 15:00:00 97.2 [degF] Heart Rate 2017-06-03 15:00:00 74 /min Respiratory Rate 2017-06-03 15:00:00 16 /min O2 % BldC Oximetry 2017-06-03 15:00:00 99 % SYSTOLIC BLOOD PRESSURE 2017-06-03 15:00:00 127 mm[Hg] DIASTOLIC BLOOD PRESSURE 2017-06-03 15:00:00 86 mm[Hg] Weight Measured 2017-06-03 09:43:00 210 HEIGHT 2017-06-03 09:43:00 177.8 cm WEIGHT 2017-06-03 09:43:00 95.6 kg BMI (Body Mass Index) 2017-05-29 10:31:00 30.7 kg/m2 Heart Rate 2017-05-13 11:00:00 76 /min Respiratory Rate 2017-05-13 11:00:00 20 /min SYSTOLIC BLOOD PRESSURE 2017-05-13 11:00:00 148 mm[Hg] DIASTOLIC BLOOD PRESSURE 2017-05-13 11:00:00 87 mm[Hg] Weight Measured 2017-05-13 07:31:00 214 Body Temperature 2017-05-13 07:31:00 97.8 [degF] O2 % BldC Oximetry 2017-05-13 07:31:00 98 % BMI (Body Mass Index) 2017-05-13 07:31:00 30.7 kg/m2 HEIGHT 2017-05-13 07:31:00 177.8 cm WEIGHT 2017-05-13 07:31:00 97.069 kg Body Temperature 2017-04-21 08:53:00 97.0 [degF] Heart Rate 2017-04-21 08:53:00 87 /min Respiratory Rate 2017-04-21 08:53:00 18 /min O2 % BldC Oximetry 2017-04-21 08:53:00 99 % SYSTOLIC BLOOD PRESSURE 2017-04-21 08:53:00 148 mm[Hg] DIASTOLIC BLOOD PRESSURE 2017-04-21 08:53:00 85 mm[Hg] Weight Measured 2017-04-21 07:40:00 211 BMI (Body Mass Index) 2017-04-21 07:40:00 30.2 kg/m2 HEIGHT 2017-04-21 07:40:00 177.8 cm WEIGHT 2017-04-21 07:40:00 95.708 kg SYSTOLIC BLOOD PRESSURE 2017-03-17 10:25:00 140 mm[Hg] DIASTOLIC BLOOD PRESSURE 2017-03-17 10:25:00 79 mm[Hg] HEIGHT 2017-03-17 10:25:00 177.8 cm WEIGHT 2017-03-17 10:25:00 97.069 kg Body Temperature 2017-02-16 18:36:00 97.1 [degF] Heart Rate 2017-02-16 18:36:00 70 /min Respiratory Rate 2017-02-16 18:36:00 20 /min O2 % BldC Oximetry 2017-02-16 18:36:00 100 % SYSTOLIC BLOOD PRESSURE 2017-02-16 18:36:00 149 mm[Hg] DIASTOLIC BLOOD PRESSURE 2017-02-16 18:36:00 82 mm[Hg] Weight Measured 2017-02-16 13:17:00 214 BMI (Body Mass Index) 2017-02-16 13:17:00 30.8 kg/m2 HEIGHT 2017-02-16 13:17:00 177.8 cm WEIGHT 2017-02-16 13:17:00 97.432 kg Heart Rate 2016-12-28 14:29:00 60 /min Respiratory Rate 2016-12-28 14:29:00 16 /min O2 % BldC Oximetry 2016-12-28 14:29:00 99 % SYSTOLIC BLOOD PRESSURE 2016-12-28 14:29:00 131 mm[Hg] DIASTOLIC BLOOD PRESSURE 2016-12-28 14:29:00 79 mm[Hg] Body Temperature 2016-12-28 13:45:00 97.3 [degF] Weight Measured 2016-12-28 10:35:00 216 BMI (Body Mass Index) 2016-12-28 10:35:00 31.1 kg/m2 HEIGHT 2016-12-28 10:35:00 177.8 cm WEIGHT 2016-12-28 10:35:00 98.384 kg Body Temperature 2016-11-25 12:00:00 97.0 [degF] Heart Rate 2016-11-25 12:00:00 60 /min Respiratory Rate 2016-11-25 12:00:00 20 /min O2 % BldC Oximetry 2016-11-25 12:00:00 100 % SYSTOLIC BLOOD PRESSURE 2016-11-25 12:00:00 136 mm[Hg] DIASTOLIC BLOOD PRESSURE 2016-11-25 12:00:00 84 mm[Hg] Weight Measured 2016-11-25 11:00:00 211 BMI (Body Mass Index) 2016-11-25 11:00:00 30.3 kg/m2 HEIGHT 2016-11-25 11:00:00 177.8 cm WEIGHT 2016-11-25 11:00:00 95.822 kg SYSTOLIC BLOOD PRESSURE 2016-07-11 15:58:00 148 mm[Hg] DIASTOLIC BLOOD PRESSURE 2016-07-11 15:58:00 76 mm[Hg] HEIGHT 2016-07-11 10:18:00 177.8 cm WEIGHT 2016-07-11 10:18:00 99.337 kg SYSTOLIC BLOOD PRESSURE 2016-07-07 08:00:00 115 mm[Hg] DIASTOLIC BLOOD PRESSURE 2016-07-07 08:00:00 70 mm[Hg] WEIGHT 2016-07-06 06:04:00 96.7 kg HEIGHT 2016-07-02 15:20:00 177.8 cm SYSTOLIC BLOOD PRESSURE 2016-05-12 16:08:00 138 mm[Hg] DIASTOLIC BLOOD PRESSURE 2016-05-12 16:08:00 79 mm[Hg] HEIGHT 2016-05-12 14:35:00 177.8 cm WEIGHT 2016-05-12 14:35:00 98.429 kg SYSTOLIC BLOOD PRESSURE 2016-04-15 01:04:00 116 mm[Hg] DIASTOLIC BLOOD PRESSURE 2016-04-15 01:04:00 74 mm[Hg] HEIGHT 2016-04-14 22:16:00 177.8 cm WEIGHT 2016-04-14 22:16:00 99.138 kg
--- NOTE | 2020-09-01 19:32 | PDOC DISCHARGE SUMMARY ---
Impression - Admit/DC Date/PCP Admission Date/Primary Care Provider: 08/30/20 23:33 ÁNGEL ORNELAS MD Discharge Date: 09/01/20 - Discharge Diagnosis (1) Acute kidney injury Is this a current diagnosis for this admission?: Yes (2) Bilateral lower extremity edema Is this a current diagnosis for this admission?: Yes (3) Diabetes mellitus type 2 in obese Is this a current diagnosis for this admission?: Yes - Additional Information Discharge Diet: Diabetic Discharge Activity: Activity As Tolerated Referrals: ÁNGEL ORNELAS MD [Primary Care Provider] - Follow up as needed Home Medications: RX: Allopurinol [Zyloprim 300 mg Tablet] 300 mg PO DAILY 11/27/19 RX: Atorvastatin Calcium [Lipitor 10 mg Tablet] 10 mg PO DAILY 11/27/19 RX: Carvedilol [Coreg 3.125 mg Tablet] 3.125 mg PO Q12 11/27/19 RX: Duloxetine HCl [Cymbalta] 60 mg PO DAILY 11/27/19 RX: Insulin Aspart [Novolog Flexpen] 6 unit SUBCUT AC 11/27/19 RX: Insulin Degludec [Tresiba Flextouch U-100] 14 unit SQ DAILY 11/27/19 RX: Valproic Acid 500 mg PO BID 11/27/19 RX: Aspirin [Aspirin 81 mg Chewable Tablet] 81 mg PO DAILY 08/31/20 RX: Cilostazol 100 mg PO 0800,1400 08/31/20 RX: Ergocalciferol (Vitamin D2) [Drisdol 50,000 unit (1.25MG) Capsule] 50,000 unit PO MO@1000 08/31/20 RX: Gabapentin [Neurontin 300 mg Capsule] 300 mg PO Q8 08/31/20 RX: Lisinopril [Zestril] 2.5 mg PO DAILY 08/31/20 RX: Quetiapine Fumarate [Seroquel 25 mg Tablet] 25 mg PO QHS 08/31/20 RX: Tramadol HCl [Ultram 50 mg Tablet] 50 mg PO Q8HP PRN 08/31/20 History of Present Illiness History of Present Illness: LO ENCARNACION is a 59 year old male, Patient came to the emergency room for evaluation of bilateral lower extremity edema/swelling, he was found to have serum creatinine of 3.31. He has chronic kidney disease with a baseline creatinine of 1.5-1.7.He has bilateral lower extremity edema, he was on 2 diuretic metolazone and furosemide so he probably over diuresed. The acute kidney injury is most likely prerenal azotemia. Venous Doppler of the lower extremities was negative for deep vein thrombosis there is no proteinuria to suggest nephrotic syndrome there is no CHF there is no liver disease no thyroid disease, the potential etiology of the lower extremity edema is most likely multifactorial including medication, patient is on gabapentin, venous valve insufficiency, patient is advised to use compression stocking. Hospital Course Hospital Course: Patient was admitted for the management of prerenal azotemia, he was treated with IV normal saline, on admission his serum creatinine was 3, the serum creatinine today is 2. Patient was admitted for observation, is advised to use compression stockings on the lower extremities.He has underlining chronic kidney disease stage III, the kidney ultrasound did not demonstrate any hydronephrosis that suggest obstructive uropathy. Physical Exam Vital Signs: Temp Pulse Resp BP Pulse Ox 97.9 F 89 16 141/83 H 100 09/01/20 17:31 09/01/20 17:31 09/01/20 17:31 09/01/20 17:31 09/01/20 17:31 Intake & Output 08/31/20 09/01/20 09/02/20 06:59 06:59 06:59 Intake Total 120 2960 481 Output Total 2275 950 Balance 120 685 -469 Weight 95.5 kg 95.5 kg General appearance: PRESENT: no acute distress Eye exam: PRESENT: PERRLA Respiratory exam: PRESENT: clear to auscultation anaamria Cardiovascular exam: PRESENT: +S1, +S2 GI/Abdominal exam: PRESENT: soft Extremities exam: PRESENT: +1 edema Neurological exam: PRESENT: alert Results Laboratory Results: WBC 4.4 10^3/uL (4.0-10.5) 09/01/20 05:48 RBC 3.11 10^6/uL (4.35-5.55) L 09/01/20 05:48 Hgb 10.4 g/dL (13.5-17.0) L 09/01/20 05:48 Hct 30.2 % (37.9-51.0) L 09/01/20 05:48 MCV 97 fl (80-97) 09/01/20 05:48 MCH 33.5 pg (27.0-33.4) H 09/01/20 05:48 MCHC 34.5 g/dL (32.0-36.0) 09/01/20 05:48 RDW 16.2 % (11.5-14.0) H 09/01/20 05:48 Plt Count 191 10^3/uL (150-450) 09/01/20 05:48 Lymph % (Auto) 39.2 % (13-45) 09/01/20 05:48 Yell % (Auto) 9.7 % (3-13) 09/01/20 05:48 Eos % (Auto) 1.3 % (0-6) 09/01/20 05:48 Baso % (Auto) 0.3 % (0-2) 09/01/20 05:48 Absolute Neuts (auto) 2.2 10^3/uL (1.7-8.2) 09/01/20 05:48 Absolute Lymphs (auto) 1.7 10^3/uL (0.5-4.7) 09/01/20 05:48 Absolute Monos (auto) 0.4 10^3/uL (0.1-1.4) 09/01/20 05:48 Absolute Eos (auto) 0.1 10^3/uL (0.0-0.6) 09/01/20 05:48 Absolute Basos (auto) 0.0 10^3/uL (0.0-0.2) 09/01/20 05:48 Seg Neutrophils % 49.5 % (42-78) 09/01/20 05:48 PT 12.8 SEC (11.4-15.4) 08/31/20 09:20 INR 0.94 08/31/20 09:20 APTT 25.8 SEC (23.5-35.8) 08/31/20 09:20 Sodium 141.5 mmol/L (137-145) 09/01/20 05:48 Potassium 4.8 mmol/L (3.6-5.0) 09/01/20 05:48 Chloride 109 mmol/L (98-107) H 09/01/20 05:48 Carbon Dioxide 24 mmol/L (22-30) 09/01/20 05:48 Anion Gap 9 (5-19) 09/01/20 05:48 BUN 33 mg/dL (7-20) H 09/01/20 05:48 Creatinine 2.10 mg/dL (0.52-1.25) H 09/01/20 05:48 Est GFR ( Amer) 39 (>60) L 09/01/20 05:48 Est GFR (MDRD) Non-Af 32 (>60) L 09/01/20 05:48 Glucose 104 mg/dL (75-110) 09/01/20 05:48 POC Glucose 133 mg/dL (70-110) H 09/01/20 16:05 Hemoglobin A1c % 5.7 % (4.7-6.0) 09/01/20 05:48 Calcium 9.0 mg/dL (8.4-10.2) 09/01/20 05:48 Phosphorus 3.5 mg/dL (2.5-4.5) 08/31/20 09:20 Magnesium 2.3 mg/dL (1.6-2.3) 08/31/20 09:20 Total Bilirubin 0.5 mg/dL (0.2-1.3) 09/01/20 05:48 Direct Bilirubin 0.2 mg/dL (0.0-0.4) 09/01/20 05:48 Neonat Total Bilirubin Not Reportable 09/01/20 05:48 Neonat Direct Bilirubin Not Reportable 09/01/20 05:48 Neonat Indirect Bili Not Reportable 09/01/20 05:48 AST 37 U/L (17-59) 09/01/20 05:48 ALT 16 U/L (<50) 09/01/20 05:48 Alkaline Phosphatase 72 U/L (38-126) 09/01/20 05:48 CK-MB (CK-2) 1.34 ng/mL (<4.55) 08/31/20 21:39 Troponin I < 0.012 ng/mL 08/31/20 21:39 NT-Pro-B Natriuret Pep 118 pg/mL (<125) 08/30/20 18:47 Total Protein 6.4 g/dL (6.3-8.2) 09/01/20 05:48 Albumin 3.4 g/dL (3.5-5.0) L 09/01/20 05:48 Amylase 54 U/L (30-110) 08/31/20 09:20 Lipase 82.7 U/L (23-300) 08/31/20 09:20 TSH 1.61 uIU/mL (0.47-4.68) 08/31/20 09:20 Free T4 0.73 ng/dL (0.78-2.19) L 08/31/20 09:20 Urine Color STRAW 08/31/20 07:30 Urine Appearance CLEAR 08/31/20 07:30 Urine pH 6.0 (5.0-9.0) 08/31/20 07:30 Ur Specific [place] 1.009 08/31/20 07:30 Urine Protein NEGATIVE mg/dL (NEGATIVE) 08/31/20 07:30 Urine Glucose (UA) NEGATIVE mg/dL (NEGATIVE) 08/31/20 07:30 Urine Ketones NEGATIVE mg/dL (NEGATIVE) 08/31/20 07:30 Urine Blood NEGATIVE (NEGATIVE) 08/31/20 07:30 Urine Nitrite NEGATIVE (NEGATIVE) 08/31/20 07:30 Urine Bilirubin NEGATIVE (NEGATIVE) 08/31/20 07:30 Urine Urobilinogen NEGATIVE mg/dL (<2.0) 08/31/20 07:30 Ur Leukocyte Esterase NEGATIVE (NEGATIVE) 08/31/20 07:30 Urine RBC (Auto) 0 /HPF 08/31/20 07:30 Urine Ascorbic Acid NEGATIVE (NEGATIVE) 08/31/20 07:30 08/30/20 08/30/20 08/31/20 18:47 18:47 09:20 CK-MB (CK-2) 1.99 Troponin I < 0.012 < 0.012 NT-Pro-B Natriuret Pep 118 08/31/20 08/31/20 15:02 21:39 CK-MB (CK-2) 1.83 1.34 Troponin I < 0.012 < 0.012 NT-Pro-B Natriuret Pep Impressions: Chest X-Ray 08/30/20 18:29 IMPRESSION: NO ACUTE RADIOGRAPHIC FINDING IN THE CHEST. Renal Ultrasound 08/31/20 00:00 IMPRESSION: CHRONIC MEDICAL RENAL DISEASE. NO HYDRONEPHROSIS. Venous Doppler Study 08/31/20 00:00 IMPRESSION: NO EVIDENCE DVT OR SVT IN EITHER LEG. Stroke Is this a Stroke Patient?: No Acute Heart Failure Is this a Heart Failure Patient?: No
[2020-09-05] MEDS ORDERED: ERGOCALCIFEROL (VITAMIN D2) 50000 UNIT (1.25 MG) CAPSULE PO SCH (10:00)
== END 2020-09-01 18:02 | disposition home or self-care (01) | DRG 684 ==
LOC: ER 15:35 → EH 23:33 → 4S 08-31 00:37
PROVIDERS: ADMIT Internal Medicine; ATTEND Internal Medicine
DX: N17.9 Acute kidney failure, unspecified (principal); I12.9 Hypertensive chronic kidney disease with stage 1 through stage 4 chronic kidney disease, or unspecified chronic kidney disease; E11.22 Type 2 diabetes mellitus with diabetic chronic kidney disease; N18.30 Chronic kidney disease, stage 3 unspecified; I25.10 Atherosclerotic heart disease of native coronary artery without angina pectoris; E78.5 Hyperlipidemia, unspecified; J44.9 Chronic obstructive pulmonary disease, unspecified; K21.9 Gastro-esophageal reflux disease without esophagitis; I25.2 Old myocardial infarction; Z90.5 Acquired absence of kidney; Z87.891 Personal history of nicotine dependence; Z79.4 Long term (current) use of insulin; Z79.82 Long term (current) use of aspirin; Z79.899 Other long term (current) drug therapy; Z85.828 Personal history of other malignant neoplasm of skin
CPT/HCPCS: 36415; 71046; 76770; 80048; 80053; 80076; 81001; 82150; 82553; 82962; 83036; 83690; 83735; 83880; 84100; 84439; 84443; 84484; 85025; 85610; 85730; 87040; 87086; 93970; 99285; J1644; J2405; J3490; J7030

== ENCOUNTER 2020-11-02 17:42 | Emergency (ER) | payer MEDICARE ==
--- NOTE | 2020-11-02 18:25 | ER Document Report ---
ED Medical Screen (RME) - General Chief Complaint: Flu Symptoms Stated Complaint: WEAKNESS, CHILLS Time Seen by Provider: 11/02/20 18:18 Primary Care Provider: ÁNGEL ORNELAS MD [Primary Care Provider] - Follow up as needed Notes: 60-year-old male patient presents emergency department chief complaint of chills, weakness, nausea and body aches. Patient reports symptoms ongoing for 1 week. Patient denies any known exposure to Covid. Lung sounds clear and equal bilaterally, no acute distress noted. I have greeted and performed a rapid initial assessment of this patient. A comprehensive ED assessment and evaluation of the patient, analysis of test results and completion of the medical decision making process will be conducted by additional ED providers. I have specifically instructed the patient or f amily members with the patient to immediately return to any nursing staff should anything change in the patient's condition or with their chief complaint. TRAVEL OUTSIDE OF THE [place] IN LAST 30 DAYS: No - Related Data Allergies/Adverse Reactions: No Known Allergies Allergy (Verified 08/30/20 18:24) Past Medical History - Past Medical History Cardiac Medical History: Reports: Hx Congestive Heart Failure, Hx Coronary Artery Disease, Hx Heart Attack, Hx Hypercholesterolemia, Hx Hypertension Denies: Hx Atrial Fibrillation, Hx DVT, Hx Pulmonary Embolism Pulmonary Medical History: Reports: Hx COPD Denies: Hx Asthma, Hx Sleep Apnea Neurological Medical History: Reports: Hx Seizures. Denies: Hx Cerebrovascular Accident Endocrine Medical History: Reports: Hx Diabetes Mellitus Type 2. Denies: Hx Diabetes Mellitus Type 1, Hx Hyperthyroidism, Hx Hypothyroidism Renal/ Medical History: Reports: Hx Renal Insufficiency. Denies: Hx Hemodialysis, Hx Kidney Stones, Hx Peritoneal Dialysis Malignancy Medical History: Reports Hx Renal (Kidney) Cancer - s/p partial nephrectomy and renal surgeries., Reports Hx Skin Cancer GI Medical History: Reports: Hx Gastroesophageal Reflux Disease. Denies: Hx Cirrhosis, Hx Crohn's Disease, Hx Hepatitis, Hx Ulcerative Colitis Musculoskeltal Medical History: Denies Hx Arthritis, Denies Hx Gout Skin Medical History: Denies Hx Eczema, Denies Hx Psoriasis Psychiatric Medical History: Denies: Hx Depression Infectious Medical History: Denies: Hx C-Diff, Hx Hepatitis, Hx HIV Past Surgical History: Reports: Hx Cardiac Catheterization, Hx Kidney (Renal Surgery) - Right Kidney Removed, Other - skin cancer removal - Immunizations Immunizations up to date: Yes Physical Exam - Vital signs Vitals: Temp Pulse Resp BP Pulse Ox 98.0 F 94 20 100/69 97 11/02/20 17:49 11/02/20 17:49 11/02/20 17:49 11/02/20 17:49 11/02/20 17:49 Course - Vital Signs Vital signs: Temp Pulse Resp BP Pulse Ox 98.0 F 94 20 100/69 97 11/02/20 17:49 11/02/20 17:49 11/02/20 17:49 11/02/20 17:49 11/02/20 17:49 Doctor's Discharge - Discharge Referrals: ÁNGEL ORNELAS MD [Primary Care Provider] - Follow up as needed
[2020-11-02 18:58] LABS: ABSOLUTE LYMPHOCYTES (AUTO) 2.1 10^3/uL (0.5-4.7); ABSOLUTE MONOCYTES (AUTO) 0.4 10^3/uL (0.1-1.4); BASOPHILS % (AUTO) 0.5 % (0-2); EOSINOPHILS % (AUTO) 0.5 % (0-6); HEMATOCRIT 35.9 % (37.9-51.0); HEMOGLOBIN 12.4 g/dL (13.5-17.0); LYMPHOCYTES % (AUTO) 31.9 % (13-45); MEAN CORPUSCULAR HEMOGLOBIN 32.3 pg (27.0-33.4); MEAN CORPUSCULAR HGB CONC 34.7 g/dL (32.0-36.0); MEAN CORPUSCULAR VOLUME 93 fl (80-97); MONOCYTES % (AUTO) 6.7 % (3-13); PLATELET COUNT 249 10^3/uL (150-450); RED BLOOD COUNT 3.85 10^6/uL (4.35-5.55); RED CELL DISTRIBUTION WIDTH 15.2 % (11.5-14.0); SEGMENTED NEUTROPHILS % (AUTO) 60.4 % (42-78); TOTAL CELLS COUNTED % (AUTO) 100 %; WHITE BLOOD COUNT 6.6 10^3/uL (4.0-10.5)
[2020-11-02 19:07] LABS: APPEARANCE,URINE CLEAR; BILIRUBIN,URINE NEGATIVE (NEGATIVE); COLOR,URINE YELLOW; GLUCOSE, URINE >=500 mg/dL (NEGATIVE); KETONES,URINE NEGATIVE (NEGATIVE); LEUKOCYTE ESTERASE,URINE NEGATIVE (NEGATIVE); NITRITE,URINE NEGATIVE (NEGATIVE); PROTEIN,URINE NEGATIVE (NEGATIVE); URINE SPECIFIC GRAVITY 1.016; UROBILINOGEN,URINE NEGATIVE mg/dL (<2.0)
--- NOTE | 2020-11-02 19:13 | RADIOLOGY REPORT (SQ) ---
EXAM DESCRIPTION: CHEST SINGLE VIEW IMAGES COMPLETED DATE/TIME: 11/02/2020 7:05 pm REASON FOR STUDY: chills/fatigue COMPARISON: 08/30/2020 EXAM PARAMETERS: NUMBER OF VIEWS: One view. TECHNIQUE: Single frontal radiographic view of the chest acquired. RADIATION DOSE: NA LIMITATIONS: None. FINDINGS: LUNGS AND PLEURA: No opacities, masses or pneumothorax. No pleural effusion. MEDIASTINUM AND HILAR STRUCTURES: No masses. Contour normal. HEART AND VASCULAR STRUCTURES: Heart normal in size. Normal vasculature. BONES: No acute findings. HARDWARE: None in the chest. OTHER: No other significant finding. IMPRESSION: NO ACUTE RADIOGRAPHIC FINDING IN THE CHEST. TECHNICAL DOCUMENTATION: JOB ID: [id number] 2010 [employer]- All Rights Reserved Reading location - IP/workstation name: [email or web address]
[2020-11-02 19:16] LABS: ALKALINE PHOSPHATASE 95 U/L (38-126); ANION GAP 10 (5-19); ASPARTATE AMINO TRANSFERASE 24 U/L (17-59); BILIRUBIN,DIRECT 0.4 mg/dL (0.0-0.4); BILIRUBIN,TOTAL 0.4 mg/dL (0.2-1.3); BLOOD UREA NITROGEN 35 mg/dL (7-20); CALCIUM 9.1 mg/dL (8.4-10.2); CARBON DIOXIDE 26 mmol/L (22-30); CHLORIDE 99 mmol/L (98-107); POTASSIUM 4.4 mmol/L (3.6-5.0); TOTAL PROTEIN 7.2 g/dL (6.3-8.2)
[2020-11-02 19:23] LABS: GLUCOSE 542 mg/dL (75-110)
[2020-11-02 22:51] LABS: PHOSPHORUS 3.6 mg/dL (2.5-4.5)
[2020-11-02] MEDS ORDERED: INSULIN LISPRO 100 UNIT/ML 3 ML VIAL SUBCUT ONE (23:10)
[2020-11-02] MEDS ORDERED: ACETAMINOPHEN 325 MG TABLET PO ONE (23:10)
[2020-11-02] MEDS ORDERED: ONDANSETRON HCL INJ/PF 4 MG/2 ML SDV IV ONE (23:10)
[2020-11-02] MEDS ORDERED: ACETAMINOPHEN WITH CODEINE #3 TABLET PO ONE (23:10)
[2020-11-02] MEDS ORDERED: NORMAL SALINE 1000 ML 1,000 ML IV ONE (23:12)
--- NOTE | 2020-11-03 01:11 | RADIOLOGY REPORT (SQ) ---
EXAM DESCRIPTION: Site: CT ABD/PELVIS NO ORAL OR IV RP: CT ABDOMEN PELVIS WITHOUT IV CONTRAST CLINICAL HISTORY: 60 years Male; dm chills RLQ R flank pain; TECHNIQUE: CT of the abdomen and pelvis without intravenous contrast. All CT scans at this facility use dose modulation, iterative reconstruction, and/or weight based dosing when appropriate to reduce radiation dose to as low as reasonably achievable. COMPARISON: 09/18/2019 FINDINGS: Abdomen: Stomach: No significant distention or surrounding edema. Liver:No focal lesions. No intrahepatic ductal distention. Gallbladder:Nondistended Pancreas:Within normal limits Spleen:Within normal limits Right kidney:No hydronephrosis. No renal or ureteral calculi. Left kidney:No hydronephrosis. No renal or ureteral calculi. Adrenal glands:Within normal limits Vascular structures: Moderate aortic and branch calcifications. No aortic aneurysm. Pelvis: Small bowel:No significant distention. Appendix: Not reliably identified. No regional edema. Colon:No distention or acute pericolonic edema. No free intraperitoneal fluid or air. Bones: No acute bone findings. Bladder: Unremarkable. No pelvic mass or adenopathy. Note that evaluation of the bowel and solid organs is somewhat limited due to lack of intravenous and oral contrast. IMPRESSION: 1. No acute findings 2. No renal or ureteral calculi.
[2020-11-03 01:30] VITALS: BP 99/68
--- NOTE | 2020-11-03 01:43 | ER Document Report ---
ED General - General Chief Complaint: Flu Symptoms Stated Complaint: WEAKNESS, CHILLS Time Seen by Provider: 11/02/20 18:18 Primary Care Provider: ÁNGEL ORNELAS MD [Primary Care Provider] - 11/07/20 Notes: 60-year-old male history of diabetes hypertension CAD COPD presents with 1 week of generalized weakness, malaise, myalgia, nausea, subjective chills. Patient has been tolerating p.o., and one episode of vomiting in the ED of nonbloody emesis. On review of systems endorses some urinary frequency for unknown duration and right flank pain. Patient denies any measured fevers, sick contacts, cough, chest pain, shortness of breath, dysuria, urgency, hematuria, diarrhea, obstipation, neck or back pain, headache, recent procedures/instrumentation, joint pain, travel, pain with defecation, rashes, alcohol or drug use TRAVEL OUTSIDE OF THE [place] IN LAST 30 DAYS: No - Related Data Allergies/Adverse Reactions: No Known Allergies Allergy (Verified 08/30/20 18:24) Past Medical History - General Information source: Patient - Social History Smoking Status: Former Smoker Family History: Reviewed & Not Pertinent Patient has homicidal ideation: No - Past Medical History Cardiac Medical History: Reports: Hx Congestive Heart Failure, Hx Coronary Artery Disease, Hx Heart Attack, Hx Hypercholesterolemia, Hx Hypertension Denies: Hx Atrial Fibrillation, Hx DVT, Hx Pulmonary Embolism Pulmonary Medical History: Reports: Hx COPD Denies: Hx Asthma, Hx Sleep Apnea Neurological Medical History: Reports: Hx Seizures. Denies: Hx Cerebrovascular Accident Endocrine Medical History: Reports: Hx Diabetes Mellitus Type 2. Denies: Hx Diabetes Mellitus Type 1, Hx Hyperthyroidism, Hx Hypothyroidism Renal/ Medical History: Reports: Hx Renal Insufficiency. Denies: Hx Hemodialysis, Hx Kidney Stones, Hx Peritoneal Dialysis Malignancy Medical History: Reports Hx Renal (Kidney) Cancer - s/p partial nephrectomy and renal surgeries., Reports Hx Skin Cancer GI Medical History: Reports: Hx Gastroesophageal Reflux Disease. Denies: Hx Cirrhosis, Hx Crohn's Disease, Hx Hepatitis, Hx Ulcerative Colitis Musculoskeletal Medical History: Denies Hx Arthritis, Denies Hx Gout Skin Medical History: Denies Hx Eczema, Denies Hx Psoriasis Psychiatric Medical History: Denies: Hx Depression Infectious Medical History: Denies: Hx C-Diff, Hx Hepatitis, Hx HIV Past Surgical History: Reports: Hx Cardiac Catheterization, Hx Kidney (Renal Surgery) - Right Kidney Removed, Other - skin cancer removal - Immunizations Immunizations up to date: Yes Review of Systems - Review of Systems Notes: REVIEW OF SYSTEMS: CONSTITUTIONAL : + fever, chills, or sweats. EENT: Denies recent cold/sinus symptoms, denies throat pain CARDIOVASCULAR: Denies chest pain, NICHOLAS RESPIRATORY: Denies cough, denies shortness of breath. GASTROINTESTINAL: Denies abdominal pain, vomiting. GENITOURINARY: Denies difficulty urinating, painful urination. MUSCULOSKELETAL: Denies neck pain, back pain. SKIN: Denies rash or skin lesions. HEMATOLOGIC : Denies easy bruising or bleeding. LYMPHATIC: Denies swollen, enlarged glands. NEUROLOGICAL: Denies headache, denies change in gait. PSYCHIATRIC: Denies anxiety or stress or depression. Physical Exam - Vital signs Vitals: Temp Pulse Resp BP Pulse Ox 98.0 F 94 20 100/69 97 11/02/20 17:49 11/02/20 17:49 11/02/20 17:49 11/02/20 17:49 11/02/20 17:49 - Notes Notes: PHYSICAL EXAMINATION: GENERAL: Well-appearing, well-nourished and in no acute distress. HEAD: Atraumatic, normocephalic. EYES: Pupils equal round and appropriate constriction, sclera anicteric, conjunctiva are normal. ENT: nares patent, dry mucous membranes. NECK: Normal range of motion, supple without lymphadenopathy, no spinal tenderne ss or deformity LUNGS: Breath sounds clear to auscultation bilaterally and equal. No wheezes rales or rhonchi. Normal respiratory rate and effort HEART: Regular rate and rhythm without murmurs ABDOMEN: Soft, very mild right lower quadrant tenderness without rebound or guarding, no masses, mild right CVA tenderness EXTREMITIES: Normal range of motion, no pitting or edema. No cyanosis. NEUROLOGICAL: Awake, alert, conversing appropriately, moves all extremities spontaneously. PSYCH: Normal mood, normal affect. SKIN: Warm, Dry, normal turgor, no rashes or lesions noted. Course - Re-evaluation Re-evalutation: 11/03/20 01:36 1 week of constellation of symptoms without any specific source of infection identifiable on history, patient had mild right lower quadrant pain on exam without any acute surgical abdomen and mild right CVA tenderness obtained CAT scan to rule out possible appendicitis, renal colic/pyelonephritis, diverticulitis/colitis, but no emergent findings on CT. Patient with urinary frequency but no other urinary symptoms and no signs of infection on UA. Patient's flu and Covid test negative although these are the most likely explanations of his symptoms so we will still have patient quarantine. Patient hyperglycemic with mild increase in his creatinine from baseline which I treated with fluids and will have him follow-up with his client relation specialist. Patient tolerating p.o., normal-appearing, his vitals remained normal, no sign of any other sources of infections such as meningitis, occult abscess, septic arthritis, endocarditis, bacteremia. Has not met any sepsis criteria, no emergent findings on his labs other than hyperglycemia which I treated with fluids and insulin, no HONK/HHS or DKA. Patient appropriate for close outpatient follow-up with his primary doctor. Will instruct patient to take his temperature when he feels hot or cold to see if he is having a true fever. Gave extensive return to ED precautions which he demonstrate understanding of. Patient ready for discharge. The patient was evaluated during the global COVID-19 pandemic and that diagnosis was suspected/considered upon their initial presentation. Their evaluation, treatment and testing was consistent with current guidelines for patients who present with complaints or symptoms that may be related to COVID-19. - Vital Signs Vital signs: Temp Pulse Resp BP Pulse Ox 98.0 F 80 18 99/68 L 99 11/03/20 01:27 11/03/20 01:27 11/03/20 01:27 11/03/20 01:27 11/03/20 01:27 - Laboratory Results Result Diagrams: 11/02/20 18:35 11/02/20 18:35 Laboratory Results Interpreted: 11/02/20 11/02/20 11/02/20 18:35 18:35 18:35 RBC 3.85 L Hgb 12.4 L Hct 35.9 L RDW 15.2 H Sodium 134.8 L BUN 35 H Creatinine 2.60 H Est GFR ( Amer) 30 L Est GFR (MDRD) Non-Af 25 L Glucose 542 H* POC Glucose Creatine Kinase Urine Glucose (UA) >=500 H 11/02/20 11/02/20 18:35 23:34 RBC Hgb Hct RDW Sodium BUN Creatinine Est GFR ( Amer) Est GFR (MDRD) Non-Af Glucose POC Glucose 403 H* Creatine Kinase 203 H Urine Glucose (UA) Critical Laboratory Results Reviewed: Yes Attending or Supervising Physician who Reviewed Labs: YUDI SCRUGGS - Radiology Results Critical Radiology Results Reviewed: No Critical Results - EKG Interpretation by Me Additional EKG results interpreted by me: 11/03/20 01:47 Sinus rhythm, no significant ST elevations or depressions, no significant T wave abnormalities Discharge - Discharge Clinical Impression: Myalgia, Cough Type 2 diabetes mellitus with diabetic polyneuropathy Qualifiers: 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 If you have the feeling that you have a fever or chills check a temperature. If you start having temperatures of 100.4 or higher return to the emergency department. If you have any worsening symptoms, vomiting and inability to keep down liquids, black or bloody stool, dizziness, fainting, chest pain, difficulty breathing, confusion, neck pain or stiffness, or any other worsening or alarming symptoms return to the emergency department immediately. Patient was provided with discharge information including: As a person under investigation for Covid 19, the [place] department of Health and Human Services, division of public health advises you to adhere to the following guidance until your test results are reported to you. If your test result is positive, you will receive additional information from your provider and your local health department at that time. Remain at home until you are cleared by the health provider or public health authorities. Keep a log of visitors to your home, notify any visitors to your home of your isolation status. If you plan to move to a new address or leave the formerly [facility], notify the local health department in your County. Call your doctor or seek care if you have an urgent medical need. Before seeking medical care, call ahead to get instructions from the provider before arriving at the medical office clinic or hospital. Notify them that you are being tested for the virus that causes Covid 19 so that arrangements can be made, as necessary, to prevent transmission to others in the healthcare setting. Next, notify the local health department in your county. If a medical emergency arises and you need to call 911, inform the first responders that you are being tested for the virus that causes Covid 19. Next, notify the local health department in your county. Referrals: ÁNGEL ORNELAS MD [Primary Care Provider] - 11/07/20
--- NOTE | 2020-11-03 08:33 | EKG REPORT ---
SEVERITY:- ABNORMAL ECG - SINUS RHYTHM ATRIAL PREMATURE COMPLEX PROBABLE INFERIOR INFARCT, OLD : Confirmed by: Brittney Harman MD 03-Nov-2020 08:33:30
== END 2020-11-03 02:10 | disposition home or self-care (01) ==
LOC: ER 17:42
DX: E11.65 Type 2 diabetes mellitus with hyperglycemia (principal); E11.42 Type 2 diabetes mellitus with diabetic polyneuropathy; E11.22 Type 2 diabetes mellitus with diabetic chronic kidney disease; I12.9 Hypertensive chronic kidney disease with stage 1 through stage 4 chronic kidney disease, or unspecified chronic kidney disease; N18.9 Chronic kidney disease, unspecified; M79.10 Myalgia, unspecified site; R05 Cough; R53.1 Weakness; R53.81 Other malaise; R11.2 Nausea with vomiting, unspecified; R10.813 Right lower quadrant abdominal tenderness; R10.31 Right lower quadrant pain; R35.0 Frequency of micturition; I25.10 Atherosclerotic heart disease of native coronary artery without angina pectoris; I25.2 Old myocardial infarction; J44.9 Chronic obstructive pulmonary disease, unspecified; Z20.822 Contact with and (suspected) exposure to COVID-19; Z87.891 Personal history of nicotine dependence
CPT/HCPCS: 93005; 99285; 96360; 36415; 82962; 82550; 83735; 84100; 85025; 0241U; 80053; 81001; 84484; 71045; 74176; 93010; A9270 ×3; J7030; C9803; J1815